=== PATIENT | male | born 1935 | race Caucasian/White ===

== ENCOUNTER 2019-12-25 05:28 | Inpatient (IN) ==
[2019-12-25] MEDS ORDERED: HYDROmorphone INJ 0.5 MG/0.5 ML SYR IV STA (05:35)
[2019-12-25] MEDS ORDERED: ONDANSETRON INJ 2 MG/ML 2 ML VIAL IV STA ×2 (05:35→06:55)
--- NOTE | 2019-12-25 05:40 | Emergency Department Note ---
Impression & Plan Closed fracture of left hip, Acute UTI (urinary tract infection), Fall, Hypertension ED Provider Note Name: MARIELA AMADOR Age: 84 Sex: M Arrives Via: Ambulance Informant: Patient, ED Provider: Jose Francisco Rapp MD Chief Complaint: Fall Impression: Closed fracture of left hip Acute UTI Fall Hypertension Medical Decision Makin yr old male unknown to this facility who has history HTN and BPH arrives following fall at home. Deformity left left and imaging consistent with left hip fracture. N/V intact and pain controlled with dilaudid. CT head negative. UA consistent with UTI likely contributing to his fall. He does have a bit of dementia on talking with him and seems to be one that does most of remembering for him. Work-up benign otherwise and patient stable. Hospitalist in to evaluate further Triage/Nursing Notes reviewed by Me Additional history obtained from Differentials:Infection, dehydration, metabolic abnormality, hypo/hyperglycemia, electrolyte disturbance, anemia, hypoxia, cardiac sources, intracerebral event, toxicologic, neurologic, as well as other pathologies. Vital Signs: reviewed and remarkable for HTN Interventions: Saline lock, dilaudid 0.5mg IV, zofran 4mg IV Labs:Reviewed and remarkable for +UTI Imaging:Radiologist interpretation reviewed by me: CT head negative, cxr negative, pelvis/femur left: left hip fracture EKG:Per My Interpretation: Indication Pre-Op: NSR 75 bpm, qtc 473. RBBB. No Ectopy. No Ischemia. No previous for comparison Cardiac/Tele Monitoring: Cardiac Monitoring: An Order was placed for continuous cardiac monitoring. The monitor shows a rate of 75 with a normal sinus rhythm. Consults:Dr Bogdan Graff Hospitalist Plan: Disposition:Hospitalization. Condition: Fair Blood pressure:Elevated - Referred to PCP Prescriptions:none PDMP: n/a History of Present Illness:84 yr old male arrives for evaluation of left hip pain. Patient notes he was getting up to the bathroom when he slipped on the floor. Notes he fell on left hip. He did not strike head. He denies headache, neck pain, LOC. He denies symptoms preceding this fall. He laid on the floor for 30-60 minutes after falling as he was unable to get up. Denies previous falls/injuries. States his legs are always swollen. No medications prior to arrival. Worse with movement, better with rest. ROS: See above HPI for pertinent positives & negatives. A total of 10 systems reviewed and were otherwise negative. Past Medical History:HTN, BPH Past Surgical History:None Family History:parents of old age Social History:Lives with , uses chewing tobacco, no etoh, no cigarettes, retired Home Medications:Lisinopril and "two prostate medicine" Allergies:None Vitals:Blood Pressure: 192/96, Pulse 79, RR 18, T 37C, O2 98% on RA Physical Exam: GENERAL: Patient is chronically unwell appearing and in moderate distress. EYES: No scleral icterus, unremarkable pupils. ENT: Mucous membranes moist, no nasal congestion. NECK: No masses appreciated, nomeningismus, trachea is midline. RESPIRATORY: No dyspnea. Clear to auscultation and equal bilaterally. No wheeze, no rhonchi. CARDIOVASCULAR: Regular rate and rhythm.No murmurs, rubs, gallops appreciated. GASTROINTESTINAL: Abdomen soft, non-tender, no peritonitis.Bowel sounds positive.No masses appreciated. BACK: No midline tenderness, no CVA tenderness EXTREMITIES: Left leg shortened and externally rotated with good sensation and pulses. He has significant pain with rom left hip. Otherwise normal motion all extremities, no cyanosis, 2+ edema bilateral lower legs. NEUROLOGIC: Mild demential, alert and oriented, no acute motor or sensory deficits, no focal weakness, cranial nerves grossly intact. SKIN: Groin candidal skin break down, No rash, no jaundice, no diaphoresis. PSYCH: Appropriate GCS: 15 ED Course: Times/Reassessments: feeling better with pain meds Jose Francisco Rapp MD Past Med/Surg History Social History Smoking Status: Unknown if ever smoked Feels Safe at Home: Yes Allergies Allergies Allergy/AdvReac Type Severity Reaction Status Date / Time No Known Allergies Allergy Verified 12/25/19 05:50 Home Meds Home Medications Medication Instructions Recorded Confirmed Unknown B/P Med 1 dose PO DAILY 12/25/19 12/25/19 Unknown Prostate Med 1 dose PO DAILY 12/25/19 12/25/19 Results & Data (ED) Vital Signs Vital Signs - 24 hr 12/25/19 05:52 12/25/19 06:25 12/25/19 06:51 Temperature 37.0 C Temperature Source Oral Pulse Rate 88 79 Respiratory Rate 18 18 Respiratory Effort / Characteristics Non-Labored Spontaneous Respiratory Depth Normal Respiratory Pattern Regular Blood Pressure 233/110 H 192/96 H Blood Pressure Mean 151 144 Blood Pressure Position Sitting Pulse Oximetry 96 92 89 L Oxygen Delivery Method Room Air Room Air Nasal Cannula Oxygen Flow Rate 0 Sepsis Recent Fever Within 48 Hours No Sepsis New/Unexplained Change in Mental Status No Sepsis Action Taken by Nursing No Action Required Oxygen Flow Rate - Titration 2 Pulse Oximetry Post Tiitration 95 Laboratory Data Result diagrams: 12/25/19 05:50 12/25/19 05:50 Lab Results 12/25/19 12/25/19 12/25/19 Range/Units 05:50 05:50 05:50 WBC 12.54 H (4.8-10.8) K/uL RBC 5.89 (4.7-6.1) M/uL Hgb 16.8 (14.0-18.0) g/dL Hct 52.7 H (42-52) % MCV 89.5 (80-100) fL MCH 28.5 (25-34) pg MCHC 31.9 L (32-36) g/dL RDW Std Deviation 45.0 (36.4-46.3) fL RDW Coeff of Inocencio 13.7 (11.5-14.5) % Plt Count 171 (130-400) K/uL MPV 10.5 H (7.4-10.4) fL Immature Gran % (Auto) 0.4 % Neut % (Auto) 82.9 % Lymph % (Auto) 10.7 % Gem % (Auto) 5.1 % Eos % (Auto) 0.8 % Baso % (Auto) 0.1 % Neut # (Auto) 10.40 H (1.4-6.5) K/uL Lymph # (Auto) 1.34 (1.2-3.4) K/uL Gem # (Auto) 0.64 H (0.11-0.59) K/uL Eos # (Auto) 0.10 (0-0.5) K/uL Baso # (Auto) 0.01 (0-0.2) K/uL Immature Gran # (Auto) 0.05 H (0.00-0.02) K/uL PT 10.8 (9.0-12.0) Seconds INR 1.0 (0.9-1.1) APTT 28.4 (21.0-31.0) Seconds PTT Ratio 1.0 Sodium 143 (136-145) mmol/L Potassium 3.4 L (3.5-5.1) mmol/L Chloride 111 H (98-107) mmol/L Carbon Dioxide 31 (21-32) mmol/L Anion Gap 1.0 L (3-11) BUN 11 (7-18) mg/dl Creatinine 1.20 (0.6-1.4) mg/dl Est Cr Clr Drug Dosing 50.8 ml/min Est GFR ( Amer) 64.4 Est GFR (Non-Af Amer) 55.6 BUN/Creatinine Ratio 9.2 L (10-20) Glucose 103 H (70-99) mg/dl Calcium 9.5 (8.5-10.1) mg/dl Magnesium 2.4 (1.8-2.4) mg/dl TSH 2.480 (0.300-4.500) uIu/ml Urine Color Urine Appearance (Clear) Urine pH (4.5-7.5) Ur Specific [place] (1.000-1.030) Urine Protein (Negative) Urine Glucose (UA) (Negative) Urine Ketones (Negative) Urine Blood (Negative) Urine Nitrite (Negative) Urine Bilirubin (Negative) Urine Urobilinogen (Negative) Ur Leukocyte Esterase (Negative) Urine WBC (Auto) (0-5) /hpf Urine RBC (Auto) (0-4) /hpf U Hyaline Cast (Auto) (0-5) /lpf U Epithel Cells (Auto) (0-5) /lpf Urine Bacteria (Auto) (Negative) Blood Type Antibody Screen 12/25/19 12/25/19 Range/Units 05:58 06:30 WBC (4.8-10.8) K/uL RBC (4.7-6.1) M/uL Hgb (14.0-18.0) g/dL Hct (42-52) % MCV (80-100) fL MCH (25-34) pg MCHC (32-36) g/dL RDW Std Deviation (36.4-46.3) fL RDW Coeff of Inocencio (11.5-14.5) % Plt Count (130-400) K/uL MPV (7.4-10.4) fL Immature Gran % (Auto) % Neut % (Auto) % Lymph % (Auto) % Gem % (Auto) % Eos % (Auto) % Baso % (Auto) % Neut # (Auto) (1.4-6.5) K/uL Lymph # (Auto) (1.2-3.4) K/uL Gem # (Auto) (0.11-0.59) K/uL Eos # (Auto) (0-0.5) K/uL Baso # (Auto) (0-0.2) K/uL Immature Gran # (Auto) (0.00-0.02) K/uL PT (9.0-12.0) Seconds INR (0.9-1.1) APTT (21.0-31.0) Seconds PTT Ratio Sodium (136-145) mmol/L Potassium (3.5-5.1) mmol/L Chloride (98-107) mmol/L Carbon Dioxide (21-32) mmol/L Anion Gap (3-11) BUN (7-18) mg/dl Creatinine (0.6-1.4) mg/dl Est Cr Clr Drug Dosing ml/min Est GFR ( Amer) Est GFR (Non-Af Amer) BUN/Creatinine Ratio (10-20) Glucose (70-99) mg/dl Calcium (8.5-10.1) mg/dl Magnesium (1.8-2.4) mg/dl TSH (0.300-4.500) uIu/ml Urine Color Yellow Urine Appearance Cloudy A (Clear) Urine pH 7.5 (4.5-7.5) Ur Specific [place] 1.015 (1.000-1.030) Urine Protein 1+ H (Negative) Urine Glucose (UA) Negative (Negative) Urine Ketones Negative (Negative) Urine Blood 1+ H (Negative) Urine Nitrite Negative (Negative) Urine Bilirubin Negative (Negative) Urine Urobilinogen Negative (Negative) Ur Leukocyte Esterase 2+ H (Negative) Urine WBC (Auto) >30 H (0-5) /hpf Urine RBC (Auto) 5-10 H (0-4) /hpf U Hyaline Cast (Auto) 1-5 (0-5) /lpf U Epithel Cells (Auto) 0-5 (0-5) /lpf Urine Bacteria (Auto) 1+ H (Negative) Blood Type O Negative Antibody Screen NEGATIVE Administered Medications Discontinued Medications Hydromorphone HCl (Hydromorphone Inj 0.5 Mg/0.5 Ml Syr) 0.5 mg IV NOW STA Stop: 12/25/19 05:36 Last Admin: 12/25/19 05:49 Dose: 0.5 mg Documented by: [id number] Ondansetron HCl (Ondansetron Inj 2 Mg/Ml 2 Ml Vial) 4 mg IV NOW STA Stop: 12/25/19 05:36 Last Admin: 12/25/19 05:49 Dose: 4 mg Documented by: [id number] Ondansetron HCl (Ondansetron Inj 2 Mg/Ml 2 Ml Vial) 4 mg IV NOW STA Stop: 12/25/19 06:56 Last Admin: 12/25/19 07:00 Dose: 4 mg Documented by: [id number] Discharge Plan Visit Data Chief Complaint: Hip Pain Stated Complaint: fall ED Provider: Jose Francisco Rapp Discharge Problem: Closed fracture of left hip, Acute UTI (urinary tract infection), Fall, Hypertension Forms Stand Alone Forms: [facility] Prescriptions Prescriptions: No Action Unknown B/P Med 1 dose PO DAILY RF: 0 Unknown Prostate Med 1 dose PO DAILY RF: 0 Discharge Problem: Closed fracture of left hip Qualifiers: Encounter type: initial encounter Qualified Code(s): S72.002A - Fracture of unspecified part of neck of left femur, initial encounter for closed fracture Fall Qualifiers: Encounter type: initial encounter Qualified Code(s): W19.XXXA - Unspecified fall, initial encounter Hypertension Qualifiers: Hypertension type: essential hypertension Qualified Code(s): I10 - Essential (primary) hypertension
[2019-12-25 06:10] LABS: Basophils # (auto) 0.01 K/uL (0-0.2); Basophils % (auto) 0.1 %; Eosinophils % (auto) 0.8 %; Hematocrit (blood only) 52.7 % (42-52); Hemoglobin 16.8 g/dL (14.0-18.0); Immature Granulocytes # (auto) 0.05 K/uL (0.00-0.02); Immature Granulocytes % (auto) 0.4 %; Lymphocytes # (auto) 1.34 K/uL (1.2-3.4); Lymphocytes % (auto) 10.7 %; Mean Corpuscular Hemoglobin 28.5 pg (25-34); Mean Corpuscular Hgb Conc 31.9 g/dL (32-36); Mean Corpuscular Volume 89.5 fL (80-100); Mean Platelet Volume 10.5 fL (7.4-10.4); Monocytes # (auto) 0.64 K/uL (0.11-0.59); Monocytes % (auto) 5.1 %; Neutrophils % (auto) 82.9 %; Platelet Count 171 K/uL (130-400); RDW Coefficient of Variation 13.7 % (11.5-14.5); Red Blood Count 5.89 M/uL (4.7-6.1); White Blood Count 12.54 K/uL (4.8-10.8)
[2019-12-25 06:15] LABS: Partial Thromboplastin Time 28.4 Seconds (21.0-31.0); Prothrombin Time 10.8 Seconds (9.0-12.0)
[2019-12-25 06:29] LABS: BUN Creatinine Ratio 9.2 (10-20); Calcium 9.5 mg/dl (8.5-10.1); Creatinine Clr Calc Pharmacy 50.8 ml/min; Est GFR (African American) 64.4; Est GFR (Non-African American) 55.6; Magnesium 2.4 mg/dl (1.8-2.4); Potassium 3.4 mmol/L (3.5-5.1)
[2019-12-25 06:40] LABS: Thyroid Stimulating Hormone 2.48 uIu/ml (0.300-4.500)
[2019-12-25 06:52] LABS: Appearance Urine Cloudy (Clear); Bacteria Urine Automated 1+ (Negative); Bilirubin Urine Negative (Negative); Blood Urine 1+ (Negative); Color Urine Yellow; Epithelial Cell Urine Auto 0-5 /lpf (0-5); Glucose Urine UA Negative (Negative); Ketones Urine Negative (Negative); Leukocyte Esterase Urine 2+ (Negative); Nitrite Urine Negative (Negative); Specific Gravity Urine 1.015 (1.000-1.030); Urobilinogen Urine Negative (Negative); WBC Urine Automated >30 /hpf (0-5); pH Urine 7.5 (4.5-7.5)
[2019-12-25 07:02] LABS: Protein Urine 1+ (Negative); Sulfosalicylic Acid Urine Positive (Negative)
[2019-12-25] MEDS ORDERED: cefTRIAXone SODIUM 2,000 MG/70 ML BAG IV STA (07:06)
--- NOTE | 2019-12-25 07:12 | XRay Report ---
XR femur LT 2V routine, XR pelvis 1-2V routine CLINICAL HISTORY: fall, left hip pain COMPARISON STUDY: None. FINDINGS: Mildly displaced left femoral neck fracture. No dislocation. The mid to distal femur is int act. No fracture or dislocation within the pelvis or right hip. The bones are osteopenic. Multiple bl adder stones are noted. IMPRESSION: Mildly displaced left femoral neck fracture. ACT 112: Negative or not required by law. Electronically signed by: Mesfin Soto M.D. 12/25/2019 7:11 AM
--- NOTE | 2019-12-25 07:13 | XRay Report ---
XR chest 1V portable HISTORY: fall, left hip pain COMPARISON: None. FINDINGS: The lungs are clear. The heart is top normal in size. No pleural effusions. No pneumothorax . No rib fractures identified. IMPRESSION: No acute process. ACT 112: Negative or not required by law. Electronically signed by: Mesfin Soto M.D. 12/25/2019 7:12 AM
--- NOTE | 2019-12-25 07:26 | CT Scan Report ---
HEAD CT NONCONTRAST CT DOSE: 614.27 mGy.cm HISTORY: dementia, fall, hip fracture TECHNIQUE: Multiaxial CT images of the head were performed without the use of intravenous contrast. A utomated exposure control was utilized for this study. A dose lowering technique was utilized adheri ng to the principles of ALARA. Comparison: None. Findings: A few partially opacified inferior mastoid air cells. The paranasal sinuses are clear. Mild right lateral scalp swelling. Motion artifact at the high convexity. The calvarium and skull base ar e intact. There is no mass, hematoma, midline shift, acute infarct. White matter hypodensity is nonsp ecific but suggestive of microvascular ischemic change. The ventricles and sulci demonstrate mild age -related involutional changes. Old lacunar infarct within the right thalamus. Impression: No acute intracranial abnormality. Atrophy and microvascular ischemic changes. Right lateral scalp sw elling. ACT 112: Negative or not required by law. Electronically signed by: Mesfin Soto M.D. 12/25/2019 7:25 AM
--- NOTE | 2019-12-25 07:50 | History & Physical Report ---
Date of Service December 25, 2019 Assessment & Plan (1) Fall: -This is a 84 year old Male who was at home and reportedly was got up after sleeping in the night time and fell down several feet from where he was sleeping as per his Dorina ([phone]). Patient appears to have auditory impairment and most of the history provided by his at the bedside. Patient apparently did not have loss of consciousness as he called out for help. Patient was brought to the ED and found to have Mildly displaced left femoral neck fracture. Patient also seen to be hypertensive in the ED likely because of underlying hypertension which is exacerbated by pain from the fall injury. Patient has anderson placed in the ED and urine analysis noted to have bacteria and ED provider started ceftriaxone antibiotic. Patient also noted to have redness of medial left thigh and patient's reports that patient often wets himself from urination and does not keep the area dry as it should be. (2) Closed fracture of left hip: -pain medication with bowel regimen -NPO for now while awaiting orthopedic consult if any surgical interventions -hydration with D5 1/2 normal saline (3) Hypertension: -pain medication -continue home dose lisinopril (4) Acute UTI (urinary tract infection): -continue ceftriaxone empirically and follow the urine culture -anderson care (5) BPH (benign prostatic hyperplasia): -continue home dose tamsulosin and finasteride DVT prophylaxis: heparin subcutaneous Full code as per patient's who helps patient make the medical decisions patient's also signed blood transfusion consent form if blood transfusion needed History of Present Illness This is a 84 year old Male who was at home and reportedly was got up after sleeping in the night time and fell down several feet from where he was sleeping as per his Dorina ([phone]). Patient appears to have auditory impairment and most of the history provided by his at the bedside. Patient apparently did not have loss of consciousness as he called out for help. Patient was brought to the ED and found to have Mildly displaced left femoral neck fracture. Patient also seen to be hypertensive in the ED likely because of underlying hypertension which is exacerbated by pain from the fall injury. Patient has anderson placed in the ED and urine analysis noted to have bacteria and ED provider started ceftriaxone antibiotic. Patient also noted to have redness of medial left thigh and patient's reports that patient often wets himself from urination and does not keep the area dry as it should be. Allergies: Patient's denies that patient has an drug allergies to food or medications Past Surgical History: Patient's denies that patient has had any surgery in the past Family Health History: Patient's denies that health problems with patient's biological relations Primary Care Provider: Darell Garner PA-C Allergies Allergy/AdvReac Type Severity Reaction Status Date / Time No Known Allergies Allergy Verified 12/25/19 05:50 Home Medications Home Medications Medication Instructions Recorded Confirmed Type finasteride 5 mg PO 12/25/19 History lisinopril 10 mg PO 12/25/19 History tamsulosin 0.4 mg PO 12/25/19 History Past Med/Surg History Social History Smoking Status: Unknown if ever smoked Feels Safe at Home: Yes Review of Systems Review of Systems: All systems reviewed & are unremarkable except as noted in Subjective Physical Exam Constitutional: comfortable Eyes: PERRL, conjunctivae normal, anicteric sclerae EOM intact bilaterally ENMT: external ear and nose normal, oropharynx normal Ears: + hearing impairment Neck: trachea midline, no thyromegaly normal visual inspection Respiratory: normal respiratory effort, lungs clear to auscultation Cardiovascular: Rate/Rhythm: regular rate Gastrointestinal (Abdomen): normal bowel sounds, soft, nontender, no hepatosplenomegaly Musculoskeletal: Head/Neck/Chest: normocephalic and head atraumatic Skin: no rashes, warm and dry + rash (left medial thigh rash) Neurologic: PERRL, EOMI, accommodation nl, no face palsy, no dysarthria Psychiatric: Orientation: alert and cooperative Genitourinary: no testicular masses, no penis abnormality (anderson) Results & Data Results & Data ([facility]) Vital Signs (Past 12 Hours) Vital Signs Temp Pulse Resp BP Pulse Ox 12/25/19 06:51 89 L 12/25/19 06:25 79 18 192/96 H 92 12/25/19 05:52 37.0 C 88 18 233/110 H 96 (1) Closed fracture of left hip Encounter type: initial encounter Qualified Code(s): S72.002A - Fracture of unspecified part of neck of left femur, initial encounter for closed fracture (2) Fall Encounter type: initial encounter Qualified Code(s): W19.XXXA - Unspecified fall, initial encounter (3) Hypertension Hypertension type: essential hypertension Qualified Code(s): I10 - Essential (primary) hypertension
[2019-12-25] MEDS ORDERED: bisacodyL 10 MG SUPP PR PRN (07:51)
[2019-12-25] MEDS ORDERED: MAGNESIUM HYDROXIDE SUSP 30 ML UDC PO PRN (07:51)
[2019-12-25] MEDS ORDERED: NALOXONE HCL 0.4 MG/1 ML VIAL/CARP IV PRN (07:51)
[2019-12-25] MEDS ORDERED: ACETAMINOPHEN 325 MG TAB PO PRN (07:53)
[2019-12-25] MEDS ORDERED: oxyCODONE HCL IR 5 MG TAB (IMMEDIATE RELEASE) PO PRN (07:53)
[2019-12-25] MEDS ORDERED: HYDROmorphone INJ 1 MG/ML SYRINGE IV PRN (07:53)
[2019-12-25] MEDS ORDERED: ONDANSETRON INJ 2 MG/ML 2 ML VIAL IV PRN (07:56)
[2019-12-25] MEDS ORDERED: D5W AND 1/2NSS 1,000 ML IV SCH (08:00)
[2019-12-25] MEDS ORDERED: LABETALOL HCL IV 5 MG/ML 20ML IV STA (08:06)
[2019-12-25] MEDS ORDERED: LABETALOL HCL IV 5 MG/ML 20ML IV PRN (08:06)
[2019-12-25] MEDS ORDERED: lisinopril 10 MG TAB PO SCH (09:00)
[2019-12-25] MEDS ORDERED: TAMSULOSIN HCL 0.4 MG CAP PO SCH (09:00)
[2019-12-25] MEDS ORDERED: FINASTERIDE 5 MG TAB PO SCH (09:00)
[2019-12-25] MEDS ORDERED: MICONAZOLE NITRATE POWDER 43 GM EXT PRN (10:28)
[2019-12-25] MEDS: HEPARIN SOD 5,000 UNIT/0.5 ML VIAL SQ SCH ×2 (10:38→20:12)
--- NOTE | 2019-12-25 12:19 | Orthopedic Consultation ---
Date of Consultation December 25, 2019 Assessment & Plan (1) Displaced fracture of left femoral neck: He has a displaced left hip femoral neck fracture. This will require a hip hemiarthroplasty. The timing of the surgery is questionable. His blood pressure was 230/110 upon admission, and is only marginally improved at 180/90 currently. My biggest concern is his current mental status. His states that he is normally very interactive, and able to make his own medical decisions. He does not have a power of director private music therapy agency. He is currently obviously very far from that baseline. He is minimally interactive now, although does follow some simple commands. He cannot even tell me which hip is heard. He has incoherent speech. Will await further assessment and clearance by the medical team before definitively planning for his surgical intervention. Timing to be determined. The hip hemiarthroplasty was discussed with his , who voiced understanding and agreement with the surgical plan. Of note, I am unable to adequately assess for any other injuries due to his current mental status. Present on Admission?: Yes History of Present Illness Reason for Consultation: Left hip fracture Attending Physician: Jose Mcfadden MD History of Present Illness Mr. Munroe is an 84-year-old male who was injured his left hip during unwitnessed ground-level fall last night. The patient is minimally responsive right now, and history was obtained from his . She states that around 3:30 this morning, the patient got out of his recliner that he was sleeping then and presumably fell only about 5 feet away from the recliner. The reason for the fall is unknown, as this was unwitnessed. The patient then called for help, and the son, who is in the house, came to help. EMS was then called as they were unable to get him up. His reports that he was in his normal baseline mental status at that point, and seemed fairly normal last night. She states that he is normally very interactive and oriented. She states that he does have some mild dementia and is sometimes forgetful, but his current mental state is very different from his normal baseline. She also states that he is normally a community ambulator without any aids. He normally makes his own medical d ecisions, and does not have a power of director private music therapy agency. Last oral intake is unknown, but none since about 3:30 AM. Allergies Allergy/AdvReac Type Severity Reaction Status Date / Time No Known Allergies Allergy Verified 12/25/19 05:50 Home Medications Home Medications Medication Instructions Recorded Confirmed Type finasteride 5 mg PO 12/25/19 History lisinopril 10 mg PO 12/25/19 History tamsulosin 0.4 mg PO 12/25/19 History Patient History Social History Smoking Status: Former smoker Second Hand Exposure: No; Do You Dip or Chew Tobacco: Yes; Tobacco Cessation Education Requested by Patient: No Hx Alcohol Use: No Hx Substance Use: No Preferred Language: Mexican Beliefs That Will Affect Care: None Current Living Situation: Spouse Other Information That Helps Us Care for You: No Feels Safe at Home: Yes Safety Concerns: Feels Safe At This Time Physical Exam Physical Exam: General: The patient appears well developed and well nourished. He is awake, but minimally interactive. He stares off into 1 direction, and will only follow some simple commands. He has incoherent speech. He will not respond to orientation questions. Gait and station not assessed due to the known hip fracture. Coordination and balance are unable to be assessed. Skin: The skin over the left hip shows no open wounds. Inspection/Palpation: Visual inspection reveals shortening and external rotation of the leg. There is mild swelling and tenderness to palpation of the thigh and hip area. Compartments are soft and compressible. Range of Motion: Hip range of motion is limited due to pain. Stability: Ligamentous stability was not tested due to the known fracture. Strength: Hip strength is limited due to pain. Intact ankle dorsiflexion and plantarflexion. Sensation: The patient reports no numbness in the leg. Vascular: Leg is warm and well perfused. No diffuse edema. Results & Data ([facility]) Vital Signs (Past 12 Hours) Vital Signs Temp Pulse Pulse Resp BP BP Pulse Ox 12/25/19 11:28 36.6 C 82 20 178/91 H 92 12/25/19 09:34 36.8 C 80 16 98 12/25/19 08:10 87 20 180/87 H 96 12/25/19 06:51 89 L 12/25/19 06:25 79 18 192/96 H 92 12/25/19 05:52 37.0 C 88 18 233/110 H 96 Diagnostic Findings Left hip x-rays show a displaced femoral neck fracture. Minimal arthritic degeneration at the hip joint.
[2019-12-25] MEDS ORDERED: ROCURONIUM BROMIDE 10 MG/ML 10 ML VIAL IV ONE (14:37)
[2019-12-25] MEDS ORDERED: ETOMIDATE 2 MG/ML 20 ML VIAL IV ONE (14:37)
[2019-12-25 16:43] LABS: Eosinophils # (auto) 0.03 K/uL (0-0.5); Eosinophils % (auto) 0.2 %; Hematocrit (blood only) 48.5 % (42-52); Hemoglobin 15.9 g/dL (14.0-18.0); Immature Granulocytes # (auto) 0.04 K/uL (0.00-0.02); Immature Granulocytes % (auto) 0.2 %; Lymphocytes # (auto) 1.39 K/uL (1.2-3.4); Lymphocytes % (auto) 8.3 %; Mean Corpuscular Hemoglobin 28.9 pg (25-34); Mean Corpuscular Volume 88.2 fL (80-100); Monocytes # (auto) 0.51 K/uL (0.11-0.59); Neutrophils # (auto) 14.84 K/uL (1.4-6.5); Neutrophils % (auto) 88.3 %; Platelet Count 152 K/uL (130-400); RDW Coefficient of Variation 13.4 % (11.5-14.5); RDW Standard Deviation 43.6 fL (36.4-46.3); White Blood Count 16.81 K/uL (4.8-10.8)
[2019-12-25 16:49] LABS: Mean Corpuscular Hgb Conc 32.8 g/dL (32-36)
[2019-12-25 17:00] LABS: BUN Creatinine Ratio 8.5 (10-20); Calcium 9.2 mg/dl (8.5-10.1); Creatinine Clr Calc Pharmacy 53.6 ml/min; Est GFR (African American) 69.3; Est GFR (Non-African American) 59.8
[2019-12-25 17:01] LABS: Potassium 4.3 mmol/L (3.5-5.1)
--- NOTE | 2019-12-25 17:14 | Anesthesiology Consultation ---
Date of Service December 25, 2019 Assessment & Plan (1) Encounter for pre-operative examination: Chart Review Chart Review: Acceptable Risk for Surgery and Patient NOT seen in Pre Admission Testing Consults Requested none covid 19 12/25/2019 negative ([id number] rapid). History Surgery Operation Date: 12/26/19 11:40 Proposed Procedures p Left Bipolar Hemiarthroplasty - Gadiel Del Rosario DO Height/Weight Height: 5 ft 9 in Weight: 85.2 kg Allergies Allergy/AdvReac Type Severity Reaction Status Date / Time No Known Allergies Allergy Verified 12/25/19 05:50 Medications Home Medications Medication Instructions Recorded Confirmed Last Taken finasteride 5 mg PO 12/25/19 Unknown lisinopril 10 mg PO 12/25/19 Unknown tamsulosin 0.4 mg PO 12/25/19 Unknown Active Medications Generic Name Dose Route Start Last Admin Trade Name Freq PRN Reason Stop Dose Admin Acetaminophen 325 mg 12/25/19 07:53 12/25/19 08:28 Acetaminophen 325 Mg Tab PO 01/24/20 07:59 325 mg Q6H PRN Administration Pain or Fever Finasteride 5 mg 12/25/19 09:00 12/25/19 10:38 Finasteride 5 Mg Tab PO 01/24/20 08:59 5 mg QAM CHETAN Administration Heparin Sodium (Porcine) 5,000 units 12/25/19 09:45 12/25/19 10:38 Heparin Sod 5,000 Unit/0.5 Ml Vial SQ 01/24/20 09:44 5,000 units Q12 CHETAN Administration Dextrose/Sodium Chloride 1,000 mls @ 80 mls/hr 12/25/19 08:00 12/25/19 08:28 D5w And 1/2nss IV 12/25/19 20:29 80 mls/hr .[id number] CHETAN Administration Lisinopril 10 mg 12/25/19 09:00 12/25/19 10:38 Lisinopril 10 Mg Tab PO 01/24/20 08:59 10 mg QAM CHETAN Administration Oxycodone HCl 5 mg 12/25/19 07:53 12/25/19 08:28 Oxycodone Hcl Ir 5 Mg Tab (Immediate Release) PO 01/08/20 07:52 5 mg Q6H PRN Administration Moderate Pain Tamsulosin HCl 0.4 mg 12/25/19 09:00 12/25/19 10:38 Tamsulosin Hcl 0.4 Mg Cap PO 01/24/20 08:59 0.4 mg QAM CHETAN Administration Past Medical History Medical History (Updated 12/25/19 @ 17:12 by Prashanth Mcfarland MD) Acute UTI (urinary tract infection) BPH (benign prostatic hyperplasia) Fall Hypertension Social History Smoking Status: Former smoker tobacco type: smokeless tobacco Do You Dip or Chew Tobacco: Yes Hx Alcohol Use: No Hx Substance Use: No substance use type: does not use Physical Exam Vital Signs Last Vital Signs Temp 36.6 C 12/25/19 15:39 Pulse 57 L 12/25/19 15:39 Resp 20 12/25/19 15:39 BP 163/84 H 12/25/19 15:39 Pulse Ox 95 12/25/19 15:39 Testing Laboratory Results 12/25/19 16:26 12/25/19 16:26 PT 10.8 Seconds (9.0-12.0) 12/25/19 05:50 INR 1.0 (0.9-1.1) 12/25/19 05:50 APTT 28.4 Seconds (21.0-31.0) 12/25/19 05:50 Urine Color Yellow 12/25/19 06:30 Urine Appearance Cloudy (Clear) A 12/25/19 06:30 Urine pH 7.5 (4.5-7.5) 12/25/19 06:30 Ur Specific [place] 1.015 (1.000-1.030) 12/25/19 06:30 Urine Protein 1+ (Negative) H 12/25/19 06:30 Urine Glucose (UA) Negative (Negative) 12/25/19 06:30 Urine Ketones Negative (Negative) 12/25/19 06:30 Urine Nitrite Negative (Negative) 12/25/19 06:30 Ur Leukocyte Esterase 2+ (Negative) H 12/25/19 06:30 Urine WBC (Auto) >30 /hpf (0-5) H 12/25/19 06:30 Urine RBC (Auto) 5-10 /hpf (0-4) H 12/25/19 06:30 U Hyaline Cast (Auto) 1-5 /lpf (0-5) 12/25/19 06:30 U Epithel Cells (Auto) 0-5 /lpf (0-5) 12/25/19 06:30 Urine Bacteria (Auto) 1+ (Negative) H 12/25/19 06:30 Blood Type O Negative 12/25/19 05:58 Antibody Screen NEGATIVE 12/25/19 05:58 Electrocardiogram Date: 12/25/19 Findings: + NSR @ (75) NSR. RBBB. Inferior infarct, age undetermined.
[2019-12-25] MEDS ORDERED: SODIUM CHLORIDE 0.9% 1000ML 500 ML IV ONE (17:20)
--- NOTE | 2019-12-25 20:02 | Electrocardiogram Report ---
Test Reason : Blood Pressure : / mmHG Vent. Rate : 075 BPM Atrial Rate : 075 BPM P-R Int : 124 ms QRS Dur : 148 ms QT Int : 424 ms P-R-T Axes : 000 -25 -06 degrees QTc Int : 473 ms Normal sinus rhythm Right bundle branch block Inferior infarct , age undetermined Abnormal ECG No previous ECGs available Confirmed by Dany Swift ([id number]) on 12/25/2019 8:01:50 PM Referred By: Confirmed By:Dany Swift
[2019-12-25] MEDS: DOCUSATE SODIUM/SENNA 50/8.6MG TAB PO SCH (20:17)
[2019-12-25] MEDS: SODIUM CHLORIDE 0.9% 1000ML 1,000 ML IV SCH (21:06)
[2019-12-26] MEDS: LABETALOL HCL IV 5 MG/ML 20ML IV PRN (04:01)
[2019-12-26 04:05] LABS: Basophils # (auto) 0.01 K/uL (0-0.2); Basophils % (auto) 0.1 %; Eosinophils # (auto) 0.02 K/uL (0-0.5); Eosinophils % (auto) 0.1 %; Hematocrit (blood only) 49.1 % (42-52); Immature Granulocytes # (auto) 0.03 K/uL (0.00-0.02); Immature Granulocytes % (auto) 0.2 %; Lymphocytes # (auto) 1.08 K/uL (1.2-3.4); Lymphocytes % (auto) 6.9 %; Mean Corpuscular Hemoglobin 28.8 pg (25-34); Mean Corpuscular Hgb Conc 32.6 g/dL (32-36); Mean Corpuscular Volume 88.3 fL (80-100); Mean Platelet Volume 10.5 fL (7.4-10.4); Monocytes # (auto) 0.83 K/uL (0.11-0.59); Monocytes % (auto) 5.3 %; Neutrophils # (auto) 13.75 K/uL (1.4-6.5); Neutrophils % (auto) 87.4 %; Platelet Count 158 K/uL (130-400); RDW Coefficient of Variation 13.4 % (11.5-14.5); RDW Standard Deviation 43.5 fL (36.4-46.3); Red Blood Count 5.56 M/uL (4.7-6.1); White Blood Count 15.72 K/uL (4.8-10.8)
[2019-12-26 04:22] LABS: Albumin Level 3.3 gm/dl (3.4-5.0); BUN Creatinine Ratio 9.2 (10-20); Calcium 8.8 mg/dl (8.5-10.1); Creatinine Clr Calc Pharmacy 58.2 ml/min; Est GFR (African American) 76.6; Est GFR (Non-African American) 66.1
[2019-12-26 04:25] LABS: Albumin Globulin Ratio 0.9 (0.9-2); Bilirubin,Total 1.5 mg/dl (0.2-1); Globulin 3.5 gm/dl (2.5-4.0); Total Protein 6.8 gm/dl (6.4-8.2)
[2019-12-26] MEDS: SODIUM CHLORIDE 0.9% 1000ML 1,000 ML IV SCH ×2 (07:26→16:27)
[2019-12-26] MEDS ORDERED: cefTRIAXone SODIUM 2,000 MG in DEXTROSE 5% 50 ML IV SCH (08:00)
--- NOTE | 2019-12-26 08:08 | Hospitalist Progress Note ---
Date of Service December 26, 2019 Assessment & Plan (1) Fall: -This is a 84 year old Male who was at home and reportedly was got up after sleeping in the night time and fell down several feet from where he was sleeping as per his Dorina ([phone]). Patient appears to have auditory impairment and most of the history provided by his at the bedside. Patient apparently did not have loss of consciousness as he called out for help. Patient was brought to the ED and found to have Mildly displaced left femoral neck fracture. Patient also seen to be hypertensive in the ED likely because of underlying hypertension which is exacerbated by pain from the fall injury. Patient has anderson placed in the ED and urine analysis noted to have bacteria and ED provider started ceftriaxone antibiotic. Patient also noted to have redness of medial left thigh and patient's reports that patient often wets himself from urination and does not keep the area dry as it should be. (2) Closed fracture of left hip: -pain medication with bowel regimen -NPO for now while awaiting orthopedic consult if any surgical interventions -hydration with D5 1/2 normal saline (3) Hypertension: -pain medications -has prn labetalol for elevated blood pressure as instituted by night time doctor -can also use enalprilat in place of oral lisinopril while awaiting formal speech and swallow evaluation (4) Acute UTI (urinary tract infection): -continue ceftriaxone empirically and follow the urine culture -anderson care -monitor medial leg rash from history of patient wetting himself when outpatient (5) BPH (benign prostatic hyperplasia): -hold home dose tamsulosin and finasteride for now (6) Lactic acidosis: -may be from fracture versus urinary tract infection (7) Acute encephalopathy: -unclear whether initial confusion due to left hip fracture, narcotic pain medications, or urinary tract infection -Stroke code called below in regards to facial asymmetry (8) Hearing impairment: -patient known to have hearing impairment. At baseline, patient's family (his Dorina and his son) corroborated that patient does not speak very much and does not not speak loudly. The family members are not observant of how patient looks like when he speaks. (9) Facial asymmetry: -CT head on 12/25/2019 presentation without acute findings but mentioned Old lacunar infarct within the right thalamus -in the AM of 12/26/2019, patient was speaking more to medical team. However he has facial asymmetry more pronounced when speaking (able to talk more with right side of the mouth compared to the left). A stroke alert was called to expedite CT head scan and brain MRI. Patient able to answer some questions about his name and he does not express acute symptoms. He moves the upper extremities. He has left femoral neck fracture and his legs are in waffle boots -neurology consult DVT prophylaxis: has been on heparin 5000 units q12 hours Full Code Admission and Anticipated Discharge Date Admission Date: December 25, 2019 Subjective -patient known to have hearing impairment. At baseline, patient's family (his Dorina and his son) corroborated that patient does not speak very much and does not not speak loudly. The family members are not observant of how patient looks like when he speaks. -CT head on 12/25/2019 presentation without acute findings but mentioned Old lacunar infarct within the right thalamus -in the AM of 12/26/2019, patient was speaking more to medical team. However he has facial asymmetry more pronounced when speaking (able to talk more with right side of the mouth compared to the left). A stroke alert was called to expedite CT head scan and brain MRI Patient able to answer some questions about his name and he does not express acute symptoms. He moves the upper extremities. He has left femoral neck fracture and his legs are in waffle boots Review of Systems Review of Systems: Unobtainable due to cognitive status Physical Exam Constitutional: comfortable Eyes: PERRL, conjunctivae normal, anicteric sclerae EOM intact bilaterally ENMT: Ears: + hearing impairment facial asymmetry more pronounced when patient is speaking (able to talk more with right side of the mouth compared to the left) Neck: trachea midline, no thyromegaly normal visual inspection Respiratory: normal respiratory effort, lungs clear to auscultation Cardiovascular: Rate/Rhythm: regular rate Gastrointestinal (Abdomen): normal bowel sounds, soft, nontender, no hepatosplenomegaly Musculoskeletal: Head/Neck/Chest: normocephalic and head atraumatic Skin: no rashes, warm and dry + rash (left medial thigh rash) Neurologic: PERRL, EOMI, accommodation nl, no face palsy, no dysarthria Psychiatric: Orientation: alert and cooperative Genitourinary: no testicular masses, no penis abnormality (anderson) Results & Data Results & Data ([facility]) Vital Signs (Past 12 Hours) Vital Signs Temp Pulse Pulse Resp BP Pulse Ox 12/26/19 07:45 36.7 C 82 18 164/90 H 94 12/26/19 07:27 90 12/26/19 03:54 36.2 C L 90 20 197/102 H 93 12/25/19 23:00 36.4 C L 96 H 20 219/106 H 93 (1) Fall Encounter type: initial encounter Qualified Code(s): W19.XXXA - Unspecified fall, initial encounter (2) Closed fracture of left hip Encounter type: initial encounter Qualified Code(s): S72.002A - Fracture of unspecified part of neck of left femur, initial encounter for closed fracture (3) Hypertension Hypertension type: essential hypertension Qualified Code(s): I10 - Essential (primary) hypertension
--- NOTE | 2019-12-26 08:14 | CT Scan Report ---
CT head/brain wo con CLINICAL HISTORY: confusion COMPARISON STUDY: 12/25/2019 TECHNIQUE: Axial CT of the brain is performed from the vertex to the skull base. IV contrast was not administered for this examination. A dose lowering technique was utilized adhering to the principles of ALARA. CT DOSE: 614.27 mGy.cm FINDINGS: No intra or extra-axial mass lesions are visualized. There is no CT evidence of acute cortical infarc tion. There is no evidence of midline shift. There is no acute hemorrhage. No calvarial fractures ar e visualized. There are moderate white matter hypodensities likely on a small vessel basis. There is an old right t halamic lacunar infarct There is no evidence of pathologic ventricular dilatation. There is no evidence of acute sinusitis IMPRESSION: No acute intracranial findings ACT 112: Negative or not required by law. Electronically signed by: Dorian Hilario M.D. 12/26/2019 8:12 AM
[2019-12-26] MEDS ORDERED: cefTRIAXone SODIUM 1,000 MG in DEXTROSE 5% 50 ML IV SCH (09:00)
[2019-12-26] MEDS ORDERED: GADOBUTROL 65ML VIAL IV ONE (11:15)
[2019-12-26] MEDS ORDERED: BUPIVACAINE 0.5 % 5 MG/1 ML PF 10ML VIAL ONE (11:22)
--- NOTE | 2019-12-26 11:33 | Magnetic Resonance Report ---
MRI OF THE BRAIN WITHOUT AND WITH IV CONTRAST CLINICAL HISTORY: Altered mental status. Fall. Evaluate for stroke. COMPARISON STUDY: Head CT December 25, 2019 and December 26, 2019. TECHNIQUE: Utilizing a 1.5 Sera magnet and dedicated coil, multiplanar, multiecho imaging of the br ain was performed pre and postcontrast administration. IV administration of 8.5 mL of Gadavist contr ast was uneventful. FINDINGS: Exam is moderately compromised by motion artifact although is diagnostic. There are no foci of restricted diffusion to suggest acute infarct. Areas of increased signal on the diffusion-weighte d sequence are also hyperintense on the ADC map and therefore reflects T2 shine through. Ventricular system is unremarkable. Basilar cisterns are patent. There are no extra axial collections. There is m arked atrophy. Extensive white matter T2 hyperintense foci suggest small vessel disease. No intracran ial mass or pathologic enhancement is identified. Calvarial signal is grossly normal. Flow voids the intracranial vessels are present. IMPRESSION: 1. No acute intracranial findings. 2. Exam moderately compromised by motion artifact although diagnostic. 3. Extensive atrophy and small vessel disease. 4. No intracranial mass or pathologic enhancement. ACT 112: Negative or not required by law. Electronically signed by: Brett Saenz M.D. 12/26/2019 11:32 AM
[2019-12-26] MEDS ORDERED: BACITRACIN INJ 50,000 UNIT VIAL ONE (12:19)
--- NOTE | 2019-12-26 12:23 | History & Physical Bridge Note ---
Date of Service December 26, 2019 History & Physical Bridge Note I have examined the patient, reviewed the History & Physical and in the interval since the performance of the History & Physical I have noted the following changes of clinical significance: no changes noted
[2019-12-26] MEDS ORDERED: ePHEDrine sulfate 50 MG/ML AMP IV PRN (12:33)
[2019-12-26] MEDS ORDERED: ATROPINE SULFATE 0.1 MG/ML 10ML SYR IV PRN (12:33)
[2019-12-26] MEDS ORDERED: ROPIVACAINE 0.5% HCL/PF 150 MG, BUPIVACAINE 0.5% MPF 30 ML, EPINEPHrine 30MG/30ML (OR U... INFIL ONE (13:30)
[2019-12-26] MEDS ORDERED: PROPOFOL IV EMULSION 10 MG/ML 20 ML VIAL IV ONE (13:42)
[2019-12-26] MEDS ORDERED: LIDOCAINE HCL 2% 2 ML VIAL/AMP(20MG/ML) INFIL ONE (13:42)
[2019-12-26] MEDS ORDERED: ceFAZolin 2000MG 2,000 MG/15 ML SYR IV ONE (13:57)
--- NOTE | 2019-12-26 14:37 | Post Operative Brief Note ---
Immediate Post Op Note v1 Date of Surgery December 26, 2019 Pre & Post Diagnosis Operation Date: 12/26/19 11:40 Pre-Op Diagnosis: Left displaced femoral Neck Fracture Post-Op Diagnosis: Left displaced femoral Neck Fracture I identified the patient and participated in the time-out.: Yes Procedure Operation Date: 12/26/19 11:40 Actual Procedures p Left Bipolar Hemiarthroplasty for left hip fracture; Luis press-fit Accolade two 132 degree neck angle size #7, UHR universal head bipolar 53 mm outer diameter, V 40 femoral head 26 mm outer diameter with a -3 mm offset (Left) - Gadiel Del Rosario DO Surgeon Gadiel Del Rosario DO Ski [employer] Chaz Nielsen PA-C Estimated Blood Loss 20 Findings Consistent with Post-Op Diagnosis Specimens Bone and tissue left hip Drains Hemovac Drain (Hemovac x2 left hip) Anesthesia Type Spinal MAC Complications none Disposition Accompanied Patient To Recovery: No Disposition: Recovery Room
--- NOTE | 2019-12-26 15:21 | Anesthesiology Progress Note ---
Date of Service December 26, 2019 Anesthesia Post Procedure Vital Signs Vital Signs: Temp Pulse Pulse Pulse Resp BP BP 12/26/19 15:10 81 14 114/70 12/26/19 15:02 36.5 C 81 15 120/62 12/26/19 12:39 37.5 C 101 H 20 178/159 H 12/26/19 08:28 36.7 C 83 16 188/103 H 12/26/19 07:45 36.7 C 82 18 164/90 H 12/26/19 07:27 90 12/26/19 03:54 36.2 C L 90 20 197/102 H 12/25/19 23:00 36.4 C L 96 H 20 219/106 H 12/25/19 19:00 37 C 102 H 20 212/97 H 211/99 H 12/25/19 15:39 36.6 C 57 L 20 163/84 H Pulse Ox 12/26/19 15:10 100 12/26/19 15:02 100 12/26/19 12:39 99 12/26/19 08:28 97 12/26/19 07:45 94 12/26/19 07:27 12/26/19 03:54 93 12/25/19 23:00 93 12/25/19 19:00 94 12/25/19 15:39 95 Pain Intensity Left Hip: Pain Intensity: 6 Bilateral Head: Pain Intensity: 6 Transfer of Care Handoff Completed per policy Notes Mental Status: alert / awake / arousable and see notes below Patient Amnestic to Procedure: Yes Nausea / Vomiting: adequately controlled Pain: adequately controlled Airway Patency, RR, SpO2: stable & adequate BP & HR: stable & adequate Hydration State: stable & adequate Neuraxial Anesthesia: was administered and sensory block is resolving Anesthetic Complications: no major complications apparent Notes: at baseline mental status
--- NOTE | 2019-12-26 15:40 | XRay Report ---
XR hip 1V LT w pelvis HISTORY: 84 years-old Male IN PACU - A/P PELVIS and LATERAL HIP left hip total joint arthroplasty COMPARISON: Left femur radiographs of same day TECHNIQUE: 2 views of the left hip FINDINGS: Left hip total joint arthroplasty demonstrates satisfactory alignment. Expected postsurgical soft tis germaine swelling and deep tissue air with lateral skin keron and surgical drainage catheter. No unexpec ananth retained foreign body. Moderate right hip posterior arthritis. Demineralized appearance of the delon dianelys. Multiple bladder calculi. IMPRESSION: Left hip total joint arthroplasty with expected postoperative changes. ACT 112: Negative or not required by law. The above report was generated using voice recognition software. It may contain grammatical, syntax o r spelling errors. Electronically signed by: Vicente Reed M.D. 12/26/2019 3:38 PM
--- NOTE | 2019-12-26 15:43 | Operative Report (OR) ---
DATE OF OPERATION: 12/26/2019 PREOPERATIVE DIAGNOSIS: Left displaced femoral neck fracture. POSTOPERATIVE DIAGNOSIS: Same. PROCEDURE: Left hip hemiarthroplasty using a Luis Accolade II 132 degree neck angle stem size 7, UHR universal head bipolar 53 mm outer diameter and a V40 femoral head 26 mm outer diameter, negative 3 mm offset. SURGEON: Gadiel Del Rosario DO SOCIAL SCIENCES DEPARTMENT CHAIR: Chaz Nielsen PA-C who was present for patient positioning, sterile prep and drape, management of retractors and instruments. He was present through the critical portions of the case including wound closure, application of sterile dressing and transport of the patient to recovery. ANESTHESIA: Spinal MAC. SPECIMENS: Bone and tissue left hip. DRAINS: Hemovac x2. COMPLICATIONS: None. BLOOD LOSS: 20 mL PERTINENT HISTORY: This is an 84-year-old gentleman who sustained a mechanical fall, had pain and difficulty ambulating and presented to [facility], admitted to the medicine service, stabilized for surgery and scheduled for surgery as indicated. All potential risks, benefits, complications, alternatives, rehab, potential for incomplete relief of symptoms, need for further surgery, DVT, PE, , persistent pain, swelling, scarring, weakness, neurovascular injury, wound complications, hardware failure, nonunion, malunion, bone fracture were discussed with the patient and his who is his power of securities attorney. The patient and the decided to proceed with procedure as indicated. PROCEDURE: The patient was taken to the operative suite and placed supine on the Operating Room table. After review of the consent, identification of proper operative site, the patient was sedated. Spinal anesthetic was administered without difficulty. The patient was then placed in a left lateral decubitus position with the affected side up. Stulberg positioning pads were placed on the OR table. All bony prominences were properly padded and protected including use of an axillary roll. After the right hip was then sterilely prepped and draped in usual fashion, a 10 blade scalpel incision was made centered over the anterior one third of the greater trochanter. The incision was deepened to subcutaneous tissue. Meticulous hemostasis with electrocautery. Full thickness skin flaps were developed. Care was taken to cauterize any small punctate bleeders with a Bovie. Next, the iliotibial band was then incised along the skin incision, retracted both anteriorly and posteriorly using a Charnley retractor over moistened surgical towels. Next, abductor split was made over the neck and head of the femur down to the level of the trochanter and then this was carried around the greater trochanter and then down the shaft of the femur via the vastus lateralis. All soft tissues were then sharply elevated with electrocautery anteriorly including the gluteus medius, the gluteus john, the capsule and then the vastus lateralis. The fractured femoral neck was clearly identified and then a sagittal saw was used to resect the proximal neck cut without any difficulty approximately one fingerbreadth proximal to the lesser trochanter. Next, the femoral head was extracted from the acetabulum and measured to be approximately 53 mm in diameter. A 53 mm trial was placed with appropriate retractors around the acetabulum, noted to have excellent fit and stability. Then box osteotome and trial reamer placed in the proximal femur followed by sequential upbroaching until a size 11 was firmly placed. Next, the calcar reamer was utilized to smooth the proximal femur followed by placement of a - 3.5 mm neck, 135 neck angle and a 53 mm outer diameter trial. This was reduced and noted to have excellent stability and range of motion. Leg lengths were reapproximated to neutral and then all trial implants were then removed. Pulsatile lavage with 3 liters of the solution was used to lavaged the femur, acetabulum and then all soft tissues. Next, final implant of a size 11 Paras ML taper femoral implant with a 132 neck angle -3 site with a standard offset was implanted without difficulty and a 28 mm [place] chrome head -3.5 length and a 53 mm inner diameter, 53 mm outer diameter bipolar head was then placed. The acetabulum was then suctioned, reduced. Excellent range of motion and recreation of leg length was achieved. Shuck test was nearly perfect. The leg lengths were restored. Excellent stability. Next, pulsatile lavage was used to cleanse the deep capsule and all soft tissues. Next a #5 Tycron was placed through the greater trochanter and sutured through the anterior capsule, gluteus minimus and then into the gluteus medius and then sutured back to the greater trochanter with two deep Hemovac drains placed. Suture was then tied and cut followed by two [id number] sutures of #5 Tycron in the proximal capsule. Next, the vastus lateralis was then closed using interrupted #1 Vicryl. The gluteus john was closed using #1 Vicryl. The iliotibial band was closed using #1 Vicryl. The wound was copiously irrigated with pulsatile lavage and then the dermis was closed using buried interrupted 2-0 Vicryl. Skin was closed using skin keron. A sterile compressive dressing was applied overwrapped with foam tape. The patient was then awakened and taken to recovery in stable condition with an abductor pillow. I attest to the content of the Intraoperative Record and any orders documented therein. Any exception s are noted below.
[2019-12-26] MEDS ORDERED: traMADol HCL 50 MG TABLET PO PRN (16:00)
[2019-12-26] MEDS ORDERED: NALOXONE HCL 0.4 MG/1 ML VIAL/CARP IV PRN (16:00)
[2019-12-26] MEDS ORDERED: bisacodyL 10 MG SUPP PR PRN (16:00)
[2019-12-26] MEDS ORDERED: MAGNESIUM HYDROXIDE SUSP 30 ML UDC PO PRN (16:00)
[2019-12-26] MEDS: DOCUSATE SODIUM 100 MG CAP PO SCH (21:55)
[2019-12-26] MEDS: DOCUSATE SODIUM/SENNA 50/8.6MG TAB PO SCH (21:55)
[2019-12-26] MEDS: SENNA 8.6 MG TAB PO SCH (21:55)
[2019-12-26] MEDS: ASPIRIN 81 MG ECTAB PO SCH (21:55)
[2019-12-27] MEDS: SODIUM CHLORIDE 0.9% 1000ML 1,000 ML IV SCH (05:12)
--- NOTE | 2019-12-27 07:26 | Orthopedic Progress Note ---
Date of Service December 27, 2019 Assessment & Plan (1) Displaced fracture of left femoral neck: POD#1 left hip bipolar hemiarthroplasty -PT/OT-WBAT, hip precautions -DVT prophylaxis-SCDs, ASA 81mg BID -AM labs pending -D/C planning-uncertain at this time, may need SNF placement. Admission and Anticipated Discharge Date Admission Date: December 25, 2019 Supervising Physician Co-Signing Physician Notes Patient seen and examined, agree with above assessment and plant, patient pulled out his drain. currently on 1 to 1. Subjective Patient is resting in bed, does not really answer to questions. He is staring off to the right in his room. Mumbles, but no coherent. He did require 1-1 care overnight due to uncooperative and pulling at his lines. History limited secondary to current mental status. Review of Systems Review of Systems: All systems reviewed & are unremarkable except as noted in HPI & below Physical Exam Physical Exam: Dressing to left hip is c/d/i, hemovac in place. Calves are soft. Does not react to palpation of lower leg or with gentle hip log roll. Cap refill distally <3s. Constitutional: well developed and well nourished; no acute distress Results & Data ([facility]) Vital Signs (Past 12 Hours) Vital Signs Temp Pulse Pulse Pulse Pulse Resp BP 12/27/19 07:09 37.1 C 90 16 12/27/19 04:46 82 12/27/19 02:52 36.9 C 96 H 20 183/78 H 12/26/19 23:19 36.1 C L 90 20 12/26/19 20:15 36.3 C L 89 23 156/75 H BP Pulse Ox 12/27/19 07:09 172/84 H 92 12/27/19 04:46 12/27/19 02:52 94 12/26/19 23:19 158/81 H 98 12/26/19 20:15 94
[2019-12-27] MEDS ORDERED: PIPERACILL/TAZOBAC CONSULT ACTIVE PRN (07:49)
[2019-12-27 07:58] LABS: Basophils # (auto) 0.01 K/uL (0-0.2); Eosinophils # (auto) 0.02 K/uL (0-0.5); Eosinophils % (auto) 0.1 %; Hematocrit (blood only) 43.8 % (42-52); Immature Granulocytes # (auto) 0.05 K/uL (0.00-0.02); Immature Granulocytes % (auto) 0.2 %; Lymphocytes # (auto) 0.72 K/uL (1.2-3.4); Lymphocytes % (auto) 3.6 %; Mean Corpuscular Hemoglobin 28.2 pg (25-34); Mean Corpuscular Volume 88.1 fL (80-100); Mean Platelet Volume 10.7 fL (7.4-10.4); Monocytes # (auto) 1.82 K/uL (0.11-0.59); Monocytes % (auto) 9.1 %; Neutrophils # (auto) 17.47 K/uL (1.4-6.5); Platelet Count 174 K/uL (130-400); RDW Coefficient of Variation 13.6 % (11.5-14.5); RDW Standard Deviation 43.6 fL (36.4-46.3); Red Blood Count 4.97 M/uL (4.7-6.1); White Blood Count 20.09 K/uL (4.8-10.8)
--- NOTE | 2019-12-27 08:20 | Hospitalist Progress Note ---
Date of Service December 27, 2019 Assessment & Plan (1) Fall: -This is a 84 year old Male who was at home and reportedly was got up after sleeping in the night time and fell down several feet from where he was sleeping as per his Dorina ([phone]). Patient appears to have auditory impairment and most of the history provided by his at the bedside. Patient apparently did not have loss of consciousness as he called out for help. Patient was brought to the ED and found to have Mildly displaced left femoral neck fracture. Patient also seen to be hypertensive in the ED likely because of underlying hypertension which is exacerbated by pain from the fall injury. Patient has anderson placed in the ED and urine analysis noted to have bacteria and ED provider started ceftriaxone antibiotic. Patient also noted to have redness of medial left thigh and patient's reports that patient often wets himself from urination and does not keep the area dry as it should be. (2) Closed fracture of left hip: -pain medication with bowel regimen -s/p Left hip hemiarthroplasty on 12/26/2019 -on aspirin 81 mg BID as per orthopedics -management of wound vac as per orthopedics -PT/OT (3) Acute UTI (urinary tract infection): with possible Bacteremia -urine culture with strep -has been empirically on ceftriaxone since admission but because blood culture also gram positive cocci, antibiotic treatment upgraded from ceftriaxone to Zosyn starting on 12/27/2019 and repeat blood culture drawn on 12/27/2019 (4) Lactic acidosis: -on admission, and has resolved with the IV fluids (5) Acute encephalopathy: -unclear whether initial confusion due to left hip fracture, narcotic pain medications, or tract infection -Stroke code called below in regards to facial asymmetry (6) Hearing impairment: -patient known to have hearing impairment. At baseline, patient's family ( his Dorina and his son) corroborated that patient does not speak very much and does not not speak loudly. The family members are not observant of how patient looks like when he speaks. (7) Facial asymmetry: -CT head on 12/25/2019 presentation without acute findings but mentioned Old lacunar infarct within the right thalamus -in the AM of 12/26/2019, patient was speaking more to medical team. However he has facial asymmetry more pronounced when speaking (able to talk more with right side of the mouth compared to the left). A stroke alert was called to expedite CT head scan and brain MRI. Patient able to answer some questions about his name and he does not express acute symptoms. He moves the upper extremities. He has left femoral neck fracture and his legs are in waffle boots -CT head 12/26/2019: No acute intracranial findings patient with not CT head finding of stroke and is likely not a candidate for TPA because of unclear chronicity of facial asymmetry -MRI Brain 12/26/2019 No acute intracranial findings. Exam moderately compromised by motion artifact although diagnostic. Extensive atrophy and small vessel disease. No intracranial mass or pathologic enhancement. -stroke is unlikely, patient proceeded to orthopedic surgery on 12/26/2019, post- operatively patient continues to have facial asymmetry with is visible with speech but no other focal symptoms other than poor orientation to the hospital setting. -on 1 to 1 observation -His plans to see the patient in the hospital on 12/27/2019 to verify whether patient near his baseline or not (8) Hypertension: -pain medications -has prn labetalol for elevated blood pressure -resume home dose lisinopril (9) BPH (benign prostatic hyperplasia): -resume home dose tamsulosin and finasteride for now DVT prophylaxis: was initially on heparin 5000 units q12 hours, but now postoperatively on aspirin 81 mg BID as per orthopedics Full Code Admission and Anticipated Discharge Date Admission Date: December 25, 2019 Subjective patient proceeded to orthopedic surgery on 12/26/2019, post-operatively patient continues to have facial asymmetry with is visible with speech but no other focal symptoms other than poor orientation to the hospital setting. -on to observation -His plans to see the patient in the hospital on 12/27/2019 to verify whether patient near his baseline or not patient speaking but not able to do full review of systems because of his confusion Review of Systems Review of Systems: All systems reviewed & are unremarkable except as noted in Subjective and Unobtainable due to cognitive status Physical Exam Constitutional: comfortable Eyes: PERRL, conjunctivae normal, anicteric sclerae EOM intact bilaterally ENMT: Ears: + hearing impairment facial asymmetry Neck: trachea midline, no thyromegaly normal visual inspection Respiratory: normal respiratory effort, lungs clear to auscultation Cardiovascular: Rate/Rhythm: regular rate Gastrointestinal (Abdomen): normal bowel sounds, soft, nontender, no hepatosplenomegaly Musculoskeletal: Head/Neck/Chest: normocephalic and head atraumatic legs in waffle boots, left thigh with wound vac Neurologic: PERRL, EOMI, accommodation nl, no face palsy, no dysarthria Psychiatric: Orientation: alert Genitourinary: + penis abnormality (anderson) Results & Data Results & Data ([facility]) Vital Signs (Past 12 Hours) Vital Signs Temp Pulse Pulse Pulse Resp BP BP 12/27/19 07:49 85 12/27/19 07:09 37.1 C 90 16 172/84 H 12/27/19 04:46 82 12/27/19 02:52 36.9 C 96 H 20 183/78 H 12/26/19 23:19 36.1 C L 90 20 158/81 H Pulse Ox 12/27/19 07:49 12/27/19 07:09 92 12/27/19 04:46 12/27/19 02:52 94 12/26/19 23:19 98 (1) Hypertension Hypertension type: essential hypertension Qualified Code(s): I10 - Essential (primary) hypertension (2) Fall Encounter type: initial encounter Qualified Code(s): W19.XXXA - Unspecified fall, initial encounter (3) Closed fracture of left hip Encounter type: initial encounter Qualified Code(s): S72.002A - Fracture of unspecified part of neck of left femur, initial encounter for closed fracture
[2019-12-27 08:26] LABS: BUN Creatinine Ratio 16.9 (10-20); Calcium 8.7 mg/dl (8.5-10.1); Creatinine Clr Calc Pharmacy 58.2 ml/min; Est GFR (African American) 75.7; Est GFR (Non-African American) 65.3
[2019-12-27] MEDS ORDERED: PIPERACILLIN/TAZOBACTAM 3.375 GM in DEXTROSE 5% 100 ML IV ONE (08:30)
[2019-12-27] MEDS: MoRPHine SULFATE 4 MG/ML 1 ML CARP\\VIAL IV PRN ×3 (08:32→20:17)
[2019-12-27] MEDS: DOCUSATE SODIUM 100 MG CAP PO SCH (10:08)
[2019-12-27] MEDS: MULTIVITAMIN TAB PO SCH (10:08)
[2019-12-27] MEDS: ASPIRIN 81 MG ECTAB PO SCH ×2 (10:08→20:53)
[2019-12-27] MEDS: lisinopril 10 MG TAB PO SCH (13:25)
[2019-12-27] MEDS: FINASTERIDE 5 MG TAB PO SCH (13:25)
[2019-12-27] MEDS: TAMSULOSIN HCL 0.4 MG CAP PO SCH (13:25)
[2019-12-27] MEDS: PIPERACILLIN/TAZOBACTAM 3.375 GM in DEXTROSE 5% 100 ML IV SCH ×2 (15:20→23:24)
[2019-12-27] MEDS: LABETALOL HCL IV 5 MG/ML 20ML IV PRN ×2 (15:53→19:40)
[2019-12-27] MEDS: D5W AND 1/2NSS 1,000 ML IV SCH (16:24)
[2019-12-27] MEDS: NITROGLYCERIN 2% OINTMENT 30GM TUBE EXT SCH ×2 (16:28→23:26)
[2019-12-27] MEDS ORDERED: MULTI-VITAMIN INFUSION 10 ML, THIAMINE HCL 100 MG, FOLIC ACID 1 MG in SODIUM CHLORIDE 0... IV ONE (16:45)
[2019-12-27] MEDS: DOCUSATE SODIUM/SENNA 50/8.6MG TAB PO SCH (20:53)
[2019-12-27] MEDS: SENNA 8.6 MG TAB PO SCH (20:53)
[2019-12-27 21:09] LABS: PCO2 ABG 37 mmHg (35-46); PO2 ABG 110 mmHg (80-95); pH ABG 7.42 (7.35-7.45)
[2019-12-27 21:10] LABS: Base Excess ABG -1.1 mEq/L (-9-1.8); HCO3 ABG 23 mmol/L (19-24); Oxygen Saturation ABG 98.2 % (90-95)
[2019-12-27 21:11] LABS: Allen Test Pos (Pos)
[2019-12-27 21:16] LABS: Basophils # (auto) 0.01 K/uL (0-0.2); Basophils % (auto) 0.1 %; Eosinophils # (auto) 0.01 K/uL (0-0.5); Eosinophils % (auto) 0.1 %; Hematocrit (blood only) 37.8 % (42-52); Hemoglobin 12.3 g/dL (14.0-18.0); Immature Granulocytes # (auto) 0.03 K/uL (0.00-0.02); Immature Granulocytes % (auto) 0.2 %; Lymphocytes # (auto) 0.58 K/uL (1.2-3.4); Lymphocytes % (auto) 3.7 %; Mean Corpuscular Hemoglobin 28.6 pg (25-34); Mean Corpuscular Hgb Conc 32.5 g/dL (32-36); Mean Corpuscular Volume 87.9 fL (80-100); Mean Platelet Volume 10.6 fL (7.4-10.4); Monocytes # (auto) 1.57 K/uL (0.11-0.59); Monocytes % (auto) 10.1 %; Neutrophils # (auto) 13.31 K/uL (1.4-6.5); Neutrophils % (auto) 85.8 %; Platelet Count 155 K/uL (130-400); RDW Coefficient of Variation 13.5 % (11.5-14.5); RDW Standard Deviation 43.6 fL (36.4-46.3); White Blood Count 15.51 K/uL (4.8-10.8)
[2019-12-27 21:23] LABS: Albumin Level 2.4 gm/dl (3.4-5.0); Calcium 8.2 mg/dl (8.5-10.1); Est GFR (African American) 86.6; Est GFR (Non-African American) 74.7; Potassium 3.5 mmol/L (3.5-5.1)
[2019-12-27 21:31] LABS: Albumin Globulin Ratio 0.8 (0.9-2); Bilirubin,Total 1.2 mg/dl (0.2-1); Globulin 3.1 gm/dl (2.5-4.0); Total Protein 5.5 gm/dl (6.4-8.2); Troponin I 2.74 ng/ml (0-0.045)
--- NOTE | 2019-12-27 22:22 | CT Scan Report ---
CT SCAN OF THE BRAIN WITHOUT IV CONTRAST CLINICAL HISTORY: Change in mental status. COMPARISON STUDY: CT and MRI of the brain dated 12/26/2019. TECHNIQUE: Unenhanced axial CT scan of the brain is performed from the vertex to the skull base. A do se lowering technique was utilized adhering to the principles of ALARA. CT DOSE: 614.27 mGy.cm FINDINGS: Brain parenchyma: There are age-related involutional changes noting moderate to advanced subcortical and periventricular microangiopathic change. There is no hemorrhage, mass effect, or evidence of acu te territorial ischemia by CT criteria. There is a chronic lacunar infarct in the right thalamus. Gra y-white matter differentiation is preserved. No extra-axial fluid collection is seen. Mineralization is noted in the basal ganglia. Ventricles, sulci, cisterns: Prominent secondary to involutional change. Intracranial vasculature: There is atherosclerotic calcification of the cavernous carotid and vertebr al arteries. Calvarium: Unremarkable. Sinuses and mastoids: The visualized paranasal sinuses are clear. There are trace mastoid effusions. Orbits: The bony orbits are grossly intact. IMPRESSION: There is no hemorrhage, mass effect, or evidence of acute territorial ischemia by CT kieran shelton. ACT 112: Negative or not required by law. Electronically signed by: Eddie Gil M.D. 12/27/2019 10:21 PM
[2019-12-27] MEDS ORDERED: HEPARIN SODIUM/DEXTROSE 25,000 UNITS/500 ML BAG IV SCH (22:45)
[2019-12-28 00:14] LABS: INR 1.1 (0.9-1.1); Partial Thromboplastin Ratio 1.2; Partial Thromboplastin Time 33.2 Seconds (21.0-31.0)
[2019-12-28] MEDS ORDERED: ACETAMINOPHEN 1,000 MG/100 ML VIAL IV PRN (01:51)
[2019-12-28] MEDS: MoRPHine SULFATE 4 MG/ML 1 ML CARP\\VIAL IV PRN (02:33)
[2019-12-28] MEDS ORDERED: MoRPHine SULFATE 2 MG/ML CARP IV STA (04:34)
[2019-12-28] MEDS: NITROGLYCERIN 2% OINTMENT 30GM TUBE EXT SCH ×4 (05:58→23:32)
[2019-12-28] MEDS: PIPERACILLIN/TAZOBACTAM 3.375 GM in DEXTROSE 5% 100 ML IV SCH ×3 (05:58→23:26)
[2019-12-28 06:52] LABS: Eosinophils # (auto) 0.04 K/uL (0-0.5); Eosinophils % (auto) 0.3 %; Hematocrit (blood only) 39.1 % (42-52); Hemoglobin 12.5 g/dL (14.0-18.0); Immature Granulocytes # (auto) 0.06 K/uL (0.00-0.02); Immature Granulocytes % (auto) 0.4 %; Lymphocytes # (auto) 0.72 K/uL (1.2-3.4); Lymphocytes % (auto) 4.9 %; Mean Corpuscular Hemoglobin 28.4 pg (25-34); Mean Corpuscular Volume 88.9 fL (80-100); Monocytes # (auto) 1.56 K/uL (0.11-0.59); Monocytes % (auto) 10.7 %; Neutrophils # (auto) 12.21 K/uL (1.4-6.5); Neutrophils % (auto) 83.7 %; Platelet Count 171 K/uL (130-400); RDW Coefficient of Variation 13.5 % (11.5-14.5); RDW Standard Deviation 43.9 fL (36.4-46.3); White Blood Count 14.59 K/uL (4.8-10.8)
[2019-12-28] MEDS: Heparin IV Standard *NO* Bolus IV SCH (06:53)
[2019-12-28 07:12] LABS: Partial Thromboplastin Ratio > 5.0
[2019-12-28 07:15] LABS: Partial Thromboplastin Time > 139.0 Seconds (21.0-31.0)
[2019-12-28 07:35] LABS: Albumin Level 2.5 gm/dl (3.4-5.0); BUN Creatinine Ratio 17.6 (10-20); Calcium 8.8 mg/dl (8.5-10.1); Creatinine Clr Calc Pharmacy 52.3 ml/min; Est GFR (Non-African American) 63.9; Magnesium 2.2 mg/dl (1.8-2.4); Potassium 3.8 mmol/L (3.5-5.1)
[2019-12-28 07:46] LABS: Albumin Globulin Ratio 0.7 (0.9-2); Bilirubin,Total 1.3 mg/dl (0.2-1); Globulin 3.5 gm/dl (2.5-4.0); Phosphorus 1.9 mg/dl (2.5-4.9); Troponin I 2.95 ng/ml (0-0.045)
--- NOTE | 2019-12-28 07:55 | Orthopedic Progress Note ---
Date of Service December 28, 2019 Assessment & Plan (1) Displaced fracture of left femoral neck: POD#2 left hip bipolar hemiarthroplasty -PT/OT-WBAT, hip precautions -DVT prophylaxis-SCDs, ASA 81mg BID -AM labs hemoglobin stable at 12.5 -As per medicine -D/C planning-uncertain at this time, may need SNF placement. Admission and Anticipated Discharge Date Admission Date: December 25, 2019 Subjective Patient is resting in bed, sleeping. Does not really answer to questions. He is on 2 to 1 observation uncooperative and pulling at his lines. Pulled Hemovac out yesterday and ripped hip dressing off yesterday evening. In cloth mits due to this. There was concern overnight about possible NSTEMI. He is on Zosyn for positive urine cultures and blood cx's. History limited secondary to current mental status. Review of Systems Review of Systems: Unobtainable due to cognitive status Physical Exam Physical Exam: Dressing to left hip is c/d/i,. Calves are soft. Does not react to palpation of lower leg or with gentle hip log roll. Cap refill distally <3s. Constitutional: well developed and well nourished; no acute distress Results & Data ([facility]) Vital Signs (Past 12 Hours) Vital Signs Temp Pulse Pulse Pulse Resp BP Pulse Ox 12/28/19 07:11 98 H 12/28/19 07:01 37.1 C 86 18 164/90 H 97 12/28/19 03:28 36.9 C 99 H 22 168/87 H 97 12/28/19 00:16 83 12/27/19 21:54 36.7 C 89 20 155/77 H 97
--- NOTE | 2019-12-28 08:16 | Hospitalist Progress Note ---
Date of Service December 28, 2019 Assessment & Plan (1) Fall: -This is a 84 year old Male who was at home and reportedly was got up after sleeping in the night time and fell down several feet from where he was sleeping as per his Dorina ([phone]). Patient appears to have auditory impairment and most of the history provided by his at the bedside. Patient apparently did not have loss of consciousness as he called out for help. Patient was brought to the ED and found to have Mildly displaced left femoral neck fracture. Patient also seen to be hypertensive in the ED likely because of underlying hypertension which is exacerbated by pain from the fall injury. Patient has anderson placed in the ED and urine analysis noted to have bacteria and ED provider started ceftriaxone antibiotic. Patient also noted to have redness of medial left thigh and patient's reports that patient often wets himself from urination and does not keep the area dry as it should be. (2) Closed fracture of left hip: -pain medication with bowel regimen -s/p Left hip hemiarthroplasty on 12/26/2019 -on aspirin 81 mg BID as per orthopedics -management of wound vac as per orthopedics -PT/OT (3) Acute UTI (urinary tract infection): with possible Bacteremia -admission urine culture with speciation of pansensitive Enterococcus faecalis instead of strep -has been empirically on ceftriaxone since admission but because blood culture also gram positive cocci, antibiotic treatment upgraded from ceftriaxone to Zosyn starting on 12/27/2019 and repeat blood culture drawn on 12/27/2019 (4) Lactic acidosis: -on admission, and has resolved with the IV fluids (5) Acute encephalopathy: -unclear whether initial confusion due to left hip fracture, narcotic pain medications, or tract infection -Stroke code called below in regards to facial asymmetry (6) Hearing impairment: -patient known to have hearing impairment. At baseline, patient's family (his Dorina and his son) corroborated that patient does not speak very much and does not not speak loudly. The family members are not observant of how patient looks like when he speaks. (7) Facial asymmetry: likely has dementia -CT head on 12/25/2019 presentation without acute findings but mentioned Old lacunar infarct within the right thalamus -in the AM of 12/26/2019, patient was speaking more to medical team. However he has facial asymmetry more pronounced when speaking (able to talk more with right side of the mouth compared to the left). A stroke alert was called to expedite CT head scan and brain MRI. Patient able to answer some questions about his name and he does not express acute symptoms. He moves the upper extremities. He has left femoral neck fracture and his legs are in waffle boots -CT head 12/26/2019: No acute intracranial findings patient with not CT head finding of stroke and is likely not a candidate for TPA because of unclear chronicity of facial asymmetry -MRI Brain 12/26/2019 No acute intracranial findings. Exam moderately compromised by motion artifact although diagnostic. Extensive atrophy and small vessel disease. No intracranial mass or pathologic enhancement. -stroke is unlikely, patient proceeded to orthopedic surgery on 12/26/2019, post- operatively patient continues to have facial asymmetry with is visible with speech but no other focal symptoms other than poor orientation to the hospital setting. -on 1 to 1 observation -patient's at the bedside on reports that patient may have Parkinson's disease or dementia that was not formally diagnosed as outpatient, baseline often forgetful at home, and that patient's facial features of facial asymmetry is baseline (8) Hypertension: -pain medications -has prn labetalol for elevated blood pressure -home dose lisinopril -nitropaste was started on 12/27/2019 to help with the hypertensive blood pressures (9) Troponin level elevated: -the harp repairer was concerned that patient with more confusion and workup by nocturnalist Dr. Garcia included troponins of which were elevated as 2.7 on night time of 12/27/2019, Dr. Garcia reports he discussed with orthopedics to allow for IV heparin to be started because of elevated troponins. IV heparin was started. Second troponin 2.95 in AM of 12/28/2019. On 12/28/2019 morning exam by day time hospitalist, patient awake and not as agitated as he was on . Patient denied pain of the chest or abdomen or of the legs. There will be pending echocardiogram and cardiology consult. Hopefully the elevated troponins are reflective of demand ischemic rather than a myocardial infarction (10) BPH (benign prostatic hyperplasia): -home dose tamsulosin and finasteride for now DVT prophylaxis: was initially on heparin 5000 units q12 hours, but the heparin subcut was switched postoperatively to aspirin 81 mg BID as per orthopedics, and as of 12/28/2019 patient on IV heparin as started by nocturnalist for elevated troponins Full Code Admission and Anticipated Discharge Date Admission Date: December 25, 2019 Subjective Overnight, the harp repairer was concerned that patient with more confusion and workup by nocturnalist Dr. Garcia included troponins of which were elevated as 2.7 on night time of 12/27/2019, Dr. Garcia reports he discussed with orthopedics to allow for IV heparin to be started because of elevated troponins. IV heparin was started. Second troponin 2.95 in AM of 12/28/2019. On exam by day time hospitalist, patient awake and not as agitated as he was on . Patient denied pain of the chest or abdomen or of the legs. There will be pending echo cardiogram and cardiology consult. Hopefully the elevated troponins are reflective of demand ischemic rather than a myocardial infarction Review of Systems Review of Systems: All systems reviewed & are unremarkable except as noted in Subjective Physical Exam Constitutional: comfortable Eyes: PERRL, conjunctivae normal, anicteric sclerae EOM intact bilaterally ENMT: external ear and nose normal, oropharynx normal Ears: + hearing impairment Neck: trachea midline, no thyromegaly normal visual inspection Respiratory: normal respiratory effort, lungs clear to auscultation Cardiovascular: Rate/Rhythm: regular rate Gastrointestinal (Abdomen): normal bowel sounds, soft, nontender, no hepatosplenomegaly Musculoskeletal: Head/Neck/Chest: normocephalic and head atraumatic hands in mittens Skin: no rashes, warm and dry Neurologic: PERRL, EOMI, accommodation nl, no face palsy, no dysarthria Psychiatric: Orientation: alert Genitourinary: + penis abnormality (anderson) Results & Data Results & Data ([facility]) Vital Signs (Past 12 Hours) Vital Signs Temp Pulse Pulse Pulse Resp BP Pulse Ox 12/28/19 07:11 98 H 12/28/19 07:01 37.1 C 86 18 164/90 H 97 12/28/19 03:28 36.9 C 99 H 22 168/87 H 97 12/28/19 00:16 83 12/27/19 21:54 36.7 C 89 20 155/77 H 97 (1) Fall Encounter type: initial encounter Qualified Code(s): W19.XXXA - Unspecified fall, initial encounter (2) Closed fracture of left hip Encounter type: initial encounter Qualified Code(s): S72.002A - Fracture of unspecified part of neck of left femur, initial encounter for closed fracture (3) Hypertension Hypertension type: essential hypertension Qualified Code(s): I10 - Essential (primary) hypertension
[2019-12-28 08:41] LABS: Partial Thromboplastin Ratio 1.7
[2019-12-28] MEDS: TAMSULOSIN HCL 0.4 MG CAP PO SCH (09:21)
[2019-12-28] MEDS: lisinopril 10 MG TAB PO SCH (09:21)
[2019-12-28] MEDS: MULTIVITAMIN TAB PO SCH (09:21)
[2019-12-28] MEDS: FINASTERIDE 5 MG TAB PO SCH (09:21)
[2019-12-28] MEDS: HYDROmorphone INJ 0.5 MG/0.5 ML SYR IV PRN ×2 (09:22→12:48)
[2019-12-28] MEDS ORDERED: METOPROLOL TARTRATE 25 MG TAB PO SCH (09:45)
[2019-12-28] MEDS: D5W AND 1/2NSS 1,000 ML IV SCH (10:17)
--- NOTE | 2019-12-28 10:45 | Cardiology Consultation ---
Date of Consultation December 28, 2019 Assessment & Plan (1) Troponin level elevated: Etiology appears secondary to acute demand based ischemia in the setting of fall with fracture, surgery, hypertension and acute delirium. Possible persistent infection with elevated white cell count No acute symptoms though confusion and agitation limits assessment. Echocardiogram under duress this morning demonstrated subtle hypokinesis of the posterior wall with scarring of the inferior wall base suggesting chronic ischemic heart disease. LV systolic function remains preserved Recommendations: Treat underlying demand issues including infection agitation and hypertension. Patient currently high risk for anticoagulation. Add oral beta-leonides, continue lisinopril and topical nitrates. Continue aspirin (2) Acute delirium: (3) Hypertension: History of Present Illness Reason for Consultation: Elevated troponin Requesting Physician: Dr. Mcfadden Attending Physician: Jose Mcfadden MD History of Present Illness Patient is an 84-year-old male whose underlying history is notable for hypertension, prostatic hypertrophy with urinary retention, possible early dementia. Patient presents this admission having suffered a mechanical fall while rising from bed per description. He suffered left hip fracture and has since undergone surgical repair. Perioperatively patient has manifested an acute encephalopathy with agitation and delirium. Urinary tract infection present on admission. Review of chart history is notable for marked agitation, confusion, elevated blood pressure Troponins elevated on laboratory studies ordered EKG without acute changes but reflect right bundle branch block inferior Q waves Echo this morning reflecting old inferior scar with preserved LV function Patient unable to communicate with marked confusion this morning though per staff more alert and was able to take oral medications Allergies Allergy/AdvReac Type Severity Reaction Status Date / Time No Known Allergies Allergy Verified 12/25/19 05:50 Home Medications Home Medications Medication Instructions Recorded Confirmed Type finasteride 5 mg PO 12/25/19 History lisinopril 10 mg PO 12/25/19 History tamsulosin 0.4 mg PO 12/25/19 History Patient History Medical History Acute UTI (urinary tract infection) BPH (benign prostatic hyperplasia) Fall Hypertension Social History Smoking Status: Former smoker Second Hand Exposure: No; Do You Dip or Chew Tobacco: Yes; Tobacco Cessation Education Requested by Patient: No Hx Alcohol Use: No Hx Substance Use: No Preferred Language: Nepalese Beliefs That Will Affect Care: None Current Living Situation: Spouse Other Information That Helps Us Care for You: No Feels Safe at Home: Yes Safety Concerns: Feels Safe At This Time Review of Systems Review of Systems: Unobtainable due to cognitive status Physical Exam Constitutional: + altered mental status Elderly male chronically ill- appearing in soft restraints. Eyes: PERRL, conjunctivae normal, anicteric sclerae ENMT: external ear and nose normal, oropharynx normal Neck: trachea midline, no thyromegaly Respiratory: normal respiratory effort, lungs clear to auscultation Cardiovascular: Rate/Rhythm: regular rate and regular rhythm Heart Sounds: normal S1, normal S2 and + murmur (Grade 1/6 systolic); no gallop Palpation: normal PMI Vessels: normal carotid upstroke and radial pulses present; no JVD and no carotid bruit Extremities: no edema Gastrointestinal (Abdomen): normal bowel sounds, soft, nontender, no hepatosplenomegaly Musculoskeletal: no cyanosis or clubbing, extremities motor strength 5/5 Skin: no rashes, warm and dry Neurologic: PERRL, EOMI, accommodation nl, no face palsy, no dysarthria Psychiatric: Patient awake but moderately agitated not following commands. Minimally verbal Genitourinary: Da Silva catheter in place Results & Data ([facility]) Vital Signs (Past 12 Hours) Vital Signs Temp Pulse Pulse Pulse Resp BP Pulse Ox 12/28/19 07:11 98 H 12/28/19 07:01 37.1 C 86 18 164/90 H 97 12/28/19 03:28 36.9 C 99 H 22 168/87 H 97 12/28/19 00:16 83 Laboratory Results Laboratory Results - last 24 hr 12/27/19 12/27/19 12/27/19 20:51 20:51 20:51 WBC 15.51 H RBC 4.30 L Hgb 12.3 L Hct 37.8 L MCV 87.9 MCH 28.6 MCHC 32.5 RDW Std Deviation 43.6 RDW Coeff of Inocencio 13.5 Plt Count 155 MPV 10.6 H Immature Gran % (Auto) 0.2 Neut % (Auto) 85.8 Lymph % (Auto) 3.7 Williams % (Auto) 10.1 Eos % (Auto) 0.1 Baso % (Auto) 0.1 Neut # (Auto) 13.31 H Lymph # (Auto) 0.58 L Williams # (Auto) 1.57 H Eos # (Auto) 0.01 Baso # (Auto) 0.01 Immature Gran # (Auto) 0.03 H PT INR APTT PTT Ratio ABG pH ABG pCO2 ABG pO2 ABG HCO3 ABG O2 Saturation ABG Base Excess Tony Test Barometric Pressure Oxygen Given Sodium 144 Potassium 3.5 Chloride 114 H Carbon Dioxide 23 Anion Gap 8.0 BUN 19 H Creatinine 0.94 Est Cr Clr Drug Dosing 65.0 Est GFR ( Amer) 86.6 Est GFR (Non-Af Amer) 74.7 BUN/Creatinine Ratio 20.0 Glucose 108 H POC Glucose Lactate 1.4 Calcium 8.2 L Phosphorus Magnesium 2.0 Total Bilirubin 1.2 H AST 62 H ALT 21 Alkaline Phosphatase 48 Ammonia Troponin I 2.740 H* Total Protein 5.5 L Albumin 2.4 L Globulin 3.1 Albumin/Globulin Ratio 0.8 L 12/27/19 12/27/19 12/27/19 20:51 20:51 23:32 WBC RBC Hgb Hct MCV MCH MCHC RDW Std Deviation RDW Coeff of Inocencio Plt Count MPV Immature Gran % (Auto) Neut % (Auto) Lymph % (Auto) Williams % (Auto) Eos % (Auto) Baso % (Auto) Neut # (Auto) Lymph # (Auto) Williams # (Auto) Eos # (Auto) Baso # (Auto) Immature Gran # (Auto) PT INR APTT PTT Ratio ABG pH 7.42 ABG pCO2 37 ABG pO2 110 H ABG HCO3 23 ABG O2 Saturation 98.2 H ABG Base Excess -1.1 Tony Test Pos Barometric Pressure 740.4 Oxygen Given 4 Flowrate Sodium Potassium Chloride Carbon Dioxide Anion Gap BUN Creatinine Est Cr Clr Drug Dosing Est GFR ( Amer) Est GFR (Non-Af Amer) BUN/Creatinine Ratio Glucose POC Glucose 107 H Lactate Calcium Phosphorus Magnesium Total Bilirubin AST ALT Alkaline Phosphatase Ammonia 28.4 Troponin I Total Protein Albumin Globulin Albumin/Globulin Ratio 12/27/19 12/28/19 12/28/19 23:45 06:16 06:16 WBC 14.59 H RBC 4.40 L Hgb 12.5 L Hct 39.1 L MCV 88.9 MCH 28.4 MCHC 32.0 RDW Std Deviation 43.9 RDW Coeff of Inocencio 13.5 Plt Count 171 MPV 11.0 H Immature Gran % (Auto) 0.4 Neut % (Auto) 83.7 Lymph % (Auto) 4.9 Williams % (Auto) 10.7 Eos % (Auto) 0.3 Baso % (Auto) 0.0 Neut # (Auto) 12.21 H Lymph # (Auto) 0.72 L Williams # (Auto) 1.56 H Eos # (Auto) 0.04 Baso # (Auto) 0.00 Immature Gran # (Auto) 0.06 H PT 12.0 INR 1.1 APTT 33.2 H PTT Ratio 1.2 ABG pH ABG pCO2 ABG pO2 ABG HCO3 ABG O2 Saturation ABG Base Excess Tony Test Barometric Pressure Oxygen Given Sodium 143 Potassium 3.8 Chloride 110 H Carbon Dioxide 28 Anion Gap 5.0 BUN 19 H Creatinine 1.07 Est Cr Clr Drug Dosing 52.3 Est GFR ( Amer) 74.0 Est GFR (Non-Af Amer) 63.9 BUN/Creatinine Ratio 17.6 Glucose 158 H POC Glucose Lactate Calcium 8.8 Phosphorus 1.9 L Magnesium 2.2 Total Bilirubin 1.3 H AST 68 H ALT 23 Alkaline Phosphatase 56 Ammonia Troponin I 2.950 H* Total Protein 6.0 L Albumin 2.5 L Globulin 3.5 Albumin/Globulin Ratio 0.7 L 12/28/19 12/28/19 06:16 08:14 WBC RBC Hgb Hct MCV MCH MCHC RDW Std Deviation RDW Coeff of Inocencio Plt Count MPV Immature Gran % (Auto) Neut % (Auto) Lymph % (Auto) Williams % (Auto) Eos % (Auto) Baso % (Auto) Neut # (Auto) Lymph # (Auto) Williams # (Auto) Eos # (Auto) Baso # (Auto) Immature Gran # (Auto) PT INR APTT > 139.0 H* 47.0 H* PTT Ratio > 5.0 1.7 ABG pH ABG pCO2 ABG pO2 ABG HCO3 ABG O2 Saturation ABG Base Excess Tony Test Barometric Pressure Oxygen Given Sodium Potassium Chloride Carbon Dioxide Anion Gap BUN Creatinine Est Cr Clr Drug Dosing Est GFR ( Amer) Est GFR (Non-Af Amer) BUN/Creatinine Ratio Glucose POC Glucose Lactate Calcium Phosphorus Magnesium Total Bilirubin AST ALT Alkaline Phosphatase Ammonia Troponin I Total Protein Albumin Globulin Albumin/Globulin Ratio (1) Hypertension Hypertension type: essential hypertension Qualified Code(s): I10 - Essential (primary) hypertension
--- NOTE | 2019-12-28 11:04 | Electrocardiogram Report ---
Test Reason : Blood Pressure : / mmHG Vent. Rate : 095 BPM Atrial Rate : 095 BPM P-R Int : 140 ms QRS Dur : 138 ms QT Int : 380 ms P-R-T Axes : 060 012 014 degrees QTc Int : 477 ms Sinus rhythm with occasional Premature ventricular complexes Right bundle branch block Cannot rule out Inferior infarct (cited on or before 25-DEC-2019) Abnormal ECG When compared with ECG of 25-DEC-2019 06:00, Premature ventricular complexes are now Present T wave inversion less evident in Inferior leads Confirmed by Heber Lozada ([id number]) on 12/28/2019 11:04:06 AM Referred By: REFERRED SELF Confirmed By:Eliecer Lozada
--- NOTE | 2019-12-28 11:06 | Electrocardiogram Report ---
Test Reason : Blood Pressure : / mmHG Vent. Rate : 097 BPM Atrial Rate : 097 BPM P-R Int : 144 ms QRS Dur : 140 ms QT Int : 384 ms P-R-T Axes : 063 -11 003 degrees QTc Int : 487 ms Normal sinus rhythm Right bundle branch block Possible Inferior infarct (cited on or before 25-DEC-2019) Abnormal ECG When compared with ECG of 27-DEC-2019 22:36, (unconfirmed) Premature ventricular complexes are no longer Present Confirmed by Heber Lozada ([id number]) on 12/28/2019 11:06:06 AM Referred By: REFERRED SELF Confirmed By:Eliecer Lozada
[2019-12-28] MEDS: METOPROLOL TARTRATE 25 MG TAB PO SCH ×3 (12:48→21:16)
[2019-12-28] MEDS: ASPIRIN 81 MG ECTAB PO SCH ×2 (20:47→21:15)
[2019-12-28] MEDS: SENNA 8.6 MG TAB PO SCH ×2 (20:47→21:16)
[2019-12-28] MEDS: LABETALOL HCL IV 5 MG/ML 20ML IV PRN (20:55)
[2019-12-28] MEDS: DOCUSATE SODIUM/SENNA 50/8.6MG TAB PO SCH (21:16)
[2019-12-29] MEDS: NITROGLYCERIN 2% OINTMENT 30GM TUBE EXT SCH ×4 (06:22→23:49)
[2019-12-29] MEDS: PIPERACILLIN/TAZOBACTAM 3.375 GM in DEXTROSE 5% 100 ML IV SCH (06:27)
[2019-12-29 06:31] LABS: Creatinine Clr Calc Pharmacy 57.1 ml/min; Est GFR (African American) 82.3
[2019-12-29] MEDS ORDERED: SODIUM PHOSPHATE 3 MMOL/1 ML INFUSION IV STA (07:24)
[2019-12-29] MEDS ORDERED: SODIUM PHOSPHATE 24 MMOL in SODIUM CHLORIDE 0.9% 500 ML IV ONE (07:30)
[2019-12-29] MEDS: lisinopril 10 MG TAB PO SCH (07:56)
[2019-12-29] MEDS: METOPROLOL TARTRATE 25 MG TAB PO SCH ×3 (07:57→20:00)
[2019-12-29] MEDS: MULTIVITAMIN TAB PO SCH (07:57)
[2019-12-29] MEDS: TAMSULOSIN HCL 0.4 MG CAP PO SCH (07:57)
[2019-12-29] MEDS: ASPIRIN 81 MG ECTAB PO SCH ×2 (07:57→20:00)
[2019-12-29] MEDS: FINASTERIDE 5 MG TAB PO SCH (07:58)
--- NOTE | 2019-12-29 09:34 | Anesthesiology Progress Note ---
Date of Service December 29, 2019 Anesthesia Post Procedure Vital Signs Vital Signs: Temp Pulse Pulse Pulse Resp BP BP 12/29/19 09:16 76 183/88 H 160/92 H 12/29/19 07:00 86 12/29/19 06:55 36.4 C L 88 18 191/92 H 12/29/19 03:18 37.0 C 82 17 165/71 H 12/28/19 23:48 94 H 12/28/19 23:13 36.8 C 94 H 20 163/87 H 12/28/19 15:00 103 H 20 172/96 H 12/28/19 11:02 36.4 C L 87 18 133/72 Pulse Ox 12/29/19 09:16 90 12/29/19 07:00 12/29/19 06:55 98 12/29/19 03:18 95 12/28/19 23:48 12/28/19 23:13 93 12/28/19 15:00 93 12/28/19 11:02 97 Notes Mental Status: alert / awake / arousable and participated in evaluation Patient Amnestic to Procedure: Yes Nausea / Vomiting: adequately controlled Pain: adequately controlled Airway Patency, RR, SpO2: stable & adequate BP & HR: stable & adequate Hydration State: stable & adequate Anesthetic Complications: no major complications apparent
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
--- NOTE | 2019-12-29 10:16 | Hospitalist Progress Note ---
Date of Service December 29, 2019 Assessment & Plan (1) Fall: -This is a 84 year old Male who was at home and reportedly was got up after sleeping in the night time and fell down several feet from where he was sleeping as per his Dorina ([phone]). Patient appears to have auditory impairment and most of the history provided by his at the bedside. Patient apparently did not have loss of consciousness as he called out for help. Patient was brought to the ED and found to have Mildly displaced left femoral neck fracture. Patient also seen to be hypertensive in the ED likely because of underlying hypertension which is exacerbated by pain from the fall injury. Patient has anderson placed in the ED and urine analysis noted to have bacteria and ED provider started ceftriaxone antibiotic. Patient also noted to have redness of medial left thigh and patient's reports that patient often wets himself from urination and does not keep the area dry as it should be. (2) Closed fracture of left hip: -pain medication with bowel regimen -s/p Left hip hemiarthroplasty on 12/26/2019; initially on wound vac but patient pulled it out -on aspirin 81 mg BID as per orthopedics -PT/OT -management of anderson which was started on this admission (3) Acute UTI (urinary tract infection): with possible Bacteremia ruled out -admission urine culture with speciation of pansensitive Enterococcus faecalis instead of strep -has been empirically on ceftriaxone since admission but because admission blood culture with Staphylococcus species in 1 of 2 blood cultures (MRSA negative by PCR) the antibiotic treatment upgraded from ceftriaxone to Zosyn starting on 12/27/2019 and repeat blood culture drawn on 12/27/2019 which is no growth to date as of 12/29/2019 -discussed with pharmacy about switching from Zosyn to ampicillin to maintain the treatment of the urine Enterococcus faecalis starting on 12/29/2019 (4) Lactic acidosis: -on admission, and has resolved with the IV fluids (5) Acute encephalopathy: -unclear whether initial confusion due to left hip fracture, narcotic pain medications, or tract infection -Stroke code called on 12/26/2019 as documented below in regards to facial asymmetry (6) Hearing impairment: -patient known to have hearing impairment. At baseline, patient's family (his Dorina and his son) corroborated that patient does not speak very much and does not not speak loudly. The family members are not observant of how patient looks like when he speaks. (7) Facial asymmetry: likely has dementia -CT head on 12/25/2019 presentation without acute findings but mentioned Old lacunar infarct within the right thalamus -in the AM of 12/26/2019, patient was speaking more to medical team. However he has facial asymmetry more pronounced when speaking (able to talk more with right side of the mouth compared to the left). A stroke alert was called to expedite CT head scan and brain MRI. Patient able to answer some questions about his name and he does not express acute symptoms. He moves the upper extremities. He has left femoral neck fracture and his legs are in waffle boots -CT head 12/26/2019: No acute intracranial findings patient with not CT head finding of stroke and is likely not a candidate for TPA because of unclear chronicity of facial asymmetry -MRI Brain 12/26/2019 No acute intracranial findings. Exam moderately compromised by motion artifact although diagnostic. Extensive atrophy and small vessel disease. No intracranial mass or pathologic enhancement. -stroke is unlikely, patient proceeded to orthopedic surgery on 12/26/2019, post- operatively patient continues to have facial asymmetry with is visible with speech but no other focal symptoms other than poor orientation to the hospital setting. -on 1 to 1 observation -patient's at the bedside on 12/28/2019 reports that patient may have Parkinson's disease or dementia that was not formally diagnosed as outpatient, baseline often forgetful at home, and that patient's facial features of facial asymmetry is baseline (8) Hypertension: -pain medications -has prn labetalol for elevated blood pressure -nitropaste was started on 12/27/2019 to help with the hypertensive blood pressures -as of 12/29/2019, increase the home dose lisinopril from 10 mg daily to 20 mg daily, added on amlodipine 5 mg daily. continue the metoprolol 12.5 mg BID, continue the nitropaste q6 hours, maintain the prn labetalol for the hypertension (9) Troponin level elevated: elevated troponins from demand ischemia -the shift commander was concerned that patient with more confusion and workup by nocturnalist Dr. Garcia included troponins of which were elevated as 2.7 on night time of 12/27/2019, Dr. Garcia reports he discussed with orthopedics to allow for IV heparin to be started because of elevated troponins. IV heparin was started. Second troponin 2.95 in AM of 12/28/2019. On 12/28/2019 morning exam by day time hospitalist, patient awake and not as agitated as he was on . Patient denied pain of the chest or abdomen or of the legs. -12/28/2019: discussed with Dr. Azul from cardiology that patient's echocardiogram reflects old infarction which does not reflect elevated troponins on this hospital stay; Dr. Azul advised no further IV heparin and give beta leonides treatment (10) BPH (benign prostatic hyperplasia): -give home dose tamsulosin and finasteride DVT prophylaxis: was initially on heparin 5000 units q12 hours, but the heparin subcut was switched postoperatively to aspirin 81 mg BID as per orthopedics, and for a short period of time on 12/28/2019 patient on IV heparin as started by nocturnalist for elevated troponins, current back to aspirin 81 mg BID Full Code Admission and Anticipated Discharge Date Admission Date: December 25, 2019 Subjective as of 12/29/2019, increase the home dose lisinopril from 10 mg daily to 20 mg daily, added on amlodipine 5 mg daily. continue the metoprolol 12.5 mg BID, continue the nitropaste q6 hours, maintain the prn labetalol for the hypertension. patient continues to have 1 to 1 observation but he appears more alert and in answering my questions about medical symptoms today. patient does not express distress. patient to maintain on telemetry rodrigues for now as blood pressure medications being titrated for the hypertension Review of Systems Review of Systems: All systems reviewed & are unremarkable except as noted in Subjective Physical Exam Constitutional: comfortable Eyes: PERRL, conjunctivae normal, anicteric sclerae EOM intact bilaterally ENMT: external ear and nose normal, oropharynx normal Ears: + hearing impairment Neck: trachea midline, no thyromegaly normal visual inspection Respiratory: normal respiratory effort, lungs clear to auscultation Cardiovascular: Rate/Rhythm: regular rate Gastrointestinal (Abdomen): normal bowel sounds, soft, nontender, no hepatosplenomegaly Musculoskeletal: Head/Neck/Chest: normocephalic and head atraumatic Skin: no rashes, warm and dry Neurologic: PERRL, EOMI, accommodation nl, no face palsy, no dysarthria Psychiatric: Orientation: alert Genitourinary: + penis abnormality (anderson) Results & Data Results & Data ([facility]) Vital Signs (Past 12 Hours) Vital Signs Temp Pulse Pulse Pulse Resp BP BP 12/29/19 09:16 76 183/88 H 160/92 H 12/29/19 07:00 86 12/29/19 06:55 36.4 C L 88 18 191/92 H 12/29/19 03:18 37.0 C 82 17 165/71 H 12/28/19 23:48 94 H 12/28/19 23:13 36.8 C 94 H 20 163/87 H Pulse Ox 12/29/19 09:16 90 12/29/19 07:00 12/29/19 06:55 98 12/29/19 03:18 95 12/28/19 23:48 12/28/19 23:13 93 (1) Hypertension Hypertension type: essential hypertension Qualified Code(s): I10 - Essential (primary) hypertension (2) Fall Encounter type: initial encounter Qualified Code(s): W19.XXXA - Unspecified fall, initial encounter (3) Closed fracture of left hip Encounter type: initial encounter Qualified Code(s): S72.002A - Fracture of unspecified part of neck of left femur, initial encounter for closed fracture
[2019-12-29] MEDS: lisinopril 10 MG TAB PO STA ×2 (10:59→11:44)
[2019-12-29] MEDS: amLODIPine BESYLATE 5 MG TAB PO SCH ×2 (10:59→11:45)
--- NOTE | 2019-12-29 12:04 | Cardiology Progress Note ---
Date of Service December 29, 2019 Assessment & Plan (1) Troponin level elevated: Etiology appears secondary to acute demand based ischemia in the setting of fall with fracture, surgery, hypertension and acute delirium. Possible persistent infection with elevated white cell count No acute symptoms though confusion and agitation limits assessment. Echocardiogram under duress this morning demonstrated subtle hypokinesis of the posterior wall with scarring of the inferior wall base suggesting chronic ischemic heart disease. LV systolic function remains preserved Recommendations: Treat underlying demand issues including infection agitation and hypertension. Patient currently high risk for anticoagulation. We will increase metoprolol to 25 mg 3 times daily with plans for upward titration if necessary. Review of records notes metoprolol not given last evening (2) Acute delirium: (3) Hypertension: Admission and Anticipated Discharge Date Admission Date: December 25, 2019 Subjective Patient seen and examined, chart, medications, telemetry reviewed. Patient awake but confused and agitated. Still on soft restraints. Telemetry without arrhythmias. Blood pressure and heart rate still elevated at times Physical Exam Constitutional: + altered mental status Eyes: PERRL, conjunctivae normal, anicteric sclerae ENMT: external ear and nose normal, oropharynx normal Neck: trachea midline, no thyromegaly Respiratory: normal respiratory effort, lungs clear to auscultation Cardiovascular: Rate/Rhythm: regular rate and regular rhythm Heart Sounds: normal S1, normal S2 and + murmur (Grade 1/6 systolic); no gallop Palpation: normal PMI Vessels: normal carotid upstroke and radial pulses present; no JVD and no carotid bruit Extremities: no edema Gastrointestinal (Abdomen): normal bowel sounds, soft, nontender, no hepatosplenomegaly Musculoskeletal: no cyanosis or clubbing, extremities motor strength 5/5 Skin: no rashes, warm and dry Neurologic: PERRL, EOMI, accommodation nl, no face palsy, no dysarthria Results & Data ([facility]) Vital Signs (Past 12 Hours) Vital Signs Temp Pulse Pulse Pulse Resp BP BP 12/29/19 11:46 37.4 C 88 18 189/83 H 12/29/19 09:16 76 183/88 H 160/92 H 12/29/19 07:00 86 12/29/19 06:55 36.4 C L 88 18 191/92 H 12/29/19 03:18 37.0 C 82 17 165/71 H Pulse Ox 12/29/19 11:46 94 09/21/20 09:16 90 12/29/19 07:00 12/29/19 06:55 98 12/29/19 03:18 95 (1) Hypertension Hypertension type: essential hypertension Qualified Code(s): I10 - Essential (primary) hypertension
[2019-12-29] MEDS: LABETALOL HCL IV 5 MG/ML 20ML IV PRN ×3 (12:22→23:41)
[2019-12-29 14:15] LABS: Basophils # (auto) 0.01 K/uL (0-0.2); Basophils % (auto) 0.1 %; Eosinophils # (auto) 0.03 K/uL (0-0.5); Eosinophils % (auto) 0.2 %; Hematocrit (blood only) 35.3 % (42-52); Hemoglobin 11.8 g/dL (14.0-18.0); Immature Granulocytes # (auto) 0.04 K/uL (0.00-0.02); Immature Granulocytes % (auto) 0.3 %; Lymphocytes # (auto) 0.96 K/uL (1.2-3.4); Lymphocytes % (auto) 7.8 %; Mean Corpuscular Hemoglobin 29.2 pg (25-34); Mean Corpuscular Hgb Conc 33.4 g/dL (32-36); Mean Corpuscular Volume 87.4 fL (80-100); Mean Platelet Volume 10.5 fL (7.4-10.4); Monocytes # (auto) 0.57 K/uL (0.11-0.59); Monocytes % (auto) 4.6 %; Neutrophils # (auto) 10.68 K/uL (1.4-6.5); Platelet Count 207 K/uL (130-400); RDW Coefficient of Variation 13.5 % (11.5-14.5); RDW Standard Deviation 42.9 fL (36.4-46.3); Red Blood Count 4.04 M/uL (4.7-6.1); White Blood Count 12.29 K/uL (4.8-10.8)
[2019-12-29] MEDS: AMPICILLIN 1,000 MG in SODIUM CHLOR 0.9% AD-VAN 50 ML IV SCH ×2 (14:17→19:59)
[2019-12-29] MEDS: HYDROmorphone INJ 0.5 MG/0.5 ML SYR IV PRN (14:17)
[2019-12-29 14:53] LABS: Albumin Globulin Ratio 0.7 (0.9-2); Albumin Level 2.4 gm/dl (3.4-5.0); Bilirubin,Total 1.2 mg/dl (0.2-1); Calcium 8.8 mg/dl (8.5-10.1); Creatinine Clr Calc Pharmacy 55.4 ml/min; Est GFR (African American) 79.4; Est GFR (Non-African American) 68.5; Globulin 3.5 gm/dl (2.5-4.0); Magnesium 2.3 mg/dl (1.8-2.4); Phosphorus 2.6 mg/dl (2.5-4.9); Potassium 2.8 mmol/L (3.5-5.1); Total Protein 5.9 gm/dl (6.4-8.2)
[2019-12-29] MEDS: SENNA 8.6 MG TAB PO SCH (20:00)
[2019-12-29] MEDS: DOCUSATE SODIUM/SENNA 50/8.6MG TAB PO SCH (20:00)
[2019-12-30] MEDS: AMPICILLIN 1,000 MG in SODIUM CHLOR 0.9% AD-VAN 50 ML IV SCH ×4 (02:33→19:58)
[2019-12-30] MEDS: NITROGLYCERIN 2% OINTMENT 30GM TUBE EXT SCH ×3 (05:19→19:56)
[2019-12-30] MEDS: LABETALOL HCL IV 5 MG/ML 20ML IV PRN ×2 (05:19→15:08)
[2019-12-30] MEDS ORDERED: POTASSIUM CHLORIDE 20 MEQ TABCR PO ONE (07:30)
[2019-12-30] MEDS: POTASSIUM CHLORIDE / WTR 10 MEQ/100 ML PLCT IV SCH ×2 (07:51→08:45)
[2019-12-30] MEDS: METOPROLOL TARTRATE 25 MG TAB PO SCH ×3 (07:58→19:58)
[2019-12-30] MEDS: ASPIRIN 81 MG ECTAB PO SCH ×2 (07:58→19:58)
[2019-12-30] MEDS: TAMSULOSIN HCL 0.4 MG CAP PO SCH (07:59)
[2019-12-30] MEDS: lisinopril 20 MG TAB PO SCH (08:00)
[2019-12-30] MEDS: FINASTERIDE 5 MG TAB PO SCH (08:00)
[2019-12-30] MEDS: MULTIVITAMIN TAB PO SCH (08:00)
[2019-12-30] MEDS: amLODIPine BESYLATE 5 MG TAB PO SCH (08:01)
--- NOTE | 2019-12-30 12:44 | Hospitalist Progress Note ---
Date of Service December 30, 2019 Assessment & Plan (1) Fall: -in history and physical on 12/25/19 that "This is a 84 year old Male who was at home and reportedly was got up after sleeping in the night time and fell down several feet from where he was sleeping as per his Dorina ([phone]). Patient appears to have auditory impairment and most of the history provided by his at the bedside. Patient apparently did not have loss of consciousness as he called out for help. Patient was brought to the ED and found to have Mildly displaced left femoral neck fracture. Patient also seen to be hypertensive in the ED likely because of underlying hypertension which is exacerbated by pain from the fall injury. Patient has anderson placed in the ED and urine analysis noted to have bacteria and ED provider started ceftriaxone antibiotic. Patient also noted to have redness of medial left thigh and patient's reports that patient often wets himself from urination and does not keep the area dry as it should be." (2) Closed fracture of left hip: -pain medication with bowel regimen -s/p Left hip hemiarthroplasty on 12/26/2019; initially on wound vac but patient pulled it out -on aspirin 81 mg BID as per orthopedics -PT/OT -management of anderson which was started on this admission (3) Acute UTI (urinary tract infection): with possible Bacteremia ruled out -admission urine culture with speciation of pansensitive Enterococcus faecalis instead of strep -has been empirically on ceftriaxone since admission but because admission blood culture with Staphylococcus species in 1 of 2 blood cultures (MRSA negative by PCR) the antibiotic treatment upgraded from ceftriaxone to Zosyn starting on 12/27/2019 and repeat blood culture drawn on 12/27/2019 which is no growth to date as of 12/29/2019 -discussed with pharmacy about switching from Zosyn to ampicillin to maintain the treatment of the urine Enterococcus faecalis starting on 12/29/2019, currently on ampicillin (4) Lactic acidosis: -on admission, and has resolved with the IV fluids (5) Acute encephalopathy: -unclear whether initial confusion due to left hip fracture, narcotic pain medications, or tract infection -Stroke code called on 12/26/2019 as documented below in regards to facial asymmetry; his mental status is a challenge in the post-op care (6) Hearing impairment: -patient known to have hearing impairment. At baseline, patient's family (his Dorina and his son) corroborated that patient does not speak very much and does not not speak loudly. The family members are not observant of how patient looks like when he speaks. (7) Facial asymmetry: likely has dementia -CT head on 12/25/2019 presentation without acute findings but mentioned Old lacunar infarct within the right thalamus -in the AM of 12/26/2019, patient was speaking more to medical team. However he has facial asymmetry more pronounced when speaking (able to talk more with right side of the mouth compared to the left). A stroke alert was called to expedite CT head scan and brain MRI. Patient able to answer some questions about his name and he does not express acute symptoms. He moves the upper extremities. He has left femoral neck fracture and his legs are in waffle boots -CT head 12/26/2019: No acute intracranial findings patient with not CT head finding of stroke and is likely not a candidate for TPA because of unclear chronicity of facial asymmetry -MRI Brain 12/26/2019 No acute intracranial findings. Exam moderately compromised by motion artifact although diagnostic. Extensive atrophy and small vessel disease. No intracranial mass or pathologic enhancement. -stroke is unlikely, patient proceeded to orthopedic surgery on 12/26/2019, post- operatively patient continues to have facial asymmetry with is visible with speech but no other focal symptoms other than poor orientation to the hospital setting. -patient's at the bedside on 12/28/2019 reports that patient may have Parkinson's disease or dementia that was not formally diagnosed as outpatient, baseline often forgetful at home, and that patient's facial features of facial asymmetry is baseline -his mental status is a challenge in the post-op care because of either the dementia or delirium, patient remains on 1 to 1 and have at times needed mittens to prevent from pulling out IV lines (8) Hypertension: -pain medications -has prn labetalol for elevated blood pressure -nitropaste was started on 12/27/2019 to help with the hypertensive blood pressures -as of 12/29/2019, increase the home dose lisinopril from 10 mg daily to 20 mg daily, added on amlodipine 5 mg daily. continue the metoprolol 12.5 mg BID, continue the nitropaste q6 hours, maintain the prn labetalol for the hypertension -changes as of 12/30/2019 included cardiology service increasing the metoprolol to TID however because of patient's dementia or delirium it is difficult for nurses coax patient to take frequent medications (9) Troponin level elevated: elevated troponins from demand ischemia -the night supervisor was concerned that patient with more confusion and workup by nocturnalist Dr. Garcia included troponins of which were elevated as 2.7 on night time of 12/27/2019, Dr. Garcia reports he discussed with orthopedics to allow for IV heparin to be started because of elevated troponins. IV heparin was started. Second troponin 2.95 in AM of 12/28/2019. On 12/28/2019 morning exam by day time hospitalist, patient awake and not as agitated as he was on . Patient denied pain of the chest or abdomen or of the legs. -12/28/2019: discussed with Dr. Azul from cardiology that patient's echocardiogram reflects old infarction which does not reflect elevated troponins on this hospital stay; Dr. Azul advised no further IV heparin and give beta leonides treatment (10) BPH (benign prostatic hyperplasia): -give home dose tamsulosin and finasteride DVT prophylaxis: was initially on heparin 5000 units q12 hours, but the heparin subcut was switched postoperatively to aspirin 81 mg BID as per orthopedics, and for a short period of time on 12/28/2019 patient on IV heparin as started by nocturnalist for elevated troponins, currently in aspirin 81 mg BID Full Code My colleague Dr. Michael will be following the patient starting on 12/31/2019 Admission and Anticipated Discharge Date Admission Date: December 25, 2019 Subjective -his mental status is a challenge in the post-op care because of either the dementia or delirium, patient remains on 1 to 1 and have at times needed mittens to prevent from pulling out IV lines medical adherence to scheduled medications have not been consistent because patient at times have refused medications. no acute pain distress visible. patient talks and sometimes cussing at medical staff Review of Systems Review of Systems: Unobtainable due to cognitive status Physical Exam Constitutional: comfortable Eyes: PERRL, conjunctivae normal, anicteric sclerae EOM intact bilaterally ENMT: external ear and nose normal, oropharynx normal Ears: + hearing impairment Neck: trachea midline, no thyromegaly normal visual inspection Respiratory: normal respiratory effort, lungs clear to auscultation Cardiovascular: Rate/Rhythm: regular rate Gastrointestinal (Abdomen): normal bowel sounds, soft, nontender, no hepatosplenomegaly Musculoskeletal: Head/Neck/Chest: normocephalic and head atraumatic protective foam wedge between legs, waffle boots for feet Neurologic: PERRL, EOMI, accommodation nl, no face palsy, no dysarthria Psychiatric: Orientation: alert Genitourinary: + penis abnormality (anderson) Results & Data Results & Data ([facility]) Vital Signs (Past 12 Hours) Vital Signs Temp Pulse Pulse Resp BP Pulse Ox 12/30/19 11:58 163/75 H 12/30/19 07:25 36.9 C 82 18 191/91 H 95 12/30/19 07:07 87 12/30/19 04:00 37.1 C 95 H 18 184/93 H 95 12/30/19 00:49 84 (1) Hypertension Hypertension type: essential hypertension Qualified Code(s): I10 - Essential (primary) hypertension (2) Fall Encounter type: initial encounter Qualified Code(s): W19.XXXA - Unspecified fall, initial encounter (3) Closed fracture of left hip Encounter type: initial encounter Qualified Code(s): S72.002A - Fracture of unspecified part of neck of left femur, initial encounter for closed fracture
[2019-12-30 13:34] LABS: Albumin Level 2.6 gm/dl (3.4-5.0); BUN Creatinine Ratio 19.9 (10-20); Calcium 9.1 mg/dl (8.5-10.1); Creatinine Clr Calc Pharmacy 60.2 ml/min; Est GFR (African American) 87.7; Est GFR (Non-African American) 75.7; Potassium 3.3 mmol/L (3.5-5.1)
[2019-12-30 13:38] LABS: Albumin Globulin Ratio 0.7 (0.9-2); Bilirubin,Total 1.2 mg/dl (0.2-1); Globulin 3.8 gm/dl (2.5-4.0); Phosphorus 1.9 mg/dl (2.5-4.9); Total Protein 6.4 gm/dl (6.4-8.2)
[2019-12-30] MEDS ORDERED: POTASSIUM PHOS 3 MMOL/1 ML INFUSION IV STA (14:17)
[2019-12-30] MEDS ORDERED: D5W AND 1/2NSS + 20MEQ KCL 20 MEQ/1,000 ML BAG IV SCH (14:30)
[2019-12-30] MEDS ORDERED: POTASSIUM PHOSPHATE 24 MMOL in SODIUM CHLORIDE 0.9% 500 ML IV ONE (14:30)
[2019-12-30] MEDS: LORazepam 0.25 MG/0.5 ML VIAL IV PRN (15:07)
[2019-12-30] MEDS: DOCUSATE SODIUM/SENNA 50/8.6MG TAB PO SCH (19:58)
[2019-12-30] MEDS: SENNA 8.6 MG TAB PO SCH (19:58)
[2019-12-30] MEDS ORDERED: LORazepam 0.25 MG/0.5 ML VIAL IV STA (23:25)
[2019-12-31] MEDS: AMPICILLIN 1,000 MG in SODIUM CHLOR 0.9% AD-VAN 50 ML IV SCH ×3 (01:23→14:46)
[2019-12-31] MEDS: NITROGLYCERIN 2% OINTMENT 30GM TUBE EXT SCH ×5 (01:30→23:58)
[2019-12-31] MEDS: LORazepam 0.25 MG/0.5 ML VIAL IV PRN ×2 (02:30→03:32)
[2019-12-31] MEDS: LABETALOL HCL IV 5 MG/ML 20ML IV PRN ×3 (05:48→15:57)
[2019-12-31 07:41] LABS: Basophils # (auto) 0.01 K/uL (0-0.2); Basophils % (auto) 0.1 %; Eosinophils # (auto) 0.26 K/uL (0-0.5); Eosinophils % (auto) 2.4 %; Hematocrit (blood only) 37.4 % (42-52); Immature Granulocytes # (auto) 0.07 K/uL (0.00-0.02); Immature Granulocytes % (auto) 0.6 %; Lymphocytes # (auto) 1.27 K/uL (1.2-3.4); Lymphocytes % (auto) 11.7 %; Mean Corpuscular Hemoglobin 28.6 pg (25-34); Mean Corpuscular Hgb Conc 32.1 g/dL (32-36); Mean Corpuscular Volume 89.3 fL (80-100); Mean Platelet Volume 10.4 fL (7.4-10.4); Monocytes # (auto) 0.95 K/uL (0.11-0.59); Monocytes % (auto) 8.7 %; Neutrophils # (auto) 8.34 K/uL (1.4-6.5); Neutrophils % (auto) 76.5 %; Platelet Count 235 K/uL (130-400); RDW Coefficient of Variation 13.8 % (11.5-14.5); Red Blood Count 4.19 M/uL (4.7-6.1)
[2019-12-31 08:04] LABS: Albumin Level 2.5 gm/dl (3.4-5.0); Calcium 8.9 mg/dl (8.5-10.1); Potassium 3.6 mmol/L (3.5-5.1)
[2019-12-31 08:14] LABS: Albumin Globulin Ratio 0.7 (0.9-2); Bilirubin,Total 1.1 mg/dl (0.2-1); Creatinine Clr Calc Pharmacy 63.6 ml/min; Est GFR (African American) 92.1; Est GFR (Non-African American) 79.4; Globulin 3.6 gm/dl (2.5-4.0); Magnesium 2.4 mg/dl (1.8-2.4); Phosphorus 2.2 mg/dl (2.5-4.9); Total Protein 6.1 gm/dl (6.4-8.2)
[2019-12-31] MEDS: FINASTERIDE 5 MG TAB PO SCH (08:47)
[2019-12-31] MEDS: MULTIVITAMIN TAB PO SCH (08:47)
[2019-12-31] MEDS: lisinopril 20 MG TAB PO SCH (08:47)
[2019-12-31] MEDS: TAMSULOSIN HCL 0.4 MG CAP PO SCH (08:48)
[2019-12-31] MEDS: METOPROLOL TARTRATE 25 MG TAB PO SCH ×2 (08:48→14:46)
[2019-12-31] MEDS: ASPIRIN 81 MG ECTAB PO SCH ×2 (08:48→23:16)
[2019-12-31] MEDS: amLODIPine BESYLATE 5 MG TAB PO SCH (08:48)
[2019-12-31] MEDS: DEXTROSE 5% 1,000 ML IV SCH ×2 (11:22→21:31)
[2019-12-31] MEDS ORDERED: HALOPERIDOL LACTATE 5 MG/ML 1 ML VIAL IM PRN (15:41)
[2019-12-31] MEDS ORDERED: PROMETHAZINE HCL 6.25 MG in SODIUM CHLORIDE 0.9% 50 ML IV PRN (15:42)
--- NOTE | 2019-12-31 15:45 | Hospitalist Progress Note ---
Date of Service December 31, 2019 Assessment & Plan (1) Fall: (2) Closed fracture of left hip: 84-year-old male with history of hypertension BPH presenting with left hip fracture status post fall. Per Dr. Jose Mcfadden's notes: (1) Fall: -in history and physical on 12/25/19 that "This is a 84 year old Male who was at home and reportedly was got up after sleeping in the night time and fell down several feet from where he was sleeping as per his Dorina ([phone]). Patient appears to have auditory impairment and most of the history provided by his at the bedside. Patient apparently did not have loss of consciousness as he called out for help. Patient was brought to the ED and found to have Mildly displaced left femoral neck fracture. Patient also seen to be hypertensive in the ED likely because of underlying hypertension which is exacerbated by pain from the fall injury. Patient has anderson placed in the ED and urine analysis noted to have bacteria and ED provider started ceftriaxone antibiotic. Patient also noted to have redness of medial left thigh and patient 's reports that patient often wets himself from urination and does not keep the area dry as it should be." (2) Closed fracture of left hip: -pain medication with bowel regimen -s/p Left hip hemiarthroplasty on 12/26/2019; initially on wound vac but patient pulled it out -on aspirin 81 mg BID as per orthopedics -PT/OT ordered 12/31/2019 Postoperative course complicated by delirium Currently with poor appetite, not cooperative with taking p.o. medications DC oxycodone and Dilaudid DC Ativan Start PRN Haldol DC Anderson catheter Judgment of UTI noted below Continue gentle reassurance, reorientation, strategies to prevent delirium Monitor closely Continue one-to-one observation (3) Acute UTI (urinary tract infection), enterococcus: with possible Bacteremia ruled out -admission urine culture with speciation of pansensitive Enterococcus faecalis instead of strep -has been empirically on ceftriaxone since admission but because admission blood culture with Staphylococcus species in 1 of 2 blood cultures (MRSA negative by PCR) the antibiotic treatment upgraded from ceftriaxone to Zosyn starting on 12/27/2019 and repeat blood culture drawn on 12/27/2019 which is no growth to date as of 12/29/2019 -discussed with pharmacy about switching from Zosyn to ampicillin to maintain the treatment of the urine Enterococcus faecalis starting on 12/29/2019 --> Continue ampicillin IV (4) Lactic acidosis: -on admission, and has resolved with the IV fluids (5) Acute encephalopathy: -unclear whether initial confusion due to left hip fracture, narcotic pain medications, or tract infection -Stroke code called on 12/26/2019 as documented below in regards to facial asymmetry; his mental status is a challenge in the post-op care --Management per #2 (6) Hearing impairment: -patient known to have hearing impairment. At baseline, patient's family (his Dorina and his son) corroborated that patient does not speak very much and does not not speak loudly. The family members are not observant of how patient looks like when he speaks. (7) Facial asymmetry: likely has dementia -CT head on 12/25/2019 presentation without acute findings but mentioned Old lacunar infarct within the right thalamus -in the AM of 12/26/2019, patient was speaking more to medical team. However he has facial asymmetry more pronounced when speaking (able to talk more with right side of the mouth compared to the left). A stroke alert was called to expedite CT head scan and brain MRI. Patient able to answer some questions about his name and he does not express acute symptoms. He moves the upper extremities. He has left femoral neck fracture and his legs are in waffle boots -CT head 12/26/2019: No acute intracranial findings patient with not CT head finding of stroke and is likely not a candidate for TPA because of unclear chronicity of facial asymmetry -MRI Brain 12/26/2019 No acute intracranial findings. Exam moderately compromised by motion artifact although diagnostic. Extensive atrophy and small vessel disease. No intracranial mass or pathologic enhancement. -stroke is unlikely, patient proceeded to orthopedic surgery on 12/26/2019, post- operatively patient continues to have facial asymmetry with is visible with speech but no other focal symptoms other than poor orientation to the hospital setting. -patient's at the bedside on 12/28/2019 reports that patient may have Parkinson's disease or dementia that was not formally diagnosed as outpatient, baseline often forgetful at home, and that patient's facial features of facial asymmetry is baseline (8) Hypertension: -pain medications -has prn labetalol for elevated blood pressure -nitropaste was started on 12/27/2019 to help with the hypertensive blood pressures -as of 12/29/2019, increase the home dose lisinopril from 10 mg daily to 20 mg daily, added on amlodipine 5 mg daily. continue the metoprolol 12.5 mg BID, continue the nitropaste q6 hours, maintain the prn labetalol for the hypertension -changes as of 12/30/2019 included cardiology service increasing the metoprolol to TID however because of patient's dementia or delirium it is difficult for nurses coax patient to take frequent medications --Patient not taking p.o. lisinopril and amlodipine, metoprolol Continue Nitropaste PRN hydralazine Change metoprolol to IV if still not taking p.o. (9) Troponin level elevated: elevated troponins from demand ischemia -the material handler 1st shift was concerned that patient with more confusion and workup by nocturnalist Dr. Garcia included troponins of which were elevated as 2.7 on night time of 12/27/2019, Dr. Garcia reports he discussed with orthopedics to allow for IV heparin to be started because of elevated troponins. IV heparin was started. Second troponin 2.95 in AM of 12/28/2019. On 12/28/2019 morning exam by day time hospitalist, patient awake and not as agitated as he was on . Patient denied pain of the chest or abdomen or of the legs. -12/28/2019: discussed with Dr. Azul from cardiology that patient's echocardiogram reflects old infarction which does not reflect elevated troponins on this hospital stay; Dr. Azul advised no further IV heparin and give beta blo cker treatment (10) BPH (benign prostatic hyperplasia): -give home dose tamsulosin and finasteride DVT prophylaxis: was initially on heparin 5000 units q12 hours, but the heparin subcut was switched postoperatively to aspirin 81 mg BID as per orthopedics, and for a short period of time on 12/28/2019 patient on IV heparin as started by nocturnalist for elevated troponins, currently in aspirin 81 mg BID Full Code Disposition Pending Management of delirium, hypertension, in progress Anticipate discharge to retirement facility when medically stable Admission and Anticipated Discharge Date Admission Date: December 25, 2019 Subjective Follow-up status post left hip surgery, delirium Discussed with RN and MERCHANDISE TEAM MANAGER Patient was restless again overnight, did not sleep well, received Ativan early this morning Refused to take medications this morning, On exam, the patient was sleeping, comfortable No signs of discomfort or distress Has not been eating the past couple of days at least per MERCHANDISE TEAM MANAGER No other issues noted Review of Systems Review of Systems: All systems reviewed & are unremarkable except as noted in Subjective Physical Exam Physical Exam: General-sleeping but breathing with no effort or accessory muscle use Eyes- anicteric Neck- no JVD Lungs- clear breath sounds bilaterally, no rales/wheezes Heart- normal rate, regular rhythm; no murmurs Abdomen- normal bowel sounds, nondistended, soft, nontender Extremities- no pretibial edema, no calf tenderness Neuro-sleeping, no focal deficits noted Skin- warm & dry Results & Data Results & Data ([facility]) Vital Signs (Past 12 Hours) Vital Signs Temp Pulse Pulse Pulse Resp BP BP 12/31/19 14:58 37.6 C H 67 22 12/31/19 11:48 158/76 H 12/31/19 05:37 108 H 18 203/96 H 12/31/19 05:31 78 12/31/19 04:00 36.7 C 94 H 18 162/91 H Pulse Ox 12/31/19 14:58 99 12/31/19 11:48 12/31/19 05:37 12/31/19 05:31 12/31/19 04:00 94 Laboratory Results Laboratory Results - last 24 hr 12/31/19 12/31/19 06:16 06:16 WBC 10.90 H RBC 4.19 L Hgb 12.0 L Hct 37.4 L MCV 89.3 MCH 28.6 MCHC 32.1 RDW Std Deviation 45.0 RDW Coeff of Inocencio 13.8 Plt Count 235 MPV 10.4 Immature Gran % (Auto) 0.6 Neut % (Auto) 76.5 Lymph % (Auto) 11.7 White % (Auto) 8.7 Eos % (Auto) 2.4 Baso % (Auto) 0.1 Neut # (Auto) 8.34 H Lymph # (Auto) 1.27 White # (Auto) 0.95 H Eos # (Auto) 0.26 Baso # (Auto) 0.01 Immature Gran # (Auto) 0.07 H Sodium 149 H Potassium 3.6 Chloride 114 H Carbon Dioxide 28 Anion Gap 7.0 BUN 18 Creatinine 0.88 Est Cr Clr Drug Dosing 63.6 Est GFR ( Amer) 92.1 Est GFR (Non-Af Amer) 79.4 BUN/Creatinine Ratio 20.0 Glucose 107 H Calcium 8.9 Phosphorus 2.2 L Magnesium 2.4 Total Bilirubin 1.1 H AST 37 ALT 38 Alkaline Phosphatase 57 Total Protein 6.1 L Albumin 2.5 L Globulin 3.6 Albumin/Globulin Ratio 0.7 L (1) Fall Encounter type: initial encounter Qualified Code(s): W19.XXXA - Unspecified fall, initial encounter (2) Closed fracture of left hip Encounter type: initial encounter Qualified Code(s): S72.002A - Fracture of unspecified part of neck of left femur, initial encounter for closed fracture
[2019-12-31] MEDS ORDERED: CEFEPIME CONSULT ACTIVE PRN (18:51)
--- NOTE | 2019-12-31 20:02 | Nephrology Consultation ---
Date of Consultation December 31, 2019 Assessment & Plan (1) Hypernatremia: Patient with hypernatremia due to inadequate water intake. Na 149. Free water deficit of 2.5 litres. -Will start D5W at 100ml/hr. Target rate of rise of 6-8 points in 24hrs. -Monitor Na daily (2) Hypertension: BP is fluctuating due to pain. Control pain. Continue current meds. (3) Acute delirium: Due to hip fracture and underlying dementia. Continue supportive management. Will correct hypernatremia as above History of Present Illness Reason for Consultation: Hypernatremia Requesting Physician: Gio Michael MD Attending Physician: Gio Michael MD History of Present Illness This is 84yoM with PMH of hypertension, BPH and dementia who was admitted on 12/24 with fall and left hip fracture. He is s/p left hip hemiarthroplasty on 12/25. He has hypernatremia with Na of 149 today. He was NPO for procedure and not eating due to delirium. He does not give much history due to dementia and delirium. he denies SOB or pain. No leg swelling. he has a anderson catheter. Allergies Allergy/AdvReac Type Severity Reaction Status Date / Time No Known Allergies Allergy Verified 12/25/19 05:50 Home Medications Home Medications Medication Instructions Recorded Confirmed Type finasteride 5 mg PO 12/25/19 History lisinopril 10 mg PO 12/25/19 History tamsulosin 0.4 mg PO 12/25/19 History Patient History Medical History (Updated 12/31/19 @ 19:59 by Randal Chaney MD) Acute UTI (urinary tract infection) BPH (benign prostatic hyperplasia) Fall Hypertension Social History Smoking Status: Former smoker Second Hand Exposure: No; Do You Dip or Chew Tobacco: Yes; Tobacco Cessation Education Requested by Patient: No Hx Alcohol Use: No Hx Substance Use: No Preferred Language: Bolivian Communication Ability: Impaired Beliefs That Will Affect Care: None marital status: Current Living Situation: Spouse Other Information That Helps Us Care for You: No Feels Safe at Home: Yes Safety Concerns: Feels Safe At This Time Assistive Devices: Glasses, Walker and Wheelchair Review of Systems Review of Systems: Unobtainable due to cognitive status Physical Exam Physical Exam: General exam: Appears comfortable, no acute distress HEENT: Pupils are equal and reactive to light Neck: No JVD, neck is supple trachea is midline Respiratory system: Clear breath sounds bilaterally. Gastrointestinal: Abdomen is soft, non distended, non tender, bowel sounds are present CVS: Regular rate and rhythm. No murmurs, rubs or gallops Musculoskeletal: No joint or muscle tenderness Extremities: Non tender, no edema, peripheral pulses are present Neuro: Oriented x1, no tremors, no focal neurological deficits Skin: No rashes Results & Data ([facility]) Vital Signs (Past 12 Hours) Vital Signs Temp Pulse Resp BP Pulse Ox 12/31/19 18:48 37.2 C 103 H 20 134/98 97 12/31/19 15:59 193/89 H 12/31/19 14:58 37.6 C H 67 22 99 12/31/19 11:48 158/76 H Laboratory Results 12/31/19 06:16 12/31/19 12/31/19 06:16 06:16 WBC 10.90 H RBC 4.19 L MCV 89.3 MCH 28.6 MCHC 32.1 RDW Std Deviation 45.0 RDW Coeff of Inocencio 13.8 Plt Count 235 MPV 10.4 Phosphorus 2.2 L Albumin 2.5 L (1) Hypertension Hypertension type: essential hypertension Qualified Code(s): I10 - Essential (primary) hypertension
[2019-12-31] MEDS: METOPROLOL TARTRATE 1 MG/ML VIAL IV SCH (20:20)
[2019-12-31] MEDS: CEFEPIME 2,000 MG in SYRINGE 0 ML IV SCH (21:31)
[2019-12-31] MEDS: DOCUSATE SODIUM/SENNA 50/8.6MG TAB PO SCH (23:16)
[2019-12-31] MEDS: SENNA 8.6 MG TAB PO SCH (23:16)
[2019-12-31] MEDS ORDERED: OLANZapine 10 MG/2.1 ML SDV IM PRN (23:54)
[2020-01-01] MEDS: METOPROLOL TARTRATE 1 MG/ML VIAL IV SCH ×2 (00:35→06:38)
[2020-01-01] MEDS ORDERED: ACETAMINOPHEN 1,000 MG/100 ML VIAL IV ONE (02:37)
[2020-01-01] MEDS: NITROGLYCERIN 2% OINTMENT 30GM TUBE EXT SCH ×3 (06:07→18:14)
[2020-01-01 08:18] LABS: Basophils # (auto) 0.01 K/uL (0-0.2); Basophils % (auto) 0.1 %; Eosinophils # (auto) 0.08 K/uL (0-0.5); Eosinophils % (auto) 0.5 %; Hematocrit (blood only) 39.2 % (42-52); Hemoglobin 12.8 g/dL (14.0-18.0); Immature Granulocytes # (auto) 0.13 K/uL (0.00-0.02); Immature Granulocytes % (auto) 0.8 %; Lymphocytes # (auto) 1.73 K/uL (1.2-3.4); Lymphocytes % (auto) 10.4 %; Mean Corpuscular Hemoglobin 28.6 pg (25-34); Mean Corpuscular Hgb Conc 32.7 g/dL (32-36); Mean Corpuscular Volume 87.7 fL (80-100); Monocytes # (auto) 0.54 K/uL (0.11-0.59); Monocytes % (auto) 3.2 %; Neutrophils # (auto) 14.19 K/uL (1.4-6.5); Platelet Count 241 K/uL (130-400); RDW Coefficient of Variation 13.6 % (11.5-14.5); RDW Standard Deviation 43.5 fL (36.4-46.3); Red Blood Count 4.47 M/uL (4.7-6.1); White Blood Count 16.68 K/uL (4.8-10.8)
[2020-01-01] MEDS: FINASTERIDE 5 MG TAB PO SCH (08:21)
[2020-01-01] MEDS: amLODIPine BESYLATE 5 MG TAB PO SCH (08:21)
[2020-01-01] MEDS: ASPIRIN 81 MG ECTAB PO SCH ×3 (08:21→22:05)
[2020-01-01] MEDS: SENNA 8.6 MG TAB PO SCH (08:21)
[2020-01-01] MEDS: MULTIVITAMIN TAB PO SCH (08:22)
[2020-01-01] MEDS: TAMSULOSIN HCL 0.4 MG CAP PO SCH (08:22)
[2020-01-01] MEDS: lisinopril 20 MG TAB PO SCH (08:22)
[2020-01-01] MEDS: DEXTROSE 5% 1,000 ML IV SCH (08:33)
[2020-01-01] MEDS: CEFEPIME 2,000 MG in SYRINGE 0 ML IV SCH (08:33)
[2020-01-01 08:43] LABS: BUN Creatinine Ratio 15.8 (10-20); Calcium 8.5 mg/dl (8.5-10.1); Creatinine Clr Calc Pharmacy 37.1 ml/min; Est GFR (African American) 48.8; Est GFR (Non-African American) 42.1; Potassium 3.1 mmol/L (3.5-5.1)
[2020-01-01] MEDS ORDERED: POTASSIUM CHLORIDE 20 MEQ/15 ML UDC PO STA (08:51)
[2020-01-01] MEDS ORDERED: amLODIPine BESYLATE 5 MG TAB PO ONE (09:30)
--- NOTE | 2020-01-01 10:11 | Nephrology Progress Note ---
Date of Service January 01, 2020 Assessment & Plan (1) Hypernatremia: Patient with hypernatremia due to inadequate water intake. Na improved from 149 05/10/2042 this morning. Will hold D5 water. Patient can drink as tolerated. -Monitor Na daily (2) Hypertension: BP is above target today. Patient has bradycardia. Will hold the beta blockers. Will increase amlodipine to 10 mg daily. Will also start hydralazine 25 mg p.o. three times daily. Control pain. (3) Acute delirium: Due to hip fracture and underlying dementia. Continue supportive management. Mental status is improving. (4) Hypokalemia: Will give potassium chloride 40 mEq p.o. once today. Monitor potassium daily. Admission and Anticipated Discharge Date Admission Date: December 25, 2019 Subjective Patient reports to feel fine. He is complaining of dry mouth and hip pain. No shortness of breath. No confusion or agitation this morning Review of Systems Review of Systems: All systems reviewed & are unremarkable except as noted in HPI & below Physical Exam Physical Exam: General exam: Appears comfortable, no acute distress HEENT: Pupils are equal and reactive to light Neck: No JVD, neck is supple trachea is midline Respiratory system: Clear breath sounds bilaterally. Gastrointestinal: Abdomen is soft, non distended, non tender, bowel sounds are present CVS: Regular rate and rhythm. No murmurs, rubs or gallops Musculoskeletal: No joint or muscle tenderness Extremities: Non tender, no edema, peripheral pulses are present Neuro: Oriented, no tremors, no focal neurological deficits Skin: No rashes Results & Data ([facility]) Vital Signs (Past 12 Hours) Vital Signs Temp Pulse Pulse Resp BP BP BP 01/01/20 07:47 36.5 C 43 L 22 162/70 H 01/01/20 07:29 78 01/01/20 06:38 88 158/91 H 01/01/20 05:55 36.8 C 79 22 182/92 H 01/01/20 02:52 37.0 C 93 H 30 H 178/105 H 01/01/20 00:35 90 168/93 H 01/01/20 00:00 90 12/31/19 22:51 36.3 C L 94 H 20 196/99 H Pulse Ox 01/01/20 07:47 97 01/01/20 07:29 01/01/20 06:38 01/01/20 05:55 95 01/01/20 02:52 96 01/01/20 00:35 01/01/20 00:00 12/31/19 22:51 96 Laboratory Results 01/01/20 08:05 01/01/20 08:05 WBC 16.68 H RBC 4.47 L MCV 87.7 MCH 28.6 MCHC 32.7 RDW Std Deviation 43.5 RDW Coeff of Inocencio 13.6 Plt Count 241 MPV 10.0 (1) Hypertension Hypertension type: essential hypertension Qualified Code(s): I10 - Essential (primary) hypertension
[2020-01-01] MEDS: ACETAMINOPHEN 1,000 MG/100 ML VIAL IV PRN (10:46)
[2020-01-01] MEDS: hydrALAZINE HCL 25 MG TAB PO SCH ×3 (10:47→21:53)
--- NOTE | 2020-01-01 13:37 | Orthopedic Progress Note ---
Date of Service January 01, 2020 Assessment & Plan (1) Displaced fracture of left femoral neck: POD#6 left hip bipolar hemiarthroplasty Left hip wound induration/swelling/ecchymosis -although his increased white count is a little concerning, I do not feel that this is an infection of the l eft hip wound however I will have Dr. Del Rosario see him this afternoon to give his input.. He likely does have a hematoma that has formed superficially. Continue with current antibiotic regimen. Continue ice packs over the left hip wound. Regular daily dressing changes. We will recheck the wound over the next day or 2 to make sure there is no progression or worsening. Admission and Anticipated Discharge Date Admission Date: December 25, 2019 Subjective Asked to see patient to recheck his left hip wound. Patient is very somnolent at this point time and sleeping. Shaking him and speaking to him arouses him but he falls quickly back to sleep. He appears to be comfortable. Physical Exam Physical Exam: On examination of the left hip wound, the dressing is pulled back and reveals keron to be well approximated. He has moderate induration around the incision itself as well as moderate ecchymosis. Drainage noted on the dressing which appears to be serous in nature. There is no overt erythema of the area that I can see and it does not feel hot to the touch. Palpation of this area does not elicit a painful response. There is no foul odor. Thigh is soft and appears nontender. Calves are soft and appear nontender. Capillary refill is less than 2 seconds of the lower extremity. I can take the left hip through gentle range of motion which does not appear to be painful to the patient. Leg lengths appear equal. Results & Data ([facility]) Vital Signs (Past 12 Hours) Vital Signs Temp Pulse Pulse Resp BP BP Pulse Ox 01/01/20 10:56 36.3 C L 84 18 160/87 H 97 01/01/20 07:47 36.5 C 43 L 22 162/70 H 97 01/01/20 07:29 78 01/01/20 06:38 88 158/91 H 01/01/20 05:55 36.8 C 79 22 182/92 H 95 01/01/20 02:52 37.0 C 93 H 30 H 178/105 H 96
--- NOTE | 2020-01-01 14:32 | Hospitalist Progress Note ---
Date of Service January 01, 2020 Assessment & Plan (1) Fall: 84-year-old male with history of hypertension BPH presenting with left hip fracture status post fall. Per Dr. Jose Mcfadden's notes: (1) Fall: -in history and physical on 12/25/19 that "This is a 84 year old Male who was at home and reportedly was got up after sleeping in the night time and fell down several feet from where he was sleeping as per his oDrina ([phone]). Patient appears to have auditory impairment and most of the history provided by his at the bedside. Patient apparently did not have loss of consciousness as he called out for help. Patient was brought to the ED and found to have Mildly displaced left femoral neck fracture. Patient also seen to be hypertensive in the ED likely because of underlying hypertension which is exacerbated by pain from the fall injury. Patient has anderson placed in the ED and urine analysis noted to have bacteria and ED provider started ceftriaxone antibiotic. Patient also noted to have redness of medial left thigh and patient's reports that patient often wets himself from urination and does not keep the area dry as it should be." (2) Closed fracture of left hip: -pain medication with bowel regimen -s/p Left hip hemiarthroplasty on 12/26/2019; initially on wound vac but patient pulled it out -on aspirin 81 mg BID as per orthopedics -PT/OT ordered 12/31/2019 Postoperative course complicated by delirium Currently with poor appetite, not cooperative with taking p.o. medications DC oxycodone and Dilaudid DC Ativan Start PRN Haldol DC Anderson catheter Management of UTI noted below Continue gentle reassurance, reorientation, strategies to prevent delirium Monitor closely Continue one-to-one observation 01/01/2020 Less combative today, was able to take more p.o. medications Continue supportive care Noted to have foul-smelling discharge from surgical site yesterday Afebrile today WBC increased to 16 K Cefepime IV started Orthopedic service reconsulted, appreciate the recommendations Acute encephalopathy: Likely multifactorial from hip fracture, status post surgery, analgesics, underlying dementia -Stroke code called on 12/26/2019 as documented below in regards to facial asymmetry; his mental status is a challenge in the post-op care --Management per #2 Acute UTI (urinary tract infection), Enterococcus: with possible Bacteremia ruled out -admission urine culture with speciation of pansensitive Enterococcus faecalis instead of strep -has been empirically on ceftriaxone since admission but because admission blood culture with Staphylococcus species in 1 of 2 blood cultures (MRSA negative by PCR) the antibiotic treatment upgraded from ceftriaxone to Zosyn starting on 12/27/2019 and repeat blood culture drawn on 12/27/2019 which is no growth to date as of 12/29/2019 -discussed with pharmacy about switching from Zosyn to ampicillin to maintain the treatment of the urine Enterococcus faecalis starting on 12/29/2019 --> Currently on cefepime IV Acute renal failure on CKD 3 --Creatinine increased from 0.8-1.5 Continue D5 water Monitor renal function Hypernatremia --Improving Continue D5 water Appreciate nephrology service recommendations Hypertension: --Amlodipine increased, and hydralazine started Continue Nitropaste PRN hydralazine Facial asymmetry, Acute CVA ruled out -CT head on 12/25/2019 presentation without acute findings but mentioned Old lacunar infarct within the right thalamus -in the AM of 12/26/2019, patient was speaking more to medical team. However he has facial asymmetry more pronounced when speaking (able to talk more with right side of the mouth compared to the left). A stroke alert was called to expedite CT head scan and brain MRI. Patient able to answer some questions about his name and he does not express acute symptoms. He moves the upper extremities. He has left femoral neck fracture and his legs are in waffle boots -CT head 12/26/2019: No acute intracranial findings patient with not CT head finding of stroke and is likely not a candidate for TPA because of unclear chronicity of facial asymmetry -MRI Brain 12/26/2019 No acute intracranial findings. Exam moderately compromised by motion artifact although diagnostic. Extensive atrophy and small vessel disease. No intracranial mass or pathologic enhancement. -stroke is unlikely, patient proceeded to orthopedic surgery on 12/26/2019, post- operatively patient continues to have facial asymmetry with is visible with speech but no other focal symptoms other than poor orientation to the hospital setting. 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 Garcia included troponins of which were elevated as 2.7 on night time of 12/27/2019, Dr. Garcia reports he discussed with orthopedics to allow for IV heparin to be started because of elevated troponins. IV heparin was started. Second troponin 2.95 in AM of 12/28/2019. On 12/28/2019 morning exam by day time hospitalist, patient awake and not as agitated as he was on . Patient denied pain of the chest or abdomen or of the legs. -12/28/2019: discussed with Dr. Azul from cardiology that patient's echocardiogram reflects old infarction which does not reflect elevated troponins on this hospital stay; Dr. Azul advised no further IV heparin and give beta leonides treatment BPH (benign prostatic hyperplasia): -give home dose tamsulosin and finasteride DVT prophylaxis: currently in aspirin 81 mg BID Full Code Disposition Pending Management of delirium, hypertension, in progress Anticipate discharge to intermediate facility when medically stable Admission and Anticipated Discharge Date Admission Date: December 25, 2019 Subjective Follow-up for status post eft hip surgery, delirium, other problems noted below Seen with SPAR MACHINE OPERATOR HELPER at the bedside Patient was awake this morning, more cooperative, able to take a few bites of food Took medications this morning per RN Less combative, but still confused Patient was sleeping, not in distress We will reevaluate in the afternoon Review of Systems Review of Systems: All systems reviewed & are unremarkable except as noted in Subjective Physical Exam Physical Exam: General-sleeping, comfortable, breathing with no effort or accessory muscle use Eyes- anicteric Neck- no JVD Lungs- clear breath sounds bilaterally, no crackles or wheezing Heart- normal rate, regular rhythm; no murmurs Abdomen- normal bowel sounds, nondistended, soft, nontender Extremities- Left hip: Dressing in place, no bleeding or discharge noted no pretibial edema, no calf tenderness Neuro-sleeping Skin- warm & dry Results & Data Results & Data ([facility]) Vital Signs (Past 12 Hours) Vital Signs Temp Pulse Pulse Resp BP BP Pulse Ox 01/01/20 10:56 36.3 C L 84 18 160/87 H 97 01/01/20 07:47 36.5 C 43 L 22 162/70 H 97 01/01/20 07:29 78 01/01/20 06:38 88 158/91 H 01/01/20 05:55 36.8 C 79 22 182/92 H 95 01/01/20 02:52 37.0 C 93 H 30 H 178/105 H 96 Laboratory Results Laboratory Results - last 24 hr 01/01/20 01/01/20 08:05 08:05 WBC 16.68 H RBC 4.47 L Hgb 12.8 L Hct 39.2 L MCV 87.7 MCH 28.6 MCHC 32.7 RDW Std Deviation 43.5 RDW Coeff of Inocencio 13.6 Plt Count 241 MPV 10.0 Immature Gran % (Auto) 0.8 Neut % (Auto) 85.0 Lymph % (Auto) 10.4 [place] % (Auto) 3.2 Eos % (Auto) 0.5 Baso % (Auto) 0.1 Neut # (Auto) 14.19 H Lymph # (Auto) 1.73 [place] # (Auto) 0.54 Eos # (Auto) 0.08 Baso # (Auto) 0.01 Immature Gran # (Auto) 0.13 H Sodium 143 Potassium 3.1 L Chloride 111 H Carbon Dioxide 25 Anion Gap 7.0 BUN 24 H Creatinine 1.51 H D Est Cr Clr Drug Dosing 37.1 Est GFR ( Amer) 48.8 Est GFR (Non-Af Amer) 42.1 BUN/Creatinine Ratio 15.8 Glucose 133 H Calcium 8.5 (1) Fall Encounter type: initial encounter Qualified Code(s): W19.XXXA - Unspecified fall, initial encounter
[2020-01-01] MEDS ORDERED: PIPERACILL/TAZOBAC CONSULT ACTIVE PRN (16:28)
[2020-01-01] MEDS ORDERED: PIPERACILLIN/TAZOBACTAM 3.375 GM in DEXTROSE 5% 100 ML IV ONE (16:30)
[2020-01-01] MEDS: DOCUSATE SODIUM/SENNA 50/8.6MG TAB PO SCH (19:20)
[2020-01-01] MEDS: PIPERACILLIN/TAZOBACTAM 3.375 GM in DEXTROSE 5% 100 ML IV SCH (21:52)
[2020-01-02] MEDS: NITROGLYCERIN 2% OINTMENT 30GM TUBE EXT SCH (00:28)
[2020-01-02] MEDS ORDERED: SODIUM CHLORIDE 0.9% 500 ML IV ONE (03:43)
[2020-01-02] MEDS ORDERED: LACTATED RINGER'S 1,000 ML IV ONE (03:44)
--- NOTE | 2020-01-02 03:50 | Communication Note ---
Date of Service: January 02, 2020 Made aware by RN of hypotensive episode. SBP 90s. Patient clammy and sweaty as per RN account. Patient lethargic as per RN. Nitropaste removed by RN. AP Hypotension Possibly secondary to antihypertensive medications IVF bolus Hold Nitropaste and Hydralazine for now. Decrease amlodipine to 2.5 mg p.o. daily for now with hold parameters A.m. labs now ADDENDUM : WBC 30 (from 16) serum crea 3.51 (from 1.5) Patient noted to have foul-smelling yellow drainage from left hip wound as per RN. Left hip complaints from 2 nights ago. AP Severe sepsis SIRS plus ARF plus encephalopathy Infected left hip wound, hx L hip surgery Cultures, add Daptomycin to Zosyn for MRSA coverage Continue IVF, follow renal function CT abdomen pelvis RE worsening renal function Re: Left hip pain N.p.o. for now in anticipation of any procedure until CT results known and patient evaluated by Orthopedics. Will relay to AM provider.
[2020-01-02 05:00] LABS: Hematocrit (blood only) 37.1 % (42-52); Hemoglobin 12.4 g/dL (14.0-18.0); Mean Corpuscular Hemoglobin 28.8 pg (25-34); Mean Corpuscular Hgb Conc 33.4 g/dL (32-36); Mean Corpuscular Volume 86.3 fL (80-100); Mean Platelet Volume 10.4 fL (7.4-10.4); Platelet Count 188 K/uL (130-400); RDW Coefficient of Variation 13.7 % (11.5-14.5); RDW Standard Deviation 43.1 fL (36.4-46.3); White Blood Count 30.01 K/uL (4.8-10.8)
[2020-01-02 05:04] LABS: Basophils # (auto) 0.01 K/uL (0-0.2); Eosinophils # (auto) 0.02 K/uL (0-0.5); Eosinophils % (auto) 0.1 %; Immature Granulocytes # (auto) 0.25 K/uL (0.00-0.02); Immature Granulocytes % (auto) 0.8 %; Lymphocytes # (auto) 0.21 K/uL (1.2-3.4); Lymphocytes % (auto) 0.7 %; Monocytes # (auto) 0.12 K/uL (0.11-0.59); Monocytes % (auto) 0.4 %
[2020-01-02 05:08] LABS: BUN Creatinine Ratio 12.5 (10-20); Calcium 8.2 mg/dl (8.5-10.1); Creatinine Clr Calc Pharmacy 15.9 ml/min; Est GFR (African American) 17.6; Est GFR (Non-African American) 15.2; Potassium 3.6 mmol/L (3.5-5.1)
[2020-01-02 05:16] LABS: Partial Thromboplastin Ratio 1.6; Partial Thromboplastin Time 43.3 Seconds (21.0-31.0)
[2020-01-02] MEDS: DAPTOmycin 300 MG in SYRINGE 0 ML IV SCH (06:35)
--- NOTE | 2020-01-02 07:02 | XRay Report ---
XR chest 1V portable CLINICAL HISTORY: Renal failure COMPARISON STUDY: 12/25/2019 FINDINGS: The heart is the upper limits of normal in size. There is no failure. There is no lobar con solidation. There is mild right basilar atelectasis. Subtle increased density in the right upper lung zone is felt to be related to technical factors due to overlying soft tissues.[ IMPRESSION: Mild right basilar atelectatic change. No evidence of failure. No evidence of lobar conso lidation ACT 112: Negative or not required by law. Electronically signed by: Dorian Hilario M.D. 01/02/2020 7:00 AM
--- NOTE | 2020-01-02 07:28 | CT Scan Report ---
CT SCAN OF THE ABDOMEN AND PELVIS WITHOUT CONTRAST CLINICAL HISTORY: renal failure, L hip pain,drainage COMPARISON STUDY: No previous studies for comparison. TECHNIQUE: CT scan of the abdomen and pelvis was performed from the lung bases to the proximal femurs . Images are reviewed in the axial, sagittal, and coronal planes. IV contrast was not administered fo r this examination. A dose lowering technique was utilized adhering to the principles of ALARA. CT DOSE: 1673.53 mGy.cm FINDINGS: Lower chest: There are right lower lobe airspace opacities, atelectasis versus pneumonia. There is a trace right pleural effusion Liver: The unenhanced liver is normal in size, contour, and attenuation. There is no intrahepatic presley iary ductal dilatation. Gallbladder: Cholelithiasis Spleen: Normal in size and attenuation. Pancreas: Unremarkable. Adrenal glands: Unremarkable. Kidneys: No renal or ureteral calculi are visualized. There is no hydronephrosis. There is a 19 mm ex ophytic left renal lesion which exceeds water attenuation. There is a 19 mm right renal lesion which also exceeds water attenuation. Ultrasound should be considered in follow-up to exclude solid renal l esions. Bowel: There are no transition zones indicate bowel obstruction. There is colonic diverticulosis. The re is mild infiltration of the perisigmoid fat suggesting mild diverticulitis. There is no evidence o f abscess Peritoneum: There is no intraperitoneal free air or abdominal ascites. Vasculature: The abdominal aorta is normal in course and caliber. Adenopathy: None. Pelvic viscera: There are multiple bladder calculi. Prostamegaly Skeletal structures: There is a left hip arthroplasty. IMPRESSION: 1. Motion degraded study. 2. No evidence of bowel obstruction. No evidence of free air 3. Colonic diverticulosis and mild diverticulitis at the proximal sigmoid level. No evidence of absce ss 4. Multiple bladder calculi measuring up to 25 mm in diameter 5. Prostatomegaly 6. Indeterminate bilateral renal lesions which exceeds water attenuation. Nonemergent renal ultrasono graphy is recommended in follow-up. 7. Postsurgical changes of a left hip arthroplasty. Left-sided skin keron and cutaneous and subcuta neous edema. ACT 112: Negative or not required by law. Electronically signed by: Dorian Hilario M.D. 01/02/2020 7:27 AM
[2020-01-02] MEDS: PIPERACILLIN/TAZOBACTAM 3.375 GM in DEXTROSE 5% 100 ML IV SCH ×2 (08:31→14:31)
[2020-01-02] MEDS ORDERED: amLODIPine BESYLATE 5 MG TAB PO SCH (09:00)
[2020-01-02 09:59] LABS: Appearance Urine Turbid (Clear); Bacteria Urine Automated Negative (Negative); Bilirubin Urine Negative (Negative); Blood Urine 3+ (Negative); Color Urine Yellow; Glucose Urine UA Negative (Negative); Ketones Urine Trace (Negative); Leukocyte Esterase Urine 2+ (Negative); Nitrite Urine Negative (Negative); Protein Urine 2+ (Negative); Specific Gravity Urine 1.022 (1.000-1.030); Urobilinogen Urine Negative (Negative); WBC Urine Automated >30 /hpf (0-5)
[2020-01-02 10:01] LABS: RBC Urine Automated >30 /hpf (0-4)
[2020-01-02] MEDS: LACTATED RINGER'S 1,000 ML IV SCH ×2 (10:04→22:14)
[2020-01-02] MEDS: TAMSULOSIN HCL 0.4 MG CAP PO SCH (10:04)
[2020-01-02] MEDS: FINASTERIDE 5 MG TAB PO SCH (10:05)
[2020-01-02] MEDS: MULTIVITAMIN TAB PO SCH (10:05)
[2020-01-02] MEDS: amLODIPine BESYLATE 5 MG TAB PO SCH (10:05)
[2020-01-02 10:12] LABS: BUN Creatinine Ratio 14.9 (10-20); Calcium 8.5 mg/dl (8.5-10.1); Creatinine Clr Calc Pharmacy 17.8 ml/min; Est GFR (African American) 20.1; Est GFR (Non-African American) 17.3; Potassium 3.4 mmol/L (3.5-5.1)
--- NOTE | 2020-01-02 11:14 | XRay Report ---
XR chest 1V portable CLINICAL HISTORY: Respiratory difficulty COMPARISON STUDY: 01/02/2020 FINDINGS: The cardiac and mediastinal contours remain stable. There is slight progression in the righ t basilar airspace opacities. There is mild elevation right hemidiaphragm. Left lung remains clear.[ IMPRESSION: Increasing right basilar opacities, atelectasis versus pneumonia. Mild elevation of the r ight hemidiaphragm. ACT 112: Negative or not required by law. Electronically signed by: Dorian Hilario M.D. 01/02/2020 11:12 AM
[2020-01-02] MEDS: ACETAMINOPHEN 1,000 MG/100 ML VIAL IV PRN (16:24)
--- NOTE | 2020-01-02 16:28 | Nephrology Progress Note ---
Date of Service January 02, 2020 Assessment & Plan (1) Hypernatremia: Patient with hypernatremia due to inadequate water intake. Na improved from 149 05/10/2042 this morning. -Monitor Na daily -D5 water as needed. (2) Hypertension: [place] [address]. Avoid aggressive BP control in setting of active infection and Keo. Control pain. (3) Acute delirium: Due to hip fracture and underlying dementia. Continue supportive management. (4) Hypokalemia: Will give potassium chloride 40 mEq p.o. once today. Monitor potassium daily. (5) KEO (acute kidney injury): Patient with acute kidney injury due to ischemic ATN in setting of sepsis. I reviewed the urine sediment myself and showed numerous muddy brown casts. Agree with the Ringer's lactate but would reduce the rate of infusion to 100 mL/hour to avoid the fluid overload. No indication for dialysis but will monitor daily for dialysis need. -avoid nephrotoxins such as contrast and NSAIDs. Admission and Anticipated Discharge Date Admission Date: December 25, 2019 Subjective Patient is unable to give history due to confusion. He has leukocytosis of 30,000 and creatinine is up to 3.5. Urine output has dropped. Review of Systems Review of Systems: Unobtainable due to cognitive status Physical Exam Physical Exam: General exam: Appears comfortable, no acute distress HEENT: Pupils are equal and reactive to light Neck: No JVD, neck is supple trachea is midline Respiratory system: Clear breath sounds bilaterally. Gastrointestinal: Abdomen is soft, non distended, non tender, bowel sounds are present CVS: Regular rate and rhythm. No murmurs, rubs or gallops Musculoskeletal: No joint or muscle tenderness Extremities: Non tender, no edema, peripheral pulses are present Neuro: Disoriented, no tremors, no focal neurological deficits Skin: No rashes Results & Data ([facility]) Vital Signs (Past 12 Hours) Vital Signs Temp Pulse Pulse Pulse Resp BP BP 01/02/20 16:20 38.5 C H 103 H 22 144/77 H 01/02/20 15:26 36.7 C 71 21 112/54 L 01/02/20 07:24 36.8 C 66 20 157/81 H 01/02/20 07:14 77 01/02/20 05:00 80 159/82 H Pulse Ox 01/02/20 16:20 93 01/02/20 15:26 97 01/02/20 07:24 96 01/02/20 07:14 01/02/20 05:00 Laboratory Results 01/02/20 09:18 01/02/20 04:21 WBC 30.01 H* D RBC 4.30 L MCV 86.3 MCH 28.8 MCHC 33.4 RDW Std Deviation 43.1 RDW Coeff of Inocencio 13.7 Plt Count 188 MPV 10.4 (1) Hypertension Hypertension type: essential hypertension Qualified Code(s): I10 - Essential (primary) hypertension
[2020-01-02 17:47] LABS: Base Excess ABG -1.8 mEq/L (-9-1.8); HCO3 ABG 21 mmol/L (19-24); PCO2 ABG 30 mmHg (35-46); PO2 ABG 74 mmHg (80-95); pH ABG 7.46 (7.35-7.45)
[2020-01-02] MEDS ORDERED: RAPID SEQUENCE INDUCTION BAG ONE (17:51)
[2020-01-02 17:53] LABS: Allen Test POS (Pos)
[2020-01-02] MEDS ORDERED: PROPOFOL IV EMULSION 10 MG/ML 100 ML VIAL IV ONE (17:53)
--- NOTE | 2020-01-02 17:53 | Orthopedic Progress Note ---
Date of Service January 02, 2020 Assessment & Plan (1) Displaced fracture of left femoral neck: Left hip status post bipolar hemiarthroplasty. Concern regarding postoperative infection does not appear to be valid at this time. Continue judicious observation left hip incision with sterile dressing changes every shift. Patient is incontinent of urine and feces. Nonoperative treatment at this time. Continue IV antibiotics for sepsis per medical service. Unable to participate with physical therapy about Occupational Therapy due to current mental status. Will reassess as necessary. Thank you Present on Admission?: Yes (2) Fall: Admission and Anticipated Discharge Date Admission Date: December 25, 2019 Subjective Patient seen at bedside. Somnolent and essentially obtunded. Did not respond to verbal stimuli. Nonpurposeful movement. Physical Exam Physical Exam: Patient examined at bedside. Patient is essentially obtunded. Arterial blood gases being drawn at the time. Examination of the left hip demonstrates well approximated and coapted left hip surgical incision. Mild induration. No erythema. No evidence of cellulitis. No increased warmth. Minimal serous discharge. No obvious purulence. No fluctuance. Left hip is reduced within the acetabulum. No purposeful movement does not follow instructions. Feet are warm skin is dry and intact lower extremities. Pedal pulses palpable. Results & Data ([facility]) Vital Signs (Past 12 Hours) Vital Signs Temp Pulse Pulse Resp BP BP Pulse Ox 01/02/20 16:20 38.5 C H 103 H 22 144/77 H 93 01/02/20 15:26 36.7 C 71 21 112/54 L 97 01/02/20 07:24 36.8 C 66 20 157/81 H 96 01/02/20 07:14 77 (1) Fall Encounter type: initial encounter Qualified Code(s): W19.XXXA - Unspecified fall, initial encounter
--- NOTE | 2020-01-02 17:55 | Critical Care Consultation ---
Date of Consultation January 02, 2020 Assessment & Plan (1) Severe sepsis: Neurologic: Patient with severe altered mental status. Questionable airway protection. Will likely intubate. Hold all mind altering medications. Will assess to see whether he needs analgesic medications while intubated. May obtain EEG. Suspect toxic metabolic encephalopathy. Delirium precautions Pulmonary: Patient with evidence of right-sided aspiration pneumonia. Saturating 93% on room air. Cardiovascular: Patient blood pressure is very elevated throughout hospitalization and had an acute drop as of today. Will maintain mean arterial pressures above 75 given his chronic hypertension. Echocardiogram obtained recently with relatively preserved ejection fraction. Gastrointestinal: N.p.o. Stress ulcer prophylaxis: Famotidine daily. Renal: Patient acute renal failure. Continue IV hydration. Checking lactic acid. Infectious disease: Repeating blood cultures. Obtaining procalcitonin. Obtain sputum cultures. Urine cultures pending. Cover broadly with daptomycin and Zosyn. Obtain repeat MRSA screen. Hematologic: No acute issues currently Endocrine: ICU hyperglycemia protocol F/E/N: N.p.o. Lines and tubes: Da Silva catheter in place. To 22-gauge IVs in place. VTE prophylaxis: We will start heparin 3 times daily CODE STATUS: Full code Family at bedside: None immediately available at bedside Disposition: Remain in the ICU I have personally spent 63 minutes of critical care time in the direct management of this patient. This is a life/limb threatening event. This includes time spent evaluating patient, direct bedside care, chart review, placing orders, interpretation of diagnostic studies, discussion with consultants, patient, and family members, as well as other required patient management activities. This time is exclusive of all separately billable procedures, and teaching time and separate from and in addition to any other critical care service time. Thank you for allowing us to participate in the care of this patient. (2) Acute encephalopathy: (3) Hypernatremia: (4) Complicated UTI (urinary tract infection): (5) Closed fracture of left hip: (6) Aspiration pneumonia: History of Present Illness Reason for Consultation: Altered mental status and severe sepsis. Requesting Physician: Dr. Michael Attending Physician: Gio Michael MD History of Present Illness 84-year-old male with a past medical history of BPH, hearing impairment who presented to the hospital on 12/25/2019 due to a fall at night and found to have a left femoral neck fracture. Patient underwent left hip bipolar hemiarthroplasty on 12/26/2019. Apparently he recently developed drainage from his left hip and started spiking fevers upwards of 101. Per discussion with hospitalist patient has had altered mental status throughout this hospital ization and underwent a CT head and MRI of the brain. CT head on 12/27/2019 was negative for any acute ischemia. MRI brain on 12/26/2019 with no acute intracranial findings. Exam moderately compromised due to motion artifact although diagnostic. Chest x-ray today with increased right basilar opacities/atelectasis versus pneumonia. CT abdomen and pelvis on 01/02/2020 demonstrated colonic diverticulosis, prostatomegaly and indeterminate bilateral renal lesions. Postsurgical changes noted the left hip. Subcutaneous edema noted at the hip. White count elevated to 30,000. Urine sample from 01/02/2020 demonstrated 2+ leukoesterase, greater than 30 WBC and nitrate negative. Patient has an acute renal failure with a creatinine 3.15. Baseline creatinine 0.88. Urine cultures are pending. Blood culture on 12/25/2019 grew micrococcus. MRSA screen on 12/25/2019 was negative. Patient is currently on daptomycin and Zosyn. Lactated Ringer's are hanging. Patient has [address] and a Da Silva catheter. Notably, the patient has had very elevated blood pressures throughout hospitalization with blood pressures upwards of 233 systolic on presentation. He has had pressures ranging from 150- 199 since that period of time. His lowest blood pressure was on 01/02/2020 which was measured 90/52. Lactate was negative. Repeat lactic acid is pending. Allergies Allergy/AdvReac Type Severity Reaction Status Date / Time No Known Allergies Allergy Verified 12/25/19 05:50 Home Medications Home Medications Medication Instructions Recorded Confirmed Type finasteride 5 mg PO 12/25/19 History lisinopril 10 mg PO 12/25/19 History tamsulosin 0.4 mg PO 12/25/19 History Patient History Medical History Acute UTI (urinary tract infection) BPH (benign prostatic hyperplasia) Fall Hypertension Social History Smoking Status: Former smoker Second Hand Exposure: No; Do You Dip or Chew Tobacco: Yes; Tobacco Cessation Education Requested by Patient: No Hx Alcohol Use: No Hx Substance Use: No Preferred Language: Indonesian Communication Ability: Impaired Beliefs That Will Affect Care: None marital status: Current Living Situation: Spouse Other Information That Helps Us Care for You: No Feels Safe at Home: Yes Safety Concerns: Feels Safe At This Time Review of Systems Review of Systems: Unobtainable due to cognitive status Physical Exam Constitutional: Patient appears obtunded. Secretions pooling in his mouth. Eyes: PERRL, conjunctivae normal, anicteric sclerae ENMT: Pooling secretions in the mouth noted. I did perform suctioning. Neck: normal visual inspection Respiratory: Rhonchorous breath sounds bilaterally. Diminished on the right. Cardiovascular: Mildly tachycardic. No obvious murmurs. Gastrointestinal (Abdomen): normal bowel sounds, soft, nontender, no hepatosplenomegaly Musculoskeletal: no cyanosis or clubbing, extremities motor strength 5/5 Skin: Left hip keron noted with drainage. Neurologic: PERRL, EOMI, accommodation nl, no face palsy, no dysarthria Psychiatric: A+Ox3, euthymic affect Results & Data Results & Data ([facility]) Vital Signs (Past 12 Hours) Vital Signs Temp Pulse Pulse Resp BP BP Pulse Ox 01/02/20 16:20 101.3 F H 103 H 22 144/77 H 93 01/02/20 15:26 98.1 F 71 21 112/54 L 97 01/02/20 07:24 98.2 F 66 20 157/81 H 96 01/02/20 07:14 77 Reviewed vital signs, labs and chest imaging Coding Level of Care Code Critical Care 1st 30-74 mins Diagnoses Severe sepsis A41.9; R65.20 Acute encephalopathy G93.40 Hypernatremia E87.0 Complicated UTI (urinary tract infection) N39.0 Closed fracture of left hip S72.002A Encounter type: initial encounter Aspiration pneumonia J69.0 Time Spent (min) 63 (1) Closed fracture of left hip Encounter type: initial encounter Qualified Code(s): S72.002A - Fracture of unspecified part of neck of left femur, initial encounter for closed fracture
[2020-01-02] MEDS ORDERED: ONDANSETRON INJ 2 MG/ML 2 ML VIAL ONE (18:10)
--- NOTE | 2020-01-02 19:14 | XRay Report ---
XR chest 1V portable CLINICAL HISTORY: intubation COMPARISON STUDY: Chest radiograph January 02, 2020 at 10:54 AM. FINDINGS: The tip of the nasogastric tube is within the body of the stomach. The tip of the endotrach eal tube is approximately 4.2 cm above the [place]. Tip of right subclavian central line is within the SVC. There is no pneumothorax. Lung volumes are diminished. There is mild right basilar opacity. No evidence for pulmonary edema. Cardiomediastinal silhouette is stable. IMPRESSION: 1. Satisfactory positioning of lines and tubes. 2. No pneumothorax. 3. Mild right basilar opacity. ACT 112: Negative or not required by law. Electronically signed by: Brett Saenz M.D. 01/02/2020 7:13 PM
--- NOTE | 2020-01-02 19:23 | Procedure Note ---
Procedure Note Date of Service January 02, 2020 Note Right subclavian vein CENTRAL LINE PROCEDURE NOTE: Procedure: Right subclavian vein Central Line Placement Indication: Central Drug Administration, Poor Venous Access, Multiple Lab Draws Necessary, etc. Anesthesia: 8 none/[]Lidocaine 1% Consent was not obtained as the patient was obtunded and the procedure was deemed emergent given limited IV access. Patients right chest was cleansed and draped in the typical sterile fashion using Chloraprep. The subclavian vein and subclavian artery were identified using ultrasound. The superficial tissue was anesthetized using 8 mL of 1% lidocaine without epinephrine under direct visualization with the ultrasound. After adequate anesthetization was achieved, the subclavian vein was cannulated under direct ultrasound guidance using an introducer needle on a syringe. Good venous blood return was maintained prior to removal of syringe from introducer needle. Using Seldinger Technique, a guide wire was advanced through the introducer needle without resistance. The introducer needle was removed and ultrasound images were obtained of the guide wire within the subclavian vein and saved to the patients medical record. A small incision was made in penetrating fashion at the guide wire insertion site utilizing an 11 blade scalpel. The dilator was advanced to the vessel without resistance. The dilator was exchanged for the triple lumen catheter which was advanced into the vessel without resistance. The guide wire was removed intact from the catheter without issue. Claves were placed on each catheter tip with confirmation of good blood flow from each lumen. Each port was easily flushed with sterile saline. The catheter was placed at 18 cm and sutured in place. BioPatch was applied to the catheter and a sterile Tegaderm dressing was applied over the catheter with careful attention to sterility. Patient tolerated procedure well. No immediate complications were met. Post procedure x-ray was completed, placement was appropriate and no pneumothorax was noted. Images obtained are saved for permanent record Procedural Ultrasound Guidance used Images obtained are saved for permanent record. Coding CPT Codes Tubes, Drains, and Vasc Access - Tubes, Drains, and Vasc Access: [id number] Place catheter in vein superior or inferior vena cava ([id number]) Tubes, Drains, and Vasc Access - Tubes, Drains, and Vasc Access: [id number] Ultrasound Guidance For Vascular ([id number]) [facility] [place] Codes (Charges) Tubes, Drains, and Vasc Access Procedure 1: Tubes, Drains, and Vasc Access: [id number] Place catheter in vein superior or inferior vena cava Procedure 2: Tubes, Drains, and Vasc Access: [id number] Ultrasound Guidance For Vascular
--- NOTE | 2020-01-02 19:25 | Procedure Note ---
Procedure Note Date of Service January 02, 2020 Note INTUBATION PROCEDURE NOTE: Dr. Mode Phelan A time-out was completed verifying correct patient, procedure, site, positioning. Patient was evaluated and required intubation for severe altered mental status. Sedative agent used: 20 mg etomidate Paralysis agent used: 50 mg rocuronium Emergent consent was implied given patients rapidly declining clinical status and need for airway protection. Number of attempts: 1 Grade view: Not applicable as this was a glide scope The patient was prepared in the appropriate fashion. Sedation was achieved utilizing 20 mg of etomidate and 50 mg of rocuronium. The patient was easily ve ntilated using [id number] to achieve adequate oxygenation. A 8 [place] endotracheal tube was placed under glide scope to 22 cm at the lip. Significant amount of secretions were noted in the oropharynx. The stylette was removed and balloon was inflated with 10mL of air. Appropriate Colorimetric change was appreciated. Bilateral breath sounds were heard without air sounds in the abdomen. Post Intubation Chest X-ray ordered Patient tolerated the procedure well and there were no immediate complications. Coding CPT Codes Resuscitation - Resuscitation: [id number] Endotracheal Intubation, emergency ([id number][place] [facility] [place]arges) Resuscitation Resuscitation: [id number] Endotracheal Intubation, emergency
[2020-01-02 20:06] LABS: iSTAT Allen Test Pass; iSTAT Arterial Blood Gas HCO3 22 meg/L (19-24); iSTAT Arterial Blood Gas pCO2 42 mmHg (35-46); iSTAT Arterial Blood Gas pH 7.34 (7.35-7.45); iSTAT Arterial Blood Gas pO2 91 mmHg (80-95); iSTAT Carbon Dioxide 23 mmol/L (24-31); iSTAT FiO2 40 %; iSTAT Site R Radial
[2020-01-02 20:19] LABS: BUN Creatinine Ratio 17.8 (10-20); Calcium 8.4 mg/dl (8.5-10.1); Creatinine Clr Calc Pharmacy 19.2 ml/min; Magnesium 2.2 mg/dl (1.8-2.4); Potassium 2.9 mmol/L (3.5-5.1)
[2020-01-02 20:22] LABS: Phosphorus 4.7 mg/dl (2.5-4.9)
[2020-01-02] MEDS ORDERED: POTASSIUM CHLORIDE 20 MEQ/15 ML UDC PO STA (21:12)
--- NOTE | 2020-01-02 21:16 | Hospitalist Progress Note ---
Date of Service January 02, 2020 Assessment & Plan (1) Fall: 84-year-old male with history of hypertension BPH presenting with left hip fracture status post fall. Per Dr. Jose Mcfadden's notes: (1) Fall: -in history and physical on 12/25/19 that "This is a 84 year old Male who was at home and reportedly was got up after sleeping in the night time and fell down several feet from where he was sleeping as per his Dorina ([phone]). Patient appears to have auditory impairment and most of the history provided by his at the bedside. Patient apparently did not have loss of consciousness as he called out for help. Patient was brought to the ED and found to have Mildly displaced left femoral neck fracture. Patient also seen to be hypertensive in the ED likely because of underlying hypertension which is exacerbated by pain from the fall injury. Patient has anderson placed in the ED and urine analysis noted to have bacteria and ED provider started ceftriaxone antibiotic. Patient also noted to have redness of medial left thigh and patient's reports that patient often wets himself from urination and does not keep the area dry as it should be." (2) Closed fracture of left hip: -pain medication with bowel regimen -s/p Left hip hemiarthroplasty on 12/26/2019; initially on wound vac but patient pulled it out -on aspirin 81 mg BID as per orthopedics -PT/OT ordered 12/31/2019 Postoperative course complicated by delirium Currently with poor appetite, not cooperative with taking p.o. medications DC oxycodone and Dilaudid DC Ativan Start PRN Haldol DC Anderson catheter Management of UTI noted below Continue gentle reassurance, reorientation, strategies to prevent delirium Monitor closely Continue one-to-one observation 01/01/2020 Less combative today, was able to take more p.o. medications Continue supportive care Noted to have foul-smelling discharge from surgical site yesterday Afebrile today WBC increased to 16 K Cefepime IV started Orthopedic service reconsulted, appreciate the recommendations 01/02/2020 Transferred to the ICU secondary to worsening of mental status Eventually intubated, central line placed management of sepsis noted below Severe sepsis, etiology unclear, possible UTI, aspiration pneumonia, mild diverticulitis Repeat blood and urine cultures ordered Discussed with Ortho, left hip infection unlikely Lactic acid level normal Continue Dapto and Zosyn, IV fluids Acute encephalopathy: Likely multifactorial from hip fracture, status post surgery, analgesics, underlying dementia, sepsis -Stroke code called on 12/26/2019 as documented below in regards to facial asymmetry; his mental status is a challenge in the post-op care --Management per #2 EEG ordered Acute UTI (urinary tract infection), Enterococcus: with possible Bacteremia ruled out -admission urine culture with speciation of pansensitive Enterococcus faecalis instead of strep -has been empirically on ceftriaxone since admission but because admission blood culture with Staphylococcus species in 1 of 2 blood cultures (MRSA negative by PCR) the antibiotic treatment upgraded from ceftriaxone to Zosyn starting on 12/27/2019 and repeat blood culture drawn on 12/27/2019 which is no growth to date as of 12/29/2019 -discussed with pharmacy about switching from Zosyn to ampicillin to maintain the treatment of the urine Enterococcus faecalis starting on 12/29/2019 --> Follow urine cultures, currently on daptomycin and Zosyn Acute renal failure on CKD 3 --Creatinine increased from 0.8-1.5, now 3.1 Continue LR Monitor renal function Appreciate nephrology service recommendations Hypernatremia --Improving Continue LR Appreciate nephrology service recommendations Hypertension: --Hypotensive overnight, amlodipine decreased, hydralazine and Nitropaste discontinued Facial asymmetry, Acute CVA ruled out -CT head on 12/25/2019 presentation without acute findings but mentioned Old lacunar infarct within the right thalamus -in the AM of 12/26/2019, patient was speaking more to medical team. However he has facial asymmetry more pronounced when speaking (able to talk more with right side of the mouth compared to the left). A stroke alert was called to expedite CT head scan and brain MRI. Patient able to answer some questions about his name and he does not express acute symptoms. He moves the upper extremities. He has left femoral neck fracture and his legs are in waffle boots -CT head 12/26/2019: No acute intracranial findings patient with not CT head finding of stroke and is likely not a candidate for TPA because of unclear chronicity of facial asymmetry -MRI Brain 12/26/2019 No acute intracranial findings. Exam moderately compromised by motion artifact although diagnostic. Extensive atrophy and small vessel disease. No intracranial mass or pathologic enhancement. -stroke is unlikely, patient proceeded to orthopedic surgery on 12/26/2019, post- operatively patient continues to have facial asymmetry with is visible with speech but no other focal symptoms other than poor orientation to the hospital setting. -patient's at the bedside on 12/28/2019 reports that patient may have Parkinson's disease or dementia that was not formally diagnosed as outpatient, baseline often forgetful at home, and that patient's facial features of facial asymmetry is baseline Troponin level elevated: elevated troponins from demand ischemia -the residential sales was concerned that patient with more confusion and workup by nocturnalist Dr. Garcia included troponins of which were elevated as 2.7 on night time of 12/27/2019, Dr. Garcia reports he discussed with orthopedics to allow for IV heparin to be started because of elevated troponins. IV heparin was started. Second troponin 2.95 in AM of 12/28/2019. On 12/28/2019 morning exam by day time hospitalist, patient awake and not as agitated as he was on . Patient denied pain of the chest or abdomen or of the legs. -12/28/2019: discussed with Dr. Azul from cardiology that patient's echocardiogram reflects old infarction which does not reflect elevated troponins on this hospital stay; Dr. Azul advised no further IV heparin and give beta leonides treatment BPH (benign prostatic hyperplasia): -give home dose tamsulosin and finasteride DVT prophylaxis: Aspirin held for acute renal failure, Heparin held in light of altered mental status Monitor Full Code Disposition Pending Management of delirium, hypertension, in progress Anticipate discharge to detention facility when medically stable Admission and Anticipated Discharge Date Admission Date: December 25, 2019 Subjective Follow-up for acute encephalopathy, sepsis, acute renal failure, etc. Events overnight noted Seen in the morning, appears weak and tired, but able to open eyes, move extremities equally Follow commands, does not answer questions N.p.o. ordered due to patient's mental status Reassessed multiple times, advised RN to suction patient as needed to gurgling appreciated Patient's and sons updated at the bedside, in detail and at length All questions were answered They are all understand, agreeable, comfortable with plan of care Reassessed in the afternoon, patient is less responsive still having to be suctioned frequently ABG ordered no hypercapnia Discussed with emergency medical technician basic, transfer to ICU for closer monitoring, possible respiratory distress secondary to altered mental status Eventually intubated, central line placed Patient evaluated in the ICU, intubated, comfortable, not in distress at the bedside updated, all questions answered, she is comfortable and understanding of the plan of care Review of Systems Review of Systems: Unobtainable due to cognitive status Physical Exam Physical Exam: General-very weak, does not follow commands or answer questions, breathing with no effort or accessory muscle use Eyes- anicteric Neck- no JVD Lungs-positive crackles at the upper lung ohara, clear on the basis Heart- normal rate, regular rhythm; no murmurs Abdomen- normal bowel sounds, nondistended, soft, nontender Extremities-left hip: Mild erythema, edema, wound healing well, no active discharge noted, keron in place, no pretibial edema, no calf tenderness Neuro-minimally responsive, but moves all extremities equally occasionally Skin- warm & dry Results & Data Results & Data ([facility]) Vital Signs (Past 12 Hours) Vital Signs Temp Pulse Pulse Resp BP BP BP 01/02/20 20:28 92 H 127/55 L 01/02/20 20:26 95 H 127/55 L 01/02/20 20:24 97 H 143/60 H 01/02/20 20:22 99 H 156/64 H 01/02/20 20:20 100 H 148/63 H 01/02/20 20:18 106 H 177/70 H 01/02/20 20:16 109 H 153/62 H 01/02/20 20:14 103 H 150/61 H 01/02/20 20:12 99 H 158/59 H 01/02/20 20:10 104 H 148/65 H 01/02/20 20:08 102 H 139/59 L 01/02/20 20:06 102 H 151/75 H 01/02/20 20:04 105 H 159/66 H 01/02/20 20:02 100 H 163/63 H 01/02/20 20:00 36.7 C 102 H 163/64 H 01/02/20 19:58 109 H 151/83 H 01/02/20 19:56 102 H 150/59 H 01/02/20 19:54 105 H 154/60 H 01/02/20 19:52 107 H 158/78 H 01/02/20 19:49 111 H 171/99 H 01/02/20 19:46 105 H 174/66 H 01/02/20 19:44 101 H 159/65 H 01/02/20 19:42 100 H 158/74 H 01/02/20 19:40 100 H 163/64 H 01/02/20 19:38 103 H 174/70 H 01/02/20 19:36 100 H 158/57 H 01/02/20 19:34 105 H 158/63 H 01/02/20 19:32 105 H 163/74 H 01/02/20 19:30 105 H 162/63 H 01/02/20 19:28 104 H 171/65 H 01/02/20 19:26 101 H 154/63 H 01/02/20 19:24 99 H 162/60 H 01/02/20 19:22 105 H 164/76 H 01/02/20 19:19 106 H 179/63 H 01/02/20 19:16 108 H 177/83 H 01/02/20 19:14 109 H 174/85 H 01/02/20 19:12 101 H 20 168/110 H 01/02/20 19:10 103 H 24 178/97 H 01/02/20 19:06 18 183/105 H 01/02/20 19:03 105 H 24 175/67 H 01/02/20 19:01 36.7 C 100 H 26 H 164/69 H 01/02/20 18:25 87 14 01/02/20 16:20 38.5 C H 103 H 22 144/77 H 01/02/20 15:26 36.7 C 71 21 112/54 L Pulse Ox 01/02/20 20:28 98 01/02/20 20:26 98 01/02/20 20:24 97 01/02/20 20:22 99 01/02/20 20:20 99 01/02/20 20:18 99 01/02/20 20:16 100 01/02/20 20:14 98 01/02/20 20:12 97 01/02/20 20:10 99 01/02/20 20:08 97 01/02/20 20:06 98 01/02/20 20:04 98 01/02/20 20:02 97 01/02/20 20:00 96 01/02/20 19:58 98 01/02/20 19:56 97 01/02/20 19:54 97 01/02/20 19:52 97 01/02/20 19:49 97 01/02/20 19:46 97 01/02/20 19:44 97 01/02/20 19:42 96 01/02/20 19:40 96 01/02/20 19:38 96 01/02/20 19:36 94 01/02/20 19:34 94 01/02/20 19:32 94 01/02/20 19:30 93 01/02/20 19:28 94 01/02/20 19:26 95 01/02/20 19:24 96 01/02/20 19:22 97 01/02/20 19:19 98 01/02/20 19:16 98 01/02/20 19:14 97 01/02/20 19:12 97 01/02/20 19:10 98 01/02/20 19:06 98 01/02/20 19:03 98 01/02/20 19:01 97 01/02/20 18:25 97 01/02/20 16:20 93 01/02/20 15:26 97 Laboratory Results Laboratory Results - last 24 hr 01/02/20 01/02/20 01/02/20 04:21 04:21 04:21 WBC 30.01 H* D RBC 4.30 L Hgb 12.4 L Hct 37.1 L MCV 86.3 MCH 28.8 MCHC 33.4 RDW Std Deviation 43.1 RDW Coeff of Inocencio 13.7 Plt Count 188 MPV 10.4 Immature Gran % (Auto) 0.8 Neut % (Auto) 98.0 Lymph % (Auto) 0.7 Isabela % (Auto) 0.4 Eos % (Auto) 0.1 Baso % (Auto) 0.0 Neut # (Auto) 29.40 H Lymph # (Auto) 0.21 L Isabela # (Auto) 0.12 Eos # (Auto) 0.02 Baso # (Auto) 0.01 Immature Gran # (Auto) 0.25 H APTT PTT Ratio Sample Site POC pH POC pCO2 POC pO2 POC HCO3 POC Total CO2 POC Base Excess ABG pH ABG pCO2 ABG pO2 ABG HCO3 POC ABG O2 Sat ABG O2 Saturation ABG Base Excess Tony Test Barometric Pressure Oxygen Given O2 Delivery Device POC O2 Rate Minute Ventilation POC FiO2 Tidal Volume PEEP Sodium 144 Potassium 3.6 D Chloride 112 H Carbon Dioxide 23 Anion Gap 9.0 BUN 44 H D Creatinine 3.51 H D Est Cr Clr Drug Dosing 15.9 Est GFR ( Amer) 17.6 Est GFR (Non-Af Amer) 15.2 BUN/Creatinine Ratio 12.5 Glucose 124 H POC Glucose Lactate 1.9 Calcium 8.2 L Phosphorus Magnesium 2.0 Total Creatine Kinase Procalcitonin Urine Color Urine Appearance Urine pH Ur Specific [place] Urine Protein Urine Glucose (UA) Urine Ketones Urine Blood Urine Nitrite Urine Bilirubin Urine Urobilinogen Ur Leukocyte Esterase Urine WBC (Auto) Urine RBC (Auto) U Hyaline Cast (Auto) U Epithel Cells (Auto) Urine Bacteria (Auto) Granular Casts Urine Yeast 01/02/20 01/02/20 01/02/20 04:32 04:36 08:55 WBC RBC Hgb Hct MCV MCH MCHC RDW Std Deviation RDW Coeff of Inocencio Plt Count MPV Immature Gran % (Auto) Neut % (Auto) Lymph % (Auto) Isabela % (Auto) Eos % (Auto) Baso % (Auto) Neut # (Auto) Lymph # (Auto) Isabela # (Auto) Eos # (Auto) Baso # (Auto) Immature Gran # (Auto) APTT 43.3 H PTT Ratio 1.6 Sample Site POC pH POC pCO2 POC pO2 POC HCO3 POC Total CO2 POC Base Excess ABG pH ABG pCO2 ABG pO2 ABG HCO3 POC ABG O2 Sat ABG O2 Saturation ABG Base Excess Tony Test Barometric Pressure Oxygen Given O2 Delivery Device POC O2 Rate Minute Ventilation POC FiO2 Tidal Volume PEEP Sodium Potassium Chloride Carbon Dioxide Anion Gap BUN Creatinine Est Cr Clr Drug Dosing Est GFR ( Amer) Est GFR (Non-Af Amer) BUN/Creatinine Ratio Glucose POC Glucose 116 H Lactate Calcium Phosphorus Magnesium Total Creatine Kinase Procalcitonin Urine Color Yellow Urine Appearance Turbid A Urine pH 5.0 Ur Specific [place] 1.022 Urine Protein 2+ H Urine Glucose (UA) Negative Urine Ketones Trace H Urine Blood 3+ H Urine Nitrite Negative Urine Bilirubin Negative Urine Urobilinogen Negative Ur Leukocyte Esterase 2+ H Urine WBC (Auto) >30 H Urine RBC (Auto) >30 H U Hyaline Cast (Auto) 5-10 H U Epithel Cells (Auto) 10-20 H Urine Bacteria (Auto) Negative Granular Casts 1-5 H Urine Yeast Not Reportable 09/01/02/20 01/02/20 09:18 16:57 17:37 WBC RBC Hgb Hct MCV MCH MCHC RDW Std Deviation RDW Coeff of Inocencio Plt Count MPV Immature Gran % (Auto) Neut % (Auto) Lymph % (Auto) Isabela % (Auto) Eos % (Auto) Baso % (Auto) Neut # (Auto) Lymph # (Auto) Isabela # (Auto) Eos # (Auto) Baso # (Auto) Immature Gran # (Auto) APTT PTT Ratio Sample Site POC pH POC pCO2 POC pO2 POC HCO3 POC Total CO2 POC Base Excess ABG pH 7.46 H ABG pCO2 30 L ABG pO2 74 L ABG HCO3 21 POC ABG O2 Sat ABG O2 Saturation 95.0 ABG Base Excess -1.8 Tony Test POS Barometric Pressure 732.8 Oxygen Given RA O2 Delivery Device POC O2 Rate Minute Ventilation POC FiO2 Tidal Volume PEEP Sodium 146 H Potassium 3.4 L Chloride 112 H Carbon Dioxide 24 Anion Gap 10.0 BUN 47 H Creatinine 3.15 H D Est Cr Clr Drug Dosing 17.8 Est GFR ( Amer) 20.1 Est GFR (Non-Af Amer) 17.3 BUN/Creatinine Ratio 14.9 Glucose 124 H POC Glucose 109 H Lactate Calcium 8.5 Phosphorus Magnesium Total Creatine Kinase Procalcitonin Urine Color Urine Appearance Urine pH Ur Specific [place] Urine Protein Urine Glucose (UA) Urine Ketones Urine Blood Urine Nitrite Urine Bilirubin Urine Urobilinogen Ur Leukocyte Esterase Urine WBC (Auto) Urine RBC (Auto) U Hyaline Cast (Auto) U Epithel Cells (Auto) Urine Bacteria (Auto) Granular Casts Urine Yeast 01/02/20 01/02/20 01/02/20 17:37 19:29 19:29 WBC RBC Hgb Hct MCV MCH MCHC RDW Std Deviation RDW Coeff of Inocencio Plt Count MPV Immature Gran % (Auto) Neut % (Auto) Lymph % (Auto) Isabela % (Auto) Eos % (Auto) Baso % (Auto) Neut # (Auto) Lymph # (Auto) Isabel[place] # (Auto) Eos # (Auto) Baso # (Auto) Immature Gran # (Auto) APTT PTT Ratio Sample Site POC pH POC pCO2 POC pO2 POC HCO3 POC Total CO2 POC Base Excess ABG pH ABG pCO2 ABG pO2 ABG HCO3 POC ABG O2 Sat ABG O2 Saturation ABG Base Excess Tony Test Barometric Pressure Oxygen Given O2 Delivery Device POC O2 Rate Minute Ventilation POC FiO2 Tidal Volume PEEP Sodium 145 Potassium 2.9 L Chloride 111 H Carbon Dioxide 23 Anion Gap 11.0 BUN 52 H Creatinine 2.92 H Est Cr Clr Drug Dosing 19.2 Est GFR ( Amer) 22.0 Est GFR (Non-Af Amer) 19.0 BUN/Creatinine Ratio 17.8 Glucose 113 H POC Glucose Lactate 1.3 Calcium 8.4 L Phosphorus 4.7 Magnesium 2.2 Total Creatine Kinase 723 H Procalcitonin 68.91 H Urine Color Urine Appearance Urine pH Ur Specific [place] Urine Protein Urine Glucose (UA) Urine Ketones Urine Blood Urine Nitrite Urine Bilirubin Urine Urobilinogen Ur Leukocyte Esterase Urine WBC (Auto) Urine RBC (Auto) U Hyaline Cast (Auto) U Epithel Cells (Auto) Urine Bacteria (Auto) Granular Casts Urine Yeast 01/02/20 19:51 WBC RBC Hgb Hct MCV MCH MCHC RDW Std Deviation RDW Coeff of Inocencio Plt Count MPV Immature Gran % (Auto) Neut % (Auto) Lymph % (Auto) Isabela % (Auto) Eos % (Auto) Baso % (Auto) Neut # (Auto) Lymph # (Auto) Isabela # (Auto) Eos # (Auto) Baso # (Auto) Immature Gran # (Auto) APTT PTT Ratio Sample Site R Radial POC pH 7.34 L POC pCO2 42 POC pO2 91 POC HCO3 22 POC Total CO2 23 L POC Base Excess -4.0 ABG pH ABG pCO2 ABG pO2 ABG HCO3 POC ABG O2 Sat 96.0 H ABG O2 Saturation ABG Base Excess Tony Test Pass Barometric Pressure Oxygen Given O2 Delivery Device Ventilator POC O2 Rate 14 Minute Ventilation 6.3 POC FiO2 40 Tidal Volume 450 PEEP 5 Sodium Potassium Chloride Carbon Dioxide Anion Gap BUN Creatinine Est Cr Clr Drug Dosing Est GFR ( Amer) Est GFR (Non-Af Amer) BUN/Creatinine Ratio Glucose POC Glucose Lactate Calcium Phosphorus Magnesium Total Creatine Kinase Procalcitonin Urine Color Urine Appearance Urine pH Ur Specific [place] Urine Protein Urine Glucose (UA) Urine Ketones Urine Blood Urine Nitrite Urine Bilirubin Urine Urobilinogen Ur Leukocyte Esterase Urine WBC (Auto) Urine RBC (Auto) U Hyaline Cast (Auto) U Epithel Cells (Auto) Urine Bacteria (Auto) Granular Casts Urine Yeast (1) Fall Encounter type: initial encounter Qualified Code(s): W19.XXXA - Unspecified fall, initial encounter
[2020-01-02] MEDS: POTASSIUM CHLORIDE / WTR 20 MEQ/100 ML PLCT IV SCH ×2 (22:12→23:56)
[2020-01-02] MEDS: DOCUSATE SODIUM/SENNA 50/8.6MG TAB PO SCH (22:15)
[2020-01-02] MEDS: SENNA 8.6 MG TAB PO SCH (22:24)
[2020-01-03] MEDS ORDERED: METOPROLOL TARTRATE 1 MG/ML VIAL IV STA ×2 (01:41→03:20)
[2020-01-03] MEDS ORDERED: METOPROLOL TARTRATE 1 MG/ML VIAL IV ONE (01:41)
[2020-01-03] MEDS ORDERED: LACTATED RINGER'S 500 ML IV ONE (01:45)
[2020-01-03] MEDS ORDERED: PIPERACILLIN/TAZOBACTAM 3.375 GM in DEXTROSE 5% 100 ML IV SCH (02:00)
[2020-01-03] MEDS ORDERED: SODIUM CHLORIDE 0.9% 1000ML 500 ML IV ONE (03:14)
[2020-01-03] MEDS ORDERED: STAT IV Infusion **Titration per Protocol STA (05:14)
[2020-01-03] MEDS ORDERED: dilTIAZem HCL 125 MG in DEXTROSE 5% 100 ML IV SCH (05:15)
[2020-01-03 05:25] LABS: Basophils # (auto) 0.01 K/uL (0-0.2); Basophils % (auto) 0.1 %; Eosinophils # (auto) 0.21 K/uL (0-0.5); Eosinophils % (auto) 1.4 %; Hematocrit (blood only) 35.6 % (42-52); Hemoglobin 11.7 g/dL (14.0-18.0); Immature Granulocytes # (auto) 0.05 K/uL (0.00-0.02); Immature Granulocytes % (auto) 0.3 %; Lymphocytes % (auto) 4.1 %; Mean Corpuscular Hemoglobin 28.5 pg (25-34); Mean Corpuscular Hgb Conc 32.9 g/dL (32-36); Mean Corpuscular Volume 86.8 fL (80-100); Monocytes # (auto) 0.13 K/uL (0.11-0.59); Monocytes % (auto) 0.9 %; Neutrophils % (auto) 93.2 %; Platelet Count 152 K/uL (130-400); RDW Coefficient of Variation 13.9 % (11.5-14.5); RDW Standard Deviation 44.2 fL (36.4-46.3)
[2020-01-03 05:35] LABS: Albumin Globulin Ratio 0.6 (0.9-2); BUN Creatinine Ratio 19.6 (10-20); Bilirubin,Total 0.7 mg/dl (0.2-1); Calcium 7.8 mg/dl (8.5-10.1); Creatinine Clr Calc Pharmacy 21.1 ml/min; Est GFR (African American) 24.7; Est GFR (Non-African American) 21.3; Globulin 3.2 gm/dl (2.5-4.0); Magnesium 2.1 mg/dl (1.8-2.4); Phosphorus 3.8 mg/dl (2.5-4.9); Potassium 3.4 mmol/L (3.5-5.1); Total Protein 5.2 gm/dl (6.4-8.2)
[2020-01-03 05:40] LABS: iSTAT Allen Test Pass; iSTAT Art Bld Gas pCO2 Correct 33 mmHg (35-46); iSTAT Art Bld Gas pH Corrected 7.431 (7.35-7.45); iSTAT Arterial Blood Gas HCO3 22 meg/L (19-24); iSTAT Arterial Blood Gas pCO2 32 mmHg (35-46); iSTAT Arterial Blood Gas pH 7.45 (7.35-7.45); iSTAT Arterial Blood Gas pO2 106 mmHg (80-95); iSTAT Arterial Blood Gas pO2 C 112; iSTAT Carbon Dioxide 23 mmol/L (24-31); iSTAT FiO2 30 %; iSTAT Hematocrit 34 % (42-52); iSTAT Hemoglobin 11.6 g/dl (14.0-18.0); iSTAT Potassium 3.5 mmol/L (3.3-5.0); iSTAT Site R Radial; iSTAT Sodium 145 mmol/L (135-144)
[2020-01-03] MEDS: POTASSIUM CHLORIDE / WTR 20 MEQ/100 ML PLCT IV SCH ×2 (08:00→09:46)
[2020-01-03] MEDS: amLODIPine BESYLATE 5 MG TAB PO SCH (09:12)
[2020-01-03] MEDS: MULTIVITAMIN TAB PO SCH (09:12)
[2020-01-03] MEDS: TAMSULOSIN HCL 0.4 MG CAP PO SCH (09:12)
[2020-01-03] MEDS: FINASTERIDE 5 MG TAB PO SCH (09:13)
[2020-01-03] MEDS: LACTATED RINGER'S 1,000 ML IV SCH ×2 (09:13→09:47)
--- NOTE | 2020-01-03 09:25 | Critical Care Progress Note ---
Date of Service January 03, 2020 Assessment & Plan (1) Severe sepsis: Neurologic: Altered mental status has improved substantially. Likely related to metabolic encephalopathy. We will hold on EEG. Hold all mind altering medications. Creatinine is improving. Hopefully BUN normal start to improve as well. Delirium precautions Pulmonary: Patient with evidence of right-sided aspiration pneumonia. Saturating well on nasal cannula. Extubated. Cardiovascular: He had some atrial fibrillation overnight which spontaneously converted to normal sinus rhythm. No hemodynamic issues currently. Echocardiogram obtained recently with relatively preserved ejection fraction. Gastrointestinal: N.p.o. Stress ulcer prophylaxis: Famotidine daily. Renal: SPENCER is improving with lactated Ringer's. Will slow the rate of lactated Ringer's. Infectious disease: Infectious etiology include urine, hip and possible aspiration pneumonia. Repeat blood cultures pending. Procalcitonin trending downward.. Sputum cultures pending. Urine cultures pending. Cover broadly with daptomycin and Zosyn. MRSA screen is negative. Hematologic: No acute issues currently Endocrine: ICU hyperglycemia protocol F/E/N: N.p.o. Lines and tubes: Da Silva catheter in place. Right subclavian line in place. Peripheral IVs in place. VTE prophylaxis: We will start heparin 3 times daily as the urine clears. He did have evidence of hematuria. CODE STATUS: Full code Family at bedside: None immediately available at bedside Disposition: Remain in the ICU I discussed care with the bedside nurse, respiratory therapist, breaker engineer and the hospitalist. I have personally spent 46 minutes of critical care time in the direct management of this patient. This is a life/limb threatening event. This includes time spent evaluating patient, direct bedside care, chart review, placing orders, interpretation of diagnostic studies, discussion with consultants, patient, and family members, as well as other required patient management activities. This time is exclusive of all separately billable procedures, and teaching time and separate from and in addition to any other critical care service time. Thank you for allowing us to participate in the care of this patient. (2) Acute encephalopathy: (3) Hypernatremia: (4) Complicated UTI (urinary tract infection): (5) Closed fracture of left hip: (6) Aspiration pneumonia: Admission and Anticipated Discharge Date Admission Date: December 25, 2019 Subjective Patient seen and examined this morning. He is following commands. Off all sedation. Doing well on a spontaneous breathing trial. No need for vasopressors overnight. He did have a run of atrial fibrillation and required a dose of metoprolol. He spontaneously converted to sinus rhythm. Review of Systems Review of Systems: Unobtainable due to endotracheal tube Physical Exam Constitutional: WD/WN, vitals as above Patient is currently intubated. He is following commands. Eyes: PERRL, conjunctivae normal, anicteric sclerae ENMT: external ear and nose normal, oropharynx normal Pooling secretions in the mouth noted. I did perform suctioning. Neck: normal visual inspection Respiratory: normal respiratory effort, lungs clear to auscultation Cardiovascular: RRR, no murmur, no edema Gastrointestinal (Abdomen): normal bowel sounds, soft, nontender, no hepatosplenomegaly Musculoskeletal: no cyanosis or clubbing, extremities motor strength 5/5 Skin: no rashes, warm and dry Left hip keron noted with drainage. Neurologic: PERRL, EOMI, accommodation nl, no face palsy, no dysarthria Psychiatric: A+Ox3, euthymic affect Results & Data Results & Data ([facility]) Vital Signs (Past 12 Hours) Vital Signs Temp Pulse Resp BP Pulse Ox 01/03/20 07:30 89 18 99 01/03/20 06:31 89 143/74 H 100 01/03/20 06:30 84 99 01/03/20 06:01 99.3 F 84 122/69 100 01/03/20 05:31 85 122/74 98 01/03/20 05:25 86 20 98 01/03/20 05:01 99.3 F 144 H 117/76 99 01/03/20 04:32 115 H 113/68 99 01/03/20 04:24 121 H 129/74 100 01/03/20 04:02 116 H 133/79 100 01/03/20 03:32 105 H 119/59 L 99 01/03/20 03:30 109 H 96/57 L 98 01/03/20 03:01 99.0 F 114 H 96/76 L 97 01/03/20 02:32 118 H 96/63 L 98 01/03/20 02:30 106 H 18 98 01/03/20 02:01 99.0 F 107 H 105/71 99 01/03/20 02:00 140 H 99 01/03/20 01:57 147 H 112/67 01/03/20 01:50 122 H 103/71 99 01/03/20 01:31 144 H 112/67 98 01/03/20 01:01 99.0 F 83 144/80 H 100 01/03/20 00:31 78 132/67 99 01/03/20 00:01 99.0 F 93 H 150/85 H 100 01/02/20 23:31 89 143/83 H 100 01/02/20 23:10 90 15 100 01/02/20 23:01 98.8 F 83 116/72 99 01/02/20 22:31 100 H 133/65 100 01/02/20 22:01 98.8 F 87 139/58 L 100 01/02/20 21:32 92 H 117/60 99 I reviewed vital signs, labs and imaging Coding Level of Care Code Critical Care 1st 30-74 mins Diagnoses Severe sepsis A41.9; R65.20 Acute encephalopathy G93.40 Hypernatremia E87.0 Complicated UTI (urinary tract infection) N39.0 Closed fracture of left hip S72.002A Encounter type: initial encounter Aspiration pneumonia J69.0 Time Spent (min) 46 (1) Closed fracture of left hip Encounter type: initial encounter Qualified Code(s): S72.002A - Fracture of unspecified part of neck of left femur, initial encounter for closed fracture
[2020-01-03] MEDS: PIPERACILLIN/TAZOBACTAM 3.375 GM in DEXTROSE 5% 100 ML IV SCH ×2 (11:39→21:12)
[2020-01-03] MEDS: HEPARIN SOD 5,000 UNIT/0.5 ML VIAL SQ SCH ×2 (13:59→22:19)
--- NOTE | 2020-01-03 17:30 | Nephrology Progress Note ---
Date of Service January 03, 2020 Assessment & Plan (1) Hypernatremia: Patient with hypernatremia due to inadequate water intake. Na improved from 149 05/10/2042 this morning. -Monitor Na daily -D5 water as needed. (2) Hypertension: [place] [address]. Avoid aggressive BP control in setting of active infection and Keo. Control pain. (3) Acute delirium: Due to hip fracture and underlying dementia. Continue supportive management. (4) Hypokalemia: Will give potassium chloride 40 mEq p.o. once today. Monitor potassium daily. (5) KEO (acute kidney injury): Patient with acute kidney injury due to ischemic ATN in setting of sepsis. I reviewed the urine sediment myself and showed numerous muddy brown casts. Agree with the Ringer's lactate but would reduce the rate of infusion to 100 mL/hour to avoid the fluid overload. No indication for dialysis but will monitor daily for dialysis need. -avoid nephrotoxins such as contrast and NSAIDs. Admission and Anticipated Discharge Date Admission Date: December 25, 2019 Subjective Patient seen and examined this morning. Awake and alert following commands. Review of Systems Review of Systems: Unobtainable due to cognitive status Physical Exam Constitutional: Alert,awake Eyes: PERRL, conjunctivae normal, anicteric sclerae Skin: no rashes, warm and dry Left hip keron noted with drainage. Neurologic: PERRL, EOMI, accommodation nl, no face palsy, no dysarthria Psychiatric: A+Ox3, euthymic affect Results & Data ([facility]) Vital Signs (Past 12 Hours) Vital Signs Temp Pulse Resp BP Pulse Ox 01/03/20 07:30 89 18 99 01/03/20 06:31 89 143/74 H 100 01/03/20 06:30 84 99 01/03/20 06:01 37.4 C 84 122/69 100 01/03/20 05:31 85 122/74 98 01/03/20 05:25 86 20 98 (1) Hypertension Hypertension type: essential hypertension Qualified Code(s): I10 - Essential (primary) hypertension
--- NOTE | 2020-01-03 18:50 | Nephrology Progress Note ---
Date of Service January 03, 2020 Assessment & Plan (1) KEO (acute kidney injury): Patient with acute kidney injury due to ischemic ATN in setting of sepsis. [place] brown casts on microscopy.He has responded well to fluid resuscitation .Serum Creatinine down to 2.6 , recommend decreasing the fluid to avoid the fluid overload. He will likley not t need Dialysis as his functions are improvi ng, -avoid nephrotoxins such as contrast and NSAIDs. (2) Hypernatremia: Patient with hypernatremia due to inadequate water intake. Na improved but still high -Monitor Na daily -D5 water as needed. (3) Hypertension: BP is acceptable. Target systolic of 140/90. Avoid aggressive BP control in setting of active infection and Keo. (4) Acute delirium: Due to hip fracture and underlying dementia in the setting of Sepsis.Continue on Anti biotics Admission and Anticipated Discharge Date Admission Date: December 25, 2019 Subjective Patinet seen and examined, Comfortable, responsive to voice.He was shifted to ICU for AMS Review of Systems Review of Systems: Unobtainable due to reduced consciousness Physical Exam Constitutional: WD/WN, vitals as above Eyes: PERRL, conjunctivae normal, anicteric sclerae ENMT: external ear and nose normal, oropharynx normal Neck: trachea midline, no thyromegaly Respiratory: normal respiratory effort, lungs clear to auscultation Cardiovascular: RRR, no murmur, no edema Chest (Breasts): Chest: normal inspection of chest Gastrointestinal (Abdomen): normal bowel sounds, soft, nontender, no hepatosplenomegaly Results & Data ([facility]) Vital Signs (Past 12 Hours) Vital Signs Temp Pulse Resp BP Pulse Ox 01/03/20 18:30 89 19 137/66 96 01/03/20 18:00 89 18 147/58 H 98 01/03/20 17:30 92 H 22 146/78 H 97 01/03/20 17:00 87 19 135/72 97 01/03/20 16:31 87 18 130/68 97 01/03/20 16:00 95 H 20 165/86 H 99 01/03/20 15:30 89 16 142/76 H 98 01/03/20 15:00 93 H 18 150/77 H 99 01/03/20 14:30 88 19 153/79 H 99 01/03/20 14:01 86 20 152/69 H 99 01/03/20 14:00 37.8 C H 84 21 99 01/03/20 13:30 84 19 156/87 H 99 01/03/20 13:00 82 19 142/78 H 98 01/03/20 12:30 81 20 135/74 100 01/03/20 12:00 83 19 141/80 H 100 01/03/20 11:30 86 19 135/74 100 01/03/20 11:01 87 20 135/69 100 01/03/20 11:00 85 17 99 01/03/20 10:30 91 H 21 157/83 H 99 01/03/20 10:00 87 18 141/81 H 100 01/03/20 09:30 88 18 152/75 H 100 01/03/20 09:02 84 137/70 100 01/03/20 09:00 87 98 01/03/20 08:32 90 153/78 H 100 01/03/20 08:01 83 125/72 100 01/03/20 08:00 37.5 C 84 100 01/03/20 07:31 87 134/71 100 01/03/20 07:30 89 18 99 01/03/20 07:01 94 H 142/79 H 100 01/03/20 07:00 92 H 100 Laboratory Results 01/03/20 04:23 01/03/20 04:23 (1) Hypertension Hypertension type: essential hypertension Qualified Code(s): I10 - Essential (primary) hypertension
--- NOTE | 2020-01-03 18:55 | Hospitalist Progress Note ---
Date of Service January 03, 2020 Assessment & Plan (1) Fall: 84-year-old male with history of hypertension BPH presenting with left hip fracture status post fall. Per Dr. Jose Mcfadden's notes: (1) Fall: -in history and physical on 12/25/19 that "This is a 84 year old Male who was at home and reportedly was got up after sleeping in the night time and fell down several feet from where he was sleeping as per his Dorina ([phone]). Patient appears to have auditory impairment and most of the history provided by his at the bedside. Patient apparently did not have loss of consciousness as he called out for help. Patient was brought to the ED and found to have Mildly displaced left femoral neck fracture. Patient also seen to be hypertensive in the ED likely because of underlying hypertension which is exacerbated by pain from the fall injury. Patient has anderson placed in the ED and urine analysis noted to have bacteria and ED provider started ceftriaxone antibiotic. Patient also noted to have redness of medial left thigh and patient's reports that patient often wets himself from urination and does not keep the area dry as it should be." (2) Closed fracture of left hip: -pain medication with bowel regimen -s/p Left hip hemiarthroplasty on 12/26/2019; initially on wound vac but patient pulled it out -on aspirin 81 mg BID as per orthopedics -PT/OT ordered 12/31/2019 Postoperative course complicated by delirium Currently with poor appetite, not cooperative with taking p.o. medications DC oxycodone and Dilaudid DC Ativan Start PRN Haldol DC Anderson catheter Management of UTI noted below Continue gentle reassurance, reorientation, strategies to prevent delirium Monitor closely Continue one-to-one observation 01/01/2020 Less combative today, was able to take more p.o. medications Continue supportive care Noted to have foul-smelling discharge from surgical site yesterday Afebrile today WBC increased to 16 K Cefepime IV started Orthopedic service reconsulted, appreciate the recommendations 01/02/2020 Transferred to the ICU secondary to worsening of mental status Eventually intubated, central line placed management of sepsis noted below 01/03/2020 Discussed with orthopedic surgeon Dr. Odonnell yesterday, patient does not have signs of hip infection For extubation today Management of sepsis and encephalopathy per below Severe sepsis, etiology unclear, possible UTI, aspiration pneumonia, mild diverticulitis Repeat blood and urine cultures pending Fever curve improving, leukocytosis improving Discussed with Ortho, left hip infection unlikely Lactic acid level normal Continue Dapto and Zosyn, IV fluids Monitor closely Acute encephalopathy: Likely multifactorial from hip fracture, status post surgery, analgesics, underlying dementia, sepsis -Stroke code called on 12/26/2019 as documented below in regards to facial asymmetry; his mental status is a challenge in the post-op care --Management per #2 Acute UTI (urinary tract infection), Enterococcus: with possible Bacteremia ruled out -admission urine culture with speciation of pansensitive Enterococcus faecalis instead of strep -has been empirically on ceftriaxone since admission but because admission blood culture with Staphylococcus species in 1 of 2 blood cultures (MRSA negative by PCR) the antibiotic treatment upgraded from ceftriaxone to Zosyn starting on 12/27/2019 and repeat blood culture drawn on 12/27/2019 which is no growth to date as of 12/29/2019 -discussed with pharmacy about switching from Zosyn to ampicillin to maintain th e treatment of the urine Enterococcus faecalis starting on 12/29/2019 --> Follow urine cultures, currently on daptomycin and Zosyn Acute renal failure on CKD 3 --Creatinine increased from 0.8-1.5, to 3.1 Creatinine improved to 2.6 Continue LR Monitor renal function Appreciate nephrology service recommendations Hypernatremia --Improving Continue LR Appreciate nephrology service recommendations Hypertension: - amlodipine decreased, hydralazine and Nitropaste discontinued Facial asymmetry, Acute CVA ruled out -CT head on 12/25/2019 presentation without acute findings but mentioned Old lacunar infarct within the right thalamus -in the AM of 12/26/2019, patient was speaking more to medical team. However he has facial asymmetry more pronounced when speaking (able to talk more with right side of the mouth compared to the left). A stroke alert was called to expedite CT head scan and brain MRI. Patient able to answer some questions about his name and he does not express acute symptoms. He moves the upper extremities. He has left femoral neck fracture and his legs are in waffle boots -CT head 12/26/2019: No acute intracranial findings patient with not CT head finding of stroke and is likely not a candidate for TPA because of unclear chronicity of facial asymmetry -MRI Brain 12/26/2019 No acute intracranial findings. Exam moderately compromised by motion artifact although diagnostic. Extensive atrophy and small vessel disease. No intracranial mass or pathologic enhancement. -stroke is unlikely, patient proceeded to orthopedic surgery on 12/26/2019, post- operatively patient continues to have facial asymmetry with is visible with speech but no other focal symptoms other than poor orientation to the hospital setting. -patient's at the bedside on 12/28/2019 reports that patient may have Parkinson's disease or dementia that was not formally diagnosed as outpatient, baseline often forgetful at home, and that patient's facial features of facial asymmetry is baseline Troponin level elevated: elevated troponins from demand ischemia -the steward/stewardess dining room was concerned that patient with more confusion and workup by nocturnalist Dr. Garcia included troponins of which were elevated as 2.7 on night time of 12/27/2019, Dr. Garcia reports he discussed with orthopedics to allow for IV heparin to be started because of elevated troponins. IV heparin was started. Second troponin 2.95 in AM of 12/28/2019. On 12/28/2019 morning exam by day time hospitalist, patient awake and not as agitated as he was on . Patient denied pain of the chest or abdomen or of the legs. -12/28/2019: discussed with Dr. Azul from cardiology that patient's echocardiogram reflects old infarction which does not reflect elevated troponins on this hospital stay; Dr. Azul advised no further IV heparin and give beta leonides treatment BPH (benign prostatic hyperplasia): -give home dose tamsulosin and finasteride DVT prophylaxis: Heparin subcutaneous Full Code Disposition Pending Management of respiratory failure, sepsis, other problems noted above in progress [facility] Admission and Anticipated Discharge Date Admission Date: December 25, 2019 Subjective Seen for respiratory failure, sepsis, etc. Events of overnight noted Seen resting in bed, intubated, no distress Back to sinus rhythm Opens eyes occasionally to verbal stimuli Earlier this morning family patient was moving his toes upon command by retirement plan counselor No other issues per tile trimmer of Systems Review of Systems: Unobtainable due to cognitive status Physical Exam Physical Exam: General-drowsy, breathing with no effort or accessory muscle use Eyes- anicteric Neck- no JVD Lungs-mild rhonchi at bases, no wheezing, good air entry bilaterally Heart- normal rate, regular rhythm; no murmurs Abdomen- normal bowel sounds, nondistended, soft, nontender Extremities- Left hip: Minimal edema, and erythema, no active discharge or bleeding no pretibial edema, no calf tenderness Neuro-neuro exam difficult to perform due to patient's mental status Skin- warm & dry Results & Data Results & Data ([facility]) Vital Signs (Past 12 Hours) Vital Signs Temp Pulse Resp BP Pulse Ox 01/03/20 18:30 89 19 137/66 96 01/03/20 18:00 89 18 147/58 H 98 01/03/20 17:30 92 H 22 146/78 H 97 01/03/20 17:00 87 19 135/72 97 01/03/20 16:31 87 18 130/68 97 01/03/20 16:00 95 H 20 165/86 H 99 01/03/20 15:30 89 16 142/76 H 98 01/03/20 15:00 93 H 18 150/77 H 99 01/03/20 14:30 88 19 153/79 H 99 01/03/20 14:01 86 20 152/69 H 99 01/03/20 14:00 37.8 C H 84 21 99 01/03/20 13:30 84 19 156/87 H 99 01/03/20 13:00 82 19 142/78 H 98 01/03/20 12:30 81 20 135/74 100 01/03/20 12:00 83 19 141/80 H 100 01/03/20 11:30 86 19 135/74 100 01/03/20 11:01 87 20 135/69 100 01/03/20 11:00 85 17 99 01/03/20 10:30 91 H 21 157/83 H 99 01/03/20 10:00 87 18 141/81 H 100 01/03/20 09:30 88 18 152/75 H 100 01/03/20 09:02 84 137/70 100 01/03/20 09:00 87 98 01/03/20 08:32 90 153/78 H 100 01/03/20 08:01 83 125/72 100 01/03/20 08:00 37.5 C 84 100 01/03/20 07:31 87 134/71 100 01/03/20 07:30 89 18 99 01/03/20 07:01 94 H 142/79 H 100 01/03/20 07:00 92 H 100 Laboratory Results Laboratory Results - last 24 hr 01/02/20 01/02/20 01/02/20 19:29 19:29 19:51 WBC RBC Hgb POC Hgb Hct POC Hct MCV MCH MCHC RDW Std Deviation RDW Coeff of Inocencio Plt Count MPV Immature Gran % (Auto) Neut % (Auto) Lymph % (Auto) [place] % (Auto) Eos % (Auto) Baso % (Auto) Neut # (Auto) Lymph # (Auto) [place] # (Auto) Eos # (Auto) Baso # (Auto) Immature Gran # (Auto) Sample Site R Radial POC pH 7.34 L POC pCO2 42 POC pO2 91 POC HCO3 22 POC Total CO2 23 L POC Base Excess -4.0 ABG pH (Temp Correct) ABG pCO2 (Temp Corrct POC ABG pO2 at Pt Temp POC ABG O2 Sat 96.0 H Tony Test Pass O2 Delivery Device Ventilator POC O2 Rate 14 Minute Ventilation 6.3 POC FiO2 40 Tidal Volume 450 PEEP 5 POC Sodium Sodium 145 POC Potassium Potassium 2.9 L Chloride 111 H Carbon Dioxide 23 Anion Gap 11.0 BUN 52 H Creatinine 2.92 H Est Cr Clr Drug Dosing 19.2 Est GFR ( Amer) 22.0 Est GFR (Non-Af Amer) 19.0 BUN/Creatinine Ratio 17.8 Glucose 113 H Calcium 8.4 L Phosphorus 4.7 Magnesium 2.2 Total Bilirubin AST ALT Alkaline Phosphatase Total Creatine Kinase 723 H Total Protein Albumin Globulin Albumin/Globulin Ratio Procalcitonin 68.91 H 01/03/20 01/03/20 01/03/20 04:23 04:23 04:23 WBC 14.50 H RBC 4.10 L Hgb 11.7 L POC Hgb Hct 35.6 L POC Hct MCV 86.8 MCH 28.5 MCHC 32.9 RDW Std Deviation 44.2 RDW Coeff of Inocencio 13.9 Plt Count 152 MPV 11.0 H Immature Gran % (Auto) 0.3 Neut % (Auto) 93.2 Lymph % (Auto) 4.1 [place] % (Auto) 0.9 Eos % (Auto) 1.4 Baso % (Auto) 0.1 Neut # (Auto) 13.50 H Lymph # (Auto) 0.60 L [place] # (Auto) 0.13 Eos # (Auto) 0.21 Baso # (Auto) 0.01 Immature Gran # (Auto) 0.05 H Sample Site POC pH POC pCO2 POC pO2 POC HCO3 POC Total CO2 POC Base Excess ABG pH (Temp Correct) ABG pCO2 (Temp Corrct POC ABG pO2 at Pt Temp POC ABG O2 Sat Tony Test O2 Delivery Device POC O2 Rate Minute Ventilation POC FiO2 Tidal Volume PEEP POC Sodium Sodium 147 H POC Potassium Potassium 3.4 L D Chloride 114 H Carbon Dioxide 25 Anion Gap 8.0 BUN 52 H Creatinine 2.65 H Est Cr Clr Drug Dosing 21.1 Est GFR ( Amer) 24.7 Est GFR (Non-Af Amer) 21.3 BUN/Creatinine Ratio 19.6 Glucose 125 H Calcium 7.8 L Phosphorus 3.8 Magnesium 2.1 Total Bilirubin 0.7 AST 40 H ALT 29 Alkaline Phosphatase 52 Total Creatine Kinase 764 H Total Protein 5.2 L Albumin 2.0 L Globulin 3.2 Albumin/Globulin Ratio 0.6 L Procalcitonin 53.05 H 01/03/20 05:27 WBC RBC Hgb POC Hgb 11.6 L Hct POC Hct 34 L MCV MCH MCHC RDW Std Deviation RDW Coeff of Inocencio Plt Count MPV Immature Gran % (Auto) Neut % (Auto) Lymph % (Auto) [place] % (Auto) Eos % (Auto) Baso % (Auto) Neut # (Auto) Lymph # (Auto) [place] # (Auto) Eos # (Auto) Baso # (Auto) Immature Gran # (Auto) Sample Site R Radial POC pH 7.45 POC pCO2 32 L POC pO2 106 H POC HCO3 22 POC Total CO2 23 L POC Base Excess -2.0 ABG pH (Temp Correct) 7.431 ABG pCO2 (Temp Corrct 33 L POC ABG pO2 at Pt Temp 112 POC ABG O2 Sat 98.0 H Tony Test Pass O2 Delivery Device Ventilator POC O2 Rate 14 Minute Ventilation 6.3 POC FiO2 30 Tidal Volume 450 PEEP 5 POC Sodium 145 H Sodium POC Potassium 3.5 Potassium Chloride Carbon Dioxide Anion Gap BUN Creatinine Est Cr Clr Drug Dosing Est GFR ( Amer) Est GFR (Non-Af Amer) BUN/Creatinine Ratio Glucose Calcium Phosphorus Magnesium Total Bilirubin AST ALT Alkaline Phosphatase Total Creatine Kinase Total Protein Albumin Globulin Albumin/Globulin Ratio Procalcitonin (1) Fall Encounter type: initial encounter Qualified Code(s): W19.XXXA - Unspecified fall, initial encounter
[2020-01-03] MEDS: SENNA 8.6 MG TAB PO SCH (22:17)
[2020-01-03] MEDS: DOCUSATE SODIUM/SENNA 50/8.6MG TAB PO SCH (22:17)
[2020-01-04] MEDS: LACTATED RINGER'S 1,000 ML IV SCH (00:57)
[2020-01-04] MEDS: PIPERACILLIN/TAZOBACTAM 3.375 GM in DEXTROSE 5% 100 ML IV SCH ×3 (04:32→19:55)
[2020-01-04 04:35] LABS: Eosinophils % (auto) 1.8 %; Hematocrit (blood only) 35.3 % (42-52); Hemoglobin 11.2 g/dL (14.0-18.0); Immature Granulocytes # (auto) 0.05 K/uL (0.00-0.02); Immature Granulocytes % (auto) 0.5 %; Lymphocytes # (auto) 0.55 K/uL (1.2-3.4); Mean Corpuscular Hemoglobin 28.3 pg (25-34); Mean Corpuscular Hgb Conc 31.7 g/dL (32-36); Mean Corpuscular Volume 89.1 fL (80-100); Mean Platelet Volume 11.1 fL (7.4-10.4); Monocytes # (auto) 0.21 K/uL (0.11-0.59); Monocytes % (auto) 1.9 %; Neutrophils # (auto) 9.89 K/uL (1.4-6.5); Neutrophils % (auto) 90.8 %; Platelet Count 163 K/uL (130-400); RDW Coefficient of Variation 13.9 % (11.5-14.5); RDW Standard Deviation 45.8 fL (36.4-46.3); Red Blood Count 3.96 M/uL (4.7-6.1)
[2020-01-04 05:01] LABS: BUN Creatinine Ratio 22.5 (10-20); Calcium 8.2 mg/dl (8.5-10.1); Creatinine Clr Calc Pharmacy 27.8 ml/min; Est GFR (African American) 34.5; Est GFR (Non-African American) 29.8; Magnesium 2.3 mg/dl (1.8-2.4); Potassium 3.7 mmol/L (3.5-5.1)
[2020-01-04 05:13] LABS: Albumin Globulin Ratio 0.6 (0.9-2); Bilirubin,Total 0.6 mg/dl (0.2-1); Globulin 3.1 gm/dl (2.5-4.0); Phosphorus 2.6 mg/dl (2.5-4.9); Total Protein 5.1 gm/dl (6.4-8.2)
[2020-01-04] MEDS ORDERED: SODIUM CHLORIDE 0.45 % 1,000 ML IV SCH (06:30)
[2020-01-04] MEDS ORDERED: POTASSIUM CHLORIDE / WTR 20 MEQ/100 ML PLCT IV ONE (06:30)
[2020-01-04] MEDS: DAPTOmycin 300 MG in SYRINGE 0 ML IV SCH (06:38)
[2020-01-04] MEDS: HEPARIN SOD 5,000 UNIT/0.5 ML VIAL SQ SCH ×3 (06:41→21:55)
--- NOTE | 2020-01-04 07:34 | Electrocardiogram Report ---
Test Reason : Blood Pressure : / mmHG Vent. Rate : 078 BPM Atrial Rate : 078 BPM P-R Int : 114 ms QRS Dur : 140 ms QT Int : 436 ms P-R-T Axes : 071 023 017 degrees QTc Int : 497 ms Sinus rhythm with occasional Premature ventricular complexes Right bundle branch block Possible Inferior infarct (cited on or before 25-DEC-2019) Abnormal ECG When compared with ECG of 28-DEC-2019 06:31, Premature ventricular complexes are now Present Confirmed by Sheng Bojorquez ([id number]) on 01/04/2020 7:34:30 AM Referred By: REFERRED SELF Confirmed By:Sheng Bojorquez
[2020-01-04] MEDS: FAMOTIDINE 20 MG in SYRINGE 3 ML IV SCH (07:48)
--- NOTE | 2020-01-04 08:34 | Electrocardiogram Report ---
Test Reason : Blood Pressure : / mmHG Vent. Rate : 128 BPM Atrial Rate : 102 BPM P-R Int : 000 ms QRS Dur : 126 ms QT Int : 358 ms P-R-T Axes : 000 044 004 degrees QTc Int : 522 ms Atrial fibrillation with rapid ventricular response Right bundle branch block Abnormal ECG When compared with ECG of 02-JAN-2020 04:26, (unconfirmed) Atrial fibrillation has replaced Sinus rhythm Vent. rate has increased BY [address] now depressed in Anterior leads Confirmed by Sheng Bojorquez ([id number]) on 01/04/2020 8:33:40 AM Referred By: REFERRED SELF Confirmed By:Sheng Bojorquez
[2020-01-04] MEDS: TAMSULOSIN HCL 0.4 MG CAP PO SCH (08:52)
[2020-01-04] MEDS: FINASTERIDE 5 MG TAB PO SCH (08:53)
[2020-01-04] MEDS: MULTIVITAMIN TAB PO SCH (08:53)
[2020-01-04] MEDS: amLODIPine BESYLATE 5 MG TAB PO SCH (08:53)
[2020-01-04] MEDS: DEXTROSE 5% 1,000 ML IV SCH ×2 (09:18→21:55)
--- NOTE | 2020-01-04 09:25 | Critical Care Progress Note ---
Date of Service January 04, 2020 Assessment & Plan (1) Severe sepsis: Neurologic: Altered mental status has improved substantially. Likely related to metabolic encephalopathy. Sodium is creeping up to 151.. Hold all mind altering medications. Creatinine is improving. Creatinine is improving. Delirium precautions Pulmonary: Patient with evidence of right-sided aspiration pneumonia. Saturating well on nasal cannula. Extubated. Saturating well on nasal cannula. Cardiovascular: No further episodes of atrial fibrillation. Echocardiogram obtained recently with relatively preserved ejection fraction. Blood pressures trending up. Will give oral blood pressure medications to the NG tube. Gastrointestinal: N.p.o. Stress ulcer prophylaxis: Famotidine daily. Renal: Patient with evidence of hyponatremia. I will place an NG tube and start free water flushes. We will also start him on D5W at 80 mL an hour. Recheck sodium around noon. Infectious disease: Infectious etiology include urine, hip and possible aspiration pneumonia, mild diverticulitis. Repeat blood cultures with yeast. Procalcitonin trending downward.. Sputum cultures pending. Urine cultures with yeast as well. Cover broadly with daptomycin and Zosyn. I am starting caspofungin given that there tube sources of possible yeast. He does have a CVL in place. Cultures came back positive prior to the CVL. We will remove the central line. MRSA screen is negative. Hematologic: No acute issues currently. White count trending down. Endocrine: ICU hyperglycemia protocol F/E/N: We will start tube feeds. Maintain n.p.o. status. Lines and tubes: Da Silva catheter in place. Right subclavian line in place. Peripheral IVs in place. VTE prophylaxis: We will start heparin 3 times daily as the urine clears. CODE STATUS: Full code Family at bedside: None immediately available at bedside Disposition: Transfer to floor today. I discussed care with the bedside nurse and hospitalist. I have personally spent 33 minutes of critical care time in the direct management of this patient. This is a life/limb threatening event. This includes time spent evaluating patient, direct bedside care, chart review, placing orders, interpretation of diagnostic studies, discussion with consultants, patient, and family members, as well as other required patient management activities. This time is exclusive of all separately billable procedures, and teaching time and separate from and in addition to any other critical care service time. Thank you for allowing us to participate in the care of this patient. (2) Acute encephalopathy: (3) Hypernatremia: (4) Complicated UTI (urinary tract infection): (5) Closed fracture of left hip: (6) Aspiration pneumonia: Admission and Anticipated Discharge Date Admission Date: December 25, 2019 Subjective Patient is more awake and alert today. No overnight concerns. Sodium is creeping up to 151. Urine output has been excellent. Review of Systems Review of Systems: All systems reviewed & are unremarkable except as noted in HPI & below Physical Exam Constitutional: WD/WN, vitals as above Patient is currently intubated. He is following commands. Eyes: PERRL, conjunctivae normal, anicteric sclerae ENMT: external ear and nose normal, oropharynx normal Pooling secretions in the mouth noted. I did perform suctioning. Neck: normal visual inspection Respiratory: normal respiratory effort, lungs clear to auscultation Cardiovascular: RRR, no murmur, no edema Gastrointestinal (Abdomen): normal bowel sounds, soft, nontender, no hepatosplenomegaly Musculoskeletal: no cyanosis or clubbing, extremities motor strength 5/5 Skin: no rashes, warm and dry Left hip keron noted with drainage. Neurologic: PERRL, EOMI, accommodation nl, no face palsy, no dysarthria Psychiatric: A+Ox3, euthymic affect Results & Data Results & Data ([facility]) Vital Signs (Past 12 Hours) Vital Signs Temp Pulse Resp BP Pulse Ox 01/04/20 08:41 84 18 161/86 H 99 01/04/20 08:00 97.7 F 77 17 96 01/04/20 07:41 76 18 156/81 H 97 01/04/20 07:00 79 19 98 01/04/20 06:45 79 21 93 01/04/20 04:41 98.8 F 95 H 21 182/103 H 98 01/04/20 03:40 99.3 F 85 19 135/76 94 01/04/20 02:40 99.3 F 84 18 142/90 H 100 01/04/20 01:41 99.3 F 80 18 158/77 H 95 01/04/20 00:40 99.1 F 80 20 110/64 94 01/03/20 23:40 99.7 F H 81 16 134/78 97 01/03/20 22:40 99.7 F H 88 22 138/81 97 01/03/20 21:31 94 H 20 156/90 H 99 I reviewed vital signs, labs and imaging Coding Level of Care Code Critical Care 1st 30-74 mins Diagnoses Severe sepsis A41.9; R65.20 Acute encephalopathy G93.40 Hypernatremia E87.0 Complicated UTI (urinary tract infection) N39.0 Closed fracture of left hip S72.002A Encounter type: initial encounter Aspiration pneumonia J69.0 Time Spent (min) 33 (1) Closed fracture of left hip Encounter type: initial encounter Qualified Code(s): S72.002A - Fracture of unspecified part of neck of left femur, initial encounter for closed fracture
--- NOTE | 2020-01-04 09:40 | Nephrology Progress Note ---
Date of Service January 04, 2020 Assessment & Plan (1) KEO (acute kidney injury): Patient with acute kidney injury due to ischemic ATN in setting of sepsis. [place] brown casts on microscopy.He has responded well to fluid resuscitation .Serum Creatinine down to 2.6 , recommend decreasing the fluid to avoid the fluid overload. He will likley not need Dialysis as his functions are improving, -avoid nephrotoxins such as contrast and NSAIDs. (2) Hypernatremia: Patient with hypernatremia due to inadequate water intake. Na creeping up -Monitor Na daily - Recommend d/c Normal saline, and starting on D5w- 150 mls/ (3) Hypertension: Generous today. Target systolic of 140/90. Avoid aggressive BP control in setting of active infection and Keo. - Avoid KAVON at the moment. (4) Acute delirium: Due to hip fracture and underlying dementia in the setting of Sepsi s.Continue on Anti biotics Admission and Anticipated Discharge Date Admission Date: December 25, 2019 Subjective Patinet seen and examined, Comfortable, more responsive and alert today Review of Systems Review of Systems: Unobtainable due to cognitive status Physical Exam Constitutional: WD/WN, vitals as above Eyes: PERRL, conjunctivae normal, anicteric sclerae ENMT: external ear and nose normal, oropharynx normal Neck: trachea midline, no thyromegaly Respiratory: normal respiratory effort, lungs clear to auscultation Cardiovascular: RRR, no murmur, no edema Chest (Breasts): Chest: normal inspection of chest Gastrointestinal (Abdomen): normal bowel sounds, soft, nontender, no hep atosplenomegaly Results & Data ([facility]) Vital Signs (Past 12 Hours) Vital Signs Temp Pulse Resp BP Pulse Ox 01/04/20 08:41 84 18 161/86 H 99 01/04/20 08:00 36.5 C 77 17 96 01/04/20 07:41 76 18 156/81 H 97 01/04/20 07:00 79 19 98 01/04/20 06:45 79 21 93 01/04/20 04:41 37.1 C 95 H 21 182/103 H 98 01/04/20 03:40 37.4 C 85 19 135/76 94 01/04/20 02:40 37.4 C 84 18 142/90 H 100 01/04/20 01:41 37.4 C 80 18 158/77 H 95 01/04/20 00:40 37.3 C 80 20 110/64 94 01/03/20 23:40 37.6 C H 81 16 134/78 97 01/03/20 22:40 37.6 C H 88 22 138/81 97 Laboratory Results 01/04/20 04:15 01/04/20 04:15 (1) Hypertension Hypertension type: essential hypertension Qualified Code(s): I10 - Essential (primary) hypertension
[2020-01-04] MEDS ORDERED: CASPOFUNGIN 70 MG in SODIUM CHLORIDE 0.9% 250 ML IV ONE (09:45)
--- NOTE | 2020-01-04 10:38 | XRay Report ---
SHAUNNA CLINICAL HISTORY: feeding tube placement COMPARISON STUDY: CT of the abdomen and pelvis January 02, 2020. FINDINGS: The tip of the feeding tube is within the gastric cardia. The tube is slightly coiled. Righ t internal jugular central line is partially imaged. Visualized bowel gas pattern is normal. IMPRESSION: Tip of feeding tube is within the gastric cardia. Tube could be further advanced. ACT 112: Negative or not required by law. Electronically signed by: Brett Saenz M.D. 01/04/2020 10:37 AM
[2020-01-04] MEDS: TUBE FEEDING WATER FLUSH GT SCH ×4 (11:00→21:55)
--- NOTE | 2020-01-04 11:30 | XRay Report ---
SHAUNNA CLINICAL HISTORY: Feeding tube location COMPARISON STUDY: SHAUNNA January 04, 2020 at 10:19 AM. FINDINGS: The feeding tube has been advanced. The tip is now within the gastric fundus or proximal delon dy of the stomach. Visualized bowel gas pattern is normal. IMPRESSION: Interval advancement of the feeding tube. Tip projects over the gastric fundus or proxim al body of the stomach. ACT 112: Negative or not required by law. Electronically signed by: Brett Saenz M.D. 01/04/2020 11:29 AM
[2020-01-04 13:31] LABS: BUN Creatinine Ratio 23.6 (10-20); Calcium 8.5 mg/dl (8.5-10.1); Creatinine Clr Calc Pharmacy 30.4 ml/min; Est GFR (African American) 38.4; Est GFR (Non-African American) 33.2; Potassium 3.8 mmol/L (3.5-5.1)
[2020-01-04] MEDS ORDERED: PEPTAMEN 1.5 CAL 1,000 ML BAG NG SCH (14:00)
--- NOTE | 2020-01-04 17:46 | Hospitalist Progress Note ---
Date of Service January 04, 2020 Assessment & Plan (1) Fall: 84-year-old male with history of hypertension BPH presenting with left hip fracture status post fall. Per Dr. Jose Mcfadden's notes: (1) Fall: -in history and physical on 12/25/19 that "This is a 84 year old Male who was at home and reportedly was got up after sleeping in the night time and fell down several feet from where he was sleeping as per his Dorina ([phone]). Patient appears to have auditory impairment and most of the history provided by his at the bedside. Patient apparently did not have loss of consciousness as he called out for help. Patient was brought to the ED and found to have Mildly displaced left femoral neck fracture. Patient also seen to be hypertensive in the ED likely because of underlying hypertension which is exacerbated by pain from the fall injury. Patient has anderson placed in the ED and urine analysis noted to have bacteria and ED provider started ceftriaxone antibiotic. Patient also noted to have redness of medial left thigh and patient's reports that patient often wets himself from urination and does not keep the area dry as it should be." (2) Closed fracture of left hip: -pain medication with bowel regimen -s/p Left hip hemiarthroplasty on 12/26/2019; initially on wound vac but patient pulled it out -on aspirin 81 mg BID as per orthopedics -PT/OT ordered 12/31/2019 Postoperative course complicated by delirium Currently with poor appetite, not cooperative with taking p.o. medications DC oxycodone and Dilaudid DC Ativan Start PRN Haldol DC Anderson catheter Management of UTI noted below Continue gentle reassurance, reorientation, strategies to prevent delirium Monitor closely Continue one-to-one observation 01/01/2020 Less combative today, was able to take more p.o. medications Continue supportive care Noted to have foul-smelling discharge from surgical site yesterday Afebrile today WBC increased to 16 K Cefepime IV started Orthopedic service reconsulted, appreciate the recommendations 01/02/2020 Transferred to the ICU secondary to worsening of mental status Eventually intubated, central line placed management of sepsis noted below 01/03/2020 Discussed with orthopedic surgeon Dr. Odonnell yesterday, patient does not have signs of hip infection For extubation today Management of sepsis and encephalopathy per below 01/04/2020 post extubation day # 1 somewhat more awake NG tube feeding started continue to monitor, PT/OT evaluation Severe sepsis, secondary to Fungemia?, possible UTI, aspiration pneumonia, mild diverticulitis Repeat blood and urine cultures pending Fever curve improving, leukocytosis improving CXR: R base infiltrates Discussed with Ortho, left hip infection unlikely Lactic acid level normal Blood cultures: (+) 1/2 yeast Urine culture: yeast Caspofungin started, Continue Dapto and Zosyn, IV fluids Monitor closely Acute encephalopathy: Likely multifactorial from hip fracture, status post surgery, analgesics, underlying dementia, sepsis -Stroke code called on 12/26/2019 as documented below in regards to facial asymmetry; his mental status is a challenge in the post-op care --Management per #2 Acute UTI (urinary tract infection), Enterococcus, Yeast with possible Bacteremia ruled out -admission urine culture with speciation of pansensitive Enterococcus faecalis instead of strep -has been empirically on ceftriaxone since admission but because admission blood culture with Staphylococcus species in 1 of 2 blood cultures (MRSA negative by PCR) the antibiotic treatment upgraded from ceftriaxone to Zosyn starting on 12/27/2019 and repeat blood culture drawn on 12/27/2019 which is no growth to date as of 12/29/2019 -discussed with pharmacy about switching from Zosyn to ampicillin to maintain the treatment of the urine Enterococcus faecalis starting on 12/29/2019 --> Caspofungin added, currently on daptomycin and Zosyn Acute renal failure on CKD 3 --Creatinine increased from 0.8 to 3.1 Creatinine improved to 1.8 Continue D5W Monitor renal function Appreciate nephrology service recommendations Hypernatremia --Na 151 D5W started monitor Na Appreciate nephrology service recommendations Hypertension: - amlodipine to be given via NG tube Facial asymmetry, Acute CVA ruled out -CT head on 12/25/2019 presentation without acute findings but mentioned Old lacunar infarct within the right thalamus -in the AM of 12/26/2019, patient was speaking more to medical team. However he has facial asymmetry more pronounced when speaking (able to talk more with right side of the mouth compared to the left). A stroke alert was called to expedite CT head scan and brain MRI. Patient able to answer some questions about his name and he does not express acute symptoms. He moves the upper extremities. He has left femoral neck fracture and his legs are in waffle boots -CT head 12/26/2019: No acute intracranial findings patient with not CT head finding of stroke and is likely not a candidate for TPA because of unclear chronicity of facial asymmetry -MRI Brain 12/26/2019 No acute intracranial findings. Exam moderately compromised by motion artifact although diagnostic. Extensive atrophy and small vessel disease. No intracranial mass or pathologic enhancement. -stroke is unlikely, patient proceeded to orthopedic surgery on 12/26/2019, post- operatively patient continues to have facial asymmetry with is visible with speech but no other focal symptoms other than poor orientation to the hospital setting. -patient's at the bedside on 12/28/2019 reports that patient may have Parkinson's disease or dementia that was not formally diagnosed as outpatient, baseline often forgetful at home, and that patient's facial features of facial asymmetry is baseline Troponin level elevated: elevated troponins from demand ischemia -the material handler 1st shift was concerned that patient with more confusion and workup by nocturnalist Dr. Garcia included troponins of which were elevated as 2.7 on night time of 12/27/2019, Dr. Garcia reports he discussed with orthopedics to allow for IV heparin to be started because of elevated troponins. IV heparin was started. Second troponin 2.95 in AM of 12/28/2019. On 12/28/2019 morning exam by day time hospitalist, patient awake and not as agitated as he was on . Patient denied pain of the chest or abdomen or of the legs. -12/28/2019: discussed with Dr. Azul from cardiology that patient's echocardiogram reflects old infarction which does not reflect elevated troponins on this hospital stay; Dr. Azul advised no further IV heparin and give beta leonides treatment BPH (benign prostatic hyperplasia): -tamsulosin and finasteride DVT prophylaxis: Heparin subcutaneous Full Code Disposition Pending Management of respiratory failure, sepsis, other problems noted above in progress Anticipate discharge to senior care facility when medically stable plan of care discussed with patient's , and sons at the bedside in detail and at length all questions answered they are understanding, agreeable, comfortable with the plan of care Admission and Anticipated Discharge Date Admission Date: December 25, 2019 Subjective ff up for s/p left hip surgery, sepsis, respiratory failure, etc seen resting in bed, with family at bedside patient occasionally opens eyes, turns to examiner, and tries to speak with a few words calm, not in distress no shortness of breath noted, on room air no diarrhea, vomiting NG tube placed for tube feeding very weak as per RN, requires maximum assistance with activities no other issues per core placer of Systems Review of Systems: All systems reviewed & are unremarkable except as noted in HPI & below Physical Exam Physical Exam: General- appears weak, occasionally awakens, breathing with no effort or accessory muscle use Eyes- anicteric Neck- no JVD Lungs- clear B Heart- normal rate, regular rhythm; no murmurs Abdomen- normal bowel sounds, nondistended, soft, nontender Extremities- left hip:mild edema, erythema, no warmth/tenderness, wound healing well surrounding hematoma improving no bleeding or discharge no pretibial edema, no calf tenderness Neuro- moves extremities equally on both sides no new gross focal deficits noted Skin- warm & dry Results & Data Results & Data ([facility]) Vital Signs (Past 12 Hours) Vital Signs Temp Pulse Resp BP Pulse Ox 01/04/20 16:00 80 01/04/20 12:00 80 19 94 01/04/20 11:41 83 22 175/86 H 94 01/04/20 11:30 82 20 93 01/04/20 11:00 86 21 95 01/04/20 10:54 86 19 162/101 H 97 01/04/20 10:40 86 21 162/101 H 97 01/04/20 10:30 82 18 92 01/04/20 10:00 86 19 96 01/04/20 09:52 80 20 154/88 H 94 01/04/20 09:41 90 22 175/106 H 94 01/04/20 09:30 90 22 96 01/04/20 09:00 85 19 94 01/04/20 08:42 81 14 96 01/04/20 08:41 84 18 161/86 H 99 01/04/20 08:00 36.5 C 77 17 96 01/04/20 07:41 76 18 156/81 H 97 01/04/20 07:00 79 19 98 01/04/20 06:45 79 21 93 Laboratory Results Laboratory Results - last 24 hr 01/04/20 01/04/20 01/04/20 04:15 04:15 08:25 WBC 10.90 H RBC 3.96 L Hgb 11.2 L Hct 35.3 L MCV 89.1 MCH 28.3 MCHC 31.7 L RDW Std Deviation 45.8 RDW Coeff of Inocencio 13.9 Plt Count 163 MPV 11.1 H Immature Gran % (Auto) 0.5 Neut % (Auto) 90.8 Lymph % (Auto) 5.0 [place] % (Auto) 1.9 Eos % (Auto) 1.8 Baso % (Auto) 0.0 Neut # (Auto) 9.89 H Lymph # (Auto) 0.55 L [place] # (Auto) 0.21 Eos # (Auto) 0.20 Baso # (Auto) 0.00 Immature Gran # (Auto) 0.05 H Sodium 151 H Potassium 3.7 Chloride 118 H Carbon Dioxide 28 Anion Gap 5.0 BUN 45 H Creatinine 2.01 H D Est Cr Clr Drug Dosing 27.8 Est GFR ( Amer) 34.5 Est GFR (Non-Af Amer) 29.8 BUN/Creatinine Ratio 22.5 H Glucose 90 Calcium 8.2 L Phosphorus 2.6 D Magnesium 2.3 Total Bilirubin 0.6 AST 42 H ALT 34 Alkaline Phosphatase 52 Total Creatine Kinase 396 H Total Protein 5.1 L Albumin 2.0 L Globulin 3.1 Albumin/Globulin Ratio 0.6 L Nasal Screen MRSA (PCR) Negative 01/04/20 12:46 WBC RBC Hgb Hct MCV MCH MCHC RDW Std Deviation RDW Coeff of Inocencio Plt Count MPV Immature Gran % (Auto) Neut % (Auto) Lymph % (Auto) [place] % (Auto) Eos % (Auto) Baso % (Auto) Neut # (Auto) Lymph # (Auto) [place] # (Auto) Eos # (Auto) Baso # (Auto) Immature Gran # (Auto) Sodium 150 H Potassium 3.8 Chloride 117 H Carbon Dioxide 26 Anion Gap 7.0 BUN 43 H Creatinine 1.84 H Est Cr Clr Drug Dosing 30.4 Est GFR ( Amer) 38.4 Est GFR (Non-Af Amer) 33.2 BUN/Creatinine Ratio 23.6 H Glucose 109 H Calcium 8.5 Phosphorus Magnesium Total Bilirubin AST ALT Alkaline Phosphatase Total Creatine Kinase Total Protein Albumin Globulin Albumin/Globulin Ratio Nasal Screen MRSA (PCR) (1) Fall Encounter type: initial encounter Qualified Code(s): W19.XXXA - Unspecified fall, initial encounter
[2020-01-04] MEDS: SENNA 8.6 MG TAB PO SCH (19:59)
[2020-01-04] MEDS: DOCUSATE SODIUM/SENNA 50/8.6MG TAB PO SCH (19:59)
[2020-01-05] MEDS: hydrALAZINE HCL 20 MG/ML VIAL IV PRN ×2 (01:31→12:01)
[2020-01-05] MEDS: TUBE FEEDING WATER FLUSH GT SCH ×6 (01:49→23:08)
[2020-01-05] MEDS: PIPERACILLIN/TAZOBACTAM 3.375 GM in DEXTROSE 5% 100 ML IV SCH ×3 (04:11→20:32)
[2020-01-05] MEDS: HEPARIN SOD 5,000 UNIT/0.5 ML VIAL SQ SCH ×3 (06:26→23:11)
[2020-01-05 06:49] LABS: Eosinophils # (auto) 0.23 K/uL (0-0.5); Eosinophils % (auto) 2.3 %; Hematocrit (blood only) 36.6 % (42-52); Hemoglobin 11.2 g/dL (14.0-18.0); Immature Granulocytes # (auto) 0.06 K/uL (0.00-0.02); Immature Granulocytes % (auto) 0.6 %; Lymphocytes # (auto) 0.57 K/uL (1.2-3.4); Lymphocytes % (auto) 5.7 %; Mean Corpuscular Hemoglobin 28.1 pg (25-34); Mean Corpuscular Hgb Conc 30.6 g/dL (32-36); Mean Corpuscular Volume 91.7 fL (80-100); Mean Platelet Volume 11.1 fL (7.4-10.4); Monocytes # (auto) 0.06 K/uL (0.11-0.59); Monocytes % (auto) 0.6 %; Neutrophils # (auto) 9.16 K/uL (1.4-6.5); Neutrophils % (auto) 90.8 %; Platelet Count 142 K/uL (130-400); RDW Coefficient of Variation 13.8 % (11.5-14.5); RDW Standard Deviation 46.9 fL (36.4-46.3); Red Blood Count 3.99 M/uL (4.7-6.1); White Blood Count 10.08 K/uL (4.8-10.8)
[2020-01-05 07:35] LABS: Albumin Globulin Ratio 0.6 (0.9-2); BUN Creatinine Ratio 23.7 (10-20); Bilirubin,Total 0.7 mg/dl (0.2-1); Calcium 8.7 mg/dl (8.5-10.1); Creatinine Clr Calc Pharmacy 36.1 ml/min; Est GFR (African American) 47.3; Est GFR (Non-African American) 40.8; Globulin 3.4 gm/dl (2.5-4.0); Magnesium 2.3 mg/dl (1.8-2.4); Phosphorus 1.6 mg/dl (2.5-4.9); Potassium 3.1 mmol/L (3.5-5.1); Total Protein 5.4 gm/dl (6.4-8.2)
--- NOTE | 2020-01-05 07:47 | XRay Report ---
SINGLE VIEW CHEST CLINICAL HISTORY: Respiratory secretions. FINDINGS: An AP, portable, upright chest radiograph is compared to study dated 01/02/2020. The examina tion is degraded by portable technique and patient rotation. The endotracheal tube in the right sub clavian central venous catheter have been removed. An enteric tube projects over the stomach. The car diomediastinal silhouette is unremarkable. There is elevation of the right hemidiaphragm with associa ananth atelectasis. There is a trace right pleural effusion. No airspace consolidation is seen typical f or pneumonia. No pneumothorax is identified. The skeletal structures are osteopenic. The bony thorax is grossly intact. IMPRESSION: 1. The endotracheal tube and a right subclavian central venous catheter have been removed. 2. A trace right pleural effusion persists. ACT 112: Negative or not required by law. Electronically signed by: Eddie Gil M.D. 01/05/2020 7:45 AM
[2020-01-05] MEDS ORDERED: XOPENEX/ATROVENT 1.25mg/0.5MG NEB COMBO NEB PRN (08:03)
[2020-01-05] MEDS ORDERED: IPRATROPIUM BROMIDE NEB SOLN 0.02% 2.5 ML VIAL INH PRN (08:15)
[2020-01-05] MEDS ORDERED: LEVALBUTEROL 1.25MG/0.5ML NEB INH PRN (08:15)
[2020-01-05] MEDS: FINASTERIDE 5 MG TAB PO SCH (08:19)
[2020-01-05] MEDS: TAMSULOSIN HCL 0.4 MG CAP PO SCH (08:19)
[2020-01-05] MEDS ORDERED: FUROSEMIDE 20 MG in SYRINGE 0 ML IV ONE (08:30)
--- NOTE | 2020-01-05 08:44 | CT Scan Report ---
HEAD CT NONCONTRAST CT DOSE: 884.08 mGy.cm HISTORY: altered mental status, r/o cva TECHNIQUE: Multiaxial CT images of the head were performed without the use of intravenous contrast. A utomated exposure control was utilized for this study. A dose lowering technique was utilized adheri ng to the principles of ALARA. Comparison: Head CT 12/27/2019. Findings: A left-sided nasogastric tube is partially visualized. Otherwise, the paranasal sinuses and mastoid air cells are clear. The calvarium and skull base are intact. There is no mass, hematoma, mi dline shift, acute infarct. White matter hypodensity is nonspecific but suggestive of microvascular i schemic change. The ventricles and sulci demonstrate mild age-related involutional changes. Old lacun ar infarcts seen within the right thalamus. Bilateral basal ganglia calcifications are again noted. Impression: No significant change compared to the prior study. No acute intracranial abnormality. ACT 112: Negative or not required by law. Electronically signed by: Mesfin Soto M.D. 01/05/2020 8:43 AM
[2020-01-05] MEDS: MULTI VIT W/MINERALS LIQUID 15 ML UDP PO SCH (08:54)
[2020-01-05] MEDS: FAMOTIDINE 20 MG in SYRINGE 3 ML IV SCH (08:55)
[2020-01-05] MEDS: amLODIPine BESYLATE 5 MG TAB PO SCH (08:55)
[2020-01-05] MEDS ORDERED: MULTIVITAMIN CHEWABLE TAB PO SCH (09:00)
--- NOTE | 2020-01-05 09:14 | XRay Report ---
SINGLE VIEW CHEST CLINICAL HISTORY: Dyspnea. FINDINGS: An AP, portable, upright chest radiograph is compared to study performed earlier the same d ay 01/05/2020. The examination is degraded by portable technique and patient rotation. An enteric tube is unchanged in position. The cardiomediastinal silhouette is unremarkable. There is elevation of th e right hemidiaphragm with associated atelectasis. There is a trace right pleural effusion. No airspa ce consolidation is seen typical for pneumonia. No pneumothorax is identified. The skeletal structure s are osteopenic. The bony thorax is grossly intact. IMPRESSION: No change from today's earlier examination. A trace right pleural effusion persists. ACT 112: Negative or not required by law. Electronically signed by: Eddie Gil M.D. 01/05/2020 9:12 AM
--- NOTE | 2020-01-05 09:34 | Nephrology Progress Note ---
Date of Service January 05, 2020 Assessment & Plan (1) KEO (acute kidney injury): Patient with acute kidney injury due to ischemic ATN in setting of sepsis. [place] brown casts on microscopy. He has responded well to fluid resuscitation. Serum Creatinine down to 1.6, continued downtrend. Baseline is 0.9-1.2. with chemistry issues > hypokalemia, hyponatremia -avoid nephrotoxins such as contrast and NSAIDs. >with hypokalemia and had lasix dose this am > recheck bmp now and replete via NG (2) Hypernatremia: Patient with hypernatremia due to inadequate water intake. Na improving now -Monitor Na daily - on D5W at 80 ml/hr and 150 mL q4h FW flush >> given respiratory exam and improvement in Na will recheck lab, stop IVF for now, cont FWF (3) Hypertension: Target systolic of 140/90. Avoid aggressive BP control in setting of active infection and Keo. on low dose CCB standing and prn hydralazine given only once so far -cont current meds for now - Avoid KAVON at the moment. (4) Acute delirium: Due to hip fracture and underlying dementia in the setting of Sepsis.Continue on Anti biotics head CT negative today Admission and Anticipated Discharge Date Admission Date: December 25, 2019 Subjective has NGT w/ TF running; has D5W at 80 mL hourly; blood cxs now w/ fungemia Review of Systems Review of Systems: Unobtainable due to cognitive status and Unobtainable due t o reduced consciousness Physical Exam Constitutional: well developed and + thin; no acute distress Eyes: EOM intact bilaterally ENMT: Ears: no external ear abnormality Nose: no external nose abnormality Mouth: + dry oral mucous membranes (very) Neck: no nuchal rigidity Respiratory: normal respiratory effort Auscultation: + rhonchi (anterior) Cardiovascular: RRR, no murmur, no edema Gastrointestinal (Abdomen): Inspection/Auscultation: normal bowel sounds Percussion/Palpation: abdomen soft; abdomen nontender Musculoskeletal: marked generalized weakness Skin: no rashes, warm and dry Neurologic: lethargic, generalized weakness; does track and attempts to answer me but no intelligible words Genitourinary: ample clear urine Results & Data ([facility]) Vital Signs (Past 12 Hours) Vital Signs Temp Pulse Pulse Pulse Resp BP BP 01/05/20 07:12 36.4 C L 57 L 20 139/69 01/05/20 03:18 36.5 C 67 18 162/80 H 01/05/20 01:30 75 20 187/91 H 01/04/20 23:01 72 Pulse Ox 01/05/20 07:12 98 01/05/20 03:18 99 01/05/20 01:30 97 01/04/20 23:01 Laboratory Results 01/05/20 06:09 01/05/20 06:09 Abnormal lab results 01/04/20 01/05/20 01/05/20 Range/Units 12:46 06:09 06:09 RBC 3.99 L (4.7-6.1) M/uL Hgb 11.2 L (14.0-18.0) g/dL Hct 36.6 L (42-52) % MCHC 30.6 L (32-36) g/dL RDW Std Deviation 46.9 H (36.4-46.3) fL MPV 11.1 H (7.4-10.4) fL Neut # (Auto) 9.16 H (1.4-6.5) K/uL Lymph # (Auto) 0.57 L (1.2-3.4) K/uL [place] # (Auto) 0.06 L (0.11-0.59) K/uL Immature Gran # (Auto) 0.06 H (0.00-0.02) K/uL Sodium 150 H 146 H (136-145) mmol/L Potassium 3.1 L D (3.5-5.1) mmol/L Chloride 117 H 114 H (98-107) mmol/L BUN 43 H 37 H (7-18) mg/dl Creatinine 1.84 H 1.55 H (0.6-1.4) mg/dl BUN/Creatinine Ratio 23.6 H 23.7 H (10-20) Glucose 109 H 147 H (70-99) mg/dl POC Glucose (70-99) mg/dl Phosphorus 1.6 L D (2.5-4.9) mg/dl AST 42 H (15-37) U/L Total Protein 5.4 L (6.4-8.2) gm/dl Albumin 2.0 L (3.4-5.0) gm/dl Albumin/Globulin Ratio 0.6 L (0.9-2) 01/05/20 Range/Units 06:32 RBC (4.7-6.1) M/uL Hgb (14.0-18.0) g/dL Hct (42-52) % MCHC (32-36) g/dL RDW Std Deviation (36.4-46.3) fL MPV (7.4-10.4) fL Neut # (Auto) (1.4-6.5) K/uL Lymph # (Auto) (1.2-3.4) K/uL [place] # (Auto) (0.11-0.59) K/uL Immature Gran # (Auto) (0.00-0.02) K/uL Sodium (136-145) mmol/L Potassium (3.5-5.1) mmol/L Chloride (98-107) mmol/L BUN (7-18) mg/dl Creatinine (0.6-1.4) mg/dl BUN/Creatinine Ratio (10-20) Glucose (70-99) mg/dl POC Glucose 138 H (70-99) mg/dl Phosphorus (2.5-4.9) mg/dl AST (15-37) U/L Total Protein (6.4-8.2) gm/dl Albumin (3.4-5.0) gm/dl Albumin/Globulin Ratio (0.9-2) Diagnostic Findings head ct No significant change compared to the prior study. No acute intracranial abn ormality. cxr FINDINGS: An AP, portable, upright chest radiograph is compared to study performed earlier the same day 01/05/2020. The examination is degraded by portable technique and patient rotation. An enteric tube is unchanged in position. The cardiomediastinal silhouette is unremarkable. There is elevation of the right hemidiaphragm with associated atelectasis. There is a trace right pleural effusion. No airspace consolidation is seen typical for pneumonia. No pneumothorax is identified. The skeletal structures are osteopenic. The bony thorax is grossly intact. IMPRESSION: No change from today's earlier examination. A trace right pleural effusion persists. (1) Hypertension Hypertension type: essential hypertension Qualified Code(s): I10 - Essential (primary) hypertension
[2020-01-05] MEDS: CASPOFUNGIN 50 MG in SODIUM CHLORIDE 0.9% 250 ML IV SCH (09:46)
[2020-01-05] MEDS: DEXTROSE 5% 1,000 ML IV SCH (11:22)
[2020-01-05 19:08] LABS: BUN Creatinine Ratio 20.7 (10-20); Calcium 8.3 mg/dl (8.5-10.1); Creatinine Clr Calc Pharmacy 37.8 ml/min; Est GFR (Non-African American) 43.1; Potassium 3.1 mmol/L (3.5-5.1)
[2020-01-05] MEDS: DOCUSATE SODIUM/SENNA 50/8.6MG TAB PO SCH (20:32)
[2020-01-05] MEDS: SENNA 8.6 MG TAB PO SCH (20:32)
--- NOTE | 2020-01-05 20:32 | Hospitalist Progress Note ---
Date of Service January 05, 2020 Assessment & Plan (1) Fall: 84-year-old male with history of hypertension BPH presenting with left hip fracture status post fall. Per Dr. Jose Mcfadden's notes: (1) Fall: -in history and physical on 12/25/19 that "This is a 84 year old Male who was at home and reportedly was got up after sleeping in the night time and fell down several feet from where he was sleeping as per his Dorina ([phone]). Patient appears to have auditory impairment and most of the history provided by his at the bedside. Patient apparently did not have loss of consciousness as he called out for help. Patient was brought to the ED and found to have Mildly displaced left femoral neck fracture. Patient also seen to be hypertensive in the ED likely because of underlying hypertension which is exacerbated by pain from the fall injury. Patient has anderson placed in the ED and urine analysis noted to have bacteria and ED provider started ceftriaxone antibiotic. Patient also noted to have redness of medial left thigh and patient's reports that patient often wets himself from urination and does not keep the area dry as it should be." (2) Closed fracture of left hip: -pain medication with bowel regimen -s/p Left hip hemiarthroplasty on 12/26/2019; initially on wound vac but patient pulled it out -on aspirin 81 mg BID as per orthopedics -PT/OT ordered 12/31/2019 Postoperative course complicated by delirium Currently with poor appetite, not cooperative with taking p.o. medications DC oxycodone and Dilaudid DC Ativan Start PRN Haldol DC Anderson catheter Management of UTI noted below Continue gentle reassurance, reorientation, strategies to prevent delirium Monitor closely Continue one-to-one observation 01/01/2020 Less combative today, was able to take more p.o. medications Continue supportive care Noted to have foul-smelling discharge from surgical site yesterday Afebrile today WBC increased to 16 K Cefepime IV started Orthopedic service reconsulted, appreciate the recommendations 01/02/2020 Transferred to the ICU secondary to worsening of mental status Eventually intubated, central line placed management of sepsis noted below 01/03/2020 Discussed with orthopedic surgeon Dr. Odonnell yesterday, patient does not have signs of hip infection For extubation today Management of sepsis and encephalopathy per below 01/04/2020 post extubation day # 1 somewhat more awake NG tube feeding started continue to monitor, PT/OT evaluation 01/04 post extubation day # 2 more awake, follow more simple commands continue NG tube feeding continue to monitor response Severe sepsis, secondary to Fungemia?, possible UTI, aspiration pneumonia, mild diverticulitis afebrile since yesterday, leukocytosis resolved CXR: R base infiltrates Discussed with Ortho, left hip infection unlikely Lactic acid level normal Blood cultures: (+) 1/2 yeast Urine culture: yeast Caspofungin started, Continue Zosyn DC Seymour Graff ID consulted Monitor closely Acute encephalopathy: Likely multifactorial from hip fracture, status post surgery, analgesics, underlying dementia, sepsis -Stroke code called on 12/26/2019 as documented below in regards to facial asymmetry; his mental status is a challenge in the post-op care --Management per #2 Acute UTI (urinary tract infection), Enterococcus, Yeast with possible Bacteremia ruled out -admission urine culture with speciation of pansensitive Enterococcus faecalis instead of strep -has been empirically on ceftriaxone since admission but because admission blood culture with Staphylococcus species in 1 of 2 blood cultures (MRSA negative by PCR) the antibiotic treatment upgraded from ceftriaxone to Zosyn starting on 12/27/2019 and repeat blood culture drawn on 12/27/2019 which is no growth to date as of 12/29/2019 -discussed with pharmacy about switching from Zosyn to ampicillin to maintain the treatment of the urine Enterococcus faecalis starting on 12/29/2019 --> Caspofungin added, currently on Zosyn Acute renal failure on CKD 3 --Creatinine increased from 0.8 to 3.1 Creatinine improved to 1.4 given IV Lasix this AM hold D5W Monitor renal function Appreciate nephrology service recommendations Hypernatremia --Na 151 D5W started monitor Na Appreciate nephrology service recommendations Hypertension: - amlodipine to be given via NG tube Facial asymmetry, Acute CVA ruled out -CT head on 12/25/2019 presentation without acute findings but mentioned Old lacunar infarct within the right thalamus -in the AM of 12/26/2019, patient was speaking more to medical team. However he has facial asymmetry more pronounced when speaking (able to talk more with right side of the mouth compared to the left). A stroke alert was called to expedite CT head scan and brain MRI. Patient able to answer some questions about his name and he does not express acute symptoms. He moves the upper extremities. He has left femoral neck fracture and his legs are in waffle boots -CT head 12/26/2019: No acute intracranial findings patient with not CT head finding of stroke and is likely not a candidate for TPA because of unclear chronicity of facial asymmetry -MRI Brain 12/26/2019 No acute intracranial findings. Exam moderately compromised by motion artifact although diagnostic. Extensive atrophy and small vessel disease. No intracranial mass or pathologic enhancement. -stroke is unlikely, patient proceeded to orthopedic surgery on 12/26/2019, post-operatively patient continues to have facial asymmetry with is visible with speech but no other focal symptoms other than poor orientation to the hospital setting. -patient's at the bedside on 12/28/2019 reports that patient may have Parkinson's disease or dementia that was not formally diagnosed as outpatient, baseline often forgetful at home, and that patient's facial features of facial asymmetry is baseline Troponin level elevated: elevated troponins from demand ischemia -the night guard was concerned that patient with more confusion and workup by nocturnalist Dr. Garcia included troponins of which were elevated as 2.7 on night time of 12/27/2019, Dr. Garcia reports he discussed with orthopedics to allow for IV heparin to be started because of elevated troponins. IV heparin was started. Second troponin 2.95 in AM of 12/28/2019. On 12/28/2019 morning exam by day time hospitalist, patient awake and not as agitated as he was on . Patient denied pain of the chest or abdomen or of the legs. -12/28/2019: discussed with Dr. Azul from cardiology that patient's echocardiogram reflects old infarction which does not reflect elevated troponins on this hospital stay; Dr. Azul advised no further IV heparin and give beta leonides treatment BPH (benign prostatic hyperplasia): -tamsulosin and finasteride DVT prophylaxis: Heparin subcutaneous Full Code Disposition Pending Management of respiratory failure, sepsis, other problems noted above in progress Anticipate discharge [facility] when medically stable Admission and Anticipated Discharge Date Admission Date: December 25, 2019 Subjective ff up s/p left hip surgery, encephalopathy, sepsis, etc seen resting in bed, not in distress opens eyes to verbal stimuli, can follow more simple commands also answers in phrases denies pain, shortness of breath, abdominal pain, hip pain still needs suctioning intermittently per RN no other symptoms full ROS difficult to assess due to cognitive status no other issues per personal service workers of Systems Review of Systems: All systems reviewed & are unremarkable except as noted in HPI & below Physical Exam Physical Exam: General- not oriented x 3, not in distress, speaks in phrases with no effort or accessory muscle use Eyes- anicteric Neck- no JVD Lungs- mild rales on the right bases, no wheezing clear on the left Heart- normal rate, regular rhythm; no murmurs Abdomen- normal bowel sounds, nondistended, soft, nontender Extremities- left hiP; mild hematoma surrounding wound, keron intact, no bleeding/discharge mild pretibial edema, no calf tenderness Neuro- alert, oriented x 3; no gross focal neurologic deficits Skin- warm & dry Results & Data Results & Data ([facility]) Vital Signs (Past 12 Hours) Vital Signs Temp Pulse Pulse Resp BP BP Pulse Ox 01/05/20 19:18 71 01/05/20 19:10 36.5 C 55 L 24 141/70 H 97 01/05/20 17:29 88 168/82 H 01/05/20 16:18 37.0 C 82 24 181/85 H 98 01/05/20 11:06 36.9 C 65 18 171/72 H 95 (1) Fall Encounter type: initial encounter Qualified Code(s): W19.XXXA - Unspecified fall, initial encounter
[2020-01-06] MEDS: POTASSIUM CHLORIDE 20 MEQ/15 ML UDC NG SCH ×2 (00:10→01:21)
[2020-01-06] MEDS: TUBE FEEDING WATER FLUSH GT SCH ×5 (01:21→17:50)
[2020-01-06] MEDS: PIPERACILLIN/TAZOBACTAM 3.375 GM in DEXTROSE 5% 100 ML IV SCH ×3 (04:00→21:08)
[2020-01-06] MEDS: HEPARIN SOD 5,000 UNIT/0.5 ML VIAL SQ SCH ×2 (04:47→13:59)
--- NOTE | 2020-01-06 07:38 | XRay Report ---
XR chest 1V portable HISTORY: core-safe placement COMPARISON: Chest 01/05/2020. FINDINGS: Nasogastric tube terminates below the diaphragm. The tip is not included on this study but likely resides within the distal stomach. A few right basilar linear densities favor subsegmental ate lectasis. This remains unchanged. The heart is normal in size. No new focal lung consolidations. No e vidence for pulmonary edema. No pleural effusions. No pneumothorax. IMPRESSION: Nasogastric tube terminates below the diaphragm. ACT 112: Negative or not required by law. Electronically signed by: Mesfin Soto M.D. 01/06/2020 7:37 AM
[2020-01-06] MEDS: amLODIPine BESYLATE 5 MG TAB PO SCH (09:25)
[2020-01-06] MEDS: MULTI VIT W/MINERALS LIQUID 15 ML UDP PO SCH (09:25)
[2020-01-06] MEDS: CASPOFUNGIN 50 MG in SODIUM CHLORIDE 0.9% 250 ML IV SCH (09:47)
[2020-01-06] MEDS: FAMOTIDINE 20 MG in SYRINGE 3 ML IV SCH (09:48)
[2020-01-06] MEDS: FINASTERIDE 5 MG TAB PO SCH (09:49)
[2020-01-06] MEDS: TAMSULOSIN HCL 0.4 MG CAP PO SCH (09:49)
--- NOTE | 2020-01-06 10:12 | Nephrology Progress Note ---
Date of Service January 06, 2020 Assessment & Plan (1) KEO (acute kidney injury): Patient with acute kidney injury due to ischemic ATN in setting of sepsis. Bodega brown casts on microscopy. He has responded well to fluid resuscitation. Serum Creatinine down to 1.6, continued downtrend. Baseline is 0.9-1.2. with chemistry issues > hypokalemia, hypernatremia -avoid nephrotoxins such as contrast and NSAIDs. >recheck K last evening 3.1 >> got 80 mEq NG overnight>> AM labs ordered/await recheck (2) Hypernatremia: Patient with hypernatremia due to inadequate water intake. Na improving as of last evening -Monitor Na daily - on 150 mL q4h FW flush which should continue >> given respiratory exam and improvement in Na will f/u recheck lab from thsi am and cont to hold IVF (3) Hypertension: Target systolic of 140/90. Avoid aggressive BP control in setting of active infection and Keo. on low dose CCB standing and prn hydralazine given only once so far -increased CCB to 5 mg daily -started hydralazine 5 mg IV q8h; cont prn hydral current dose - Avoid KAVON at the moment. (4) Acute delirium: Due to hip fracture and underlying dementia in the setting of fungemia. Continue on Anti biotics head CT negative. repeat blood cxs 01/03 NGTD >optho c/s pending -consider inf dzs consultation/TTE Admission and Anticipated Discharge Date Admission Date: December 25, 2019 Subjective remains obtunded; pt did remove corgaurd ON but replaced now Review of Systems Review of Systems: Unobtainable due to reduced consciousness Physical Exam Constitutional: well developed and + thin; no acute distress Eyes: EOM intact bilaterally ENMT: Ears: no external ear abnormality Nose: no external nose abnormality Mouth: + dry oral mucous membranes (very) NGT in place Neck: no nuchal rigidity Respiratory: normal respiratory effort Auscultation: + rhonchi (anterior) Cardiovascular: RRR, no murmur, no edema Gastrointestinal (Abdomen): Inspection/Auscultation: normal bowel sounds Percussion/Palpation: abdomen soft; abdomen nontender Skin: no rashes, warm and dry Neurologic: obtunded, not interactive today Genitourinary: anderson w/ ample clear urine Results & Data ([facility]) Vital Signs (Past 12 Hours) Vital Signs Temp Pulse Pulse Pulse Resp BP BP 01/06/20 08:00 36.4 C L 76 18 178/85 H 01/06/20 03:24 36.8 C 62 18 130/65 01/05/20 23:32 36.9 C 80 20 164/91 H Pulse Ox 01/06/20 08:00 97 01/06/20 03:24 99 01/05/20 23:32 97 Laboratory Results 01/05/20 06:09 01/05/20 18:30 (1) Hypertension Hypertension type: essential hypertension Qualified Code(s): I10 - Essential (primary) hypertension
[2020-01-06] MEDS ORDERED: amLODIPine BESYLATE 5 MG TAB PO ONE (10:30)
[2020-01-06 11:11] LABS: BUN Creatinine Ratio 19.5 (10-20); Calcium 9.2 mg/dl (8.5-10.1); Creatinine Clr Calc Pharmacy 38.3 ml/min; Est GFR (African American) 50.8; Est GFR (Non-African American) 43.9; Potassium 4.1 mmol/L (3.5-5.1)
[2020-01-06] MEDS: hydrALAZINE HCL 20 MG/ML VIAL IV SCH ×2 (12:07→21:07)
[2020-01-06] MEDS ORDERED: MENTHOL-ZINC OXIDE 360 APPLN/120 GM TUBE EXT PRN (12:38)
[2020-01-06] MEDS: MENTHOL-ZINC OXIDE 360 APPLN/120 GM TUBE EXT SCH ×2 (14:00→21:08)
[2020-01-06] MEDS ORDERED: Nursing to Pharmacy Communication SCH (18:00)
[2020-01-06] MEDS: HALOPERIDOL LACTATE 5 MG/ML 1 ML VIAL IM PRN (20:15)
[2020-01-06] MEDS: SENNA 8.6 MG TAB PO SCH (21:08)
[2020-01-06] MEDS: DOCUSATE SODIUM/SENNA 50/8.6MG TAB PO SCH (21:09)
--- NOTE | 2020-01-06 23:53 | Hospitalist Progress Note ---
Date of Service January 06, 2020 Assessment & Plan (1) Fall: 84-year-old male with history of hypertension BPH presenting with left hip fracture status post fall. Per Dr. Jose Mcfadden's notes: (1) Fall: -From H&P on 12/25/19 that "This is a 84 year old Male who was at home and reportedly was got up after sleeping in the night time and fell down several feet from where he was sleeping as per his Dorina ([phone]). Patient appears to have auditory impairment and most of the history provided by his at the bedside. Patient apparently did not have loss of consciousness as he called out for help. Patient was brought to the ED and found to have Mildly displaced left femoral neck fracture. Patient also seen to be hypertensive in the ED likely because of underlying hypertension which is exacerbated by pain from the fall injury. Patient has anderson placed in the ED and urine analysis noted to have bacteria and ED provider started ceftriaxone antibiotic. Patient also noted to have redness of medial left thigh and patient's reports that patient often wets himself from urination and does not keep the area dry as it should be." (2) Closed fracture of left hip: -s/p Left hip hemiarthroplasty on 12/26/2019 Postoperative course complicated by delirium with poor appetite, not cooperative with taking p.o. medications, 1:1 placed--> DC oxycodone and Dilaudid, Ativan--> somewhat improved Also treated with Unasyn for enterococcus UTI Subsequently developed fever, leukocytosis up to 30,000, acute renal failure with creatinine increasing to 3, associated with decreased responsiveness Aspiration suspected, transferred to ICU, eventually intubated, G-tube placed Found to have possible aspiration pneumonia, fungemia and yeast in urine culture Orthopedic service does not feel surgical wound is infected Given daptomycin, Zosyn, caspofungin with improvement in fever, leukocytosis Extubated 1 day later Post extubation, patient's mental status improving although gradually No more awake, follows simple commands, but still confused NG tube withdrawn, now transition to p.o. diet by speech therapist, may have dysphagia secondary to intubation for speech therapist, continue to monitor Continue PT/OT efforts Plan to discharge to correction facility when medically stable for rehab post hip surgery Severe sepsis, secondary to Fungemia?, possible UTI, aspiration pneumonia with acute renal failure Resolved Afebrile, leukocytosis improving CXR: R base infiltrates Discussed with Ortho, left hip infection unlikely Lactic acid level normal Blood cultures: (+) 1/2 bottle is positive for yeast Urine culture: yeast Kerrieer ID consulted Caspofungin started, Continued on Zosyn Daptomycin discontinued Acute metabolic encephalopathy: Likely multifactorial from hip fracture, status post surgery, analgesics, underlying dementia, sepsis -Stroke code called on 12/26/2019 as documented below in regards to facial asymmetry; no acute CVA --Management per #2 Acute UTI (urinary tract infection), Enterococcus, Yeast --admission urine culture with speciation of pansensitive Enterococcus faecalis instead of strep --> Caspofungin added currently on Zosyn Acute renal failure on CKD 3 --Creatinine increased from 0.8 to 3.1 Creatinine improved to 1.4 with IV fluids At one point volume overload was noted given falls and lower extremity edema, given IV Lasix hold D5W Creatinine improving from 3.1-1.4 Appreciate nephrology service recommendations Hypernatremia --Na 151 D5W started Sodium improved to 146 Hypertension: -Usual p.o. medications on hold, only on amlodipine p.o. and hydralazine IV given Monitor Facial asymmetry, Acute CVA ruled out Per Dr. Joes Mcfadden's notes: -CT head on 12/25/2019 presentation without acute findings but mentioned Old lacunar infarct within the right thalamus -in the AM of 12/26/2019, patient was speaking more to medical team. However he has facial asymmetry more pronounced when speaking (able to talk more with right side of the mouth compared to the left). A stroke alert was called to expedite CT head scan and brain MRI. Patient able to answer some questions about his name and he does not express acute symptoms. He moves the upper extremities. He has left femoral neck fracture and his legs are in waffle boots -CT head 12/26/2019: No acute intracranial findings patient with not CT head finding of stroke and is likely not a candidate for TPA because of unclear chronicity of facial asymmetry -MRI Brain 12/26/2019 No acute intracranial findings. Exam moderately compromised by motion artifact although diagnostic. Extensive atrophy and small vessel disease. No intracranial mass or pathologic enhancement. -stroke is unlikely, patient proceeded to orthopedic surgery on 12/26/2019, post- operatively patient continues to have facial asymmetry with is visible with speech but no other focal symptoms other than poor orientation to the hospital setting. -patient's at the bedside on 12/28/2019 reports that patient may have Parkinson's disease or dementia that was not formally diagnosed as outpatient, baseline often forgetful at home, and that patient's facial features of facial asymmetry is baseline Troponin level elevated: Per Dr. Jose Mcfadden's notes: -elevated troponins from demand ischemia -the blast furnace auxiliaries supervisor was concerned that patient with more confusion and workup by nocturnalist Dr. Garcia included troponins of which were elevated as 2.7 on night time of 12/27/2019, Dr. Garcia reports he discussed with orthopedics to allow for IV heparin to be started because of elevated troponins. IV heparin was started. Second troponin 2.95 in AM of 12/28/2019. On 12/28/2019 morning exam by day time hospitalist, patient awake and not as agitated as he was on . Patient denied pain of the chest or abdomen or of the legs. -12/28/2019: discussed with Dr. Azul from cardiology that patient's echocardiogram reflects old infarction which does not reflect elevated troponins on this hospital stay; Dr. Azul advised no further IV heparin and give beta leonides treatment BPH (benign prostatic hyperplasia): -tamsulosin and finasteride DVT prophylaxis: Heparin subcutaneous Full Code Disposition Pending Usually lives with his Anticipate discharge to correction facility when medically stable Admission and Anticipated Discharge Date Admission Date: December 25, 2019 Subjective Follow-up for status post left hip surgery, sepsis, encephalopathy Seen resting in bed, more awake and alert, follows simple commands Tries to speak in phrases, but still confused Not in distress, denies pain, shortness of breath Full ROS difficult to determine due to patient's mental status Patient removed NG tube in the morning Patient therapist consulted, resumed diet with pured food and thickened liquids Continue to monitor During the evening, patient removed Anderson catheter Bleeding noted per urethra On exam, the patient is wide awake, alert, confused, somewhat restless Bleeding has resolved PRN Haldol ordered, and meds ordered, PRN one-to-one observation ordered Review of Systems Review of Systems: Unobtainable due to cognitive status Physical Exam Physical Exam: General-alert, confused, not in distress, tries to speak in phrases with no effort or accessory muscle use Eyes- anicteric Neck- no JVD Lungs-mild crackles in the right base, clear on the left, no wheezing Heart- normal rate, regular rhythm; no murmurs Abdomen- normal bowel sounds, nondistended, soft, nontender Extremities-trace pretibial edema, no calf tenderness Left hip wound: Yuly in place, healing well, mild edema, but no bleeding or discharge Neuro- alert, not oriented, confused, somewhat restless but moves all extre mities equally; no other new gross focal neurologic deficits Skin- warm & dry Results & Data Results & Data ([facility]) Vital Signs (Past 12 Hours) Vital Signs Temp Pulse Pulse Pulse Pulse Resp BP 01/06/20 23:23 36.6 C 107 H 19 142/84 H 01/06/20 18:59 37.3 C 102 H 18 01/06/20 17:00 78 01/06/20 15:02 36.9 C 76 20 01/06/20 11:40 37 C 76 18 153/78 H BP Pulse Ox 01/06/20 23:23 95 01/06/20 18:59 168/86 H 92 01/06/20 17:00 01/06/20 15:02 176/79 H 95 01/06/20 11:40 93 Laboratory Results Laboratory Results - last 24 hr 01/06/20 01/06/20 01/06/20 06:04 10:09 10:45 Sodium 146 H Potassium 4.1 D Chloride 114 H Carbon Dioxide 28 Anion Gap 5.0 BUN 28 H Creatinine 1.46 H Est Cr Clr Drug Dosing 38.3 Est GFR ( Amer) 50.8 Est GFR (Non-Af Amer) 43.9 BUN/Creatinine Ratio 19.5 Glucose 141 H POC Glucose 151 H Calcium 9.2 Stl C. diff Tox B Gene Negative Cdiff Gene 01/06/20 01/06/20 12:34 16:19 Sodium Potassium Chloride Carbon Dioxide Anion Gap BUN Creatinine Est Cr Clr Drug Dosing Est GFR ( Amer) Est GFR (Non-Af Amer) BUN/Creatinine Ratio Glucose POC Glucose 115 H 101 H Calcium Stl C. diff Tox B Gene (1) Fall Encounter type: initial encounter Qualified Code(s): W19.XXXA - Unspecified fall, initial encounter
[2020-01-07] MEDS: hydrALAZINE HCL 20 MG/ML VIAL IV SCH ×3 (01:57→18:47)
[2020-01-07] MEDS: PIPERACILLIN/TAZOBACTAM 3.375 GM in DEXTROSE 5% 100 ML IV SCH ×3 (03:46→20:14)
[2020-01-07] MEDS: FAMOTIDINE 20 MG in SYRINGE 3 ML IV SCH (08:14)
[2020-01-07] MEDS: FINASTERIDE 5 MG TAB PO SCH (08:15)
[2020-01-07] MEDS: MULTI VIT W/MINERALS LIQUID 15 ML UDP PO SCH ×2 (08:15→08:21)
[2020-01-07] MEDS: ACETAMINOPHEN 325 MG TAB PO PRN (08:15)
[2020-01-07] MEDS: TAMSULOSIN HCL 0.4 MG CAP PO SCH (08:15)
[2020-01-07 08:40] LABS: BUN Creatinine Ratio 17.3 (10-20); Calcium 9.4 mg/dl (8.5-10.1); Creatinine Clr Calc Pharmacy 31.8 ml/min; Est GFR (African American) 40.5; Potassium 3.4 mmol/L (3.5-5.1)
[2020-01-07] MEDS ORDERED: amLODIPine BESYLATE 5 MG TAB PO SCH (09:00)
[2020-01-07] MEDS: CASPOFUNGIN 50 MG in SODIUM CHLORIDE 0.9% 250 ML IV SCH (10:03)
[2020-01-07] MEDS: MULTIVITAMIN CHEWABLE TAB PO SCH (10:03)
[2020-01-07] MEDS: MENTHOL-ZINC OXIDE 360 APPLN/120 GM TUBE EXT SCH ×2 (10:04→22:07)
--- NOTE | 2020-01-07 10:12 | Hospitalist Progress Note ---
Date of Service January 07, 2020 Assessment & Plan (1) Fall: 84-year-old male with history of hypertension BPH presenting with left hip fracture status post fall. Prolonged hospital course (1) Fall: -From H&P on 12/25/19 that "This is a 84 year old Male who was at home and reportedly was got up after sleeping in the night time and fell down several feet from where he was sleeping as per his Dorina ([phone]). Patient appears to have auditory impairment and most of the history provided by his at the bedside. Patient apparently did not have loss of consciousness as he called out for help. Patient was brought to the ED and found to have Mildly displaced left femoral neck fracture. Patient also seen to be hypertensive in the ED likely because of underlying hypertension which is exacerbated by pain from the fall injury. Patient has anderson placed in the ED and urine analysis noted to have bacteria and ED provider started ceftriaxone antibiotic. Patient also noted to have redness of medial left thigh and patient's reports that patient often wets himself from urination and does not keep the area dry as it should be." (2) Closed fracture of left hip: -s/p Left hip hemiarthroplasty on 12/26/2019 Postoperative course complicated by delirium with poor appetite, not cooperative with taking p.o. medications, 1:1 placed--> DC oxycodone and Dilaudid, Ativan--> somewhat improved Also treated with Unasyn for enterococcus UTI Subsequently developed fever, leukocytosis up to 30,000, acute renal failure with creatinine increasing to 3, associated with decreased responsiveness Aspiration suspected, transferred to ICU, eventually intubated, G-tube placed Found to have possible aspiration pneumonia, fungemia and yeast in urine culture Orthopedic service does not feel surgical wound is infected Given daptomycin, Zosyn, caspofungin with improvement in fever, leukocytosis Extubated 1 day later Post extubation, patient's mental status improving although gradually Now more awake, follows simple commands, but still confused NG tube withdrawn, now transitioned to p.o. diet by speech therapist, may have dysphagia secondary to intubation for speech therapist Continue pureed diet with aspiration precautions PT.OT when able Plan to discharge to retirement facility when medically stable for rehab post hip surgery Pharmacological DVT ppx on hold due to traumatic hematuria Severe sepsis Enterococcus faecalis UTI Aspiration pneumonia with acute renal failure UTI treatment completed Aspiration precautions Fevers resolved Leukocytosis resolved from previous labs CXR: R base infiltrates Per Ortho, left hip infection unlikely Fungemia Blood cultures 01/01: (+) 2/2 bottle is positive for yeast (not kristin albicans/dub) Urine culture 01/01: kristin glabrata complex Sputum culture 01/01 - yeast not kristin albicans Repeat blood cultures 01/03 - Negative so far ID recommendations noted Continue caspofungin Get Echo F/u opthalm consult Acute metabolic encephalopathy: Likely multifactorial from hip fracture, status post surgery, analgesics, underlying dementia, sepsis -Stroke code called on 12/26/2019 as documented below in regards to facial asymmetry; no acute CVA Acute renal failure on CKD 3 Creatinine increased from 0.8 to 3.1 Creatinine improved to 1.4 with IV fluids At one point volume overload was noted given falls and lower extremity edema, given IV Lasix Creatinine increased from 1.4 to 1.7 today Encourage po fluid intake Discussed with clay roaster. Will follow recommendations Hypernatremia Na was 151 D5W started and Sodium improved to 146. D5W held as mentioned above Na is 147 today. Encourage po fluid intake and monitor Hypertension: -Usual p.o. medications on hold Continue only amlodipine p.o. and hydralazine IV given. May increased dose of amlodipine as needed Monitor Facial asymmetry, Acute CVA ruled out Per Dr. Jose Mcfadden's notes: -CT head on 12/25/2019 presentation without acute findings but mentioned Old lacunar infarct within the right thalamus -in the AM of 12/26/2019, patient was speaking more to medical team. However he has facial asymmetry more pronounced when speaking (able to talk more with right side of the mouth compared to the left). A stroke alert was called to expedite CT head scan and brain MRI. Patient able to answer some questions about his name and he does not express acute symptoms. He moves the upper extremities. He has left femoral neck fracture and his legs are in waffle boots -CT head 12/26/2019: No acute intracranial findings patient with not CT head finding of stroke and is likely not a candidate for TPA because of unclear chronicity of facial asymmetry -MRI Brain 12/26/2019 No acute intracranial findings. Exam moderately compromised by motion artifact although diagnostic. Extensive atrophy and small vessel disease. No intracranial mass or pathologic enhancement. -stroke is unlikely, patient proceeded to orthopedic surgery on 12/26/2019, post- operatively patient continues to have facial asymmetry with is visible with sp eech but no other focal symptoms other than poor orientation to the hospital setting. -patient's at the bedside on 12/28/2019 reports that patient may have Parkinson's disease or dementia that was not formally diagnosed as outpatient, baseline often forgetful at home, and that patient's facial features of facial asymmetry is baseline Troponin level elevated: Per Dr. Jose Mcfadden's notes: -elevated troponins from demand ischemia -the cook mess was concerned that patient with more confusion and workup by nocturnalist Dr. Garcia included troponins of which were elevated as 2.7 on night time of 12/27/2019, Dr. Garcia reports he discussed with orthopedics to allow for IV heparin to be started because of elevated troponins. IV heparin was started. Second troponin 2.95 in AM of 12/28/2019. On 12/28/2019 morning exam by day time hospitalist, patient awake and not as agitated as he was on . Patient denied pain of the chest or abdomen or of the legs. -12/28/2019: discussed with Dr. Azul from cardiology that patient's echocardiogram reflects old infarction which does not reflect elevated troponins on this hospital stay; Dr. Azul advised no further IV heparin and give beta leonides treatment BPH (benign prostatic hyperplasia): -tamsulosin and finasteride Hematuria following pulling anderson DVT prophylaxis: SCD for now. Heparin on hold due to hematuria. Resume once hematuria resolves Full Code Called on phone and updated her. Informed her about Palliative consult for goals of care and she was ok with this Disposition Pending Usually lives with his Anticipate discharge to retirement facility when medically stable Admission and Anticipated Discharge Date Admission Date: December 25, 2019 Subjective Patient seen and examined Awake and alert. Confused. Occasionally follows commands Not answering questions Per RN, pulled anderson yesterday and having hematuria with last urination. Required straight cath Tolerating diet with supervision Review of Systems Review of Systems: Unobtainable due to cognitive status Physical Exam Constitutional: + ill appearing (chronic ill appearing); no acute distress Eyes: PERRL, conjunctivae normal, anicteric sclerae Respiratory: normal respiratory effort; no respiratory distress Minimal basilar crackles Cardiovascular: Rate/Rhythm: regular rate and regular rhythm Extremities: no pedal edema S1 S2 Gastrointestinal (Abdomen): normal bowel sounds, soft, nontender, no hepatosplenomegaly Musculoskeletal: Clean left hip op site with keron. No drainage Moves extremities spontaneously Neurologic: Awake, alert, confused and not answering questions, occasionally follows commands.Limited exam. No gross focal deficits Results & Data Results & Data ([facility]) Vital Signs (Past 12 Hours) Vital Signs Temp Pulse Resp BP Pulse Ox 01/07/20 03:28 36.8 C 97 H 149/62 H 98 01/06/20 23:23 36.6 C 107 H 19 142/84 H 95 Laboratory Results Laboratory Results - last 24 hr 01/06/20 01/06/20 01/06/20 10:09 10:45 12:34 Sodium 146 H Potassium 4.1 D Chloride 114 H Carbon Dioxide 28 Anion Gap 5.0 BUN 28 H Creatinine 1.46 H Est Cr Clr Drug Dosing 38.3 Est GFR ( Amer) 50.8 Est GFR (Non-Af Amer) 43.9 BUN/Creatinine Ratio 19.5 Glucose 141 H POC Glucose 115 H Calcium 9.2 Stl C. diff Tox B Gene Negative Cdiff Gene 01/06/20 01/07/20 16:19 07:55 Sodium 147 H Potassium 3.4 L D Chloride 116 H Carbon Dioxide 26 Anion Gap 6.0 BUN 30 H Creatinine 1.76 H D Est Cr Clr Drug Dosing 31.8 Est GFR ( Amer) 40.5 Est GFR (Non-Af Amer) 35.0 BUN/Creatinine Ratio 17.3 Glucose 114 H POC Glucose 101 H Calcium 9.4 Stl C. diff Tox B Gene (1) Fall Encounter type: initial encounter Qualified Code(s): W19.XXXA - Unspecified fall, initial encounter
[2020-01-07] MEDS ORDERED: amLODIPine BESYLATE 5 MG TAB PO ONE (16:04)
[2020-01-07] MEDS ORDERED: POTASSIUM CHLORIDE PWD 20 MEQ PACK PO ONE (16:06)
--- NOTE | 2020-01-07 20:18 | Nephrology Progress Note ---
Date of Service January 07, 2020 Assessment & Plan (1) KEO (acute kidney injury): Patient with acute kidney injury due to ischemic ATN in setting of sepsis. [place] brown casts on microscopy. He responded well to fluid resuscitation. Kurt creatinine 1.5 01/05 AM; then lost NGT; creatinine up to 1.8 this am.. Baseline is 0.9-1.2. with chemistry issues > hypokalemia, hypernatremia, hyp erchloremia -avoid nephrotoxins such as contrast and NSAIDs. daily bmp >K had normalized w/ NG supplementation; now dropping (2) Hypernatremia: Patient with hypernatremia due to inadequate water intake. Na o n slow uptrend w/o NGT/FWFlushes -Monitor Na daily -IVF had been on hold d/t rhonchi on exam >> will hold again today adn reassess in am (3) Hypertension: Target systolic of 140-150/90. Avoid aggressive BP control in setting of active infection and Keo. on low dose CCB standing and prn hydralazine given only once so far -cont CCB 5 mg daily -cont w/ hold parameters hydralazine 5 mg IV q8h; cont prn hydral current dose - Avoid KAVON at the moment. (4) Acute delirium: Due to hip fracture and underlying dementia in the setting of fungemia. Continue on Anti biotics head CT negative. repeat blood cxs 01/03 NGTD -inf dzs has seen pt; no obvious vegs on TTE; ophto cs/ pending Admission and Anticipated Discharge Date Admission Date: December 25, 2019 Subjective seen on rounds at approx 0930; care coordinated w/ Dr Couch. Review of Systems Review of Systems: Unobtainable due to reduced consciousness Physical Exam Constitutional: well developed and + thin; no acute distress NGT out Eyes: EOM intact bilaterally ENMT: Ears: no external ear abnormality Nose: no external nose abnormality Mouth: + dry oral mucous membranes (very) Neck: no nuchal rigidity Respiratory: normal respiratory effort Auscultation: + rhonchi (anterior) Cardiovascular: Rate/Rhythm: regular rate and regular rhythm Extremities: + edema (2+) Gastrointestinal (Abdomen): Inspection/Auscultation: normal bowel sounds Percussion/Palpation: abdomen soft; abdomen nontender Skin: no rashes, warm and dry Genitourinary: anderson present Results & Data ([facility]) Vital Signs (Past 12 Hours) Vital Signs Temp Pulse Pulse Pulse Pulse Resp BP 01/07/20 18:44 80 01/07/20 16:11 36.7 C 85 18 96/46 L 01/07/20 15:46 83 01/07/20 11:27 36.9 C 75 20 172/76 H BP Pulse Ox 01/07/20 18:44 149/61 H 01/07/20 16:11 93 01/07/20 15:46 01/07/20 11:27 97 Laboratory Results 01/05/20 06:09 01/07/20 07:55 (1) Hypertension Hypertension type: essential hypertension Qualified Code(s): I10 - Essential (primary) hypertension
[2020-01-07] MEDS: DOCUSATE SODIUM/SENNA 50/8.6MG TAB PO SCH (21:57)
[2020-01-07] MEDS: SENNA 8.6 MG TAB PO SCH (21:57)
[2020-01-08] MEDS: hydrALAZINE HCL 20 MG/ML VIAL IV SCH ×3 (02:34→18:17)
[2020-01-08] MEDS: PIPERACILLIN/TAZOBACTAM 3.375 GM in DEXTROSE 5% 100 ML IV SCH ×3 (04:12→20:32)
[2020-01-08 07:09] LABS: Hematocrit (blood only) 36.5 % (42-52); Hemoglobin 11.6 g/dL (14.0-18.0); Mean Corpuscular Hgb Conc 31.8 g/dL (32-36); Mean Corpuscular Volume 88.2 fL (80-100); Mean Platelet Volume 11.5 fL (7.4-10.4); Platelet Count 211 K/uL (130-400); RDW Coefficient of Variation 14.1 % (11.5-14.5); RDW Standard Deviation 45.3 fL (36.4-46.3); Red Blood Count 4.14 M/uL (4.7-6.1); White Blood Count 11.79 K/uL (4.8-10.8)
[2020-01-08 07:41] LABS: BUN Creatinine Ratio 19.8 (10-20); Calcium 8.7 mg/dl (8.5-10.1); Creatinine Clr Calc Pharmacy 31.6 ml/min; Est GFR (African American) 40.3; Est GFR (Non-African American) 34.7; Potassium 3.2 mmol/L (3.5-5.1)
--- NOTE | 2020-01-08 08:26 | Palliative Care Consultation ---
Date of Consultation January 08, 2020 Assessment & Plan (1) Palliative care encounter: This patient 84 year old male who presented to the [facility] from home s/p a fall he sustained near his bed. Per report of the patient and his , he did not lose consciousness and called out for help. He was found to have a mildly displaced femoral neck fracture for which the decision was made to undergo a left hemiarthroscopy, which was completed on 12/27/19. Post-operatively, he became febrile, sustained acute kidney injury with an increasing creatinine, and overall lethargy and decreased consciousness with suspicion of an infection. Due to his worsening clinical picture, he was transferred to the ICU and was suspected to aspirate. He was intubated and actually extubated the following day. Per review of the documented notes, he is apparently more awake, following simple commands, but with overall confusion not consistent with his baseline. He is now being transitioned to oral food, but with aspiration precautions in place. Palliative Care was consulted to discuss goals of care and code status. Patient is currently a Full Code. -I met with the patient in room 351-1. The patient was appearing uncomfortable and disheveled in his bed, in acute distress. -He was arousable to my voice, but was unreliable with any answers to my questions. I askkd him if his 's name was Dorina, and he did say yes. Poor eye contact. Patient is very lethargic. -I met with the patients , Dorina, in the patients room. We then spoke in the hallway. -She agreed that the patient was overall declining and she knows he is not going to get better. -They have been for 62 years and she said "I know him best, he wouldn't want this" -We discussed code status and after discussion agreed we would transition to a DNR/DNI which is now reflected in the computer. -We discussed overall prognosis and she agreed that he probably wont be 'fixed' She said he looks miserable and would like to keep him as comfortable as possible. -We discussed comfort measures and after discussing with both sons, Willie and Wilfredo, they agreed to have comfort medications available but continue other current treatment for the next 24-48 hours and see how he responds. -Eventual transition to full comfort measures likely over next 48 hours. For now, continue treatment with antifungals, other meds; and continue blood draws as well, with a conservative approach. -Comfort medications will be ordered, including Morphine IV, Ativan IV, Scopalamine patch, Robinul IV and others. -Readdress discharge planning and overall decline after the next 48 hours. -Work towards getting patient in a private room. Bereavement tray would be beneficial once pt in a private room setting. -I anticipate patient will decline rather rapidly over next few days. Likely life expectancy days to a few weeks. -Nursing and Hospitalist updated and agree with above plan. -PPS: 20% (2) Displaced fracture of left femoral neck: (3) Fall: Encounter type: initial encounter Qualified Code(s): W19.XXXA - Unspecified fall, initial encounter (4) Hypernatremia: Supervising Physician Co-Signing Physician Notes Chart reviewed, patient seen and examined. Collaborated with DESIREE Rizvi Patient seen and examined in room 351-no family at bedside. Patient was nonverbal, did respond to voice and touch, appears comfortable at rest PE: Patient arousable, no acute distress HEENT: EOMI, appears to have normal hearing Respirations: Unlabored, diminished due to poor inspiratory effort CV: Regular rate, + edema Abdomen: Soft, nontender to palpation Extremities: Warm to touch Agree with above note, assessment and plan as per DESIREE Rizvi-will continue to follow and assist family with medical decision making History of Present Illness Reason for Consultation: Goals of Care Requesting Physician: Dr. Couch Attending Physician: Jocelyn Couch MD History of Present Illness This patient 84 year old male who presented to the [facility] from home s/p a fall he sustained near his bed. Per report of the patient and his , he did not lose consciousness and called out for help. He was found to have a mildly displaced femoral neck fracture for which the decision was made to undergo a left hemiarthroscopy, which was completed on 12/27/19. Post-operatively, he became febrile, sustained acute kidney injury with an increasing creatinine, and overall lethargy and decreased consciousness with suspicion of an infection. Due to his worsening clinical picture, he was transferred to the ICU and was suspected to aspirate. He was intubated and actually extubated the following day. Per review of the documented notes, he is apparently more awake, following simple commands, but with overall confusion not consistent with his baseline. He is now being transitioned to oral food, but with aspiration precautions in place. Palliative Care was consulted to discuss goals of care and code status. Patient is currently a Full Code. Please see A/P for further details. Thank you kindly for involving palliative care with this patient. Allergies Allergy/AdvReac Type Severity Reaction Status Date / Time No Known Allergies Allergy Verified 12/25/19 05:50 Home Medications Home Medications Medication Instructions Recorded Confirmed Type finasteride 5 mg PO 12/25/19 History lisinopril 10 mg PO 12/25/19 History tamsulosin 0.4 mg PO 12/25/19 History Patient History Medical History (Updated 01/08/20 @ 08:26 by DESIREE Rizvi) Acute UTI (urinary tract infection) Aspiration pneumonia BPH (benign prostatic hyperplasia) Complicated UTI (urinary tract infection) Fall Hypertension Palliative care encounter Severe sepsis Social History Smoking Status: Former smoker Second Hand Exposure: No; Do You Dip or Chew Tobacco: Yes; Tobacco Cessation Education Requested by Patient: No Hx Alcohol Use: No Hx Substance Use: No Preferred Language: Tongan Communication Ability: Impaired Beliefs That Will Affect Care: None marital status: Current Living Situation: Spouse Other Information That Helps Us Care for You: No Feels Safe at Home: Yes Safety Concerns: Feels Safe At This Time Assistive Devices: None Review of Systems Review of Systems: Unobtainable due to cognitive status Physical Exam Constitutional: + acute distress, + ill appearing, + combative and + lethargic Respiratory: Auscultation: + diminished lung sounds and + rhonchi Cardiovascular: Rate/Rhythm: regular rate and regular rhythm Heart Sounds: normal S1 and normal S2 Extremities: normal capillary refill and + edema Gastrointestinal (Abdomen): normal bowel sounds, soft, nontender, no hepatosplenomegaly Skin: + turgor decreased and + pallor Psychiatric: A+Ox3, euthymic affect Orientation: alert Insight: + impaired insight Judgement: + impaired judgement Results & Data ([facility]) Vital Signs (Past 12 Hours) Vital Signs Temp Pulse Pulse Resp BP Pulse Ox 01/08/20 08:02 37.0 C 82 18 144/72 H 97 01/08/20 00:22 36.7 C 85 18 121/68 95 PG Care Time/CCT Total # of Minutes Spent Total Time Spent with Patient: Total time spent is greater than 50% in coord ination of care (as documented) at patient's floor/unit and/or counseling patient: 125 Coding Level of Care Code 43332 Inpt Consult Level 4 Diagnoses Palliative care encounter Z51.5 Displaced fracture of left femoral neck S72.002A Fall W19.XXXA Encounter type: initial encounter Hypernatremia E87.0 Time Spent (min) 100 Time Spent Midlevel Total time spent 125 minutes with > 50% of that time spent assessing the patient, discussing goals of care with patients , son and IDT
[2020-01-08] MEDS: MULTIVITAMIN CHEWABLE TAB PO SCH (08:48)
[2020-01-08] MEDS: FINASTERIDE 5 MG TAB PO SCH (08:48)
[2020-01-08] MEDS: TAMSULOSIN HCL 0.4 MG CAP PO SCH (08:48)
[2020-01-08] MEDS: amLODIPine BESYLATE 5 MG TAB PO SCH (08:48)
[2020-01-08] MEDS: MENTHOL-ZINC OXIDE 360 APPLN/120 GM TUBE EXT SCH ×2 (08:49→21:10)
[2020-01-08] MEDS: FAMOTIDINE 20 MG in SYRINGE 3 ML IV SCH (09:04)
[2020-01-08] MEDS: CASPOFUNGIN 50 MG in SODIUM CHLORIDE 0.9% 250 ML IV SCH (09:04)
--- NOTE | 2020-01-08 09:30 | Nephrology Progress Note ---
Date of Service January 08, 2020 Assessment & Plan (1) KEO (acute kidney injury): Patient with acute kidney injury due to ischemic ATN in setting of sepsis. [place] brown casts on microscopy. He responded well to fluid resuscitation. Kurt creatinine 1.5 01/05 AM; then lost NGT; creatinine plateau'd at 1.8 this am.. Baseline is 0.9-1.2. with chemistry issues > hypokalemia, hypernatremia, hyperchloremia all persistent -avoid nephrotoxins such as contrast and NSAIDs. daily bmp >K had normalized w/ NG supplementation; now dropping>>add to IVF as below (2) Hypernatremia: Patient with hypernatremia due to inadequate water intake. Na on slow upt rend w/o NGT/FWFlushes -Monitor Na daily -IVF had been on hold d/t rhonchi on exam >> will resume D5W w/ 40 mEQ K at 80 mL/hr (3) Hypertension: Target systolic of 140-150/90. Avoid aggressive BP control in setting of active infection and Keo. on low dose CCB standing and prn hydralazine given only once so far -cont CCB 5 mg daily -cont w/ hold parameters hydralazine 5 mg IV q8h; cont prn hydral current dose - Avoid KAVON at the moment. (4) Acute delirium: Due to hip fracture and underlying dementia in the setting of fungemia. Continue on Anti biotics head CT negative. repeat blood cxs 01/03 NGTD -inf dzs has seen pt; no obvious vegs on TTE; ophto cs/ pending -palliative care c/s pending Admission and Anticipated Discharge Date Admission Date: December 25, 2019 Subjective more alert today > eyes open, tracks, responds lsightly but no recognizeable words Review of Systems Review of Systems: Unobtainable due to cognitive status and Unobtainable due to reduced consciousness Physical Exam Constitutional: well developed and + thin; no acute distress Eyes: EOM intact bilaterally ENMT: Ears: no external ear abnormality Nose: no external nose abnormality Mouth: + dry oral mucous membranes (very) Neck: no nuchal rigidity Respiratory: normal respiratory effort Auscultation: lungs clear to auscultation bilaterally (rhonchi resolved today) and + diminished lung sounds Cardiovascular: RRR, no murmur, no edema Rate/Rhythm: regular rate and reg ular rhythm Extremities: + edema (2+) Gastrointestinal (Abdomen): Inspection/Auscultation: normal bowel sounds Percussion/Palpation: abdomen soft; abdomen nontender Skin: no rashes, warm and dry Results & Data ([facility]) Vital Signs (Past 12 Hours) Vital Signs Temp Pulse Pulse Resp BP Pulse Ox 01/08/20 08:02 37.0 C 82 18 144/72 H 97 01/08/20 00:22 36.7 C 85 18 121/68 95 Laboratory Results 01/08/20 05:58 01/08/20 05:58 (1) Hypertension Hypertension type: essential hypertension Qualified Code(s): I10 - Essential (primary) hypertension
[2020-01-08] MEDS: POTASSIUM CHLORIDE 40 MEQ in DEXTROSE 5% 1,000 ML IV SCH ×2 (10:15→23:58)
--- NOTE | 2020-01-08 13:01 | Hospitalist Progress Note ---
Date of Service January 08, 2020 Assessment & Plan (1) Fall: 84-year-old male with history of hypertension BPH presenting with left hip fracture status post fall. Prolonged hospital course (1) Fall: -From H&P on 12/25/19 that "This is a 84 year old Male who was at home and reportedly was got up after sleeping in the night time and fell down several feet from where he was sleeping as per his Dorina ([phone]). Patient appears to have auditory impairment and most of the history provided by his at the bedside. Patient apparently did not have loss of consciousness as he called out for help. Patient was brought to the ED and found to have Mildly displaced left femoral neck fracture. Patient also seen to be hypertensive in the ED likely because of underlying hypertension which is exacerbated by pain from the fall injury. Patient has anderson placed in the ED and urine analysis noted to have bacteria and ED provider started ceftriaxone antibiotic. Patient also noted to have redness of medial left thigh and patient's reports that patient often wets himself from urination and does not keep the area dry as it should be." (2) Closed fracture of left hip: -s/p Left hip hemiarthroplasty on 12/26/2019 Postoperative course complicated by delirium with poor appetite, not cooperative with taking p.o. medications, 1:1 placed--> DC oxycodone and Dilaudid, Ativan--> somewhat improved Also treated with Unasyn for enterococcus UTI Subsequently developed fever, leukocytosis up to 30,000, acute renal failure with creatinine increasing to 3, associated with decreased responsiveness Aspiration suspected, transferred to ICU, eventually intubated, G-tube placed Found to have possible aspiration pneumonia, fungemia and yeast in urine culture Orthopedic service does not feel surgical wound is infected Given daptomycin, Zosyn, caspofungin with improvement in fever, leukocytosis Extubated 1 day later Post extubation, patient's mental status improving although gradually Now more awake, follows simple commands, but still confused NG tube withdrawn, now transitioned to p.o. diet by speech therapist, may have dysphagia secondary to intubation for speech therapist Continue pureed diet with aspiration precautions PT.OT when able Severe sepsis Enterococcus faecalis UTI Aspiration pneumonia with acute renal failure UTI treatment completed Aspiration precautions Fevers resolved Leukocytosis resolved from previous labs CXR: R base infiltrates Per Ortho, left hip infection unlikely Fungemia Blood cultures 01/01: (+) 2/2 bottle is positive for yeast (not kristin albicans/dub) Urine culture 01/01: kristin glabrata complex Sputum culture 01/01 - yeast not kristin albicans Repeat blood cultures 01/03 - Negative so far ID recommendations noted Continue caspofungin Get Echo F/u opthalm consult Acute metabolic encephalopathy: Likely multifactorial from hip fracture, status post surgery, analgesics, underlying dementia, sepsis -Stroke code called on 12/26/2019 as documented below in regards to facial asymmetry; no acute CVA Acute renal failure on CKD 3 Creatinine increased from 0.8 to 3.1 Creatinine improved to 1.4 with IV fluids At one point volume overload was noted given falls and lower extremity edema, given IV Lasix Creatinine increased from 1.4 to 1.7 today Encourage po fluid intake Discussed with boiler washer. Will follow recommendations Hypernatremia Na was 151 D5W started and Sodium improved to 146. D5W held as mentioned above Na improved overtime. Started increasing again due to poor oral intake Na is 151 again this morning. Started on IV dextrose with potassium repletion as K was 3.2 today Hypertension: -Usual p.o. medications on hold Continue only amlodipine p.o. and hydralazine IV given prn Monitor Facial asymmetry, Acute CVA ruled out Per Dr. Jose Mcfadden's notes: -CT head on 12/25/2019 presentation without acute findings but mentioned Old lacunar infarct within the right thalamus -in the AM of 12/26/2019, patient was speaking more to medical team. However he has facial asymmetry more pronounced when speaking (able to talk more with right side of the mouth compared to the left). A stroke alert was called to expedite CT head scan and brain MRI. Patient able to answer some questions about his name and he does not express acute symptoms. He moves the upper extremities. He has left femoral neck fracture and his legs are in waffle boots -CT head 12/26/2019: No acute intracranial findings patient with not CT head finding of stroke and is likely not a candidate for TPA because of unclear chronicity of facial asymmetry -MRI Brain 12/26/2019 No acute intracranial findings. Exam moderately compromised by motion artifact although diagnostic. Extensive atrophy and small vessel disease. No intracranial mass or pathologic enhancement. -stroke is unlikely, patient proceeded to orthopedic surgery on 12/26/2019, post- operatively patient continues to have facial asymmetry with is visible with speech but no other focal symptoms other than poor orientation to the hospital setting. -patient's at the bedside on 12/28/2019 reports that patient may have Parkinson's disease or dementia that was not formally diagnosed as outpatient, baseline often forgetful at home, and that patient's facial features of facial asymmetry is baseline Troponin level elevated: Per Dr. Jose Mcfadden's notes: -elevated troponins from demand ischemia -the night order selector was concerned that patient with more confusion and workup by nocturnalist Dr. Garcia included troponins of which were elevated as 2.7 on night time of 12/27/2019, Dr. Garcia reports he discussed with orthopedics to allow for IV heparin to be started because of elevated troponins. IV heparin was started. Second troponin 2.95 in AM of 12/28/2019. On 12/28/2019 morning exam by day time hospitalist, patient awake and not as agitated as he was on . Patient denied pain of the chest or abdomen or of the legs. -12/28/2019: discussed with Dr. Azul from cardiology that patient's echocardiogram reflects old infarction which does not reflect elevated troponins on this hospital stay; Dr. Azul advised no further IV heparin and give beta leonides treatment BPH (benign prostatic hyperplasia): -tamsulosin and finasteride Hematuria following pulling anderson Had urinary retention overnight requiring straight cath. Will monitor DVT prophylaxis: SCD for now. Heparin on hold due to hematuria. Resume once hematuria resolves Goals of care Ongoing goals of care discussion with Palliative and family Discussed with one of son who was at bedside Palliative met with family. Family wants patient to be DNR and will like to continue current treatment but may transition to comfort care Admission and Anticipated Discharge Date Admission Date: December 25, 2019 Subjective Patient seen and examined Patient awake, alert, tracks but does not speak or follow commands Review of Systems Review of Systems: Unobtainable due to cognitive status Physical Exam Constitutional: + ill appearing (chronic ill appearing); no acute distress Eyes: PERRL, conjunctivae normal, anicteric sclerae Respiratory: normal respiratory effort; no respiratory distress Cardiovascular: Rate/Rhythm: regular rate and regular rhythm Extremities: no pedal edema Gastrointestinal (Abdomen): normal bowel sounds, soft, nontender, no hepatosplenomegaly Neurologic: Awake, alert, tracks, confused, does not follow commands or answer questions. Moves extremities spontaneously Results & Data Results & Data ([facility]) Vital Signs (Past 12 Hours) Vital Signs Temp Pulse Pulse Resp BP Pulse Ox 01/08/20 12:55 90 127/61 01/08/20 08:02 37.0 C 82 18 144/72 H 97 Laboratory Results Laboratory Results - last 24 hr 01/08/20 01/08/20 05:58 05:58 WBC 11.79 H RBC 4.14 L Hgb 11.6 L Hct 36.5 L MCV 88.2 MCH 28.0 MCHC 31.8 L RDW Std Deviation 45.3 RDW Coeff of Inocencio 14.1 Plt Count 211 MPV 11.5 H Sodium 151 H Potassium 3.2 L Chloride 119 H Carbon Dioxide 27 Anion Gap 5.0 BUN 35 H Creatinine 1.77 H Est Cr Clr Drug Dosing 31.6 Est GFR ( Amer) 40.3 Est GFR (Non-Af Amer) 34.7 BUN/Creatinine Ratio 19.8 Glucose 110 H Calcium 8.7 (1) Fall Encounter type: initial encounter Qualified Code(s): W19.XXXA - Unspecified fall, initial encounter
[2020-01-08] MEDS ORDERED: LORazepam 1 MG/2 ML VIAL IV PRN (16:08)
[2020-01-08] MEDS: GLYCOPYRROLATE 0.2 MG/ML VIAL IV PRN (20:57)
[2020-01-08] MEDS: SENNA 8.6 MG TAB PO SCH (21:08)
[2020-01-08] MEDS: DOCUSATE SODIUM/SENNA 50/8.6MG TAB PO SCH (21:09)
[2020-01-09] MEDS: hydrALAZINE HCL 20 MG/ML VIAL IV SCH ×3 (02:30→17:36)
[2020-01-09] MEDS: PIPERACILLIN/TAZOBACTAM 3.375 GM in DEXTROSE 5% 100 ML IV SCH ×3 (04:00→20:12)
[2020-01-09 08:45] LABS: Calcium 9.2 mg/dl (8.5-10.1); Creatinine Clr Calc Pharmacy 30.8 ml/min; Est GFR (African American) 38.9; Est GFR (Non-African American) 33.6; Potassium 3.6 mmol/L (3.5-5.1)
[2020-01-09] MEDS: MULTIVITAMIN CHEWABLE TAB PO SCH (09:13)
[2020-01-09] MEDS: MENTHOL-ZINC OXIDE 360 APPLN/120 GM TUBE EXT SCH ×2 (09:13→20:13)
[2020-01-09] MEDS: FINASTERIDE 5 MG TAB PO SCH (09:14)
[2020-01-09] MEDS: amLODIPine BESYLATE 5 MG TAB PO SCH (09:14)
[2020-01-09] MEDS: TAMSULOSIN HCL 0.4 MG CAP PO SCH (09:14)
[2020-01-09] MEDS: FAMOTIDINE 20 MG in SYRINGE 3 ML IV SCH (09:16)
[2020-01-09] MEDS: CASPOFUNGIN 50 MG in SODIUM CHLORIDE 0.9% 250 ML IV SCH (09:30)
--- NOTE | 2020-01-09 09:30 | Communication Note ---
Date of Service: January 09, 2020 Chart reviewed; note that current medications are continuing but that after villanueva evaluation of goals of care transition underway to comfort measures. Ne phro will sign off; pls call if we can be of further assistance.
[2020-01-09] MEDS: POTASSIUM CHLORIDE 40 MEQ in DEXTROSE 5% 1,000 ML IV SCH (11:50)
--- NOTE | 2020-01-09 12:03 | Hospitalist Progress Note ---
Date of Service January 09, 2020 Assessment & Plan (1) Fall: 84-year-old male with history of hypertension BPH presenting with left hip fracture status post fall. Prolonged hospital course (1) Fall: -From H&P on 12/25/19 that "This is a 84 year old Male who was at home and reportedly was got up after sleeping in the night time and fell down several feet from where he was sleeping as per his Dorina ([phone]). Patient appears to have auditory impairment and most of the history provided by his at the bedside. Patient apparently did not have loss of consciousness as he called out for help. Patient was brought to the ED and found to have Mildly displaced left femoral neck fracture. Patient also seen to be hypertensive in the ED likely because of underlying hypertension which is exacerbated by pain from the fall injury. Patient has anderson placed in the ED and urine analysis noted to have bacteria and ED provider started ceftriaxone antibiotic. Patient also noted to have redness of medial left thigh and patient's reports that patient often wets himself from urination and does not keep the area dry as it should be." (2) Closed fracture of left hip: -s/p Left hip hemiarthroplasty on 12/26/2019 Postoperative course complicated by delirium with poor appetite, not cooperative with taking p.o. medications, 1:1 placed--> DC oxycodone and Dilaudid, Ativan--> somewhat improved Also treated with Unasyn for enterococcus UTI Subsequently developed fever, leukocytosis up to 30,000, acute renal failure with creatinine increasing to 3, associated with decreased responsiveness Aspiration suspected, transferred to ICU, eventually intubated, G-tube placed Found to have possible aspiration pneumonia, fungemia and yeast in urine culture Orthopedic service does not feel surgical wound is infected Given daptomycin, Zosyn, caspofungin with improvement in fever, leukocytosis Extubated 1 day later Post extubation, patient's mental status improving although gradually Now more awake, follows simple commands, but still confused NG tube withdrawn, now transitioned to p.o. diet by speech therapist, may have dysphagia secondary to intubation for speech therapist Continue pureed diet with aspiration precautions with assistance Severe sepsis Enterococcus faecalis UTI Aspiration pneumonia with acute renal failure UTI treatment completed Aspiration precautions Fevers resolved Leukocytosis resolved from previous labs CXR: R base infiltrates Per Ortho, left hip infection unlikely Fungemia Blood cultures 01/01: (+) 2/2 bottle is positive for yeast (not kristin albicans/dub) Urine culture 01/01: kristin glabrata complex Sputum culture 01/01 - yeast not kristin albicans Repeat blood cultures 01/03 - Negative so far ID recommendations noted Continue caspofungin Spoke with lab yesterday and they sent out sensitivities on the fungal cultures No vegetations noted in Echo F/u opthalm consult. Audio Video Technician notified of consult Acute metabolic encephalopathy: Likely multifactorial from hip fracture, status post surgery, analgesics, underlying dementia, sepsis -Stroke code called on 12/26/2019 as documented below in regards to facial asymmetry; no acute CVA Acute renal failure on CKD 3 Creatinine increased from 0.8 to 3.1 Creatinine improved to 1.4 with IV fluids At one point volume overload was noted given falls and lower extremity edema, given IV Lasix Creatinine increased from 1.4 to 1.82 today Patient has been refusing diet. currently on IVF Encourage po fluid intake Monogram Maker on board Hypernatremia Na was 151 D5W started and Sodium improved to 146. D5W held as mentioned above Na improved overtime. Started increasing again due to poor oral intake Na is 149 this AM Hypertension: -Usual p.o. medications on hold Continue only amlodipine p.o. and hydralazine IV given prn Monitor Facial asymmetry, Acute CVA ruled out Per Dr. Jose Mcfadden's notes: -CT head on 12/25/2019 presentation without acute findings but mentioned Old lacunar infarct within the right thalamus -in the AM of 12/26/2019, patient was speaking more to medical team. However he has facial asymmetry more pronounced when speaking (able to talk more with right side of the mouth compared to the left). A stroke alert was called to expedite CT head scan and brain MRI. Patient able to answer some questions about his name and he does not express acute symptoms. He moves the upper extremities. He has left femoral neck fracture and his legs are in waffle boots -CT head 12/26/2019: No acute intracranial findings patient with not CT head finding of stroke and is likely not a candidate for TPA because of unclear chronicity of facial asymmetry -MRI Brain 12/26/2019 No acute intracranial findings. Exam moderately compromised by motion artifact although diagnostic. Extensive atrophy and small vessel disease. No intracranial mass or pathologic enhancement. -stroke is unlikely, patient proceeded to orthopedic surgery on 12/26/2019, post- operatively patient continues to have facial asymmetry with is visible with speech but no other focal symptoms other than poor orientation to the hospital setting. -patient's at the bedside on 12/28/2019 reports that patient may have Parkinson's disease or dementia that was not formally diagnosed as outpatient, baseline often forgetful at home, and that patient's facial features of facial asymmetry is baseline Troponin level elevated: Per Dr. Jose Mcfadden's notes: -elevated troponins from demand ischemia -the resident services coordinator was concerned that patient with more confusion and workup by nocturnalist Dr. Garcia included troponins of which were elevated as 2.7 on night time of 12/27/2019, Dr. Garcia reports he discussed with orthopedics to allow for IV heparin to be started because of elevated troponins. IV heparin was started. Second troponin 2.95 in AM of 12/28/2019. On 12/28/2019 morning exam by day time hospitalist, patient awake and not as agitated as he was on . Patient denied pain of the chest or abdomen or of the legs. -12/28/2019: discussed with Dr. Azul from cardiology that patient's echocardiogram reflects old infarction which does not reflect elevated troponins on this hospital stay; Dr. Azul advised no further IV heparin and give beta leonides treatment BPH (benign prostatic hyperplasia): -tamsulosin and finasteride Hematuria following pulling anderson Had urinary retention overnight requiring straight cath. Will monitor DVT prophylaxis: SCD for now. Heparin on hold due to hematuria. Resume once hematuria resolves Goals of care Ongoing goals of care discussion with Palliative and family Palliative met with family on 01/08/20. Family wants patient to be DNR and will like to continue current treatment but may transition to comfort care was at bedside today. She appeared to have not understood some of the details of the goals of care discussion with Palliative team yesterday. She had a few questions and she brought one of her son's partner Bri who she stated has better healthcare insight. I and oil field caser Keshia Aj went over patient's clinical course and condition with both of them and answered all their questions. Patient's will like to maintain DNR status and to continue current management and see how he does over the weekend. They will also discuss further with rest of the family. Updated it operations specialist Dr Shepard Admission and Anticipated Discharge Date Admission Date: December 25, 2019 Subjective Patient seen and examined Patient more cooperative today. Able to recognize who was at bedside Able to follow simple commands such as raising the hands. Appear to have difficulty articulating speech sometimes and mumbles Other ROS limited due to mental status and Physical Exam Constitutional: + ill appearing (chronic ill appearing); no acute distress Eyes: PERRL, conjunctivae normal, anicteric sclerae Respiratory: normal respiratory effort; no respiratory distress Cardiovascular: Rate/Rhythm: regular rate and regular rhythm Extremities: no pedal edema Gastrointestinal (Abdomen): normal bowel sounds, soft, nontender, no hepatosplenomegaly Neurologic: More awake and alert today, follows simple commands such as raise hands occasionally. Moves extremities Psychiatric: Orientation: alert; + not oriented x 3 Results & Data Results & Data ([facility]) Vital Signs (Past 12 Hours) Vital Signs Temp Pulse Pulse Resp BP Pulse Ox 01/09/20 08:24 36.5 C 82 16 160/82 H 94 01/09/20 02:32 72 146/60 H Laboratory Results Laboratory Results - last 24 hr 01/09/20 07:39 Sodium 149 H Potassium 3.6 Chloride 117 H Carbon Dioxide 25 Anion Gap 7.0 BUN 33 H Creatinine 1.82 H Est Cr Clr Drug Dosing 30.8 Est GFR ( Amer) 38.9 Est GFR (Non-Af Amer) 33.6 BUN/Creatinine Ratio 18.0 Glucose 125 H Calcium 9.2 (1) Fall Encounter type: initial encounter Qualified Code(s): W19.XXXA - Unspecified fall, initial encounter
--- NOTE | 2020-01-09 14:20 | Palliative Care Progress Note ---
Date of Service January 09, 2020 Assessment & Plan (1) Palliative care encounter: Patient is an 84 year old male who presented to the [facility] from home s/p a fall he sustained near his bed. Per report of the patient and his , he did not lose consciousness and called out for help. He was found to have a mildly displaced femoral neck fracture for which the decision was made to undergo a left hemiarthroscopy, which was completed on 12/27/19. Post-operatively, he became febrile, sustained acute kidney injury with an increasing creatinine, and overall lethargy and decreased consciousness with suspicion of an infection. Due to his worsening clinical picture, he was transferred to the ICU and was suspected to aspirate. He was intubated and actually extubated the following day. Per review of the documented notes, he is apparently more awake, following simple commands, but with overall confusion not consistent with his baseline. He is now being transitioned to oral food, but with aspiration precautions in place. Palliative Care was consulted to discuss goals of care and code status. -Patient seen and examined in room 361. no family at bedside. The patient appears comfortable , slightly restless when disturbed. -He was arousable to voice, speech mumbled and difficult to understand - able to nod yes or no to a few simple questions -Current CODE STATUS - DNR/DNI -We discussed overall prognosis and she agreed that he probably wont be 'fixed' She said he looks miserable and would like to keep him as comfortable as possible. -Comfort measures were discussed yesterday and after discussing with both sons, Willie and Wilfredo, they agreed to have comfort medications available but continue other current treatment for the next 24-48 hours and see how he responds. -Eventual transition to full comfort measures likely over next 48 hours. For now, continue treatment with antifungals, other meds; and continue blood draws as well, with a conservative approach. -Comfort medications will be ordered, including Morphine IV, Ativan IV, Scopalamine patch, Robinul IV and others. -Readdress discharge planning and overall decline after the next 48 hours. -Anticipate patient will decline rather rapidly over next few days. Likely life expectancy days to a few weeks. -PPS: 20% (2) Displaced fracture of left femoral neck: (3) Fall: (4) Hypernatremia: Admission and Anticipated Discharge Date Admission Date: December 25, 2019 Subjective Patient seen and examined, no family at bedside. Patient is awake, alert, appears comfortable at rest. Patient speech is mumbled and difficult to understand, did indicate that he was comfortable, warm enough, denied pain or shortness of breath. Patient did require 1 PRN Ativan last evening for comfort. Collaborated with attending physician-family wants to continue aggressive care at this point-we will continue to monitor. Review of Systems Review of Systems: Unobtainable due to cognitive status Physical Exam Physical Exam: PE: Patient awake, alert, sitting upright in bed, leaning to the right. HEENT: EOMI, hearing appears to be within normal limits Respirations: Unlabored, coarse wet breath sounds on the right with some upper airway secretions CV: Regular rate, decreased lower extremity edema Abdomen: Soft, no grimace on palpation Extremities: Appear well perfused Neuro: Awake, alert, speech mumbled and difficult to understand. Patient able to nod yes or no to a few simple questions Psych: Slightly restless with stimulation. Results & Data ([facility]) Vital Signs (Past 12 Hours) Vital Signs Temp Pulse Pulse Resp BP Pulse Ox 01/09/20 08:24 97.7 F 82 16 160/82 H 94 01/09/20 02:32 72 146/60 H PG Care Time/CCT Total # of Minutes Spent Total Time Spent with Patient: Total time spent 35 minutes with greater than 50% of the time spent at bedside assessing patient's current level of comfort as well as collaborating with attending physician Coding Level of Care Code 21096 Subseq Hosp Care Lvl 3 Diagnoses Palliative care encounter Z51.5 Displaced fracture of left femoral neck S72.002A Fall W19.XXXA Encounter type: initial encounter Hypernatremia E87.0 Time Spent (min) 35 (1) Fall Encounter type: initial encounter Qualified Code(s): W19.XXXA - Unspecified fall, initial encounter
[2020-01-09] MEDS ORDERED: TROPICAMIDE 0.5% OP SOLN 15 ML BTL OP ONE (15:50)
[2020-01-09] MEDS: hydrALAZINE HCL 20 MG/ML VIAL IV PRN (18:36)
[2020-01-09] MEDS: GLYCOPYRROLATE 0.2 MG/ML VIAL IV PRN (19:37)
[2020-01-09] MEDS: DOCUSATE SODIUM/SENNA 50/8.6MG TAB PO SCH (20:15)
[2020-01-09] MEDS: SENNA 8.6 MG TAB PO SCH (20:15)
--- NOTE | 2020-01-10 01:28 | Consultation Report ---
DATE OF CONSULTATION: 01/09/2020 REASON FOR CONSULTATION: Fungal septicemia, rule out fungal endophthalmitis. The patient is an 84-year-old white male who came into the hospital initially with a hip fracture, but was found to have bacteria in his urine and has since developed a systemic fungal infection. He had to be intubated at one point as well as somewhat limited in his mental functions at this time and is not very cooperative. Examination is difficult because of the patient's mental status and has difficulty speaking. He was uncooperative as well. On examination, his pupils are dilated by tropicamide 0.5% for examination. A bedside exam with an indirect head lamp was only able to be done. His visual acuity was unable to be determined due to his uncooperativeness. His anterior segment of his eye appeared to be fine using the indirect head lamp. On his dilated fundus examination, his retina looked healthy and pink with 0.5 cup to discs and healthy macula in both eyes. There were no signs of any vitreal opacities suggestive of a fungal endophthalmitis. In summary, his eyes look within normal limits and there is no evidence of fungal involvement in his vitreous. I recommend followup with his primary eye care provider for routine checkups as per normal. If there are any other questions, do not hesitate to contact me.
[2020-01-10] MEDS: POTASSIUM CHLORIDE 40 MEQ in DEXTROSE 5% 1,000 ML IV SCH ×2 (02:27→11:48)
[2020-01-10] MEDS: hydrALAZINE HCL 20 MG/ML VIAL IV SCH ×3 (02:27→18:12)
[2020-01-10] MEDS: MENTHOL-ZINC OXIDE 360 APPLN/120 GM TUBE EXT SCH ×2 (07:38→19:49)
[2020-01-10] MEDS: MULTIVITAMIN CHEWABLE TAB PO SCH (07:39)
[2020-01-10] MEDS: TAMSULOSIN HCL 0.4 MG CAP PO SCH (07:40)
[2020-01-10] MEDS: FINASTERIDE 5 MG TAB PO SCH (07:40)
[2020-01-10] MEDS: amLODIPine BESYLATE 5 MG TAB PO SCH (07:40)
[2020-01-10] MEDS: FAMOTIDINE 20 MG in SYRINGE 3 ML IV SCH (07:41)
[2020-01-10 10:09] LABS: Hematocrit (blood only) 38.9 % (42-52); Hemoglobin 12.2 g/dL (14.0-18.0); Mean Corpuscular Hemoglobin 28.2 pg (25-34); Mean Corpuscular Hgb Conc 31.4 g/dL (32-36); Mean Platelet Volume 10.2 fL (7.4-10.4); Platelet Count 289 K/uL (130-400); RDW Coefficient of Variation 14.4 % (11.5-14.5); RDW Standard Deviation 47.6 fL (36.4-46.3); Red Blood Count 4.32 M/uL (4.7-6.1); White Blood Count 12.17 K/uL (4.8-10.8)
[2020-01-10 10:30] LABS: BUN Creatinine Ratio 16.7 (10-20); Calcium 9.4 mg/dl (8.5-10.1); Creatinine Clr Calc Pharmacy 34.5 ml/min; Est GFR (African American) 44.8; Est GFR (Non-African American) 38.7; Potassium 3.5 mmol/L (3.5-5.1)
[2020-01-10] MEDS: CASPOFUNGIN 50 MG in SODIUM CHLORIDE 0.9% 250 ML IV SCH (11:58)
--- NOTE | 2020-01-10 12:53 | Hospitalist Progress Note ---
Date of Service January 10, 2020 Assessment & Plan (1) Fall: 84-year-old male with history of hypertension BPH presenting with left hip fracture status post fall. Prolonged hospital course (1) Fall: -From H&P on 12/25/19 that "This is a 84 year old Male who was at home and reportedly was got up after sleeping in the night time and fell down several feet from where he was sleeping as per his Dorina ([phone]). Patient appears to have auditory impairment and most of the history provided by his at the bedside. Patient apparently did not have loss of consciousness as he called out for help. Patient was brought to the ED and found to have Mildly displaced left femoral neck fracture. Patient also seen to be hypertensive in the ED likely because of underlying hypertension which is exacerbated by pain from the fall injury. Patient has anderson placed in the ED and urine analysis noted to have bacteria and ED provider started ceftriaxone antibiotic. Patient also noted to have redness of medial left thigh and patient's reports that patient often wets himself from urination and does not keep the area dry as it should be." (2) Closed fracture of left hip: -s/p Left hip hemiarthroplasty on 12/26/2019 Postoperative course complicated by delirium with poor appetite, not cooperative with taking p.o. medications, 1:1 placed--> DC oxycodone and Dilaudid, Ativan--> somewhat improved Also treated with Unasyn for enterococcus UTI Subsequently developed fever, leukocytosis up to 30,000, acute renal failure with creatinine increasing to 3, associated with decreased responsiveness Aspiration suspected, transferred to ICU, eventually intubated, G-tube placed Found to have possible aspiration pneumonia, fungemia and yeast in urine culture Orthopedic service does not feel surgical wound is infected Given daptomycin, Zosyn, caspofungin with improvement in fever, leukocytosis Extubated 1 day later Post extubation, patient's mental status improving although gradually Now more awake, follows simple commands, but still confused NG tube withdrawn, now transitioned to p.o. diet by speech therapist, may have dysphagia secondary to intubation for speech therapist Continue pureed diet with aspiration precautions with assistance Severe sepsis Enterococcus faecalis UTI Aspiration pneumonia with acute renal failure UTI treatment completed Aspiration precautions Fevers resolved CXR: R base infiltrates Per Ortho, left hip infection unlikely Fungemia Blood cultures 01/01: (+) 2/2 bottle is positive for yeast (not kristin albicans/dub) Urine culture 01/01: kristin glabrata complex Sputum culture 01/01 - yeast not kristin albicans Repeat blood cultures 01/03 - Negative so far ID recommendations noted Continue caspofungin Spoke with lab on 01/08/20 and they sent out sensitivities on the fungal cultures No vegetations noted in Echo Ophthalmology evaluation noted. No signs of fungal endophthalmitis on ophthalmology exam Acute metabolic encephalopathy: Likely multifactorial from hip fracture, status post surgery, analgesics, underlying dementia, sepsis -Stroke code called on 12/26/2019 as documented below in regards to facial asymmetry; no acute CVA Acute renal failure on CKD 3 Creatinine increased from 0.8 to 3.1 Creatinine improved to 1.4 with IV fluids At one point volume overload was noted given falls and lower extremity edema, given IV Lasix Creatinine increased from 1.4 to 1.82 today Patient has been refusing diet. currently on IVF Encourage po fluid intake Project Account Manager on board Hypernatremia Na was 151 D5W started and Sodium improved to 146. D5W held as mentioned above Na improved overtime. Increased again due poor oral intake currently feeding him. Educated on aspiration precautions Po intake improved compared to 2days ago Na is 148 this AM Hypertension: -Usual p.o. medications on hold Continue only amlodipine p.o. and hydralazine IV given prn Monitor Facial asymmetry, Acute CVA ruled out Per Dr. Jose Mcfadden's notes: -CT head on 12/25/2019 presentation without acute findings but mentioned Old lacunar infarct within the right thalamus -in the AM of 12/26/2019, patient was speaking more to medical team. However he has facial asymmetry more pronounced when speaking (able to talk more with right side of the mouth compared to the left). A stroke alert was called to expedite CT head scan and brain MRI. Patient able to answer some questions about his name and he does not express acute symptoms. He moves the upper extremities. He has left femoral neck fracture and his legs are in waffle boots -CT head 12/26/2019: No acute intracranial findings patient with not CT head finding of stroke and is likely not a candidate for TPA because of unclear chronicity of facial asymmetry -MRI Brain 12/26/2019 No acute intracranial findings. Exam moderately compromised by motion artifact although diagnostic. Extensive atrophy and small vessel disease. No intracranial mass or pathologic enhancement. -stroke is unlikely, patient proceeded to orthopedic surgery on 12/26/2019, post-operatively patient continues to have facial asymmetry with is visible with speech but no other focal symptoms other than poor orientation to the hospital setting. -patient's at the bedside on 12/28/2019 reports that patient may have Parkinson's disease or dementia that was not formally diagnosed as outpatient, baseline often forgetful at home, and that patient's facial features of facial asymmetry is baseline Troponin level elevated: Per Dr. Jose Mcfadden's notes: -elevated troponins from demand ischemia -the maintenance mechanic 2nd shift was concerned that patient with more confusion and workup by nocturnalist Dr. Garcia included troponins of which were elevated as 2.7 on night time of 12/27/2019, Dr. Garcia reports he discussed with orthopedics to allow for IV heparin to be started because of elevated troponins. IV heparin was started. Second troponin 2.95 in AM of 12/28/2019. On 12/28/2019 morning exam by day time hospitalist, patient awake and not as agitated as he was on . Patient denied pain of the chest or abdomen or of the legs. -12/28/2019: discussed with Dr. Azul from cardiology that patient's echocardiogram reflects old infarction which does not reflect elevated troponins on this hospital stay; Dr. Azul advised no further IV heparin and give beta leonides treatment BPH (benign prostatic hyperplasia): -tamsulosin and finasteride Hematuria following pulling anderson Had urinary retention overnight requiring straight cath. Will monitor DVT prophylaxis: SCD for now. Heparin on hold due to hematuria. Resume once hematuria resolves Goals of care Ongoing goals of care discussion with Palliative and family Palliative met with family on 01/08/20. Family wants patient to be DNR and will like to continue current treatment but may transition to comfort care was at bedside today. Updated her on current plan of care and answered all her questions Admission and Anticipated Discharge Date Admission Date: December 25, 2019 Subjective Patient seen and examined Alert and oriented to person only Mumbled speech Follows command Limited ROS due to speech and mental status Physical Exam Constitutional: + ill appearing (chronic ill appearing); no acute distress Eyes: PERRL, conjunctivae normal, anicteric sclerae Respiratory: normal respiratory effort; no respiratory distress Cardiovascular: Rate/Rhythm: regular rate and regular rhythm Extremities: no pedal edema S1 S2 Gastrointestinal (Abdomen): normal bowel sounds, soft, nontender, no hepatosplenomegaly Neurologic: AOx1 (person only), mumbled speech, follows simple commands, moves extremities Psychiatric: Orientation: alert; + not oriented x 3 Results & Data Results & Data ([facility]) Vital Signs (Past 12 Hours) Vital Signs Temp Pulse Pulse BP BP Pulse Ox 01/10/20 11:41 91 H 147/68 H 01/10/20 07:44 36.6 C 85 159/72 H 94 Laboratory Results Laboratory Results - last 24 hr 01/10/20 01/10/20 09:51 09:51 WBC 12.17 H RBC 4.32 L Hgb 12.2 L Hct 38.9 L MCV 90.0 MCH 28.2 MCHC 31.4 L RDW Std Deviation 47.6 H RDW Coeff of Inocencio 14.4 Plt Count 289 MPV 10.2 Sodium 148 H Potassium 3.5 Chloride 116 H Carbon Dioxide 26 Anion Gap 7.0 BUN 27 H Creatinine 1.62 H Est Cr Clr Drug Dosing 34.5 Est GFR ( Amer) 44.8 Est GFR (Non-Af Amer) 38.7 BUN/Creatinine Ratio 16.7 Glucose 97 Calcium 9.4 (1) Fall Encounter type: initial encounter Qualified Code(s): W19.XXXA - Unspecified fall, initial encounter
[2020-01-10] MEDS: ACETAMINOPHEN 325 MG TAB PO PRN (19:35)
[2020-01-10] MEDS: SENNA 8.6 MG TAB PO SCH (19:49)
[2020-01-10] MEDS: DOCUSATE SODIUM/SENNA 50/8.6MG TAB PO SCH (19:50)
[2020-01-11] MEDS: POTASSIUM CHLORIDE 40 MEQ in DEXTROSE 5% 1,000 ML IV SCH ×2 (02:21→12:02)
[2020-01-11] MEDS: hydrALAZINE HCL 20 MG/ML VIAL IV SCH ×2 (02:26→10:02)
[2020-01-11 06:44] LABS: Hemoglobin 11.9 g/dL (14.0-18.0); Mean Corpuscular Hemoglobin 28.9 pg (25-34); Mean Corpuscular Volume 89.8 fL (80-100); Mean Platelet Volume 10.1 fL (7.4-10.4); Platelet Count 273 K/uL (130-400); RDW Coefficient of Variation 14.4 % (11.5-14.5); RDW Standard Deviation 46.9 fL (36.4-46.3); Red Blood Count 4.12 M/uL (4.7-6.1); White Blood Count 17.98 K/uL (4.8-10.8)
[2020-01-11 06:47] LABS: Mean Corpuscular Hgb Conc 32.2 g/dL (32-36)
[2020-01-11 06:48] LABS: BUN Creatinine Ratio 17.3 (10-20); Calcium 8.9 mg/dl (8.5-10.1); Creatinine Clr Calc Pharmacy 40.3 ml/min; Est GFR (African American) 53.9; Est GFR (Non-African American) 46.5
[2020-01-11] MEDS: MENTHOL-ZINC OXIDE 360 APPLN/120 GM TUBE EXT SCH ×2 (07:45→21:24)
[2020-01-11] MEDS: MULTIVITAMIN CHEWABLE TAB PO SCH (07:45)
[2020-01-11] MEDS: TAMSULOSIN HCL 0.4 MG CAP PO SCH (07:46)
[2020-01-11] MEDS: amLODIPine BESYLATE 5 MG TAB PO SCH (07:46)
[2020-01-11] MEDS: FINASTERIDE 5 MG TAB PO SCH (07:47)
[2020-01-11] MEDS: FAMOTIDINE 20 MG in SYRINGE 3 ML IV SCH (07:51)
[2020-01-11] MEDS: CASPOFUNGIN 50 MG in SODIUM CHLORIDE 0.9% 250 ML IV SCH (10:01)
--- NOTE | 2020-01-11 10:20 | Hospitalist Progress Note ---
Date of Service January 11, 2020 Assessment & Plan (1) Fall: 84-year-old male with history of hypertension BPH presenting with left hip fracture status post fall. Prolonged hospital course (1) Fall: -From H&P on 12/25/19 that "This is a 84 year old Male who was at home and reportedly was got up after sleeping in the night time and fell down several feet from where he was sleeping as per his Dorina ([phone]). Patient appears to have auditory impairment and most of the history provided by his at the bedside. Patient apparently did not have loss of consciousness as he called out for help. Patient was brought to the ED and found to have Mildly displaced left femoral neck fracture. Patient also seen to be hypertensive in the ED likely because of underlying hypertension which is exacerbated by pain from the fall injury. Patient has anderson placed in the ED and urine analysis noted to have bacteria and ED provider started ceftriaxone antibiotic. Patient also noted to have redness of medial left thigh and patient's reports that patient often wets himself from urination and does not keep the area dry as it should be." (2) Closed fracture of left hip: -s/p Left hip hemiarthroplasty on 12/26/2019 Postoperative course complicated by delirium with poor appetite, not cooperative with taking p.o. medications, 1:1 placed--> DC oxycodone and Dilaudid, Ativan--> somewhat improved Also treated with Unasyn for enterococcus UTI Subsequently developed fever, leukocytosis up to 30,000, acute renal failure with creatinine increasing to 3, associated with decreased responsiveness Aspiration suspected, transferred to ICU, eventually intubated, G-tube placed Found to have possible aspiration pneumonia, fungemia and yeast in urine culture Orthopedic service does not feel surgical wound is infected Given daptomycin, Zosyn, caspofungin with improvement in fever, leukocytosis Extubated 1 day later Post extubation, patient's mental status improving although gradually Now more awake, follows simple commands, but still confused NG tube withdrawn, now transitioned to p.o. diet by speech therapist, may have dysphagia secondary to intubation for speech therapist Continue pureed diet with aspiration precautions with assistance Severe sepsis Enterococcus faecalis UTI Aspiration pneumonia with acute renal failure UTI treatment completed Aspiration precautions Fevers resolved CXR: R base infiltrates Per Ortho, left hip infection unlikely Fungemia Blood cultures 01/01: (+) 2/2 bottle is positive for yeast (not kristin albicans/dub) Urine culture 01/01: kristni glabrata complex Sputum culture 01/01 - yeast not kristin albicans Repeat blood cultures 01/03 - Negative so far ID recommendations noted Continue caspofungin Spoke with lab on 01/08/20 and they sent out sensitivities on the fungal cultures No vegetations noted in Echo Ophthalmology evaluation noted. No signs of fungal endophthalmitis on ophthalmology exam Will discuss further plans with ID tomorrow if family wants to continue current care Acute metabolic encephalopathy: Likely multifactorial from hip fracture, status post surgery, analgesics, underlying dementia, sepsis -Stroke code called on 12/26/2019 as documented below in regards to facial asymmetry; no acute CVA Acute renal failure on CKD 3 Creatinine increased from 0.8 to 3.1 Creatinine improved to 1.4 with IV fluids At one point volume overload was noted given falls and lower extremity edema, given IV Lasix Creatinine increased from 1.4 to 1.82 today Patient had been refusing diet but po intake improving Hypernatremia Na was 151 D5W started and Sodium improved to 146. D5W held as mentioned above Na improved overtime. Increased again due poor oral intake Po intake improving Na is 146 this AM Hypertension: Poorly controlled -Usual p.o. medication (lisinopril) on hold Continue only amlodipine p.o. Start hydralazine 25 tid and monitor Monitor Facial asymmetry, Acute CVA ruled out Per Dr. Jose Mcfadden's notes: -CT head on 12/25/2019 presentation without acute findings but mentioned Old lacunar infarct within the right thalamus -in the AM of 12/26/2019, patient was speaking more to medical team. However he has facial asymmetry more pronounced when speaking (able to talk more with right side of the mouth compared to the left). A stroke alert was called to expedite CT head scan and brain MRI. Patient able to answer some questions about his name and he does not express acute symptoms. He moves the upper extremities. He has left femoral neck fracture and his legs are in waffle boots -CT head 12/26/2019: No acute intracranial findings patient with not CT head finding of stroke and is likely not a candidate for TPA because of unclear chronicity of facial asymmetry -MRI Brain 12/26/2019 No acute intracranial findings. Exam moderately compromised by motion artifact although diagnostic. Extensive atrophy and small vessel disease. No intracranial mass or pathologic enhancement. -stroke is unlikely, patient proceeded to orthopedic surgery on 12/26/2019, post-operatively patient continues to have facial asymmetry with is visible with speech but no other focal symptoms other than poor orientation to the hospital setting. -patient's at the bedside on 12/28/2019 reports that patient may have Parkinson's disease or dementia that was not formally diagnosed as outpatient, baseline often forgetful at home, and that patient's facial features of facial asymmetry is baseline Troponin level elevated: Per Dr. Jose Mcfadden's notes: -elevated troponins from demand ischemia -the diamond expert was concerned that patient with more confusion and workup by nocturnalist Dr. Garcia included troponins of which were elevated as 2.7 on night time of 12/27/2019, Dr. Garcia reports he discussed with orthopedics to allow for IV heparin to be started because of elevated troponins. IV heparin was started. Second troponin 2.95 in AM of 12/28/2019. On 12/28/2019 morning exam by day time hospitalist, patient awake and not as agitated as he was on . Patient denied pain of the chest or abdomen or of the legs. -12/28/2019: discussed with Dr. Azul from cardiology that patient's echocardiogram reflects old infarction which does not reflect elevated troponins on this hospital stay; Dr. Azul advised no further IV heparin and give beta leonides treatment BPH (benign prostatic hyperplasia): -tamsulosin and finasteride Hematuria following pulling anderson Had urinary retention overnight requiring straight cath. Will monitor DVT prophylaxis: SCD for now. Heparin on hold due to hematuria. Resume once hematuria resolves Goals of care Ongoing goals of care discussion with Palliative and family Palliative met with family on 01/08/20. Family wants patient to be DNR and will like to continue current treatment but may transition to comfort care Will follow up with family tomorrow about plans Admission and Anticipated Discharge Date Admission Date: December 25, 2019 Subjective Patient seen and examined. He was sleeping but easily aroused Did not want to answer any questions but ok with examination Per RN, no significant events Physical Exam Constitutional: + ill appearing (chronic ill appearing); no acute distress Eyes: PERRL, conjunctivae normal, anicteric sclerae Respiratory: normal respiratory effort; no respiratory distress Cardiovascular: Rate/Rhythm: regular rate and regular rhythm Extremities: no pedal edema S1 S2 Gastrointestinal (Abdomen): normal bowel sounds, soft, nontender, no hepatosplenomegaly Neurologic: Sleeping and wanted to be left alone. Limited neurological exam Results & Data Results & Data ([facility]) Vital Signs (Past 12 Hours) Vital Signs Temp Pulse Resp BP BP Pulse Ox 01/11/20 07:21 36.7 C 89 16 169/77 H 94 01/11/20 02:24 164/79 H 01/10/20 23:47 36.7 C 89 14 159/75 H 95 Laboratory Results Laboratory Results - last 24 hr 01/11/20 01/11/20 01/11/20 05:10 05:10 06:29 WBC Cancelled 17.98 H RBC Cancelled 4.12 L Hgb Cancelled 11.9 L Hct Cancelled 37.0 L MCV Cancelled 89.8 MCH Cancelled 28.9 MCHC Cancelled 32.2 RDW Std Deviation Cancelled 46.9 H RDW Coeff of Inocencio Cancelled 14.4 Plt Count Cancelled 273 MPV Cancelled 10.1 Absolute Nucleated RBC Cancelled Nucleated RBC % (auto) Cancelled Platelet Estimate Cancelled Sodium 146 H Potassium Chloride 115 H Carbon Dioxide 26 Anion Gap 5.0 BUN 24 H Creatinine 1.39 Est Cr Clr Drug Dosing 40.3 Est GFR ( Amer) 53.9 Est GFR (Non-Af Amer) 46.5 BUN/Creatinine Ratio 17.3 Glucose 109 H Calcium 8.9 01/11/20 06:36 WBC RBC Hgb Hct MCV MCH MCHC RDW Std Deviation RDW Coeff of Inocencio Plt Count MPV Absolute Nucleated RBC Nucleated RBC % (auto) Platelet Estimate Sodium Potassium 3.5 Chloride Carbon Dioxide Anion Gap BUN Creatinine Est Cr Clr Drug Dosing Est GFR ( Amer) Est GFR (Non-Af Amer) BUN/Creatinine Ratio Glucose Calcium (1) Fall Encounter type: initial encounter Qualified Code(s): W19.XXXA - Unspecified fall, initial encounter
[2020-01-11] MEDS: hydrALAZINE HCL 25 MG TAB PO SCH ×2 (15:13→21:26)
[2020-01-11] MEDS: SENNA 8.6 MG TAB PO SCH ×2 (21:25→21:41)
[2020-01-11] MEDS: MoRPHine SULFATE 2 MG/ML CARP IV PRN (21:34)
[2020-01-11] MEDS: DOCUSATE SODIUM/SENNA 50/8.6MG TAB PO SCH (21:41)
[2020-01-11] MEDS: HALOPERIDOL LACTATE 5 MG/ML 1 ML VIAL IM PRN (22:03)
[2020-01-12] MEDS: POTASSIUM CHLORIDE 40 MEQ in DEXTROSE 5% 1,000 ML IV SCH ×2 (02:09→17:04)
[2020-01-12 06:04] LABS: Hematocrit (blood only) 34.9 % (42-52); Hemoglobin 10.7 g/dL (14.0-18.0); Mean Corpuscular Hemoglobin 27.5 pg (25-34); Mean Corpuscular Hgb Conc 30.7 g/dL (32-36); Mean Corpuscular Volume 89.7 fL (80-100); Mean Platelet Volume 10.8 fL (7.4-10.4); Platelet Count 287 K/uL (130-400); RDW Coefficient of Variation 14.5 % (11.5-14.5); RDW Standard Deviation 47.1 fL (36.4-46.3); Red Blood Count 3.89 M/uL (4.7-6.1); White Blood Count 15.62 K/uL (4.8-10.8)
[2020-01-12] MEDS: hydrALAZINE HCL 25 MG TAB PO SCH ×3 (06:19→20:37)
[2020-01-12] MEDS: MoRPHine SULFATE 2 MG/ML CARP IV PRN (06:21)
[2020-01-12 06:33] LABS: BUN Creatinine Ratio 15.5 (10-20); Calcium 8.5 mg/dl (8.5-10.1); Creatinine Clr Calc Pharmacy 41.8 ml/min; Est GFR (African American) 56.4; Est GFR (Non-African American) 48.6; Potassium 3.8 mmol/L (3.5-5.1)
[2020-01-12] MEDS: MENTHOL-ZINC OXIDE 360 APPLN/120 GM TUBE EXT SCH ×2 (07:02→20:36)
[2020-01-12] MEDS: MULTIVITAMIN CHEWABLE TAB PO SCH (07:03)
[2020-01-12] MEDS: amLODIPine BESYLATE 5 MG TAB PO SCH (07:03)
[2020-01-12] MEDS: FINASTERIDE 5 MG TAB PO SCH (07:03)
[2020-01-12] MEDS: TAMSULOSIN HCL 0.4 MG CAP PO SCH (07:03)
[2020-01-12] MEDS: FAMOTIDINE 20 MG in SYRINGE 3 ML IV SCH (07:06)
[2020-01-12] MEDS: CASPOFUNGIN 50 MG in SODIUM CHLORIDE 0.9% 250 ML IV SCH (11:17)
--- NOTE | 2020-01-12 12:18 | Palliative Care Progress Note ---
Date of Service January 12, 2020 Assessment & Plan (1) Palliative care encounter: Patient is an 84 year old male who presented to the [facility] from home s/p a fall he sustained near his bed. Per report of the patient and his , he did not lose consciousness and called out for help. He was found to have a mildly displaced femoral neck fracture for which the decision was made to undergo a left hemiarthroscopy, which was completed on 12/27/19. Post-operatively, he became febrile, sustained acute kidney injury with an increasing creatinine, and overall lethargy and decreased consciousness with suspicion of an infection. Due to his worsening clinical picture, he was transferred to the ICU and was suspected to aspirate. He was intubated and actually extubated the following day. Per review of the documented notes, he is apparently more awake, following simple commands, but with overall confusion not consistent with his baseline. He is now being transitioned to oral food, but with aspiration precautions in place. Palliative Care was consulted to discuss goals of care and code status. -Patient seen and examined in room 361. and later sons at bedside. The patient appears comfortable -He was arousable to voice, speech mumbled and difficult to understand - able to nod yes or no to a few simple questions -Current CODE STATUS - DNR/DNI -We discussed overall prognosis and stated she would would like to keep him as comfortable. Son said very little at all - will give them time to discuss goals of care as a family -As per attending physician-infectious disease reported that he can transition to p.o. meds, no further IV caspofungin required. -Family's goal is for patient to go to rehab, improve functional status and hopefully return home. -Family reports patient did eat some of his breakfast and lunch, is currently on a pured diet and thickened liquids. -PPS: 30% (2) Displaced fracture of left femoral neck: (3) Fall: (4) Hypernatremia: Admission and Anticipated Discharge Date Admission Date: December 25, 2019 Subjective Patient seen and examined in room 361, patient's at bedside. Initiate discussion regarding plan of care- depends on her sons to assist with [id number] reported they were downstairs, had them brought up to bedside. Family reported they felt patient was slightly more alert, discussed no significant change in the past 48 hours, patient continues to pull out IVs, IV team having great difficulty and were unable to restart an IV this a.m. Patient's states she just wants him comfortable-family needs to continue discussion among themselves, asked them to notify nursing when they have come up with a decision regarding continue current treatment or transition to comfort care. Patient is slightly more alert on exam, still very confused, appears comfortable at rest. Patient's white count was 12K on admission peaked at 18K, down to 15.6 on labs drawn this a.m. Hemoglobin 10.7, creatinine near his prior baseline at 1.34 this a.m. -Family called and wished to speak with me again-their plan is to continue treatment and try to get patient some rehab so that he can improve his functional status and return home. Collaborated with attending physician as well as case management. Review of Systems Review of Systems: Unobtainable due to cognitive status Physical Exam Physical Exam: PE: Patient awake, slightly more alert on exam this a.m., no acute distress at rest. Patient denied pain on exam HEENT: EOMI, [place] Respirations: Unlabored, clear breath sounds CV: Regular rate, decreased lower extremity edema Abdomen: Soft, nontender Extremities: Left femoral neck fracture Neuro: Speech is mumbled difficult to understand, can nod yes or no to a few simple questions Results & Data ([facility]) Vital Signs (Past 12 Hours) Vital Signs Temp Pulse Resp BP Pulse Ox 01/12/20 07:24 97.3 F L 88 16 135/69 93 PG Care Time/CCT Total # of Minutes Spent Total Time Spent with Patient: Total time spent 45 minutes with greater than 50% of the time at bedside assessing patient's current status as well as discussing goals of care with family at bedside. Coding Level of Care Code 04331 Subseq Hosp Care Lvl 3 Diagnoses Palliative care encounter Z51.5 Displaced fracture of left femoral neck S72.002A Fall W19.XXXA Encounter type: initial encounter Hypernatremia E87.0 Time Spent (min) 45 (1) Fall Encounter type: initial encounter Qualified Code(s): W19.XXXA - Unspecified fall, initial encounter
[2020-01-12] MEDS ORDERED: FLUCONAZOLE SUSP 40 MG/ML 35 ML PO ONE (16:00)
--- NOTE | 2020-01-12 16:34 | Hospitalist Progress Note ---
Date of Service January 12, 2020 Assessment & Plan (1) Fall: 84-year-old male with history of hypertension BPH presenting with left hip fracture status post fall. Prolonged hospital course (1) Fall: -From H&P on 12/25/19 that "This is a 84 year old Male who was at home and reportedly was got up after sleeping in the night time and fell down several feet from where he was sleeping as per his Dorina ([phone]). Patient appears to have auditory impairment and most of the history provided by his at the bedside. Patient apparently did not have loss of consciousness as he called out for help. Patient was brought to the ED and found to have Mildly displaced left femoral neck fracture. Patient also seen to be hypertensive in the ED likely because of underlying hypertension which is exacerbated by pain from the fall injury. Patient has anderson placed in the ED and urine analysis noted to have bacteria and ED provider started ceftriaxone antibiotic. Patient also noted to have redness of medial left thigh and patient's reports that patient often wets himself from urination and does not keep the area dry as it should be." (2) Closed fracture of left hip: -s/p Left hip hemiarthroplasty on 12/26/2019 Postoperative course complicated by delirium with poor appetite, not cooperative with taking p.o. medications, 1:1 placed--> DC oxycodone and Dilaudid, Ativan--> somewhat improved Also treated with Unasyn for enterococcus UTI Subsequently developed fever, leukocytosis up to 30,000, acute renal failure with creatinine increasing to 3, associated with decreased responsiveness Aspiration suspected, transferred to ICU, eventually intubated, G-tube placed Found to have possible aspiration pneumonia, fungemia and yeast in urine culture Orthopedic service does not feel surgical wound is infected Given daptomycin, Zosyn, caspofungin with improvement in fever, leukocytosis Extubated 1 day later Post extubation, patient's mental status improving although gradually Now more awake, follows simple commands, but still confused NG tube withdrawn, now transitioned to p.o. diet by speech therapist, may have dysphagia secondary to intubation for speech therapist Continue pureed diet with aspiration precautions with assistance Severe sepsis Enterococcus faecalis UTI Aspiration pneumonia with acute renal failure UTI treatment completed Aspiration precautions Fevers resolved CXR: R base infiltrates Per Ortho, left hip infection unlikely Fungemia Blood cultures 01/01: (+) 2/2 bottle is positive for yeast (not kristin albicans/dub) Urine culture 01/01: kristin glabrata complex Sputum culture 01/01 - yeast not kristin albicans Repeat blood cultures 01/03 - Negative so far Spoke with lab on 01/08/20 and they sent out sensitivities on the fungal cultures No vegetations noted in Echo Ophthalmology evaluation noted. No signs of fungal endophthalmitis on ophthalmology exam Discussed with ID Dr Moore Since patient has cleared fungus from last blood culture, he recommended to change to fluconazole to complete 2 weeks therapy Fluconazole ordered Acute metabolic encephalopathy: Likely multifactorial from hip fracture, status post surgery, analgesics, underlying dementia, sepsis -Stroke code called on 12/26/2019 as documented below in regards to facial asymmetry; no acute CVA Acute renal failure on CKD 3 Creatinine increased from 0.8 to 3.1 At one point volume overload was noted given falls and lower extremity edema, given IV Lasix Creatinine now 1.3 today Patient occasionally refusing diet or meds Had pulled iv Hypernatremia Na was 151 D5W started and Sodium improved to 146. D5W held as mentioned above Na improved overtime. Increased again due poor oral intake Na is 146 this AM Hypertension: Now better controlled with addition of hydralazine -Usual p.o. medication (lisinopril) on hold Continue amlodipine p.o. Monitor Facial asymmetry, Acute CVA ruled out Per Dr. Jose Mcfadden's notes: -CT head on 12/25/2019 presentation without acute findings but mentioned Old lacunar infarct within the right thalamus -in the AM of 12/26/2019, patient was speaking more to medical team. However he has facial asymmetry more pronounced when speaking (able to talk more with right side of the mouth compared to the left). A stroke alert was called to expedite CT head scan and brain MRI. Patient able to answer some questions about his name and he does not express acute symptoms. He moves the upper extremities. He has left femoral neck fracture and his legs are in waffle boots -CT head 12/26/2019: No acute intracranial findings patient with not CT head finding of stroke and is likely not a candidate for TPA because of unclear chronicity of facial asymmetry -MRI Brain 12/26/2019 No acute intracranial findings. Exam moderately compromised by motion artifact although diagnostic. Extensive atrophy and small vessel disease. No intracranial mass or pathologic enhancement. -stroke is unlikely, patient proceeded to orthopedic surgery on 12/26/2019, post- operatively patient continues to have facial asymmetry with is visible with speech but no other focal symptoms other than poor orientation to the hospital setting. -patient's at the bedside on 12/28/2019 reports that patient may have Parkinson's disease or dementia that was not formally diagnosed as outpatient, baseline often forgetful at home, and that patient's facial features of facial asymmetry is baseline Troponin level elevated: Per Dr. Jose Mcfadden's notes: -elevated troponins from demand ischemia -the table games shift manager was concerned that patient with more confusion and workup by nocturnalist Dr. Garcia included troponins of which were elevated as 2.7 on night time of 12/27/2019, Dr. Garcia reports he discussed with orthopedics to allow for IV heparin to be started because of elevated troponins. IV heparin was started. Second troponin 2.95 in AM of 12/28/2019. On 12/28/2019 morning exam by day time hospitalist, patient awake and not as agitated as he was on . Patient denied pain of the chest or abdomen or of the legs. -12/28/2019: discussed with Dr. Azul from cardiology that patient's echocardiogram reflects old infarction which does not reflect elevated troponins on this hospital stay; Dr. Azul advised no further IV heparin and give beta leonides treatment BPH (benign prostatic hyperplasia): -tamsulosin and finasteride Hematuria following pulling anderson Had urinary retention afterwards. Anderson had to be placed again Will discontinue anderson and monitor Bladder scan qshift Goals of care Ongoing goals of care discussion with Palliative and family Palliative met with family today. They want to continue care I spoke with patient's . I explained that patient removed IV and refusing replacement. I explained how this may worsen his hypernatremia or hydration status since he does not drink enough to stay hydrated I do not recommend MID or PICC Line since patient can take po. She understands this and will like to continue care as is and work on rehab. I explained that placement can be tough as he does not participate most of the time She understands CM communicated DVT ppx- hep sq Admission and Anticipated Discharge Date Admission Date: December 25, 2019 Subjective Patient seen and examined He was awake and alert. He would not answer my questions and declined examination Review of Systems Review of Systems: Unobtainable due to cognitive status Limited as patient refused to answer questions Physical Exam Constitutional: + ill appearing (chronic ill appearing); no acute distress Respiratory: normal respiratory effort; no respiratory distress Refused ausculation Cardiovascular: Extremities: + pedal edema Refused exam Gastrointestinal (Abdomen): Refused exam Psychiatric: Orientation: alert Refused exam Results & Data Results & Data ([facility]) Vital Signs (Past 12 Hours) Vital Signs Temp Pulse Resp BP Pulse Ox 01/12/20 07:24 36.3 C L 88 16 135/69 93 Laboratory Results Laboratory Results - last 24 hr 01/12/20 01/12/20 05:01 05:01 WBC 15.62 H RBC 3.89 L Hgb 10.7 L Hct 34.9 L MCV 89.7 MCH 27.5 MCHC 30.7 L RDW Std Deviation 47.1 H RDW Coeff of Inocencio 14.5 Plt Count 287 MPV 10.8 H Sodium 146 H Potassium 3.8 Chloride 115 H Carbon Dioxide 27 Anion Gap 4.0 BUN 21 H Creatinine 1.34 Est Cr Clr Drug Dosing 41.8 Est GFR ( Amer) 56.4 Est GFR (Non-Af Amer) 48.6 BUN/Creatinine Ratio 15.5 Glucose 105 H Calcium 8.5 (1) Fall Encounter type: initial encounter Qualified Code(s): W19.XXXA - Unspecified fall, initial encounter
[2020-01-12] MEDS: SENNA 8.6 MG TAB PO SCH (20:36)
[2020-01-12] MEDS: HEPARIN SOD 5,000 UNIT/0.5 ML VIAL SQ SCH (20:40)
[2020-01-13] MEDS: POTASSIUM CHLORIDE 40 MEQ in DEXTROSE 5% 1,000 ML IV SCH ×2 (03:32→13:48)
[2020-01-13] MEDS: hydrALAZINE HCL 25 MG TAB PO SCH ×3 (05:46→20:30)
[2020-01-13 06:30] LABS: Hematocrit (blood only) 37.8 % (42-52); Hemoglobin 11.7 g/dL (14.0-18.0); Mean Corpuscular Hemoglobin 27.5 pg (25-34); Mean Corpuscular Volume 88.7 fL (80-100); Mean Platelet Volume 10.2 fL (7.4-10.4); Platelet Count 296 K/uL (130-400); RDW Coefficient of Variation 14.6 % (11.5-14.5); RDW Standard Deviation 47.1 fL (36.4-46.3); Red Blood Count 4.26 M/uL (4.7-6.1); White Blood Count 13.75 K/uL (4.8-10.8)
[2020-01-13 06:59] LABS: BUN Creatinine Ratio 15.3 (10-20); Calcium 9.1 mg/dl (8.5-10.1); Creatinine Clr Calc Pharmacy 40.9 ml/min; Est GFR (African American) 54.9; Est GFR (Non-African American) 47.4; Potassium 3.5 mmol/L (3.5-5.1)
[2020-01-13] MEDS ORDERED: FLUCONAZOLE SUSP 40 MG/ML 35 ML PO SCH (09:00)
[2020-01-13] MEDS: MENTHOL-ZINC OXIDE 360 APPLN/120 GM TUBE EXT SCH ×2 (10:59→20:28)
[2020-01-13] MEDS: FINASTERIDE 5 MG TAB PO SCH (11:03)
[2020-01-13] MEDS: FLUCONAZOLE SUSP 40 MG/ML 35 ML PO SCH (11:03)
[2020-01-13] MEDS: amLODIPine BESYLATE 5 MG TAB PO SCH (11:04)
[2020-01-13] MEDS: FAMOTIDINE 20 MG in SYRINGE 3 ML IV SCH (11:04)
[2020-01-13] MEDS: HEPARIN SOD 5,000 UNIT/0.5 ML VIAL SQ SCH ×2 (11:05→20:29)
[2020-01-13] MEDS: MULTIVITAMIN CHEWABLE TAB PO SCH (11:06)
[2020-01-13] MEDS: TAMSULOSIN HCL 0.4 MG CAP PO SCH (11:06)
--- NOTE | 2020-01-13 13:05 | Hospitalist Progress Note ---
Date of Service January 13, 2020 Assessment & Plan (1) Fall: 84-year-old male with history of hypertension BPH presenting with left hip fracture status post fall. Prolonged hospital course (1) Fall: -From H&P on 12/25/19 that "This is a 84 year old Male who was at home and reportedly was got up after sleeping in the night time and fell down several feet from where he was sleeping as per his Dorina ([phone]). Patient appears to have auditory impairment and most of the history provided by his at the bedside. Patient apparently did not have loss of consciousness as he called out for help. Patient was brought to the ED and found to have Mildly displaced left femoral neck fracture. Patient also seen to be hypertensive in the ED likely because of underlying hypertension which is exacerbated by pain from the fall injury. Patient has anderson placed in the ED and urine analysis noted to have bacteria and ED provider started ceftriaxone antibiotic. Patient also noted to have redness of medial left thigh and patient's reports that patient often wets himself from urination and does not keep the area dry as it should be." (2) Closed fracture of left hip: -s/p Left hip hemiarthroplasty on 12/26/2019 Postoperative course complicated by delirium with poor appetite, not cooperative with taking p.o. medications, 1:1 placed--> DC oxycodone and Dilaudid, Ativan--> somewhat improved Also treated with Unasyn for enterococcus UTI Subsequently developed fever, leukocytosis up to 30,000, acute renal failure with creatinine increasing to 3, associated with decreased responsiveness Aspiration suspected, transferred to ICU, eventually intubated, G-tube placed Found to have possible aspiration pneumonia, fungemia and yeast in urine culture Orthopedic service does not feel surgical wound is infected Given daptomycin, Zosyn, caspofungin with improvement in fever, leukocytosis Extubated 1 day later Post extubation, patient's mental status improving although gradually Now more awake, follows simple commands, but still confused NG tube withdrawn, now transitioned to p.o. diet by speech therapist, may have dysphagia secondary to intubation Continue pureed diet with aspiration precautions with assistance Severe sepsis Enterococcus faecalis UTI Aspiration pneumonia with acute renal failure UTI treatment completed Aspiration precautions Fevers resolved CXR: R base infiltrates Per Ortho, left hip infection unlikely Fungemia Blood cultures 01/01: (+) 2/2 bottle is positive for yeast (not kristin albicans/dub) Urine culture 01/01: kristin glabrata complex Sputum culture 01/01 - yeast not kristin albicans Repeat blood cultures 01/03 - Negative so far Spoke with lab on 01/08/20 and they sent out sensitivities on the fungal cultures No vegetations noted in Echo Ophthalmology evaluation noted. No signs of fungal endophthalmitis on ophthalmology exam Discussed with ID Dr Moore on 01/12/20 Since patient has cleared fungus from last blood culture, he recommended to change to fluconazole to complete 2 weeks therapy Continue fluconazole Acute metabolic encephalopathy: Likely multifactorial from hip fracture, status post surgery, analgesics, underlying dementia, sepsis -Stroke code called on 12/26/2019 as documented below in regards to facial asymmetry; no acute CVA Acute renal failure on CKD 3 Creatinine increased from 0.8 to 3.1 At one point volume overload was noted given falls and lower extremity edema, given IV Lasix Creatinine now 1.37 today Patient occasionally refusing diet or meds Had pulled iv yesterday. Difficulty getting another iV access Hypernatremia Na was 151 D5W started and Sodium improved to 146. D5W held as mentioned above Na improved overtime. Increased again due poor oral intake Na is 145 this AM Hypertension: Now better controlled with addition of hydralazine -Usual p.o. medication (lisinopril) on hold Continue amlodipine p.o. Monitor Facial asymmetry, Acute CVA ruled out Per Dr. Jose Mcfadden's notes: -CT head on 12/25/2019 presentation without acute findings but mentioned Old lacunar infarct within the right thalamus -in the AM of 12/26/2019, patient was speaking more to medical team. However he has facial asymmetry more pronounced when speaking (able to talk more with right side of the mouth compared to the left). A stroke alert was called to expedite CT head scan and brain MRI. Patient able to answer some questions about his name and he does not express acute symptoms. He moves the upper extremities. He has left femoral neck fracture and his legs are in waffle boots -CT head 12/26/2019: No acute intracranial findings patient with not CT head finding of stroke and is likely not a candidate for TPA because of unclear chronicity of facial asymmetry -MRI Brain 12/26/2019 No acute intracranial findings. Exam moderately compromised by motion artifact although diagnostic. Extensive atrophy and small vessel disease. No intracranial mass or pathologic enhancement. -stroke is unlikely, patient proceeded to orthopedic surgery on 12/26/2019, post-operatively patient continues to have facial asymmetry with is visible with speech but no other focal symptoms other than poor orientation to the hospital setting. -patient's at the bedside on 12/28/2019 reports that patient may have Parkinson's disease or dementia that was not formally diagnosed as outpatient, baseline often forgetful at home, and that patient's facial features of facial asymmetry is baseline Troponin level elevated: Per Dr. Jose Mcfadden's notes: -elevated troponins from demand ischemia -the assembler 1st shift was concerned that patient with more confusion and workup by nocturnalist Dr. Garcia included troponins of which were elevated as 2.7 on night time of 12/27/2019, Dr. Garcia reports he discussed with orthopedics to allow for IV heparin to be started because of elevated troponins. IV heparin was started. Second troponin 2.95 in AM of 12/28/2019. On 12/28/2019 morning exam by day time hospitalist, patient awake and not as agitated as he was on . Patient denied pain of the chest or abdomen or of the legs. -12/28/2019: discussed with Dr. Azul from cardiology that patient's echocardiogram reflects old infarction which does not reflect elevated troponins on this hospital stay; Dr. Azul advised no further IV heparin and give beta leonides treatment BPH (benign prostatic hyperplasia): -tamsulosin and finasteride Hematuria following pulling anderson Had urinary retention afterwards. Anderson had to be placed again Anderson was removed yesterday but still retaining Will place back anderson. Will likely be discharged on anderson and to follow up urology outpatient for continued evaluation and management Goals of care Ongoing goals of care discussion with Palliative and family Palliative met with family again yesterday. They want to continue care I spoke with patient's and updated her. Patient is occasionally refusing meds/food/therapy. She is going to visit later today to encourage him to eat and drink CM working on placement DVT ppx- hep sq Admission and Anticipated Discharge Date Admission Date: December 25, 2019 Subjective Patient seen and examined Has been retaining urine since after removal of anderson Patient has been uncooperative Per RN, was spitting out his food/drink this AM Currently on Hand mitts Currently awake alert and oriented to person. Difficulty understanding rest of his speech as they are mumbled. Review of Systems Review of Systems: Unobtainable due to cognitive status and speech Physical Exam Constitutional: + ill appearing (chronic ill appearing); no acute distress Eyes: PERRL, conjunctivae normal, anicteric sclerae ENMT: external ear and nose normal, oropharynx normal mumbled speech Respiratory: normal respiratory effort; no respiratory distress Cardiovascular: Rate/Rhythm: regular rate and regular rhythm S1 S2. Trace pedal edema Gastrointestinal (Abdomen): normal bowel sounds, soft, nontender, no hepatosplenomegaly Musculoskeletal: Hand in mitts Neurologic: Alert, able to say his name, difficult to understand speech, moves extremities spontaneously Psychiatric: Orientation: alert appear mildly agitated now (1) Fall Encounter type: initial encounter Qualified Code(s): W19.XXXA - Unspecified fall, initial encounter
--- NOTE | 2020-01-13 15:09 | Palliative Care Progress Note ---
Date of Service January 13, 2020 Assessment & Plan (1) Palliative care encounter: Patient is an 84 year old male who presented to the [facility] from home s/p a fall he sustained near his bed. Per report of the patient and his , he did not lose consciousness and called out for help. He was found to have a mildly displaced femoral neck fracture for which the decision was made to undergo a left hemiarthroscopy, which was completed on 12/27/19. Post-operatively, he became febrile, sustained acute kidney injury with an increasing creatinine, and overall lethargy and decreased consciousness with suspicion of an infection. Due to his worsening clinical picture, he was transferred to the ICU and was suspected to aspirate. He was intubated and actually extubated the following day. Patient continues to have significant physical and cognitive deficits- goals of care discussed with and family on multiple occasions- would like to have patient comfortable, sons want to pursue further aggressive care. -Patient seen and examined in room 361. No family at bedside. The patient appe ars comfortable -He did not respond to voice or touch on exam today. -As per attending physician-infectious disease recommended switching from IV to p.o. Diflucan -Family's goal is for patient to go to rehab, improve functional status and return home. Family with unrealistic expectations -Patient with decreased p.o. intake, he is currently on a pured diet and thickened liquids. -PPS: 30% (2) Displaced fracture of left femoral neck: (3) Fall: (4) Hypernatremia: Admission and Anticipated Discharge Date Admission Date: December 25, 2019 Subjective Patient seen and examined in room 361, no family at bedside. Patient appears comfortable, did not respond to voice or touch. Patient has protective mitts in place. Patient's would like to see patient comfortable, however her sons want to continue aggressive treatment, expecting patient to return to her prior baseline. Family with unrealistic expectations. Case management has sent out referrals to skilled facilities-they did notify the that he may not qualify and would need long-term care placement. Patient did not require any PRN medications in the past 24 hours for pain or discomfort. Review of Systems Review of Systems: Unobtainable due to cognitive status Physical Exam Physical Exam: PE: Patient appears comfortable at rest, did not arouse to voice or touch HEENT: Dry mucous membranes Respirations: Unlabored, no rhonchi CV: Regular rate, decreasing lower extremity edema Abdomen: Soft, no grimace on palpation Extremities: Patient unable to bear weight Neuro: Significant cognitive deficits-unable to follow simple commands PG Care Time/CCT Total # of Minutes Spent Total Time Spent with Patient: Total time spent 25 minutes with greater than 50% of the time spent at bedside assessing patient's level of comfort and assess his current mental status. Coding Level of Care Code 89515 Subseq Hosp Care Lvl 2 Diagnoses Palliative care encounter Z51.5 Displaced fracture of left femoral neck S72.002A Fall W19.XXXA Encounter type: initial encounter Hypernatremia E87.0 Time Spent (min) 25 (1) Fall Encounter type: initial encounter Qualified Code(s): W19.XXXA - Unspecified fall, initial encounter
[2020-01-13] MEDS: SENNA 8.6 MG TAB PO SCH (20:29)
[2020-01-14] MEDS: POTASSIUM CHLORIDE 40 MEQ in DEXTROSE 5% 1,000 ML IV SCH (04:07)
[2020-01-14 05:59] LABS: Hematocrit (blood only) 37.3 % (42-52); Hemoglobin 11.8 g/dL (14.0-18.0); Mean Corpuscular Hemoglobin 28.2 pg (25-34); Mean Corpuscular Hgb Conc 31.6 g/dL (32-36); Mean Platelet Volume 10.3 fL (7.4-10.4); Platelet Count 303 K/uL (130-400); RDW Coefficient of Variation 14.4 % (11.5-14.5); RDW Standard Deviation 46.7 fL (36.4-46.3); Red Blood Count 4.19 M/uL (4.7-6.1)
[2020-01-14] MEDS: hydrALAZINE HCL 25 MG TAB PO SCH ×3 (06:14→22:34)
[2020-01-14 06:28] LABS: BUN Creatinine Ratio 18.5 (10-20); Calcium 8.9 mg/dl (8.5-10.1); Creatinine Clr Calc Pharmacy 42.4 ml/min; Est GFR (African American) 57.4; Est GFR (Non-African American) 49.5; Potassium 3.4 mmol/L (3.5-5.1)
[2020-01-14] MEDS: amLODIPine BESYLATE 5 MG TAB PO SCH (08:09)
[2020-01-14] MEDS: TAMSULOSIN HCL 0.4 MG CAP PO SCH (08:10)
[2020-01-14] MEDS: MULTIVITAMIN CHEWABLE TAB PO SCH (08:10)
[2020-01-14] MEDS: FINASTERIDE 5 MG TAB PO SCH (08:10)
[2020-01-14] MEDS: MENTHOL-ZINC OXIDE 360 APPLN/120 GM TUBE EXT SCH ×2 (08:26→20:14)
[2020-01-14] MEDS: HEPARIN SOD 5,000 UNIT/0.5 ML VIAL SQ SCH ×2 (08:26→20:15)
[2020-01-14] MEDS: FAMOTIDINE 20 MG in SYRINGE 3 ML IV SCH (10:00)
[2020-01-14] MEDS: FLUCONAZOLE SUSP 40 MG/ML 35 ML PO SCH ×2 (10:00→10:09)
[2020-01-14] MEDS ORDERED: POTASSIUM CHLORIDE PWD 20 MEQ PACK PO STA (17:13)
--- NOTE | 2020-01-14 19:51 | Hospitalist Progress Note ---
Date of Service January 14, 2020 Assessment & Plan (1) Fall: per Dr. Couch's notes with addendum by undersigned 84-year-old male with history of hypertension BPH presenting with left hip fracture status post fall. Prolonged hospital course (1) Fall: -From H&P on 12/25/19 that "This is a 84 year old Male who was at home and reportedly was got up after sleeping in the night time and fell down several feet from where he was sleeping as per his Dorina ([phone]). Patient appears to have auditory impairment and most of the history provided by his at the bedside. Patient apparently did not have loss of consciousness as he called out for help. Patient was brought to the ED and found to have Mildly displaced left femoral neck fracture. Patient also seen to be hypertensive in the ED likely because of underlying hypertension which is exacerbated by pain from the fall injury. Patient has anderson placed in the ED and urine analysis noted to have bacteria and ED provider started ceftriaxone antibiotic. Patient also noted to have redness of medial left thigh and patient's reports that patient often wets himself from urination and does not keep the area dry as it should be." (2) Closed fracture of left hip: -s/p Left hip hemiarthroplasty on 12/26/2019 Postoperative course complicated by delirium with poor appetite, not cooperative with taking p.o. medications, 1:1 placed--> DC oxycodone and Dilaudid, A tivan--> somewhat improved Also treated with Unasyn for enterococcus UTI Subsequently developed fever, leukocytosis up to 30,000, acute renal failure with creatinine increasing to 3, associated with decreased responsiveness Aspiration suspected, transferred to ICU, eventually intubated, G-tube placed Found to have possible aspiration pneumonia, fungemia and yeast in urine culture Orthopedic service does not feel surgical wound is infected Given daptomycin, Zosyn, caspofungin with improvement in fever, leukocytosis Extubated 1 day later Post extubation, patient's mental status improving although gradually Now more awake, follows simple commands, but still confused NG tube withdrawn, now transitioned to p.o. diet by speech therapist, may have dysphagia secondary to intubation Continue pureed diet with aspiration precautions with assistance 01/15/20 stable overall however, cognitive status still poor only mumbles words, follows few simple commands appetite poor continue PT/OT, will need SNF will discuss with County Auditor Severe sepsis Enterococcus faecalis UTI Aspiration pneumonia with acute renal failure UTI treatment completed Aspiration precautions Fevers resolved CXR: R base infiltrates Per Ortho, left hip infection unlikely Fungemia Blood cultures 01/01: (+) 2/2 bottle is positive for yeast (not kristin albicans/dub) Urine culture 01/01: kristin glabrata complex Sputum culture 01/01 - yeast not kristin albicans Repeat blood cultures 01/03 - Negative so far Spoke with lab on 01/08/20 and they sent out sensitivities on the fungal cultures No vegetations noted in Echo Ophthalmology evaluation noted. No signs of fungal endophthalmitis on ophthalmology exam Discussed with ID Dr Moore on 01/12/20 Since patient has cleared fungus from last blood culture, he recommended to change to fluconazole to complete 2 weeks therapy Continue fluconazole 01/15/20 afebrile continue Fluconazole Acute metabolic encephalopathy: Likely multifactorial from hip fracture, status post surgery, analgesics, underlying dementia, sepsis -Stroke code called on 12/26/2019 as documented below in regards to facial asymmetry; no acute CVA Acute renal failure on CKD 3 Creatinine increased from 0.8 to 3.1 At one point volume overload was noted given falls and lower extremity edema, given IV Lasix Creatinine now 1.37 today Patient occasionally refusing diet or meds crea stable Hypernatremia Na was 151 D5W started and Sodium improved to 146. D5W held as mentioned above Na improved overtime. Increased again due poor oral intake Na 146 monitor Hypertension: Now better controlled with addition of hydralazine -Usual p.o. medication (lisinopril) on hold Continue amlodipine p.o. Monitor stable Facial asymmetry, Acute CVA ruled out Per Dr. Jose Mcfadden's notes: -CT head on 12/25/2019 presentation without acute findings but mentioned Old lacunar infarct within the right thalamus -in the AM of 12/26/2019, patient was speaking more to medical team. However he has facial asymmetry more pronounced when speaking (able to talk more with right side of the mouth compared to the left). A stroke alert was called to expedite CT head scan and brain MRI. Patient able to answer some questions about his name and he does not express acute symptoms. He moves the upper extremities. He has left femoral neck fracture and his legs are in waffle boots -CT head 12/26/2019: No acute intracranial findings patient with not CT head finding of stroke and is likely not a candidate for TPA because of unclear chronicity of facial asymmetry -MRI Brain 12/26/2019 No acute intracranial findings. Exam moderately compromised by motion artifact although diagnostic. Extensive atrophy and small vessel disease. No intracranial mass or pathologic enhancement. -stroke is unlikely, patient proceeded to orthopedic surgery on 12/26/2019, post- operatively patient continues to have facial asymmetry with is visible with speech but no other focal symptoms other than poor orientation to the hospital s etting. -patient's at the bedside on 12/28/2019 reports that patient may have Parkinson's disease or dementia that was not formally diagnosed as outpatient, baseline often forgetful at home, and that patient's facial features of facial asymmetry is baseline Troponin level elevated: Per Dr. Jose Mcfadden's notes: -elevated troponins from demand ischemia -the packing machine feeder was concerned that patient with more confusion and workup by nocturnalist Dr. Garcia included troponins of which were elevated as 2.7 on night time of 12/27/2019, Dr. Garcia reports he discussed with orthopedics to allow for IV heparin to be started because of elevated troponins. IV heparin was started. Second troponin 2.95 in AM of 12/28/2019. On 12/28/2019 morning exam by day time hospitalist, patient awake and not as agitated as he was on . Patient denied pain of the chest or abdomen or of the legs. -12/28/2019: discussed with Dr. Azul from cardiology that patient's echocardiogr am reflects old infarction which does not reflect elevated troponins on this hospital stay; Dr. Azul advised no further IV heparin and give beta leonides treatment BPH (benign prostatic hyperplasia): -tamsulosin and finasteride Hematuria following pulling anderson Had urinary retention afterwards. Anderson had to be placed again Anderson was removed yesterday but still retaining Will place back anderson. Will likely be discharged on anderson and to follow up urology outpatient for continued evaluation and management Goals of care Ongoing goals of care discussion with Palliative and family Palliative met with family again yesterday. They want to continue care I spoke with patient's and updated her. Patient is occasionally refusing meds/food/therapy. She is going to visit later today to encourage him to eat and drink CM working on placement DVT ppx- hep sq Admission and Anticipated Discharge Date Admission Date: December 25, 2019 Subjective ff up for s/p left hip surgery, sepsis, encephalopathy, etc discussed with balance staff inspector patient mostly sleeping, has few bites for meals intermittently restless, needs mittens to prevent from pulling out anderson cath seen resting in bed, sleeping but awakened easily answers in short words, follows simple commands denies pain, shortness of breath no other signs or symptoms Review of Systems Review of Systems: All systems reviewed & are unremarkable except as noted in Subjective Physical Exam Physical Exam: General- awake, alert, not in distress, speaks in words, no effort or accessory muscle use Eyes- anicteric Neck- no JVD Lungs- clear breath sounds bilaterally, no rales/wheezes Heart- normal rate, regular rhythm; no murmurs Abdomen- normal bowel sounds, nondistended, soft, nontender Extremities- no pretibial edema, no calf tenderness left hip surgical site: wound healing well, edema improving Neuro- alert, not oriented; no new gross focal neurologic deficits Skin- warm & dry Results & Data Results & Data ([facility]) Vital Signs (Past 12 Hours) Vital Signs Temp Pulse Resp BP 01/14/20 15:48 37 C 68 16 137/75 Laboratory Results Laboratory Results - last 24 hr 01/14/20 01/14/20 05:42 05:42 WBC 14.20 H RBC 4.19 L Hgb 11.8 L Hct 37.3 L MCV 89.0 MCH 28.2 MCHC 31.6 L RDW Std Deviation 46.7 H RDW Coeff of Inocencio 14.4 Plt Count 303 MPV 10.3 Sodium 146 H Potassium 3.4 L Chloride 113 H Carbon Dioxide 26 Anion Gap 7.0 BUN 24 H Creatinine 1.32 Est Cr Clr Drug Dosing 42.4 Est GFR ( Amer) 57.4 Est GFR (Non-Af Amer) 49.5 BUN/Creatinine Ratio 18.5 Glucose 93 Calcium 8.9 (1) Fall Encounter type: initial encounter Qualified Code(s): W19.XXXA - Unspecified fall, initial encounter
[2020-01-14] MEDS: SENNA 8.6 MG TAB PO SCH (20:14)
[2020-01-15] MEDS: hydrALAZINE HCL 25 MG TAB PO SCH ×3 (05:39→22:28)
[2020-01-15] MEDS: MENTHOL-ZINC OXIDE 360 APPLN/120 GM TUBE EXT SCH ×2 (09:12→20:58)
[2020-01-15] MEDS: HEPARIN SOD 5,000 UNIT/0.5 ML VIAL SQ SCH ×2 (09:12→20:59)
[2020-01-15] MEDS: TAMSULOSIN HCL 0.4 MG CAP PO SCH (09:12)
[2020-01-15] MEDS: FLUCONAZOLE SUSP 40 MG/ML 35 ML PO SCH (09:12)
[2020-01-15] MEDS: amLODIPine BESYLATE 5 MG TAB PO SCH (09:12)
[2020-01-15] MEDS: MULTIVITAMIN CHEWABLE TAB PO SCH (09:12)
[2020-01-15] MEDS: FINASTERIDE 5 MG TAB PO SCH (09:12)
[2020-01-15 10:23] LABS: BUN Creatinine Ratio 20.4 (10-20); Creatinine Clr Calc Pharmacy 45.9 ml/min; Est GFR (African American) 63.2; Est GFR (Non-African American) 54.5; Potassium 3.2 mmol/L (3.5-5.1)
--- NOTE | 2020-01-15 12:44 | Communication Note ---
Date of Service: January 15, 2020 Asked to review patient's wound today. Pt sleeping. Appears comfortable. Nonverbal. Wound very benign. [place] present. Plan for staple removal and steristrip application.
[2020-01-15] MEDS ORDERED: POTASSIUM CHLORIDE PWD 20 MEQ PACK PO STA (17:43)
[2020-01-15] MEDS: D5W AND 1/2NSS + 20MEQ KCL 20 MEQ/1,000 ML BAG IV SCH (18:38)
[2020-01-15] MEDS: SENNA 8.6 MG TAB PO SCH (20:56)
--- NOTE | 2020-01-15 21:10 | Hospitalist Progress Note ---
Date of Service January 15, 2020 Assessment & Plan (1) Fall: per Dr. Couch's notes with addendum by undersigned 84-year-old male with history of hypertension BPH presenting with left hip fracture status post fall. Prolonged hospital course (1) Fall: -From H&P on 12/25/19 that "This is a 84 year old Male who was at home and reportedly was got up after sleeping in the night time and fell down several feet from where he was sleeping as per his Dorina ([phone]). Patient appears to have auditory impairment and most of the history provided by his at the bedside. Patient apparently did not have loss of consciousness as he called out for help. Patient was brought to the ED and found to have Mildly displaced left femoral neck fracture. Patient also seen to be hypertensive in the ED likely because of underlying hypertension which is exacerbated by pain from the fall injury. Patient has anderson placed in the ED and urine analysis noted to have bacteria and ED provider started ceftriaxone antibiotic. Patient also noted to have redness of medial left thigh and patient's reports that patient often wets himself from urination and does not keep the area dry as it should be." (2) Closed fracture of left hip: -s/p Left hip hemiarthroplasty on 12/26/2019 Postoperative course complicated by delirium with poor appetite, not cooperative with taking p.o. medications, 1:1 placed--> DC oxycodone and Dilaudid, A tivan--> somewhat improved Also treated with Unasyn for enterococcus UTI Subsequently developed fever, leukocytosis up to 30,000, acute renal failure with creatinine increasing to 3, associated with decreased responsiveness Aspiration suspected, transferred to ICU, eventually intubated, G-tube placed Found to have possible aspiration pneumonia, fungemia and yeast in urine culture Orthopedic service does not feel surgical wound is infected Given daptomycin, Zosyn, caspofungin with improvement in fever, leukocytosis Extubated 1 day later Post extubation, patient's mental status improving although gradually Now more awake, follows simple commands, but still confused NG tube withdrawn, now transitioned to p.o. diet by speech therapist, may have dysphagia secondary to intubation Continue pureed diet with aspiration precautions with assistance 01/14/2020 stable overall however, cognitive status still poor only mumbles words, follows few simple commands appetite poor continue PT/OT, will need SNF will discuss with City Surveyor 01/15/2020 Very poor appetite Cognitive status about the same Requires 2 person assist with sitting up in bed Patient appears very deconditioned, with poor oral intake and further cognitive decline postoperatively Patient clinically dehydrated from poor oral intake, D5 half NSS with potassium ordered Will discuss with nutrition service Continue PT and OT evaluation Patient not yet ready for position to half-way facility Severe sepsis Enterococcus faecalis UTI Aspiration pneumonia with acute renal failure UTI treatment completed Aspiration precautions Fevers resolved CXR: R base infiltrates Per Ortho, left hip infection unlikely Fungemia Blood cultures 01/01: (+) 2/2 bottle is positive for yeast (not kristin albicans/dub) Urine culture 01/01: kristin glabrata complex Sputum culture 01/01 - yeast not kristin albicans Repeat blood cultures 01/03 - Negative so far Spoke with lab on 01/08/20 and they sent out sensitivities on the fungal cultures No vegetations noted in Echo Ophthalmology evaluation noted. No signs of fungal endophthalmitis on ophthalmology exam Discussed with ID Dr Moore on 01/12/20 Since patient has cleared fungus from last blood culture, he recommended to change to fluconazole to complete 2 weeks therapy Continue fluconazole 01/15/20 afebrile continue Fluconazole x2 more days to complete 2 weeks therapy Acute metabolic encephalopathy: Likely multifactorial from hip fracture, status post surgery, analgesics, un derlying dementia, sepsis -Stroke code called on 12/26/2019 as documented below in regards to facial asymmetry; no acute CVA -Patient still does not follow much commands, still mumbles words Acute renal failure on CKD 3 Creatinine increased from 0.8 to 3.1 At one point volume overload was noted given falls and lower extremity edema, given IV Lasix Creatinine now 1.2 Patient occasionally refusing diet or meds crea stable Hypernatremia Na back to 151 D5 half NSS ordered Check BMP tomorrow Hypertension: Now better controlled with addition of hydralazine -Usual p.o. medication (lisinopril) on hold Pressure on the lower side, dehydrated IV fluids started Facial asymmetry, Acute CVA ruled out Per Dr. Jose Mcfadden's notes: -CT head on 12/25/2019 presentation without acute findings but mentioned Old lacunar infarct within the right thalamus -in the AM of 12/26/2019, patient was speaking more to medical team. However he has facial asymmetry more pronounced when speaking (able to talk more with right side of the mouth compared to the left). A stroke alert was called to expedite CT head scan and brain MRI. Patient able to answer some questions about his name and he does not express acute symptoms. He moves the upper extremities. He has left femoral neck fracture and his legs are in waffle boots -CT head 12/26/2019: No acute intracranial findings patient with not CT head finding of stroke and is likely not a candidate for TPA because of unclear chronicity of facial asymmetry -MRI Brain 12/26/2019 No acute intracranial findings. Exam moderately compromised by motion artifact although diagnostic. Extensive atrophy and small vessel disease. No intracranial mass or pathologic enhancement. -stroke is unlikely, patient proceeded to orthopedic surgery on 12/26/2019, post- operatively patient continues to have facial asymmetry with is visible with speech but no other focal symptoms other than poor orientation to the hospital setting. -patient's at the bedside on 12/28/2019 reports that patient may have Parkinson's disease or dementia that was not formally diagnosed as outpatient, baseline often forgetful at home, and that patient's facial features of facial asymmetry is baseline Troponin level elevated: Per Dr. Jose Mcfadden's notes: -elevated troponins from demand ischemia -the conveyor belt installer was concerned that patient with more confusion and workup by nocturnalist Dr. Garcia included troponins of which were elevated as 2.7 on night time of 12/27/2019, Dr. Garcia reports he discussed with orthopedics to allow for IV heparin to be started because of elevated troponins. IV heparin was started. Second troponin 2.95 in AM of 12/28/2019. On 12/28/2019 morning exam by day time hospitalist, patient awake and not as agitated as he was on . Patient denied pain of the chest or abdomen or of the legs. -12/28/2019: discussed with Dr. Azul from cardiology that patient's echocardiogram reflects old infarction which does not reflect elevated troponins on this hospital stay; Dr. Azul advised no further IV heparin and give beta leonides treatment BPH (benign prostatic hyperplasia): -tamsulosin and finasteride Hematuria following pulling anderson Had urinary retention afterwards. Anderson had to be placed again Anderson was removed yesterday but still retaining Will place back anderson. Will likely be discharged on anderson and to follow up urology outpatient for continued evaluation and management 01/15/2020 Continue Anderson catheter Goals of care Patient not yet ready to transition to half-way facility mainly from dehydration, hyponatremia, from poor oral intake IV fluids restarted, will need to discuss with nutrition service DVT ppx- hep sq Admission and Anticipated Discharge Date Admission Date: December 25, 2019 Subjective Follow-up status post left hip surgery, sepsis, etc. Patient discussed with ANGEL Rodriguez Patient mostly sleeping today, declined meals Family visited, per patient's patient was also sleepy during the visit, Observed during physical therapy, required 2 person assist for sitting up at edge of the bed Seen at the bedside, sleeping but easily awakened Mumbles words, denies pain Full ROS difficult to obtain due to mental status No other signs or symptoms noted Review of Systems Review of Systems: Unobtainable due to cognitive status Physical Exam Physical Exam: General-awake, not in distress, comfortable, breathing with no effort or accessory muscle use Eyes- anicteric Neck- no JVD Lungs- clear breath sounds bilaterally, no wheezing, no crackles Good air entry bilaterally Heart- normal rate, regular rhythm; no murmurs Abdomen- normal bowel sounds, nondistended, soft, nontender Extremities-left hip: Surgical site with no signs of infection, wound healing well, no pretibial edema, no calf tenderness Neuro- alert, mumbles words, no new gross focal neurologic deficits Skin- warm & dry Results & Data Results & Data ([facility]) Vital Signs (Past 12 Hours) Vital Signs Temp Pulse Resp BP Pulse Ox 01/15/20 14:59 36.5 C 72 16 100/49 L 93 Laboratory Results Laboratory Results - last 24 hr 01/15/20 09:39 Sodium 151 H Potassium 3.2 L Chloride 118 H Carbon Dioxide 27 Anion Gap 6.0 BUN 25 H Creatinine 1.22 Est Cr Clr Drug Dosing 45.9 Est GFR ( Amer) 63.2 Est GFR (Non-Af Amer) 54.5 BUN/Creatinine Ratio 20.4 H Glucose 95 Calcium 9.0 (1) Fall Encounter type: initial encounter Qualified Code(s): W19.XXXA - Unspecified fall, initial encounter
[2020-01-15] MEDS: ACETAMINOPHEN 325 MG TAB PO PRN (22:30)
[2020-01-16] MEDS: D5W AND 1/2NSS + 20MEQ KCL 20 MEQ/1,000 ML BAG IV SCH ×2 (04:05→14:28)
[2020-01-16] MEDS: TAMSULOSIN HCL 0.4 MG CAP PO SCH (09:06)
[2020-01-16] MEDS: hydrALAZINE HCL 25 MG TAB PO SCH ×3 (09:07→21:49)
[2020-01-16] MEDS: FLUCONAZOLE SUSP 40 MG/ML 35 ML PO SCH (09:07)
[2020-01-16] MEDS: MULTIVITAMIN CHEWABLE TAB PO SCH (09:07)
[2020-01-16] MEDS: HEPARIN SOD 5,000 UNIT/0.5 ML VIAL SQ SCH ×2 (09:08→21:48)
[2020-01-16] MEDS: amLODIPine BESYLATE 5 MG TAB PO SCH (09:08)
[2020-01-16] MEDS: FINASTERIDE 5 MG TAB PO SCH (09:08)
[2020-01-16] MEDS: MENTHOL-ZINC OXIDE 360 APPLN/120 GM TUBE EXT SCH ×2 (09:09→21:48)
[2020-01-16 12:30] LABS: BUN Creatinine Ratio 19.7 (10-20); Calcium 9.2 mg/dl (8.5-10.1); Creatinine Clr Calc Pharmacy 38.6 ml/min; Est GFR (African American) 51.2; Est GFR (Non-African American) 44.2; Potassium 3.8 mmol/L (3.5-5.1)
[2020-01-16 13:45] LABS: Magnesium 2.5 mg/dl (1.8-2.4); Phosphorus 2.8 mg/dl (2.5-4.9)
[2020-01-16] MEDS ORDERED: PEPTAMEN 1.5 CAL 1,000 ML BAG NG SCH (13:45)
[2020-01-16] MEDS: MoRPHine SULFATE 2 MG/ML CARP IV PRN (15:06)
--- NOTE | 2020-01-16 16:34 | XRay Report ---
KUB CLINICAL HISTORY: verify NG tube placement COMPARISON STUDY: KUB January 04, 2020. FINDINGS: The tip of the nasogastric tube projects over the gastric antrum. Visualized bowel gas fredy ania is unremarkable. The mid to lower abdomen were not included on this image. IMPRESSION: Tip of nasogastric tube projects over the gastric antrum. ACT 112: Negative or not required by law. Electronically signed by: Brett Saenz M.D. 01/16/2020 4:33 PM
--- NOTE | 2020-01-16 21:18 | Hospitalist Progress Note ---
Date of Service January 16, 2020 Assessment & Plan (1) Fall: per Dr. Couch's notes with addendum by undersigned 84-year-old male with history of hypertension BPH presenting with left hip fracture status post fall. Prolonged hospital course (1) Fall: -From H&P on 12/25/19 that "This is a 84 year old Male who was at home and reportedly was got up after sleeping in the night time and fell down several feet from where he was sleeping as per his Dorina ([phone]). Patient appears to have auditory impairment and most of the history provided by his at the bedside. Patient apparently did not have loss of consciousness as he called out for help. Patient was brought to the ED and found to have Mildly displaced left femoral neck fracture. Patient also seen to be hypertensive in the ED likely because of underlying hypertension which is exacerbated by pain from the fall injury. Patient has anderson placed in the ED and urine analysis noted to have bacteria and ED provider started ceftriaxone antibiotic. Patient also noted to have redness of medial left thigh and patient's reports that patient often wets himself from urination and does not keep the area dry as it should be." (2) Closed fracture of left hip: -s/p Left hip hemiarthroplasty on 12/26/2019 Postoperative course complicated by delirium with poor appetite, not cooperative with taking p.o. medications, 1:1 placed--> DC oxycodone and Dilaudid, A tivan--> somewhat improved Also treated with Unasyn for enterococcus UTI Subsequently developed fever, leukocytosis up to 30,000, acute renal failure with creatinine increasing to 3, associated with decreased responsiveness Aspiration suspected, transferred to ICU, eventually intubated, G-tube placed Found to have possible aspiration pneumonia, fungemia and yeast in urine culture Orthopedic service does not feel surgical wound is infected Given daptomycin, Zosyn, caspofungin with improvement in fever, leukocytosis Extubated 1 day later Post extubation, patient's mental status improving although gradually Now more awake, follows simple commands, but still confused NG tube withdrawn, now transitioned to p.o. diet by speech therapist, may have dysphagia secondary to intubation Continue pureed diet with aspiration precautions with assistance 01/14/2020 stable overall however, cognitive status still poor only mumbles words, follows few simple commands appetite poor continue PT/OT, will need SNF will discuss with Orthotist Or Prosthetist 01/15/2020 Very poor appetite Cognitive status about the same Requires 2 person assist with sitting up in bed Patient appears very deconditioned, with poor oral intake and further cognitive decline postoperatively Patient clinically dehydrated from poor oral intake, D5 half NSS with potassium ordered Will discuss with nutrition service Continue PT and OT evaluation Patient not yet ready for position to alf facility 01/16/2020 Discussed with patient's in detail Will need to improve patient's nutritional intake in hopes of improving cognitive status, participation with PT and OT Start with tube feeding Severe sepsis Enterococcus faecalis UTI Aspiration pneumonia with acute renal failure UTI treatment completed Aspiration precautions Fevers resolved CXR: R base infiltrates Per Ortho, left hip infection unlikely Fungemia Blood cultures 01/01: (+) 2/2 bottle is positive for yeast (not kristin albicans/dub) Urine culture 01/01: kristin glabrata complex Sputum culture 01/01 - yeast not kristin albicans Repeat blood cultures 01/03 - Negative so far Spoke with lab on 01/08/20 and they sent out sensitivities on the fungal cultures No vegetations noted in Echo Ophthalmology evaluation noted. No signs of fungal endophthalmitis on ophthalmology exam Discussed with ID Dr Moore on 01/12/20 Since patient has cleared fungus from last blood culture, he recommended to change to fluconazole to complete 2 weeks therapy Continue fluconazole 01/15/20 afebrile continue Fluconazole x2 more days to complete 2 weeks therapy Acute metabolic encephalopathy: Likely multifactorial from hip fracture, status post surgery, analgesics, underlying dementia, sepsis -Stroke code called on 12/26/2019 as documented below in regards to facial asymmetry; no acute CVA -Patient still does not follow much commands, still mumbles words Acute renal failure on CKD 3 Creatinine increased from 0.8 to 3.1 At one point volume overload was noted given falls and lower extremity edema, given IV Lasix Creatinine now 1.2 Patient occasionally refusing diet or meds crea stable Hypernatremia Na back to 151 D5 half NSS ordered Sodium 146 Hypertension: Now better controlled with addition of hydralazine -Usual p.o. medication (lisinopril) on hold Pressure on the lower side, dehydrated IV fluids started Facial asymmetry, Acute CVA ruled out Per Dr. Jose Mcfadden's notes: -CT head on 12/25/2019 presentation without acute findings but mentioned Old lacunar infarct within the right thalamus -in the AM of 12/26/2019, patient was speaking more to medical team. However he has facial asymmetry more pronounced when speaking (able to talk more with right side of the mouth compared to the left). A stroke alert was called to expedite CT head scan and brain MRI. Patient able to answer some questions about his name and he does not express acute symptoms. He moves the upper extremities. He has left femoral neck fracture and his legs are in waffle boots -CT head 12/26/2019: No acute intracranial findings patient with not CT head finding of stroke and is likely not a candidate for TPA because of unclear chronicity of facial asymmetry -MRI Brain 12/26/2019 No acute intracranial findings. Exam moderately compromised by motion artifact although diagnostic. Extensive atrophy and small vessel disease. No intracranial mass or pathologic enhancement. -stroke is unlikely, patient proceeded to orthopedic surgery on 12/26/2019, post- operatively patient continues to have facial asymmetry with is visible with speech but no other focal symptoms other than poor orientation to the hospital setting. -patient's at the bedside on 12/28/2019 reports that patient may have Parkinson's disease or dementia that was not formally diagnosed as outpatient, baseline often forgetful at home, and that patient's facial features of facial asymmetry is baseline Troponin level elevated: Per Dr. Jose Mcfadden's notes: -elevated troponins from demand ischemia -the overnight babysitter was concerned that patient with more confusion and workup by nocturnalist Dr. Garcia included troponins of which were elevated as 2.7 on night time of 12/27/2019, Dr. Garcia reports he discussed with orthopedics to allow for IV heparin to be started because of elevated troponins. IV heparin was started. Second troponin 2.95 in AM of 12/28/2019. On 12/28/2019 morning exam by day time hospitalist, patient awake and not as agitated as he was on . Patient denied pain of the chest or abdomen or of the legs. -12/28/2019: discussed with Dr. Azul from cardiology that patient's echocardiogram reflects old infarction which does not reflect elevated troponins on this hospital stay; Dr. Azul advised no further IV heparin and give beta leonides treatment BPH (benign prostatic hyperplasia): -tamsulosin and finasteride Hematuria following pulling anderson Had urinary retention afterwards. Anderson had to be placed again Anderson was removed yesterday but still retaining Will place back anderson. Will likely be discharged on anderson and to follow up urology outpatient for continued evaluation and management 01/15/2020 Continue Anderson catheter Goals of care Patient not yet ready to transition to alf facility mainly from dehydration, hyponatremia, from poor oral intake IV fluids restarted, will need to discuss with nutrition service DVT ppx- hep sq Admission and Anticipated Discharge Date Admission Date: December 25, 2019 Subjective Follow-up for status post left hip surgery, sepsis, encephalopathy, acute renal failure Seen resting in bed, mostly sleeping, appears weak Opens eyes to verbal stimuli, does not follow commands, mumbles words Not in distress, breathing with accessory muscle use Appetite still poor No other signs or symptoms per mine engineering supervisor of Systems Review of Systems: Unobtainable due to cognitive status Physical Exam Physical Exam: General-lethargic, breathing with no effort or accessory muscle use Eyes- anicteric Neck- no JVD Lungs- clear breath sounds bilaterally Heart- normal rate, regular rhythm; no murmurs Abdomen- normal bowel sounds, nondistended, soft, nontender Extremities- no pretibial edema, no calf tenderness Left hip surgical site benign, no signs of infection Neuro-lethargic Skin- warm & dry Results & Data Results & Data ([facility]) Vital Signs (Past 12 Hours) Vital Signs Temp Pulse Resp BP Pulse Ox 01/16/20 16:18 36.8 C 98 H 14 116/64 90 Laboratory Results Laboratory Results - last 24 hr 01/17/20 01/17/20 01/17/20 07:58 09:18 10:25 WBC 13.04 H RBC 4.07 L Hgb 11.4 L Hct 36.4 L MCV 89.4 MCH 28.0 MCHC 31.3 L RDW Std Deviation 47.8 H RDW Coeff of Inocencio 14.8 H Plt Count 180 MPV 11.1 H Immature Gran % (Auto) 0.5 Neut % (Auto) 86.1 Lymph % (Auto) 9.3 [place] % (Auto) 3.0 Eos % (Auto) 1.0 Baso % (Auto) 0.1 Neut # (Auto) 11.23 H Lymph # (Auto) 1.21 [place] # (Auto) 0.39 Eos # (Auto) 0.13 Baso # (Auto) 0.01 Immature Gran # (Auto) 0.07 H Sodium 151 H Potassium 4.0 Chloride 120 H Carbon Dioxide 26 Anion Gap 5.0 BUN 27 H Creatinine 1.51 H Est Cr Clr Drug Dosing 37.1 Est GFR ( Amer) 48.8 Est GFR (Non-Af Amer) 42.1 BUN/Creatinine Ratio 18.1 Glucose 125 H Calcium 9.3 (1) Fall Encounter type: initial encounter Qualified Code(s): W19.XXXA - Unspecified fall, initial encounter
[2020-01-16] MEDS: SENNA 8.6 MG TAB PO SCH (21:49)
[2020-01-16] MEDS: ACETAMINOPHEN 325 MG TAB PO PRN (21:52)
[2020-01-17] MEDS: D5W AND 1/2NSS + 20MEQ KCL 20 MEQ/1,000 ML BAG IV SCH (00:36)
[2020-01-17] MEDS: hydrALAZINE HCL 25 MG TAB PO SCH ×3 (05:44→22:10)
[2020-01-17 08:53] LABS: BUN Creatinine Ratio 18.1 (10-20); Calcium 9.3 mg/dl (8.5-10.1); Creatinine Clr Calc Pharmacy 37.1 ml/min; Est GFR (African American) 48.8; Est GFR (Non-African American) 42.1
[2020-01-17] MEDS: MENTHOL-ZINC OXIDE 360 APPLN/120 GM TUBE EXT SCH ×2 (09:37→22:05)
[2020-01-17] MEDS: TAMSULOSIN HCL 0.4 MG CAP PO SCH (09:38)
[2020-01-17] MEDS: FLUCONAZOLE SUSP 40 MG/ML 35 ML PO SCH (09:38)
[2020-01-17] MEDS: MULTIVITAMIN CHEWABLE TAB PO SCH (09:39)
[2020-01-17] MEDS: FINASTERIDE 5 MG TAB PO SCH (09:39)
[2020-01-17] MEDS: amLODIPine BESYLATE 5 MG TAB PO SCH (09:39)
[2020-01-17] MEDS: HEPARIN SOD 5,000 UNIT/0.5 ML VIAL SQ SCH ×2 (09:40→22:06)
--- NOTE | 2020-01-17 10:22 | Nephrology Progress Note ---
Date of Service January 17, 2020 Assessment & Plan (1) KEO (acute kidney injury): Patient with acute kidney injury due to ischemic ATN in setting of sepsis. [place] brown casts on microscopy. He responded well to fluid resuscitation. Creatinine today 1.5 and BUN of 27. -avoid nephrotoxins such as contrast and NSAIDs. daily bmp >K had normalized w/ NG supplementation; now dropping>>add to IVF as below (2) Hypernatremia: Patient with hypernatremia due to inadequate water intake. Na on slow uptrend w/o NGT/FWFlushes -Monitor Na daily -We will resume D5 water at 80 mL/h (3) Hypertension: Target systolic of 140-150/90. Avoid aggressive BP control in setting of active infection and Keo. on low dose CCB standing and prn hydralazine given only once so far -cont CCB 5 mg daily -cont w/ hold parameters hydralazine 5 mg IV q8h; cont prn hydral current dose - Avoid KAVON at the moment. (4) Acute delirium: Due to hip fracture and underlying dementia in the setting of fungemia. Continue on Anti biotics head CT negative. repeat blood cxs 01/03 NGTD -inf dzs has seen pt; no obvious vegs on TTE; ophto cs/ pending -palliative care following. Admission and Anticipated Discharge Date Admission Date: December 25, 2019 Subjective Patient unable to give history but moans and groans. Sodium is high at 151 Review of Systems Review of Systems: Unobtainable due to cognitive status Physical Exam Physical Exam: General exam: Appears comfortable, no acute distress. Has NG tube and getting tube feeds HEENT: Pupils are equal and reactive to light Neck: No JVD, neck is supple trachea is midline Respiratory system: Clear breath sounds bilaterally. Gastrointestinal: Abdomen is soft, non distended, non tender, bowel sounds are present CVS: Regular rate and rhythm. No murmurs, rubs or gallops Musculoskeletal: No joint or muscle tenderness Extremities: Non tender, no edema, peripheral pulses are present Neuro: Does not answer questions but awake Skin: No rashes Results & Data ([facility]) Vital Signs (Past 12 Hours) Vital Signs Temp Pulse Resp BP Pulse Ox 01/17/20 08:50 36.5 C 93 H 22 125/59 L 95 01/16/20 23:25 36.5 C 90 17 119/70 92 Laboratory Results 01/17/20 09:18 01/16/20 11:49 Phosphorus 2.8 (1) Hypertension Hypertension type: essential hypertension Qualified Code(s): I10 - Essential (primary) hypertension
[2020-01-17] MEDS: DEXTROSE 5% 1,000 ML IV SCH ×2 (10:32→22:13)
[2020-01-17 10:49] LABS: Basophils # (auto) 0.01 K/uL (0-0.2); Basophils % (auto) 0.1 %; Eosinophils # (auto) 0.13 K/uL (0-0.5); Hematocrit (blood only) 36.4 % (42-52); Hemoglobin 11.4 g/dL (14.0-18.0); Immature Granulocytes # (auto) 0.07 K/uL (0.00-0.02); Immature Granulocytes % (auto) 0.5 %; Lymphocytes # (auto) 1.21 K/uL (1.2-3.4); Lymphocytes % (auto) 9.3 %; Mean Corpuscular Hgb Conc 31.3 g/dL (32-36); Mean Corpuscular Volume 89.4 fL (80-100); Mean Platelet Volume 11.1 fL (7.4-10.4); Monocytes # (auto) 0.39 K/uL (0.11-0.59); Neutrophils # (auto) 11.23 K/uL (1.4-6.5); Neutrophils % (auto) 86.1 %; Platelet Count 180 K/uL (130-400); RDW Coefficient of Variation 14.8 % (11.5-14.5); RDW Standard Deviation 47.8 fL (36.4-46.3); Red Blood Count 4.07 M/uL (4.7-6.1); White Blood Count 13.04 K/uL (4.8-10.8)
--- NOTE | 2020-01-17 20:22 | Hospitalist Progress Note ---
Date of Service January 17, 2020 Assessment & Plan (1) Fall: per Dr. Couch's notes with addendum by undersigned 84-year-old male with history of hypertension BPH presenting with left hip fracture status post fall. Prolonged hospital course (1) Fall: -From H&P on 12/25/19 that "This is a 84 year old Male who was at home and reportedly was got up after sleeping in the night time and fell down several feet from where he was sleeping as per his Dorina ([phone]). Patient appears to have auditory impairment and most of the history provided by his at the bedside. Patient apparently did not have loss of consciousness as he called out for help. Patient was brought to the ED and found to have Mildly displaced left femoral neck fracture. Patient also seen to be hypertensive in the ED likely because of underlying hypertension which is exacerbated by pain from the fall injury. Patient has anderson placed in the ED and urine analysis noted to have bacteria and ED provider started ceftriaxone antibiotic. Patient also noted to have redness of medial left thigh and patient's reports that patient often wets himself from urination and does not keep the area dry as it should be." (2) Closed fracture of left hip: -s/p Left hip hemiarthroplasty on 12/26/2019 Postoperative course complicated by delirium with poor appetite, not cooperative with taking p.o. medications, 1:1 placed--> DC oxycodone and Dilaudid, Ativan--> somewhat improved Also treated with Unasyn for enterococcus UTI Subsequently developed fever, leukocytosis up to 30,000, acute renal failure with creatinine increasing to 3, associated with decreased responsiveness Aspiration suspected, transferred to ICU, eventually intubated, G-tube placed Found to have possible aspiration pneumonia, fungemia and yeast in urine culture Orthopedic service does not feel surgical wound is infected Given daptomycin, Zosyn, caspofungin with improvement in fever, leukocytosis Extubated 1 day later Post extubation, patient's mental status improving although gradually Now more awake, follows simple commands, but still confused NG tube withdrawn, now transitioned to p.o. diet by speech therapist, may have dysphagia secondary to intubation Continue pureed diet with aspiration precautions with assistance 01/14/2020 stable overall however, cognitive status still poor only mumbles words, follows few simple commands appetite poor continue PT/OT, will need SNF will discuss with Spot Washer 01/15/2020 Very poor appetite Cognitive status about the same Requires 2 person assist with sitting up in bed Patient appears very deconditioned, with poor oral intake and further cognitive decline postoperatively Patient clinically dehydrated from poor oral intake, D5 half NSS with potassium ordered Will discuss with nutrition service Continue PT and OT evaluation Patient not yet ready for position to half-way facility 01/16/2020 Discussed with patient's in detail Will need to improve patient's nutritional intake in hopes of improving cognitive status, participation with PT and OT Start with tube feeding 01/17/2020 More awake and alert Tolerating tube feeding Continue to monitor Severe sepsis Enterococcus faecalis UTI Aspiration pneumonia with acute renal failure UTI treatment completed Aspiration precautions Fevers resolved CXR: R base infiltrates Per Ortho, left hip infection unlikely Fungemia Blood cultures 01/01: (+) 2/2 bottle is positive for yeast (not kristin albicans/dub) Urine culture 01/01: kristin glabrata complex Sputum culture 01/01 - yeast not kristin albicans Repeat blood cultures 01/03 - Negative so far Spoke with lab on 01/08/20 and they sent out sensitivities on the fungal cultures No vegetations noted in Echo Ophthalmology evaluation noted. No signs of fungal endophthalmitis on ophthalmology exam Discussed with ID Dr Moore on 01/12/20 Since patient has cleared fungus from last blood culture, he recommended to arias ge to fluconazole to complete 2 weeks therapy Continue fluconazole 01/15/20 afebrile continue Fluconazole x2 more days to complete 2 weeks therapy Acute metabolic encephalopathy: Likely multifactorial from hip fracture, status post surgery, analgesics, underlying dementia, sepsis -Stroke code called on 12/26/2019 as documented below in regards to facial asymmetry; no acute CVA -Patient still does not follow much commands, still mumbles words Acute renal failure on CKD 3 Creatinine increased from 0.8 to 3.1 At one point volume overload was noted given falls and lower extremity edema, given IV Lasix Creatinine now 1.2 Patient occasionally refusing diet or meds crea stable Hypernatremia Sodium 151 D5 water ordered Infant Toddler Lead Teacher on board Hypertension: Now better controlled with addition of hydralazine -Usual p.o. medication (lisinopril) on hold Pressure on the lower side, dehydrated IV fluids started Facial asymmetry, Acute CVA ruled out Per Dr. Jose Mcfadden's notes: -CT head on 12/25/2019 presentation without acute findings but mentioned Old lacunar infarct within the right thalamus -in the AM of 12/26/2019, patient was speaking more to medical team. However he has facial asymmetry more pronounced when speaking (able to talk more with right side of the mouth compared to the left). A stroke alert was called to expedite CT head scan and brain MRI. Patient able to answer some questions about his name and he does not express acute symptoms. He moves the upper extremities. He has left femoral neck fracture and his legs are in waffle boots -CT head 12/26/2019: No acute intracranial findings patient with not CT head finding of stroke and is likely not a candidate for TPA because of unclear chronicity of facial asymmetry -MRI Brain 12/26/2019 No acute intracranial findings. Exam moderately compromised by motion artifact although diagnostic. Extensive atrophy and small vessel disease. No intracranial mass or pathologic enhancement. -stroke is unlikely, patient proceeded to orthopedic surgery on 12/26/2019, post- operatively patient continues to have facial asymmetry with is visible with speech but no other focal symptoms other than poor orientation to the hospital setting. -patient's at the bedside on 12/28/2019 reports that patient may have P arkinson's disease or dementia that was not formally diagnosed as outpatient, baseline often forgetful at home, and that patient's facial features of facial asymmetry is baseline Troponin level elevated: Per Dr. Jose Mcfadden's notes: -elevated troponins from demand ischemia -the overnight caregiver was concerned that patient with more confusion and workup by nocturnalist Dr. Garcia included troponins of which were elevated as 2.7 on night time of 12/27/2019, Dr. Garcia reports he discussed with orthopedics to allow for IV heparin to be started because of elevated troponins. IV heparin was started. Second troponin 2.95 in AM of 12/28/2019. On 12/28/2019 morning exam by day time hospitalist, patient awake and not as agitated as he was on . Patient denied pain of the chest or abdomen or of the legs. -12/28/2019: discussed with Dr. Azul from cardiology that patient's echocardiogram reflects old infarction which does not reflect elevated troponins on this hospital stay; Dr. Azul advised no further IV heparin and give beta leonides treatment BPH (benign prostatic hyperplasia): -tamsulosin and finasteride Hematuria following pulling anderson Had urinary retention afterwards. Anderson had to be placed again Anderson was removed yesterday but still retaining Will place back anderson. Will likely be discharged on anderson and to follow up ur ology outpatient for continued evaluation and management 01/15/2020 Continue Anderson catheter Goals of care Patient not yet ready to transition to half-way facility mainly from dehydration, hyponatremia, from poor oral intake IV fluids restarted, will need to discuss with nutrition service DVT ppx- hep sq Admission and Anticipated Discharge Date Admission Date: December 25, 2019 Subjective Follow-up for status post left hip surgery, sepsis, weakness Seen with patient's sons at the bedside Sitting up, more awake, answers in short sentences Mostly confused Not in distress Denies pain No shortness of breath, nausea Tolerating tube feeding well No other symptoms Review of Systems Review of Systems: Unobtainable due to cognitive status Physical Exam Physical Exam: General-not oriented, not in distress, speaks in sentences with no effort or accessory muscle use Eyes- anicteric Neck- no JVD Lungs- clear breath sounds bilaterally Heart- normal rate, regular rhythm; no murmurs Abdomen- normal bowel sounds, nondistended, soft, nontender Extremities- no pretibial edema, no calf tenderness Left hip surgical site benign, no infection Neuro- alert, not oriented, no new gross focal neurologic deficits Skin- warm & dry Results & Data Results & Data ([facility]) Vital Signs (Past 12 Hours) Vital Signs Temp Pulse Resp BP BP Pulse Ox 01/17/20 15:29 36.8 C 16 116/73 01/17/20 13:54 96 H 131/48 L 01/17/20 08:50 36.5 C 93 H 22 125/59 L 95 Laboratory Results Laboratory Results - last 24 hr 01/17/20 01/17/20 01/17/20 07:58 09:18 10:25 WBC 13.04 H RBC 4.07 L Hgb 11.4 L Hct 36.4 L MCV 89.4 MCH 28.0 MCHC 31.3 L RDW Std Deviation 47.8 H RDW Coeff of Inocencio 14.8 H Plt Count 180 MPV 11.1 H Immature Gran % (Auto) 0.5 Neut % (Auto) 86.1 Lymph % (Auto) 9.3 [place] % (Auto) 3.0 Eos % (Auto) 1.0 Baso % (Auto) 0.1 Neut # (Auto) 11.23 H Lymph # (Auto) 1.21 [place] # (Auto) 0.39 Eos # (Auto) 0.13 Baso # (Auto) 0.01 Immature Gran # (Auto) 0.07 H Sodium 151 H Potassium 4.0 Chloride 120 H Carbon Dioxide 26 Anion Gap 5.0 BUN 27 H Creatinine 1.51 H Est Cr Clr Drug Dosing 37.1 Est GFR ( Amer) 48.8 Est GFR (Non-Af Amer) 42.1 BUN/Creatinine Ratio 18.1 Glucose 125 H Calcium 9.3 (1) Fall Encounter type: initial encounter Qualified Code(s): W19.XXXA - Unspecified fall, initial encounter
[2020-01-17] MEDS: SENNA 8.6 MG TAB PO SCH ×2 (22:11→22:13)
[2020-01-18] MEDS ORDERED: ALBUT/IPRATROP 3MG/0.5MG NEB 3 ML VIAL NEB STA (02:33)
[2020-01-18] MEDS ORDERED: AMPICILLIN/SULBACTAM SOD 3,000 MG in 0.9 % SODIUM CHLORIDE 100 ML IV STA (02:38)
--- NOTE | 2020-01-18 02:38 | Communication Note ---
Date of Service: January 18, 2020 Patient with gurgling respiration and junky cough symptoms as per RN. Tube feed residue obtained from mouth. Chest x-ray as per my interpretation atelectasis, possible infiltrate right AP Aspiration pneumonitis Unasyn Hold tube feeds for now. Continue aspiration precautions. Will relay to AM provider.
[2020-01-18 03:27] LABS: Basophils # (auto) 0.02 K/uL (0-0.2); Basophils % (auto) 0.1 %; Eosinophils # (auto) 0.11 K/uL (0-0.5); Eosinophils % (auto) 0.8 %; Hematocrit (blood only) 36.6 % (42-52); Hemoglobin 11.3 g/dL (14.0-18.0); Immature Granulocytes # (auto) 0.06 K/uL (0.00-0.02); Immature Granulocytes % (auto) 0.4 %; Lymphocytes # (auto) 1.28 K/uL (1.2-3.4); Lymphocytes % (auto) 9.5 %; Mean Corpuscular Hgb Conc 30.9 g/dL (32-36); Mean Corpuscular Volume 90.6 fL (80-100); Mean Platelet Volume 10.6 fL (7.4-10.4); Monocytes # (auto) 0.71 K/uL (0.11-0.59); Monocytes % (auto) 5.3 %; Neutrophils # (auto) 11.23 K/uL (1.4-6.5); Neutrophils % (auto) 83.9 %; Platelet Count 150 K/uL (130-400); RDW Coefficient of Variation 14.8 % (11.5-14.5); RDW Standard Deviation 48.8 fL (36.4-46.3); Red Blood Count 4.04 M/uL (4.7-6.1); White Blood Count 13.41 K/uL (4.8-10.8)
[2020-01-18 03:59] LABS: Appearance Urine Turbid (Clear); Bilirubin Urine Negative (Negative); Blood Urine 2+ (Negative); Color Urine Yellow; Epithelial Cell Urine Auto >30 /lpf (0-5); Glucose Urine UA Negative (Negative); Ketones Urine Negative (Negative); Leukocyte Esterase Urine 2+ (Negative); Nitrite Urine Negative (Negative); Protein Urine Negative (Negative); Specific Gravity Urine 1.022 (1.000-1.030); Urobilinogen Urine Negative (Negative); WBC Urine Automated >30 /hpf (0-5)
[2020-01-18 04:20] LABS: Mucus Urine Present (None Prsent)
[2020-01-18 04:22] LABS: Sperm Urine Present (None Prsent)
[2020-01-18 04:23] LABS: Bacteria Urine Automated 2+ (Negative)
[2020-01-18 04:24] LABS: Uric Acid Crystals Urine Present (None Prsent)
[2020-01-18] MEDS ORDERED: methylPREDNISolone 20 MG in SYRINGE 0 ML IV STA (04:46)
[2020-01-18 05:14] LABS: Albumin Level 2.5 gm/dl (3.4-5.0); BUN Creatinine Ratio 18.7 (10-20); Bilirubin Direct 0.2 mg/dl (0-0.2); Calcium 9.2 mg/dl (8.5-10.1); Est GFR (African American) 53.5; Est GFR (Non-African American) 46.1; Magnesium 2.3 mg/dl (1.8-2.4); Potassium 3.9 mmol/L (3.5-5.1)
[2020-01-18 05:17] LABS: Bilirubin,Total 0.6 mg/dl (0.2-1); Total Protein 6.4 gm/dl (6.4-8.2)
[2020-01-18] MEDS: hydrALAZINE HCL 25 MG TAB PO SCH ×2 (06:05→22:17)
[2020-01-18] MEDS: MENTHOL-ZINC OXIDE 360 APPLN/120 GM TUBE EXT SCH ×2 (08:24→22:18)
--- NOTE | 2020-01-18 08:52 | XRay Report ---
XR chest 1V portable CLINICAL HISTORY: Respiratory difficulty. COMPARISON STUDY: Chest radiograph January 05, 2020. FINDINGS: Tip of nasogastric tube is within the body of the stomach. There is no pneumothorax or pleu ral effusion. There is no evidence for pulmonary edema. Cardiac size is normal. Mediastinal contours are normal. There is mild right lung base opacity. IMPRESSION: Minimal right lower lung airspace opacity. ACT 112: Negative or not required by law. Electronically signed by: Brett Saenz M.D. 01/18/2020 8:51 AM
[2020-01-18] MEDS ORDERED: AMPICILLIN/SULBACTAM CONSULT ACTIVE PRN (09:00)
[2020-01-18] MEDS: AMPICILLIN/SULBACTAM SOD 3,000 MG in 0.9 % SODIUM CHLORIDE 100 ML IV SCH ×2 (09:57→15:24)
[2020-01-18] MEDS: TAMSULOSIN HCL 0.4 MG CAP PO SCH (10:02)
[2020-01-18] MEDS: HEPARIN SOD 5,000 UNIT/0.5 ML VIAL SQ SCH ×2 (10:02→22:12)
[2020-01-18] MEDS: FLUCONAZOLE SUSP 40 MG/ML 35 ML PO SCH (10:02)
[2020-01-18] MEDS: FINASTERIDE 5 MG TAB PO SCH (10:03)
[2020-01-18] MEDS: MULTIVITAMIN CHEWABLE TAB PO SCH (10:03)
[2020-01-18] MEDS: amLODIPine BESYLATE 5 MG TAB PO SCH (10:03)
--- NOTE | 2020-01-18 10:03 | CT Scan Report ---
CT SCAN OF THE CHEST WITHOUT IV CONTRAST CLINICAL HISTORY: Dyspnea. COMPARISON STUDY: Chest x-ray dated 01/17/2020. TECHNIQUE: CT scan of the thorax was performed from the thoracic inlet to the upper abdomen. Images are reviewed in the axial, sagittal, and coronal planes. IV contrast was not administered for this ex amination as per the referring clinician. A dose lowering technique was utilized adhering to the stephanie nciples of ANKIT. The examination is degraded by streak artifact from the arms which could not be scott vated above the chest as well as by motion. CT DOSE: 1279.07 mGy.cm FINDINGS: Thyroid: Imaged portions of the thyroid gland are normal in size and attenuation. Thoracic aorta: The thoracic aorta is normal in caliber and demonstrates standard 3-vessel arch anato my. Heart: The heart is top normal in size and without pericardial effusion. There are coronary artery ca lcifications. Lungs and pleural spaces: Evaluation of the lung parenchyma is degraded by motion artifact. There is trace right pleural effusion and bibasilar atelectasis no airspace consolidation is seen typical for pneumonia. The trachea and central airways are clear. Mediastinum: There is no mediastinal lymphadenopathy. Tona: Not well assessed without IV contrast. Axillae: There is no axillary lymphadenopathy. Upper abdomen: An enteric tube terminates in the stomach. Partially visualized upper abdominal viscer a is otherwise within normal limits. Skeletal structures: The skeletal structures are osteopenic. Degenerative change and hyperkyphosis is noted in the thoracic spine. No lytic or blastic bony lesions are seen. IMPRESSION: 1. Streak and motion degraded examination. 2. There is no airspace consolidation typical for pneumonia. 3. Trace right pleural effusion and bibasilar atelectasis. 4. An enteric tube is in appropriate position. 5. Additional findings as above. ACT 112: Negative or not required by law. Electronically signed by: Eddie Gil M.D. 01/18/2020 10:02 AM
--- NOTE | 2020-01-18 10:07 | CT Scan Report ---
CT SCAN OF THE BRAIN WITHOUT IV CONTRAST CLINICAL HISTORY: Change in mental status. COMPARISON STUDY: CT of the brain dated 01/05/2020. TECHNIQUE: Unenhanced axial CT scan of the brain is performed from the vertex to the skull base. A do se lowering technique was utilized adhering to the principles of ALARA. The examination is degraded b y motion artifact. FINDINGS: An enteric tube is in place. Brain parenchyma: There are age-related involutional changes noting moderate to advanced confluent s ubcortical and periventricular microangiopathic change. There is no hemorrhage, mass effect, or evide nce of acute territorial ischemia by CT criteria. Chronic lacunar infarcts are seen in both thalami. Mineralization is noted in the basal ganglia. Steel-white matter differentiation is preserved. No extr a-axial fluid collection is seen. Ventricles, sulci, cisterns: Prominent secondary to involutional change. Intracranial vasculature: There is atherosclerotic calcification of the cavernous carotid and vertebr al arteries. Calvarium: Unremarkable. Sinuses and mastoids: The paranasal sinuses are clear. There is trace left mastoid effusion. The righ t mastoid air cells are well pneumatized. Orbits: The bony orbits are grossly intact. IMPRESSION: There is no hemorrhage, mass effect, or evidence of acute territorial ischemia by CT kieran shelton. ACT 112: Negative or not required by law. Electronically signed by: Eddie Gil M.D. 01/18/2020 10:06 AM
--- NOTE | 2020-01-18 11:00 | Nephrology Progress Note ---
Date of Service January 18, 2020 Assessment & Plan (1) KEO (acute kidney injury): Patient with acute kidney injury due to ischemic ATN in setting of sepsis. [place] brown casts on microscopy. He responded well to fluid resuscitation. Creatinine today 1.4 and BUN of 26. -avoid nephrotoxins such as contrast and NSAIDs. daily bmp >K had normalized w/ NG supplementation; now dropping>>add to IVF as below (2) Hypernatremia: Patient with hypernatremia due to inadequate water intake. Na on slow uptrend w/o NGT/FWFlushes -Monitor Na daily -We will continue D5 water at 80 mL/h (3) Hypertension: Target systolic of 140-150/90. Avoid aggressive BP control in setting of active infection and Keo. on low dose CCB standing and prn hydralazine given only once so far -cont CCB 5 mg daily -cont w/ hold parameters hydralazine 5 mg IV q8h; cont prn hydral current dose - Avoid KAVON at the moment. (4) Acute delirium: Due to hip fracture and underlying dementia in the setting of fungemia. Continue on Anti biotics head CT negative. repeat blood cxs 01/03 NGTD -inf dzs has seen pt; no obvious vegs on TTE; ophto cs/ pending -palliative care following. Admission and Anticipated Discharge Date Admission Date: December 25, 2019 Subjective Patient is unable to give history. He continues D5 water and sodium is downtrending to 148. He had a CT chest and head this morning Review of Systems Review of Systems: Unobtainable due to cognitive status Physical Exam Physical Exam: General exam: Appears comfortable, no acute distress, has NG tube HEENT: Pupils are equal and reactive to light Neck: No JVD, neck is supple trachea is midline Respiratory system: Clear breath sounds bilaterally. Gastrointestinal: Abdomen is soft, non distended, non tender, bowel sounds are present CVS: Regular rate and rhythm. No murmurs, rubs or gallops Musculoskeletal: No joint or muscle tenderness Extremities: Non tender, no edema, peripheral pulses are present Neuro: Does not answer questions, moans and groans Skin: No rashes Results & Data ([facility]) Vital Signs (Past 12 Hours) Vital Signs Temp Pulse Resp BP BP Pulse Ox 01/18/20 07:21 36.6 C 70 20 113/53 L 100 10/11/20 06:07 85 20 121/64 98 01/18/20 03:01 101 H 22 97 01/18/20 01:52 100 01/17/20 23:23 36.6 C 90 24 129/55 L 90 Laboratory Results 01/18/20 03:05 01/18/20 01/18/20 03:05 03:05 WBC 13.41 H RBC 4.04 L MCV 90.6 MCH 28.0 MCHC 30.9 L RDW Std Deviation 48.8 H RDW Coeff of Inocencio 14.8 H Plt Count 150 MPV 10.6 H Albumin 2.5 L (1) Hypertension Hypertension type: essential hypertension Qualified Code(s): I10 - Essential (primary) hypertension
[2020-01-18] MEDS: DEXTROSE 5% 1,000 ML IV SCH ×2 (11:18→22:18)
--- NOTE | 2020-01-18 15:01 | XRay Report ---
SINGLE VIEW CHEST CLINICAL HISTORY: Enteric tube placement. FINDINGS: An AP, portable, upright chest radiograph is compared to study dated 01/17/2020 and correla ananth with chest CT performed earlier the same day 01/18/2020. The examination is degraded by portable technique and patient rotation. An enteric tube is in place. The tip is located below the diaphragm o bjects over the proximal stomach. The sideholes are located at the level of the diaphragm and this sh ould likely be advanced. The cardiomediastinal silhouette is unremarkable. There is elevation of the right hemidiaphragm with associated atelectasis. No airspace consolidation or large pleural effusion is identified. No pneumothorax is seen. The skeletal structures are osteopenic. The bony thorax is gr ossly intact. IMPRESSION: 1. An enteric tube is in place as above. The side holes project at the level of the diaphragm and thi s should likely be advanced. 2. No airspace consolidation or large pleural effusion is identified. ACT 112: Negative or not required by law. Electronically signed by: Eddie Gil M.D. 01/18/2020 3:00 PM
[2020-01-18] MEDS ORDERED: Nursing to Pharmacy Communication SCH (15:30)
--- NOTE | 2020-01-18 16:03 | XRay Report ---
SINGLE VIEW CHEST CLINICAL HISTORY: Enteric tube placement. FINDINGS: An AP, portable, upright chest radiograph is compared to chest x-ray and chest CT performed earlier the same day 01/18/2020. The examination is significantly degraded by portable technique and patient rotation. An enteric tube is in place. The tip is located below the diaphragm end projects o moe the proximal stomach. The sideholes are just below the level of the diaphragm. The cardiomediasti nal silhouette is unremarkable. There is elevation of the right hemidiaphragm with associated atelect asis. No airspace consolidation or large pleural effusion is identified. No pneumothorax is seen. The skeletal structures are osteopenic. The bony thorax is grossly intact. IMPRESSION: 1. The enteric tube has been minimally advanced from previous. The sideholes now projects just below the diaphragm. 2. No airspace consolidation or large pleural effusion is identified. ACT 112: Negative or not required by law. Electronically signed by: Eddie Gil M.D. 01/18/2020 4:01 PM
--- NOTE | 2020-01-18 20:38 | Hospitalist Progress Note ---
Date of Service January 18, 2020 Assessment & Plan (1) Fall: per Dr. Couch's notes with addendum by undersigned 84-year-old male with history of hypertension BPH presenting with left hip fracture status post fall. Prolonged hospital course (1) Fall: -From H&P on 12/25/19 that "This is a 84 year old Male who was at home and reportedly was got up after sleeping in the night time and fell down several feet from where he was sleeping as per his Dorina ([phone]). Patient appears to have auditory impairment and most of the history provided by his at the bedside. Patient apparently did not have loss of consciousness as he called out for help. Patient was brought to the ED and found to have Mildly displaced left femoral neck fracture. Patient also seen to be hypertensive in the ED likely because of underlying hypertension which is exacerbated by pain from the fall injury. Patient has anderson placed in the ED and urine analysis noted to have bacteria and ED provider started ceftriaxone antibiotic. Patient also noted to have redness of medial left thigh and patient's reports that patient often wets himself from urination and does not keep the area dry as it should be." (2) Closed fracture of left hip: -s/p Left hip hemiarthroplasty on 12/26/2019 Postoperative course complicated by delirium with poor appetite, not cooperative with taking p.o. medications, 1:1 placed--> DC oxycodone and Dilaudid, Ativan--> somewhat improved Also treated with Unasyn for enterococcus UTI Subsequently developed fever, leukocytosis up to 30,000, acute renal failure with creatinine increasing to 3, associated with decreased responsiveness Aspiration suspected, transferred to ICU, eventually intubated, G-tube placed Found to have possible aspiration pneumonia, fungemia and yeast in urine culture Orthopedic service does not feel surgical wound is infected Given daptomycin, Zosyn, caspofungin with improvement in fever, leukocytosis Extubated 1 day later Post extubation, patient's mental status improving although gradually Now more awake, follows simple commands, but still confused NG tube withdrawn, now transitioned to p.o. diet by speech therapist, may have dysphagia secondary to intubation Continue pureed diet with aspiration precautions with assistance 01/14/2020 stable overall however, cognitive status still poor only mumbles words, follows few simple commands appetite poor continue PT/OT, will need SNF will discuss with Folder Inspector 01/15/2020 Very poor appetite Cognitive status about the same Requires 2 person assist with sitting up in bed Patient appears very deconditioned, with poor oral intake and further cognitive decline postoperatively Patient clinically dehydrated from poor oral intake, D5 half NSS with potassium ordered Will discuss with nutrition service Continue PT and OT evaluation Patient not yet ready for position to group home facility 01/16/2020 Discussed with patient's in detail Will need to improve patient's nutritional intake in hopes of improving cognitive status, participation with PT and OT Start with tube feeding 01/17/2020 More awake and alert Tolerating tube feeding Continue to monitor 01/18/2020 CT chest: No signs of aspiration Tube feeding resumed, maximum volume changed to 35 cc/h Continue to monitor Severe sepsis Enterococcus faecalis UTI Aspiration pneumonia with acute renal failure UTI treatment completed Aspiration precautions Fevers resolved CXR: R base infiltrates Per Ortho, left hip infection unlikely Fungemia Blood cultures 01/01: (+) 2/2 bottle is positive for yeast (not kristin albicans/dub) Urine culture 01/01: kristin glabrata complex Sputum culture 01/01 - yeast not kristin albicans Repeat blood cultures 01/03 - Negative so far Spoke with lab on 01/08/20 and they sent out sensitivities on the fungal cultures No vegetations noted in Echo Ophthalmology evaluation noted. No signs of fungal endophthalmitis on ophthalmology exam Discussed with ID Dr Moore on 01/12/20 Since patient has cleared fungus from last blood culture, he recommended to change to fluconazole to complete 2 weeks therapy Continue fluconazole afebrile Completed fluconazole x2 weeks Acute metabolic encephalopathy: Likely multifactorial from hip fracture, status post surgery, analgesics, underlying dementia, sepsis -Stroke code called on 12/26/2019 as documented below in regards to facial asymmetry; no acute CVA -Patient still does not follow much commands, still mumbles words Acute renal failure on CKD 3 Creatinine increased from 0.8 to 3.1 At one point volume overload was noted given falls and lower extremity edema, given IV Lasix Creatinine now 1.4, stable Hypernatremia Sodium 148 Difficulty in placing IV access, even with ultrasound guidance Discussed with nephrology service, will start free water flushes, monitor sodium Hypertension: Now better controlled with addition of hydralazine -Usual p.o. medication (lisinopril) on hold Facial asymmetry, Acute CVA ruled out Per Dr. Jose Mcfadden's notes: -CT head on 12/25/2019 presentation without acute findings but mentioned Old lacunar infarct within the right thalamus -in the AM of 12/26/2019, patient was speaking more to medical team. However he has facial asymmetry more pronounced when speaking (able to talk more with right side of the mouth compared to the left). A stroke alert was called to expedite CT head scan and brain MRI. Patient able to answer some questions about his name and he does not express acute symptoms. He moves the upper extremities. He has left femoral neck fracture and his legs are in waffle boots -CT head 12/26/2019: No acute intracranial findings patient with not CT head finding of stroke and is likely not a candidate for TPA because of unclear chronicity of facial asymmetry -MRI Brain 12/26/2019 No acute intracranial findings. Exam moderately compromised by motion artifact although diagnostic. Extensive atrophy and small vessel disease. No intracranial mass or pathologic enhancement. -stroke is unlikely, patient proceeded to orthopedic surgery on 12/26/2019, post- operatively patient continues to have facial asymmetry with is visible with speech but no other focal symptoms other than poor orientation to the hospital setting. -patient's at the bedside on 12/28/2019 reports that patient may have Parkinson's disease or dementia that was not formally diagnosed as outpatient, baseline often forgetful at home, and that patient's facial features of facial asymmetry is baseline Troponin level elevated: Per Dr. Jose Mcfadden's notes: -elevated troponins from demand ischemia -the conduit helper was concerned that patient with more confusion and workup by nocturnalist Dr. Garcia included troponins of which were elevated as 2.7 on night time of 12/27/2019, Dr. Garcia reports he discussed with orthopedics to allow for IV heparin to be started because of elevated troponins. IV heparin was started. Second troponin 2.95 in AM of 12/28/2019. On 12/28/2019 morning exam by day time hospitalist, patient awake and not as agitated as he was on . Patient denied pain of the chest or abdomen or of the legs. -12/28/2019: discussed with Dr. Azul from cardiology that patient's echocardiogram reflects old infarction which does not reflect elevated troponins on this hospital stay; Dr. Azul advised no further IV heparin and give beta leonides treatment BPH (benign prostatic hyperplasia): -tamsulosin and finasteride Hematuria following pulling anderson Had urinary retention afterwards. Anderson had to be placed again Anderson was removed yesterday but still retaining Will place back anderson. Will likely be discharged on anderson and to follow up urology outpatient for continued evaluation and management Continue Anderson catheter Goals of care Patient not yet ready to transition to group home facility mainly from dehydration, hyponatremia, from poor oral intake We will discuss with palliative care service DVT ppx- hep sq Plan of care discussed with patient's and son Questions were answered They are understanding, agreeable, comfortable plan Admission and Anticipated Discharge Date Admission Date: December 25, 2019 Subjective ff up for left hip surgery, respiratory failure, sepsis, encephalopathy Seen sitting up in bed, more awake and alert, mumbles words Does not follow commands Nothing distress Denies pain No other symptoms Review of Systems Review of Systems: All systems reviewed & are unremarkable except as noted in Subjective Physical Exam Physical Exam: General-more alert, breathing with no effort or accessory muscle use Eyes- anicteric Neck- no JVD Lungs- clear breath sounds bilaterally, no crackles Heart- normal rate, regular rhythm; no murmurs Abdomen- normal bowel sounds, nondistended, soft, nontender Extremities- no pretibial edema, no calf tenderness Left hip surgical site benign, no signs of infection Neuro-alert oriented, no new gross focal deficits noted Skin- warm & dry Results & Data Results & Data ([facility]) Vital Signs (Past 12 Hours) Vital Signs Temp Pulse Resp BP Pulse Ox 01/18/20 15:06 36.5 C 83 20 137/60 90 (1) Fall Encounter type: initial encounter Qualified Code(s): W19.XXXA - Unspecified fall, initial encounter
[2020-01-18] MEDS: SENNA 8.6 MG TAB PO SCH (21:13)
[2020-01-18] MEDS: SENNOSIDES 8.8 MG/5 ML UDC GT SCH (22:17)
[2020-01-19 08:08] LABS: Creatinine Clr Calc Pharmacy 45.5 ml/min; Est GFR (African American) 62.5
[2020-01-19] MEDS: TAMSULOSIN HCL 0.4 MG CAP PO SCH (08:22)
[2020-01-19] MEDS: MULTIVITAMIN CHEWABLE TAB PO SCH (08:22)
[2020-01-19] MEDS: MENTHOL-ZINC OXIDE 360 APPLN/120 GM TUBE EXT SCH ×2 (08:23→20:40)
[2020-01-19] MEDS: FINASTERIDE 5 MG TAB PO SCH (08:23)
[2020-01-19] MEDS: amLODIPine BESYLATE 5 MG TAB PO SCH (08:24)
[2020-01-19] MEDS: hydrALAZINE HCL 25 MG TAB PO SCH ×2 (08:25→20:41)
[2020-01-19] MEDS: HEPARIN SOD 5,000 UNIT/0.5 ML VIAL SQ SCH ×2 (08:25→20:41)
[2020-01-19 09:11] LABS: BUN Creatinine Ratio 23.1 (10-20); Calcium 9.2 mg/dl (8.5-10.1); Creatinine Clr Calc Pharmacy 44.8 ml/min; Est GFR (African American) 61.3; Est GFR (Non-African American) 52.9; Potassium 3.5 mmol/L (3.5-5.1)
[2020-01-19] MEDS: SENNOSIDES 8.8 MG/5 ML UDC GT SCH (20:40)
--- NOTE | 2020-01-19 21:48 | Hospitalist Progress Note ---
Date of Service delayed entry date of service noted below January 19, 2020 Assessment & Plan (1) Status post fall: 84-year-old male with history of hypertension BPH presenting with left hip fracture status post fall. Prolonged hospital course (1) Fall: -From H&P on 12/25/19 that "This is a 84 year old Male who was at home and reportedly was got up after sleeping in the night time and fell down several feet from where he was sleeping as per his Dorina ([phone]). Patient kellen ears to have auditory impairment and most of the history provided by his at the bedside. Patient apparently did not have loss of consciousness as he called out for help. Patient was brought to the ED and found to have Mildly displaced left femoral neck fracture. Patient also seen to be hypertensive in the ED likely because of underlying hypertension which is exacerbated by pain from the fall injury. Patient has anderson placed in the ED and urine analysis noted to have bacteria and ED provider started ceftriaxone antibiotic. Patient also noted to have redness of medial left thigh and patient's reports that patient often wets himself from urination and does not keep the area dry as it should be." (2) Closed fracture of left hip: -s/p Left hip hemiarthroplasty on 12/26/2019 Postoperative course complicated by delirium with poor appetite, not cooperative with taking p.o. medications, 1:1 placed--> DC oxycodone and Dilaudid, Ativan--> somewhat improved Also treated with Unasyn for enterococcus UTI Subsequently developed fever, leukocytosis up to 30,000, acute renal failure with creatinine increasing to 3, associated with decreased responsiveness Aspiration suspected, transferred to ICU, eventually intubated, G-tube placed Found to have possible aspiration pneumonia, fungemia and yeast in urine culture Orthopedic service does not feel surgical wound is infected Given daptomycin, Zosyn, caspofungin with improvement in fever, leukocytosis Extubated 1 day later Post extubation, patient's mental status improving although gradually Now more awake, follows simple commands, but still confused NG tube withdrawn, now transitioned to p.o. diet by speech therapist, may have dysphagia secondary to intubation Continue pureed diet with aspiration precautions with assistance 01/14/2020 stable overall however, cognitive status still poor only mumbles words, follows few simple commands appetite poor continue PT/OT, will need SNF will discuss with [employer] Packer 01/15/2020 Very poor appetite Cognitive status about the same Requires 2 person assist with sitting up in bed Patient appears very deconditioned, with poor oral intake and further cognitive decline postoperatively Patient clinically dehydrated from poor oral intake, D5 half NSS with potassium ordered Will discuss with nutrition service Continue PT and OT evaluation Patient not yet ready for position to [facility] facility 01/16/2020 Discussed with patient's in detail Will need to improve patient's nutritional intake in hopes of improving cognitive status, participation with PT and OT Start with tube feeding 01/17/2020 More awake and alert Tolerating tube feeding Continue to monitor 01/18/2020 CT chest: No signs of aspiration Tube feeding resumed, maximum volume changed to 35 cc/h Continue to monitor 01/19/2020 more alert, conversant tolerating tube feeding well discussed with Speech Therapist--> patient to be re-evaluated for oral feeding Severe sepsis Enterococcus faecalis UTI Aspiration pneumonia with acute renal failure UTI treatment completed Aspiration precautions Fevers resolved CXR: R base infiltrates Per Ortho, left hip infection unlikely Fungemia Blood cultures 01/01: (+) 2/2 bottle is positive for yeast (not kristin albicans/dub) Urine culture 01/01: kristin glabrata complex Sputum culture 01/01 - yeast not kristin albicans Repeat blood cultures 01/03 - Negative so far Spoke with lab on 01/08/20 and they sent out sensitivities on the fungal cultures No vegetations noted in Echo Ophthalmology evaluation noted. No signs of fungal endophthalmitis on ophthalmology exam Discussed with ID Dr Moore on 01/12/20 Since patient has cleared fungus from last blood culture, he recommended to change to fluconazole to complete 2 weeks therapy afebrile Completed fluconazole x2 weeks Acute metabolic encephalopathy: Likely multifactorial from hip fracture, status post surgery, analgesics, underlying dementia, sepsis -Stroke code called on 12/26/2019 as documented below in regards to facial asymmetry; no acute CVA -Patient still does not follow much commands, still mumbles words Acute renal failure on CKD 3 Creatinine increased from 0.8 to 3.1 At one point volume overload was noted given falls and lower extremity edema, given IV Lasix Creatinine stable Hypernatremia Difficulty in placing IV access, even with ultrasound guidance Discussed with nephrology service, continue free water flushes, monitor sodium Hypertension: Now better controlled with addition of hydralazine -Usual p.o. medication (lisinopril) on hold Facial asymmetry, Acute CVA ruled out Per Dr. Jose Mcfadden's notes: -CT head on 12/25/2019 presentation without acute findings but mentioned Old lacunar infarct within the right thalamus -in the AM of 12/26/2019, patient was speaking more to medical team. However he has facial asymmetry more pronounced when speaking (able to talk more with right side of the mouth compared to the left). A stroke alert was called to expedite CT head scan and brain MRI. Patient able to answer some questions about his name and he does not express acute symptoms. He moves the upper extremities. He has left femoral neck fracture and his legs are in waffle boots -CT head 12/26/2019: No acute intracranial findings patient with not CT head finding of stroke and is likely not a candidate for TPA because of unclear chronicity of facial asymmetry -MRI Brain 12/26/2019 No acute intracranial findings. Exam moderately compromised by motion artifact although diagnostic. Extensive atrophy and small vessel disease. No intracranial mass or pathologic enhancement. -stroke is unlikely, patient proceeded to orthopedic surgery on 12/26/2019, post- operatively patient continues to have facial asymmetry with is visible with speech but no other focal symptoms other than poor orientation to the hospital setting. -patient's at the bedside on 12/28/2019 reports that patient may have Parkinson's disease or dementia that was not formally diagnosed as outpatient, baseline often forgetful at home, and that patient's facial features of facial asymmetry is baseline Troponin level elevated: Per Dr. Jose Mcfadden's notes: -elevated troponins from demand ischemia -the security shift supervisor was concerned that patient with more confusion and workup by nocturnalist Dr. Garcia included troponins of which were elevated as 2.7 on night time of 12/27/2019, Dr. Garcia reports he discussed with orthopedics to allow for IV heparin to be started because of elevated troponins. IV heparin was started. Second troponin 2.95 in AM of 12/28/2019. On 12/28/2019 morning exam by day time hospitalist, patient awake and not as agitated as he was on . Patient denied pain of the chest or abdomen or of the legs. -12/28/2019: discussed with Dr. Azul from cardiology that patient's echoca rdiogram reflects old infarction which does not reflect elevated troponins on this hospital stay; Dr. Azul advised no further IV heparin and give beta leonides treatment BPH (benign prostatic hyperplasia): -tamsulosin and finasteride Hematuria following pulling anderson Had urinary retention afterwards. Anderson had to be placed again Anderson was removed yesterday but still retaining Will place back anderson. Will likely be discharged on anderson and to follow up urology outpatient for continued evaluation and management Continue Anderson catheter Goals of care Patient not yet ready to transition to [facility] facility mainly from dehydration, hyponatremia, from poor oral intake DVT ppx- hep sq Admission and Anticipated Discharge Date Admission Date: December 25, 2019 Subjective ff up for s/p hip surgery, sepsis, encephalopathy, etc. seen with ANGEL Ward at bedside throughout whole encounter seen resting in bed, sitting up, alert, oriented x 2 conversing, answering most questions appropriately in sentences states he is hungry and would like to eat denies dyspnea, chest pain ,nausea, or any other pain tolerating tube feeding well no other signs/symptoms Review of Systems Review of Systems: All systems reviewed & are unremarkable except as noted in Subjective Physical Exam Physical Exam: General- oriented x 2, not in distress, speaks in sentences with no effort or accessory muscle use less weak appearing Eyes- anicteric Neck- no JVD Lungs- clear breath sounds bilaterally, no rales/wheezes Heart- normal rate, regular rhythm; no murmurs Abdomen- normal bowel sounds, nondistended, soft, nontender Extremities- no pretibial edema, no calf tenderness left hip: no signs of infection Neuro- more alert, oriented x 2; no new gross focal neurologic deficits Skin- warm & dry Results & Data Results & Data ([facility]) Vital Signs (Past 12 Hours) Vital Signs Temp Pulse Resp BP Pulse Ox 01/19/20 20:52 101 H 123/64 93 01/19/20 14:58 36.4 C L 88 18 118/75 87 L Laboratory Results all noted and reviewed
--- NOTE | 2020-01-20 04:29 | Death Pronouncement Note ---
Date of Service January 20, 2020 Pronouncement Note Admission Date Admission Date: December 25, 2019 Date and Time of Date of : 01/20/20 Time of : 04:40 Contributing Factors (1) Fall: Summary Additional details: Discharge summary to be accomplished by Dr. Michael. Additional Data Confirmation of : no pulse, no respirations, no heart sounds and pupils fixed and dilated Family: contacted Attending/PCP notified?: No Attending physician: Gio Michael MD Was code activated?: No
--- NOTE | 2020-01-28 13:12 | Discharge Summary ---
Date of Service January 28, 2020 Admission HPI Per Admitting Provider This is a 84 year old Male who was at home and reportedly was got up after sleeping in the night time and fell down several feet from where he was sleeping as per his Dorina ([phone]). Patient appears to have auditory impairment and most of the history provided by his at the bedside. Patient apparently did not have loss of consciousness as he called out for help. Patient was brought to the ED and found to have Mildly displaced left femoral neck fracture. Patient also seen to be hypertensive in the ED likely because of underlying hypertension which is exacerbated by pain from the fall injury. Patient has anderson placed in the ED and urine analysis noted to have bacteria and ED provider started ceftriaxone antibiotic. Patient also noted to have redness of medial left thigh and patient's reports that patient often wets himself from urination and does not keep the area dry as it should be. Allergies: Patient's denies that patient has an drug allergies to food or medications Past Surgical History: Patient's denies that patient has had any surgery in the past Family Health History: Patient's denies that health problems with patient's biological relations Primary Care Provider: Darell Garner PA-C Admission Exam Per Admitting Provider Constitutional: comfortable Eyes: PERRL, conjunctivae normal, anicteric sclerae EOM intact bilaterally ENMT: external ear and nose normal, oropharynx normal Ears: + hearing impairment Neck: trachea midline, no thyromegaly normal visual inspection Respiratory: normal respiratory effort, lungs clear to auscultation Cardiovascular: Rate/Rhythm: regular rate Gastrointestinal (Abdomen): normal bowel sounds, soft, nontender, no hepatosplenomegaly Musculoskeletal: Head/Neck/Chest: normocephalic and head atraumatic Skin: no rashes, warm and dry + rash (left medial thigh rash) Neurologic: PERRL, EOMI, accommodation nl, no face palsy, no dysarthria Psychiatric: Orientation: alert and cooperative Genitourinary: no testicular masses, no penis abnormality (anderson) Principal Diagnosis LEFT HIP FRACTURE, S/P LEFT HIP HEMIARTHROPLASTY SEPSIS, SECONDARY TO FUNGEMIA ACUTE METABOLIC ENCEPHALOPATHY Discharge Exam Patient . Discharge Data Allergies Allergy/AdvReac Type Severity Reaction Status Date / Time No Known Allergies Allergy Verified 12/25/19 05:50 Consultations 12/25/19 07:11 ED Decision to Admit Stat 12/25/19 07:27 Consult Orthopedic Surgery Routine 12/25/19 07:51 Consult Case Management - Discharge Planning Routine 12/25/19 07:56 Consult Anesthesiology Routine 12/25/19 12:52 Consult Anesthesiology Routine 12/28/19 08:00 Consult Cardiology Routine 12/31/19 09:06 Consult Nephrology Routine 12/31/19 18:20 Consult Orthopedic Surgery Routine 01/02/20 21:00 Consult Papier Mache Molder Routine 01/04/20 10:13 Consult Ophthalmology Routine 01/04/20 11:02 Consult Infectious Diseases Routine 01/07/20 10:25 Consult Palliative Care Routine 01/17/20 09:46 Consult Nephrology Routine Procedures Performed Operation Date: 12/26/19 11:40 Actual Procedures p Left Bipolar Hemiarthroplasty(Left) - Gadiel Del Rosario DO Ordered Studies 12/25/19 06:35 CT head/brain wo con Stat 12/26/19 07:41 CT head/brain wo con Stat 12/26/19 07:48 MR brain wo/w con Stat 12/27/19 21:55 CT head/brain wo con Stat 01/02/20 05:42 CT abd pelvis wo con Urgent 01/05/20 08:08 CT head/brain wo con Stat 01/18/20 07:41 CT head/brain wo con Routine 01/18/20 07:52 CT chest wo con Routine Hospital Course (1) Status post fall: 84-year-old male with history of hypertension BPH presenting with left hip fracture status post fall. Prolonged hospital course (1) Fall: -From H&P on 12/25/19 that "This is a 84 year old Male who was at home and reportedly was got up after sleeping in the night time and fell down several feet from where he was sleeping as per his Dorina ([phone]). Patient appears to have auditory impairment and most of the history provided by his at the bedside. Patient apparently did not have loss of consciousness as he called out for help. Patient was brought to the ED and found to have Mildly displaced left femoral neck fracture. Patient also seen to be hypertensive in the ED likely because of underlying hypertension which is exacerbated by pain from the fall injury. Patient has anderson placed in the ED and urine analysis noted to have bacteria and ED provider started ceftriaxone antibiotic. Patient also noted to have redness of medial left thigh and patient's reports that patient often wets himself from urination and does not keep the area dry as it should be." (2) Closed fracture of left hip: -s/p Left hip hemiarthroplasty on 12/26/2019 Postoperative course complicated by delirium with poor appetite, not cooperative with taking p.o. medications, 1:1 placed--> DC oxycodone and Dilaudid, Ativan--> somewhat improved Also treated with Unasyn for enterococcus UTI Subsequently developed fever, leukocytosis up to 30,000, acute renal failure with creatinine increasing to 3, associated with decreased responsiveness Aspiration suspected, transferred to ICU, eventually intubated, G-tube placed Found to have possible aspiration pneumonia, fungemia and yeast in urine culture Orthopedic service does not feel surgical wound is infected Given daptomycin, Zosyn, caspofungin with improvement in fever, leukocytosis Extubated 1 day later Post extubation, patient's mental status improving although gradually--> more awake, follows simple commands, but still confused patient had to be placed on tube feeding secondary to dysphagia, likely from Intubation improvement of mental status and cognitive status was very slow, likely from fracture, surgery, sepsis, renal failure, poor nutritional status Palliative care service consulted, patient transitioned to comfort measures at 4:00 of 01/20/2020, patient found to be unresponsive, no heart or breath sounds Pronounced Severe sepsis Fungemia Enterococcus faecalis UTI Aspiration pneumonia with acute renal failure Blood cultures 01/01: (+) 2/2 bottle is positive for yeast (not kristin albicans/dub) Urine culture 01/01: kristin glabrata complex Sputum culture 01/01 - yeast not kristin albicans Repeat blood cultures 01/03 - Negative No vegetations noted in Echo Ophthalmology evaluation noted. No signs of fungal endophthalmitis on ophthalmology exam Discussed with ID Dr Moore on 01/12/20 Since patient has cleared fungus from last blood culture, he recommended to change to fluconazole to complete 2 weeks therapy Completed fluconazole x2 weeks Acute metabolic encephalopathy: Likely multifactorial from hip fracture, status post surgery, analgesics, underlying dementia, sepsis -Stroke code called on 12/26/2019 as documented below in regards to facial asymmetry; no acute CVA Acute renal failure on CKD 3 Creatinine increased from 0.8 to 3.1 At one point volume overload was noted given falls and lower extremity edema, given IV Lasix Creatinine stable Hypernatremia given D5W Difficulty in placing IV access, even with ultrasound guidance Discussed with nephrology service, continue free water flushes, monitor sodium Hypertension: better controlled with addition of hydralazine Facial asymmetry, Acute CVA ruled out Per Dr. Jose Mcfadden's notes: -CT head on 12/25/2019 presentation without acute findings but mentioned Old lacunar infarct within the right thalamus -in the AM of 12/26/2019, patient was speaking more to medical team. However he has facial asymmetry more pronounced when speaking (able to talk more with right side of the mouth compared to the left). A stroke alert was called to expedite CT head scan and brain MRI. Patient able to answer some questions about his name and he does not express acute symptoms. He moves the upper extremities. He has left femoral neck fracture and his legs are in waffle boots -CT head 12/26/2019: No acute intracranial findings patient with not CT head finding of stroke and is likely not a candidate for TPA because of unclear chronicity of facial asymmetry -MRI Brain 12/26/2019 No acute intracranial findings. Exam moderately compromised by motion artifact although diagnostic. Extensive atrophy and small vessel disease. No intracranial mass or pathologic enhancement. -stroke is unlikely, patient proceeded to orthopedic surgery on 12/26/2019, post- operatively patient continues to have facial asymmetry with is visible with speech but no other focal symptoms other than poor orientation to the hospital setting. -patient's at the bedside on 12/28/2019 reports that patient may have Parkinson's disease or dementia that was not formally diagnosed as outpatient, baseline often forgetful at home, and that patient's facial features of facial asymmetry is baseline Troponin level elevated: Per Dr. Jose Mcfadden's notes: -elevated troponins from demand ischemia -the night nurse was concerned that patient with more confusion and workup by nocturnalist Dr. Garcia included troponins of which were elevated as 2.7 on night time of 12/27/2019, Dr. Garcia reports he discussed with orthopedics to allow for IV heparin to be started because of elevated troponins. IV heparin was started. Second troponin 2.95 in AM of 12/28/2019. On 12/28/2019 morning exam by day time hospitalist, patient awake and not as agitated as he was on . Patient denied pain of the chest or abdomen or of the legs. -12/28/2019: discussed with Dr. Azul from cardiology that patient's echocardiogram reflects old infarction which does not reflect elevated troponins on this hospital stay; Dr. Azul advised no further IV heparin and give beta leonides treatment BPH (benign prostatic hyperplasia): -tamsulosin and finasteride Hematuria following pulling anderson Had urinary retention afterwards. Anderson had to be placed again Patient's family, including his and sons, updated with patient's medical condition and plan of care regularly Total Time Total Time Spent Total Time Spent (In Minutes): < 30 minutes Discharge Plan Discharge Items Patient Disposition: Discharge Diagnosis: Fall with Closed fracture of left hip s/p Left hip hemiarthroplasty on 12/26/2019 UTI (urinary tract infection) Acute encephalopathy Hypertension elevated troponins from demand ischemia Facial asymmetry Addtl Attending Provider Instructions: px
== END 2020-01-20 05:50 | disposition expired | DRG 521 ==
LOC: ED 05:28 → SUATTDRO 08:08 → 2N 08:08 → 1E 12-26 08:53 → 2N 12-26 09:28 → 1E 01-02 18:12 → 2S 01-04 10:59 → 3W 01-07 16:06